=== PATIENT | male | born 1945 | race African-American/Black ===

== ENCOUNTER 2018-03-13 10:13 | Emergency (ER) | payer OTHER ==
--- NOTE | 2018-03-13 11:13 | RAD REPORT ---
EXAM DESCRIPTION: CT - Ct Stroke Brain Wo Cont - 03/13/2018 11:06 am CLINICAL HISTORY: CVA symptomology. Dizziness. COMPARISON: None. TECHNIQUE: All CT scans are performed using dose optimization technique as appropriate and may inclu de automated exposure control or mA/KV adjustment according to patient size. FINDINGS: No intracranial hemorrhage, hydrocephalus or extra-axial fluid collection.Mild brain atrop hy with mild chronic microvascular ischemic changes in the periventricular white matter.No areas of b rain edema or evidence of midline shift. The paranasal sinuses and mastoids are clear. The calvarium is intact. IMPRESSION: No acute intracranial abnormality.
[2018-03-13 11:20] LABS: Bicarbonate 22 mEq/L (21-31); Glucose Level 91 mg/dL (65-120); Potassium 4.4 mEq/L (3.6-5.0); Sodium Level 135 mEq/L (135-145)
[2018-03-13 11:21] LABS: BUN Blood Urea Nitrogen 17 mg/dL (6-20)
[2018-03-13 11:28] LABS: Protime INR 0.98
[2018-03-13 11:30] LABS: Absolute Monocytes 0.4 K/uL (0.1-1.3); Basophils % 0.8 % (0-1.3); Eosinophils % 1.4 % (0-4.4); Hematocrit 38.9 % (39.6-49.0); Lymphocytes % 22.6 % (15.3-44.8); MCH 28.7 pg (27.0-35.0); MCV 89.5 fL (80-100); MPV 7.5 fL (7.6-11.3); Monocytes % 9.7 % (3.3-12.3); RBC Red Blood Cell Count 4.35 M/uL (4.33-5.43)
[2018-03-13] MEDS ORDERED: NA CHLORIDE 0.9% 0 ML ONE (12:34)
--- NOTE | 2018-03-13 12:44 | RAD REPORT ---
EXAM DESCRIPTION: RAD - Chest Single View - 03/13/2018 11:23 am CLINICAL HISTORY: Chest pain. COMPARISON: 03/11/2013 FINDINGS: Portable technique limits examination quality. The lungs are grossly clear. The heart is upper limit of normal in size. No displaced fractures. IMPRESSION: No acute intrathoracic process suspected.
--- NOTE | 2018-03-13 12:47 | EDPHYS ---
Physician Documentation [facility] Name: Ruel Smith Age: 72 yrs Sex: Male : 1945 Arrival Date: 03/13/2018 Time: 10:15 Bed 5 Private MD: Aneesh Phan C ED Physician Jaquan Araya HPI: 03/13 10:51 This 72 yrs old Black Male presents to ER via Ambulatory with complaints of Dizziness. wa 10:51 The patient presents with dizziness, feeling faint, lightheadedness, feeling off wa balance. Onset: The symptoms/episode began/occurred just prior to arrival. Context: occurred [facility], occurred while the patient was standing, just prior to the episode the patient experienced no apparent symptoms, c/o feeling off balance for over 1 month. has not seen a doc for this. states felt maybe related to old age. today while standing at [facility] became lightheaded [facility] states feeling a bit better now but still dizzy. denies FROST, chest pain, SOB, abd pain. took all his meds after breakfast before going to [facility] today. h/o HTN and renal failure. s/p kidney transplant at [facility] 2 yrs ago. Modifying factors: The symptoms are alleviated by nothing, the symptoms are aggravated by standing up, walking. Associated signs and symptoms: Pertinent positives: near-syncope, Pertinent negatives: abdominal pain, agitation, blurred vision, chest pain, confusion, diaphoresis, focal weakness, head injury, headache, nausea, shortness of breath, syncope, tingling. Severity of symptoms: At their worst the symptoms were moderate this morning, in the emergency department the symptoms have improved. Patient's baseline: Neuro: alert and fully oriented, Motor: states has been feeling off-balance for over 1 month. states has to be real careful when walks, Ambulation: walks without assistance. as noted above, on-going x 1-2 months. The patient has not recently seen a physician. Historical: - Allergies: 10:21 Morphine; la1 - Home Meds: 10:45 Prograf 1 mg Oral cap every 12 hours [Active]; Myfortic 180 mg oral TbEC twice a day sv [Active]; prednisone 5 mg Oral tab once daily [Active]; aspirin 81 mg Oral chew 1 tab once daily [Active]; Plavix 75 mg Oral tab 1 tab once daily [Active]; Coreg 25 mg Oral tab 1 tab 2 times per day [Active]; nifedipine 60 mg Oral TbER 1 tab once daily [Active]; hydralazine 100 mg Oral tab 1 tab 2 times per day [Active]; Lipitor 20 mg Oral tab 1 tab once daily [Active]; cholecalciferol (vitamin D3) oral oral [Active]; ergocalciferol (vitamin D2) oral oral [Active]; ferrous sulfate 325 mg (65 mg iron) Oral tab twice a day [Active]; losartan 25 mg oral tab 1 tab once daily [Active]; - PMHx: 10:21 Hypertension; la1 - PSHx: 10:21 renal transplant; Heart stents; total knees; la1 10:45 Knee surgery; Left nephrectomy; sv - Immunization history:: Adult Immunizations up to date. - Social history:: Smoking status: Patient/guardian denies using tobacco. - Family history:: not pertinent. - Hospitalizations: : No recent hospitalization is reported. ROS: 10:59 Constitutional: Negative for fever, chills, and weight loss, Eyes: Negative for injury, wa pain, redness, and discharge, ENT: Negative for injury, pain, and discharge, Neck: Negative for injury, pain, and swelling, Cardiovascular: Negative for chest pain, palpitations, and edema, Respiratory: Negative for shortness of breath, cough, wheezing, and pleuritic chest pain, Abdomen/GI: Negative for abdominal pain, nausea, vomiting, diarrhea, and constipation, Back: Negative for injury and pain, : Negative for injury, bleeding, discharge, and swelling, MS/Extremity: Negative for injury and deformity, Skin: Negative for injury, rash, and discoloration, Psych: Negative for depression, anxiety, suicide ideation, homicidal ideation, and hallucinations. 10:59 Neuro: Positive for dizziness, gait disturbance, Negative for altered mental status, headache, loss of consciousness, numbness, seizure activity, speech changes, tingling, tremor, visual changes, weakness, acute changes. 10:59 All other systems are negative. Exam: 11:00 Constitutional: This is a well developed, well nourished patient who is awake, alert, wa and in no acute distress. Head/Face: Normocephalic, atraumatic. Eyes: Pupils equal round and reactive to light, extra-ocular motions intact. Lids and lashes normal. Conjunctiva and sclera are non-icteric and not injected. Cornea within normal limits. Periorbital areas with no swelling, redness, or edema. ENT: Nares patent. No nasal discharge, no septal abnormalities noted. Tympanic membranes are normal and external auditory canals are clear. Oropharynx with no redness, swelling, or masses, exudates, or evidence of obstruction, uvula midline. Mucous membranes moist. Neck: Trachea midline, no thyromegaly or masses palpated, and no cervical lymphadenopathy. Supple, full range of motion without nuchal rigidity, or vertebral point tenderness. No Meningismus. Chest/axilla: Normal chest wall appearance and motion. Nontender with no deformity. No lesions are appreciated. Cardiovascular: Regular rate and rhythm with a normal S1 and S2. No gallops, murmurs, or rubs. Normal PMI, no JVD. No pulse deficits. Respiratory: Lungs have equal breath sounds bilaterally, clear to auscultation and percussion. No rales, rhonchi or wheezes noted. No increased work of breathing, no retractions or nasal flaring. Abdomen/GI: Soft, non-tender, with normal bowel sounds. No distension or tympany. No guarding or rebound. No evidence of tenderness throughout. Back: No spinal tenderness. No costovertebral tenderness. Full range of motion. Skin: Warm, dry with normal turgor. Normal color with no rashes, no lesions, and no evidence of cellulitis. MS/ Extremity: Pulses equal, no cyanosis. Neurovascular intact. Full, normal range of motion. Psych: Awake, alert, with orientation to person, place and time. Behavior, mood, and affect are within normal limits. 11:00 Eyes: Nystagmus: mild horizontal nystagmus noted with lateral gazing bilaterally. 11:00 Neuro: Orientation: is normal, Mentation: is normal, Memory: is normal, Cranial nerves: grossly normal, Cerebellar function: dysmetria is noted on both sides, mild, heel to bojorquez testing is normal, able to perform alternating rapid hand movements, Motor: is grossly normal based on the patient's age, moves all fours, strength is normal, Gait: not tested. due to concern for fall. Vital Signs: 10:21 BP 125 / 70; Pulse 65; Resp 19; Temp 97.9; Pulse Ox 100% on R/A; Weight 104.33 kg; la1 Height 5 ft. 11 in. (180.34 cm); 11:54 BP 135 / 67; Pulse 57 MON; Resp 20; Pulse Ox 97% on R/A; sv 12:46 BP 132 / 70; Pulse 58; Resp 15; Pulse Ox 99% on R/A; sv 10:21 Body Mass Index 32.08 (104.33 kg, 180.34 cm) la1 11:54 Sinus bradycardia with Occasional PVCs sv NIH Stroke Scale Scores: 10:25 NIHSS Score: 0 sv MDM: 10:[address] 11:03 Differential diagnosis: cardiac arrhythmia, CVA, TIA, vertigo, needs r/o for posterior wa circulation CVA. will work up and consult neurology. 12:32 Data reviewed: vital signs, nurses notes, lab test result(s), EKG, radiologic studies. ct Test interpretation: by ED physician or midlevel provider: EKG: HR 70. occasional PVC's. . 12:35 Test interpretation: by ED physician or midlevel provider: CXR: blunting of L wa costophrenic angle. . 12:36 Test interpretation: by ED physician or midlevel provider: labs noted for nml Cr. nml wa BMP. nml cbc. nml troponin. CT brain. atrophy and microangiopathy. no acute process. Response to treatment: the patient's symptoms have resolved after treatment, symptoms resolved. pt ambulated without help in ER. I do not have neurology contract negotiator. my plan: transfer for neurology assessment and MRI. pt and spouse refused admit and would rather do so as out-pt. risks and benefits explained and accepted. will give out pt neurology referral. pt and spouse understand to return emergently if symptoms reoccur and or if they change their mind and agrees to emergent work up . 03/13 10:40 Order name: Troponin (emerg Dept Use Only); Complete Time: 12:03/13 10:40 Order name: Basic Metabolic Panel; Complete Time: 12:03/13 10:40 Order name: CBC with Diff; Complete Time: 12:03/13 10:40 Order name: Protime (+inr); Complete Time: 12:03/13 10:52 Order name: Glucose, Ancillary Testing; Complete Time: 12:25 EDMS 03/13 10:40 Order name: CT Stroke Brain w/o Contrast; Complete Time: 12:00 ct 03/13 10:40 Order name: Stroke CXR 1 View; Complete Time: 12:49 ct 03/13 10:40 Order name: EKG; Complete Time: 10:41 ct 03/13 10:40 Order name: Accucheck; Complete Time: 10:58 ct 03/13 10:40 Order name: Cardiac monitoring; Complete Time: 10:40 ct 03/13 10:40 Order name: EKG - Nurse/Tech; Complete Time: 10:40 ct 03/13 12:43 Order name: Urine Dipstick--Ancillary (enter results) la 03/13 10:40 Order name: IV Saline Lock; Complete Time: 10:58 ct 03/13 10:40 Order name: Labs collected and sent; Complete Time: 10:58 ct 03/13 10:40 Order name: NPO; Complete Time: 10:41 ct 03/13 10:40 Order name: O2 Sat Monitoring; Complete Time: 10:41 ct 03/13 10:40 Order name: Stroke Swallow Screen; Complete Time: 13:06 ct 03/13 10:40 Order name: Urine Dipstick-Ancillary (obtain specimen); Complete Time: 13:06 ct Administered Medications: 13:06 CANCELLED (PT leaving AMA): NS 0.9% 500 ml IV at bolus once sv Point of Care Testing: Blood Glucose: 10:50 Blood Glucose: 82 mg/dL; sv Ranges: Critical Glucose Levels:Adult <50 mg/dl or >400 mg/dl <40 mg/dl or >180 mg/dl Disposition: 03/13/18 12:46 Patient has left against medical advice. Impression: Acute Dizziness, Dysequilibrium. - Patients states they are going to Home. - Condition is Stable. - Discharge Instructions: Dizziness, [id number]. Follow up: Fazal Rothman MD; When: Tomorrow; Reason: Re-evaluation by your physician. Follow up: Kwame Huitron MD; When: Tomorrow; Reason: Re-evaluation by your physician. - Problem is an ongoing problem. - Symptoms have improved. - Notes: continue your medication as prescribed. please return here immediately of your symptoms reoccur. Otherwise make an appoinment and see one of the neurologist prescribed you within 48 hours. you may need ans MRI to make sure you do not have a stroke NIH Stroke Scale - NIH Stroke Score Date: 03/13/2018 Time: 10:25 Total Score = 0 1a. Level of Consciousness (LOC) - 0(Alert) 1b. Level of Consciousness (LOC) (Year \T\ Age) - 0(Both) 1c. LOC Commands (Open \T\ Closes Eyes/System Software Programmer) - 0(Both) 2. Best Gaze (Lateral Gaze Paresis) - 0(Normal) 3. Visual Field Loss - 0(No visual loss) 4. Facial Palsy - 0(Normal) 5a. Left Arm: Motor (10-second hold) - 0(No drift) 5b. Right Arm: Motor (10-second hold) - 0(No drift) 6a. Left Leg: Motor (5-second hold - always test supine) - 0(No drift) 6b. Right Leg: Motor (5-second hold - always test supine) - 0(No drift) 7. Limb Ataxia (finger/nose \T\ heel/bojorquez - test with eyes open) - 0(Absent) 8. Sensory Loss (pinprick arms/legs/face) - 0(Normal) 9. Best Language: Aphasia (description/naming/reading) - 0(No aphasia) 10. Dysarthria (speech clarity - read or repeat words) - 0(Normal) 11. Extinction and Inattention (visual/tactile/auditory/spatial/personal) - 0(No abnormality) Initials: sv Signatures: Dispatcher [employer] EDRitu Mendosa RN RN Villa Amato RN RN la1 Jaquan Araya MD MD wa Corrections: (The following items were deleted from the chart) 13:06 12:32 NS 0.9% 500 ml IV at bolus once ordered. [facility] 13:08 12:46 03/13/2018 12:46 Patients has left against medical advice. Impression: sv Acute Dizziness; Dysequilibrium. Patient states they are going to Home. Condition is Stable. Follow up: Fazal Rothman; When: Tomorrow; Reason: Re-evaluation by your physician. Follow up: Kwame Huitron; When: Tomorrow; Reason: Re-evaluation by your physician. Problem is an ongoing problem. Symptoms have improved. wa
--- NOTE | 2018-03-13 12:47 | ER ---
Nurse's Notes [facility] Name: Ruel Smith Age: 72 yrs Sex: Male : 1945 Arrival Date: 03/13/2018 Time: 10:15 Bed 5 Private MD: Aneesh Phan C Diagnosis: Acute Dizziness;Dysequilibrium Presentation: 03/13 10:19 Presenting complaint: Patient states: At about 0920 I got a dizzy spell. I feel like my la1 equilibrium is off, dump grader equal and strong, negative for facial droop or arm drift. Transition of care: patient was not received from another setting of care. Onset of symptoms was March 13, 2018. Initial Sepsis Screen: Does the patient meet any 2 criteria? No. Patient's initial sepsis screen is negative. Does the patient have a suspected source of infection? No. Patient's initial sepsis screen is negative. Care prior to arrival: None. 10:19 Method Of Arrival: Ambulatory la1 10:19 Acuity: ALIA 3 la1 Historical: - Allergies: 10:21 Morphine; la1 - Home Meds: 10:45 Prograf 1 mg Oral cap every 12 hours [Active]; Myfortic 180 mg oral TbEC twice a day sv [Active]; prednisone 5 mg Oral tab once daily [Active]; aspirin 81 mg Oral chew 1 tab once daily [Active]; Plavix 75 mg Oral tab 1 tab once daily [Active]; Coreg 25 mg Oral tab 1 tab 2 times per day [Active]; nifedipine 60 mg Oral TbER 1 tab once daily [Active]; hydralazine 100 mg Oral tab 1 tab 2 times per day [Active]; Lipitor 20 mg Oral tab 1 tab once daily [Active]; cholecalciferol (vitamin D3) oral oral [Active]; ergocalciferol (vitamin D2) oral oral [Active]; ferrous sulfate 325 mg (65 mg iron) Oral tab twice a day [Active]; losartan 25 mg oral tab 1 tab once daily [Active]; - PMHx: 10:21 Hypertension; la1 - PSHx: 10:21 renal transplant; Heart stents; total knees; la1 10:45 Knee surgery; Left nephrectomy; sv - Immunization history:: Adult Immunizations up to date. - Social history:: Smoking status: Patient/guardian denies using tobacco. - Family history:: not pertinent. - Hospitalizations: : No recent hospitalization is reported. Screenin:25 Abuse screen: Denies threats or abuse. Denies injuries from another. Nutritional sv screening: No deficits noted. Tuberculosis screening: No symptoms or risk factors identified. Fall Risk No fall in past 12 months (0 pts). No secondary diagnosis (0 pts). No IV (0 pts). Ambulatory Aid- None/Bed Rest/Nurse Assist (0 pts). Gait- Normal/Bed Rest/Wheelchair (0 pts) Mental Status- Oriented to own ability (0 pts). Total Orr Fall Scale indicates No Risk (0-24 pts). 11:30 Patient has been NPO before screening. The patient is alert, able to follow commands. sv The patient does not exhibit slurred or garbled speech The patient is not exhibiting difficulty speaking. The patient does not exhibit difficulty understanding words. The patient is able to swallow own secretions with no drooling or need for suction. Patient tolerated one teaspoon of water. No drooling, immediate coughing, gurgling, or clearing of the throat was noted. The patient tolerated 90mL of water. No drooling, immediate coughing, gurgling, or clearing of the throat was noted. The patient passed the bedside swallow screening. Oral medications may be given as ordered. Contact Physician for further diet orders. Provider notified of bedside swallow screening results: Jaquan Araya MD. Assessment: 10:25 General: Appears in no apparent distress. comfortable, well developed, Behavior is sv calm, cooperative, appropriate for age. Pain: Denies pain. Neuro: Level of Consciousness is awake, alert, obeys commands, Oriented to person, place, time, situation, Grader Green Meat are equal bilaterally Moves all extremities. Full function Gait is unsteady, Speech is normal, Facial symmetry appears normal, Pupils are PERRLA, Reports dizziness, since 0930 today "tightness in my head" (pt pointing to his entire forehead). Denies numbness headache. Cardiovascular: Patient's skin is warm and dry. Rhythm is sinus bradycardia. Respiratory: Respiratory effort is even, unlabored, Respiratory pattern is regular, symmetrical. Derm: Skin is normal. Musculoskeletal: Range of motion: intact in all extremities, Swelling absent. 12:35 Reassessment: Patient appears in no apparent distress at this time. Patient and/or sv family updated on plan of care and expected duration. Pain level reassessed. Patient is alert, oriented x 3, equal unlabored respirations, skin warm/dry/pink. Pt ambulatory to the bathroom with no assistance. Pt denies dizziness. Patient states feeling better. Patient states symptoms have improved. 13:07 Reassessment: Patient appears in no apparent distress at this time. Patient and/or sv family updated on plan of care and expected duration. Pain level reassessed. Patient is alert, oriented x 3, equal unlabored respirations, skin warm/dry/pink. Patient states feeling better. Patient states symptoms have improved. Neuro: Denies dizziness. Vital Signs: 10:21 BP 125 / 70; Pulse 65; Resp 19; Temp 97.9; Pulse Ox 100% on R/A; Weight 104.33 kg; la1 Height 5 ft. 11 in. (180.34 cm); 11:54 BP 135 / 67; Pulse 57 MON; Resp 20; Pulse Ox 97% on R/A; sv 12:46 BP 132 / 70; Pulse 58; Resp 15; Pulse Ox 99% on R/A; sv 10:21 Body Mass Index 32.08 (104.33 kg, 180.34 cm) la1 11:54 Sinus bradycardia with Occasional PVCs sv NIH Stroke Scale Scores: 10:25 NIHSS Score: 0 sv ED Course: 10:15 Patient arrived in ED. mr 10:16 Aneesh Phan MD is Private Physician. mr 10:20 Triage completed. la1 10:21 Arm band placed on left wrist. la1 10:25 Jaquan Araya MD is Attending Physician. wa 10:25 Patient has correct armband on for positive identification. Placed in gown. Bed in low sv position. Call light in reach. Side rails up X 1. Adult w/ patient. playground monitor on. Pulse ox on. NIBP on. Door closed. Warm blanket given. Head of bed elevated. 10:26 ED physician to see patient. sv 10:35 Ritu Moscoso, JAY is Primary Nurse. sv 10:35 Missed attempt(s): 22 gauge in right forearm. done by Thomas bucio. Bleeding sv controlled, band aid applied, catheter tip intact. 10:[address] via stretcher. sv 11:01 CT completed. Patient moved to radiology. cw1 11:06 CT Stroke Brain w/o Contrast In Process Unspecified. EDMS 11:09 Stroke CXR 1 View In Process Unspecified. EDMS 11:22 Initial lab(s) drawn, by me, sent to lab. Inserted saline lock: 22 gauge in right jb1 antecubital area, using aseptic technique. Blood collected. 12:45 Fazal Rothman MD is Referral Physician. wa 12:45 Kwame Huitron MD is Referral Physician. wa 13:07 No provider procedures requiring assistance completed. IV discontinued, intact, sv bleeding controlled, No redness/swelling at site. Pressure dressing applied. Administered Medications: 13:06 CANCELLED (PT leaving AMA): NS 0.9% 500 ml IV at bolus once sv Point of Care Testing: Blood Glucose: 10:50 Blood Glucose: 82 mg/dL; sv Ranges: Outcome: 13:07 AMA AMA form signed sv 13:07 Condition: stable 13:07 Discharge instructions given to patient, family, Pt and spouse instructed to return to the nearest ER if problems reoccur. Pt stated that he would come back if he felt bad again. 13:08 Patient left the ED. sv NIH Stroke Scale - NIH Stroke Score Date: 03/13/2018 Time: 10:25 Total Score = 0 1a. Level of Consciousness (LOC) - 0(Alert) 1b. Level of Consciousness (LOC) (Year \\T\\ Age) - 0(Both) 1c. LOC Commands (Open \\T\\ Closes Eyes/Software Product Manager) - 0(Both) 2. Best Gaze (Lateral Gaze Paresis) - 0(Normal) 3. Visual Field Loss - 0(No visual loss) 4. Facial Palsy - 0(Normal) 5a. Left Arm: Motor (10-second hold) - 0(No drift) 5b. Right Arm: Motor (10-second hold) - 0(No drift) 6a. Left Leg: Motor (5-second hold - always test supine) - 0(No drift) 6b. Right Leg: Motor (5-second hold - always test supine) - 0(No drift) 7. Limb Ataxia (finger/nose \\T\\ heel/bojorquez - test with eyes open) - 0(Absent) 8. Sensory Loss (pinprick arms/legs/face) - 0(Normal) 9. Best Language: Aphasia (description/naming/reading) - 0(No aphasia) 10. Dysarthria (speech clarity - read or repeat words) - 0(Normal) 11. Extinction and Inattention (visual/tactile/auditory/spatial/personal) - 0(No abnormality) Initials: sv Signatures: Dispatcher [employer] Thomas Holbrook jb1 Ritu Moscoso RN RN sv Rivera, Maria mr Hernandez, Nancy cw1 Villa Amato RN RN la1 Jaquan Araya MD MD wa
[2018-03-13 13:02] LABS: Urine Blood NEGATIVE (NEG); Urine Glucose NEGATIVE (NEG); Urine Protein NEGATIVE (NEG); Urine Specific Gravity 1.015 (1.005-1.030)
[2018-03-13 13:14] VITALS: TEMP 97.9
[2018-03-13 13:17] VITALS: BP 132/70; O2SAT 99
--- NOTE | 2018-03-14 14:47 | EKG ---
Test Date: 2018-03-13 Test Time: 10:37:46 Business Risk Consultant: SWG MEASUREMENT RESULTS: Intervals: Rate: 70 MT: 180 QRSD: 90 QT: 420 QTc: 453 [place]: P: 43 MT: 180 QRS: -29 T: -3 INTERPRETIVE STATEMENTS: Sinus rhythm and premature ventricular complexes Abnormal ECG Compared to ECG 12/14/2015 09:59:58 Ventricular premature complex(es) now present Sinus bradycardia no longer present Electronically Signed On 03-14-18 14:46:49 CDT by William Wynn
== END 2018-03-13 13:08 | disposition left against medical advice (07) ==
LOC: ER 10:13
DX: R42 Dizziness and giddiness (principal); I10 Essential (primary) hypertension; Z94.0 Kidney transplant status; Z95.818 Presence of other cardiac implants and grafts; Z79.01 Long term (current) use of anticoagulants; Z79.82 Long term (current) use of aspirin; Z88.5 Allergy status to narcotic agent
CPT/HCPCS: 36415; 70450; 71045; 80048; 81003; 82962; 84484; 85025; 85610; 93005; 99285

== ENCOUNTER 2023-04-18 17:24 | Emergency (ER) | payer OTHER ==
--- OUTSIDE RECORDS SUMMARY | 2023-04-18 17:31 | XMS REPORT | Continuity of Care Document ---
:1945 Author Organization [facility] [place] [facility] t Address [address] [facility] [address] [place] [id number] Care Team Providers Name Role Phone Unknown, Physician Primary Care Physician Unavailable KRYSTAL LEMON Attending Clinician Unavailable ELVIS CASE Attending Clinician Unavailable Krystal Lemon MD Attending Clinician Doctor Unassigned, [place] Attending Clinician Unavailable Michelle Terrell LVN Attending Clinician Unavailable Francine THOMPSON, Zoe Krause Attending Clinician David Summers DO Attending Clinician Cristobal Marsh DO Attending Clinician Travis Taveras MD Attending Clinician TRAVIS TAVERAS Attending Clinician Unavailable Nurse, [facility] Attending Clinician Unavailable Suellen Godoy Attending Clinician SUELLEN ROJAS Attending Clinician Unavailable Adrian Benson MD Attending Clinician Unavailable ELVIS CASE M.D. Attending Clinician Unavailable Only, Adc Test Attending Clinician Unavailable DEXA, SCAN Attending Clinician Unavailable KRYSTAL LEMON Admitting Clinician Unavailable Krystal Lemon MD Admitting Clinician Travis Taveras MD Admitting Clinician TRAVIS TAVERAS Admitting Clinician Unavailable Payers Payer Name Policy Type Policy Number Effective Date Expiration Date S ource MEDICARE PART A [id number] 2008 2022 AND B 00:00:00 00:00:00 MEDICARE PART A [id number] 2008 \\T\\ B 00:00:00 [employer] MEDICARE [id number] 2022 ADVANTAGE PPO 00:00:00 Problems Condition Condition Condition Status Onset Resolution Last Treating Co mments Source Name Details Category Date Date Treatment Clinician Date Fatigue Fatigue Disease Active [facility] 4-23 [facility] 00:00: 00 Pneumonia Pneumonia Disease Active Uni vers due to due to 11-06 ity of COVID-19 COVID-19 00:00: [place] virus virus 00 Medical Branch Acute Acute Disease Active Univers respirator respirator 11-06 it y of y failure y failure 00:[place] due to due to 00 Medical COVID-19 COVID-19 Branch 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 07-24 He alth sm sm 00:00: 00 Vitamin D Vitamin D Disease Active UT deficiency deficiency 07-24 He alth , , 00:00: unspecifie unspecifie 00 d d Urinary Urinary Disease Active UT urgency urgency 1- Health 00:00: 00 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 00:00: 00 Malignant Malignant Disease Active UT neoplasm neoplasm 11-21 Health of left of left 00:00: kidney kidney 00 Lung Lung Disease Active UT nodules nodules 21 Health 00:00: 00 Urinary Urinary Disease Active UT frequency frequency 11-21 Heal th 00:00: 00 Other Other Disease Active UT nonspecifi nonspecifi 121 He alth c abnormal c abnormal 00:00: finding of finding of 00 lung field lung field 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 00:00: irais irais 00 Acquired Acquired Disease Active UT renal cyst renal cyst 7-15 He alth 00:00: 00 Acute Acute Disease Active UT kidney kidney 6 Health failure, failure, 00:00: unspecifie unspecifie 00 d d Elevated Elevated Disease Active UT prostate prostate 04-23 Health specific specific 00:00: antigen antigen 00 (PSA) (PSA) 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-23 He alth status status 00:00: 00 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 04-23 He alth ant ant 00:00: disorder disorder 00 Oliguria Oliguria Disease Active UT and anuria and anuria 04-23 He alth 00:00: 00 Benign Benign Disease Active UT prostatic prostatic 04-23 Heal th hyperplasi hyperplasi 00:00: a a 00 Chronic Chronic Disease Active Univers renal renal 3-10 ity of disease disease 00:00: [place] 00 Medical Branch Acquired Acquired Problem Active UT renal cyst renal cyst Ph ysici ans Acute Acute Problem Active UT cystitis cystitis Physic i without without ans hematuria hematuria Acute Acute Problem Active UT kidney kidney Physici failure, failure, ans unspecifie unspecifie d d Benign Benign Problem Active UT prostatic prostatic Phys ici hyperplasi hyperplasi an s a (BPH) a (BPH) with with urinary urinary urgency urgency Arthritis Arthritis Problem Active UT Physici ans Urinary Urinary Problem Active UT frequency frequency Phys ici ans CAD CAD Problem Active UT (coronary (coronary Phys ici artery artery ans disease) disease) ESRD (end ESRD (end Problem Active UT stage stage Physici renal renal ans disease) disease) Essential Essential Problem Active UT (primary) (primary) Phys ici hypertensi hypertensi an s on on Hyperchole Hyperchole Problem Active U T sterolemia sterolemia Ph ysici ans Hypertensi Hypertensi Problem Active U T ve ve Physici nephroscle nephroscle an s rosis rosis GERD GERD Problem Active UT (gastroeso (gastroeso Ph ysici phageal phageal ans reflux reflux disease) disease) Simple Simple Problem Active UT obesity obesity Physici ans Lupus Lupus Problem Active UT anticoagul anticoagul Ph ysici ant ant ans disorder disorder Malignant Malignant Problem Active UT neoplasm neoplasm Physic i of left of left ans kidney kidney Kidney Kidney Problem Active UT neoplasm neoplasm Physic i ans Oliguria Oliguria Problem Active UT and anuria and anuria Ph ysici ans Kidney Kidney Problem Active UT transplant transplant Ph ysici status status ans Elevated Elevated Problem Active UT prostate prostate Physic i specific specific ans antigen antigen (PSA) (PSA) PHT PHT Problem Active UT (pulmonary (pulmonary Ph ysici hypertensi hypertensi an s on) on) BPH BPH Problem Active UT (benign (benign Physici prostatic prostatic ans hyperplasi hyperplasi a) a) Urinary Urinary Problem Active UT urgency urgency Physici ans Lung Lung Problem Active UT nodules nodules Physici ans 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 Physici erythemato erythemato an s irais irais Allergies, Adverse Reactions, Alerts Allergy Allergy Status Severity Reaction(s) Onset Inactive Treating Comm ents Source Name Type Date Date Clinician Morphine Allergy Active UT to 07-22 Health substanc 00:00: e 00 Morphine Propensi Active Hallucinatio Univers ty to ns 2-15 ity of adverse 00:00: [place] reaction 00 Medical s Branch MORPHINE DRUG Active Hallucinates Un olga INGREDI 2-15 ity of 00:00: [place] 00 Medical Branch morphine Allergy Active UT to drug Physici (finding ans ) Family History Family Member Diagnosis Comments Start Date Stop Date Source Mother Family history of malignant [facility] neoplasm Mother Family history of cataracts [facility] Mother Family history of [facility] hypertension Mother Family history of type 2 [facility] diabetes mellitus Mother Family history of cardiac [facility] disorder Father Family history of cataracts [facility] Father Family history of [facility] cerebrovascular accident (CVA) Father Family history of cardiac [facility] disorder Sister Family history of malignant [facility] neoplasm Brother Family history of ESRD (end [facility] stage renal disease) Social History Social Habit Start Date Stop Date Quantity Comments Source History of Current smoker [facility] tobacco use Exposure to 2022-11-20 2022-11-30 Not sure [facility] SARS-CoV-2 00:00:00 10:31:00 (event) Alcohol intake 2022-04-22 2022-04-22 Ex-drinker [facility] 00:00:00 00:00:00 (finding) [facility] Tobacco use and 2015-12-16 2015-12-16 Never used Universit y of exposure 00:00:00 00:00:00 [facility] Sex Ass[birth year] Universit y of 00:00:00 00:00:00 [facility] Smoking Status Start Date Stop Date Source Ex-smoker 2021-07-22 00:00:00 2021-07-22 00:00:00 [facility] Never smoker [facility] Medications Ordered Filled Start Stop Current Ordering Indication Dosage Frequency Signature Comments Components Source Medication Medication Date Date Medication? Clinician (SIG) Name Name water for 2021- No PRN, Univers irrigation 04-22 Starting ity of irrigation 16:24: 16:44 on Wed [place] solution 00 :52 04/22/22 at Medic al 1124, Branch Until Wed04/22/22 at 1144, Routine, Intra-op simethicone 2021- No PRN, Unive rs (GAS RELIEF 04-22 Starting ity of (SIMETHICON 16:24: 16:44 on Wed [place] as E)) 40 00 :52 04/22/22 at Medical mg/0.6 mL 1124, Branch drops Until Wed04/22/22 at 1144, Routine, Intra-op lactated 2021- No 1000mL at 42 [facility] rs ringers IV 04-22 mL/hr, ity of infusion 15:15: 15:17 1,000 mL, [place] as 1,000 mL 00 :00 IV Medical Infusion, Branch ONCE, 1 dose, On Wed04/22/22 at 1015, Routine, DSU Pre-op lactated 2021- No 1000mL at 42 [facility] rs ringers IV 04-22 mL/hr, ity of infusion 15:15: 15:17 1,000 mL, [place] as 1,000 mL 00 :00 IV Medical Infusion, [place] ONCE, 1 dose, On Wed04/22/22 at 1015, Routine, DSU Pre-op atorvastati Yes 20mg Take 20 mg Univers n (LIPITOR) 04-22 by mouth ity of 20 mg 15:04: at [place] tablet 51 bedtime. Medical Branch clopidogrel Yes 75mg Take 75 mg Univers (PLAVIX) 75 04-22 by mouth ity of mg tablet 15:04: daily. [address] Garlic Yes Take by Univers (ODOR FREE 04-22 mouth. ity of GARLIC) Tab 15:04: [address] Cholecalcif Yes 1{capsu Take 1 U nivers juan, 04-22 le} capsule by ity of Vitamin D3, 15:04: mouth [place] (VITAMIN 51 daily. Medical D3) 2,000 Branch unit capsule prednisoLON 2022-0 Yes 5mg Take 5 mg U nivers E 5 mg 6-22 by mouth ity of tablet 15:04: daily. [place] [address] Medical Branch tacrolimus 0 Yes 4mg Take 4 mg Un olga 1 mg 6-22 by mouth ity of capsule 15:04: every 12 [place] [address] (twelve) Medical hours. Branch mycophenola 0 Yes 360mg Take 360 U nivers te sodium 6-22 mg by ity of 180 mg EC 15:04: mouth [place] tablet 51 every 12 Medical (twelve) Branch hours. 180mg tablet, take 2 tablets Q12, 0800 and 1999 aspirin 81 2021-0 Yes 81mg Take 81 mg U nivers mg EC 6-22 by mouth ity of tablet 15:04: daily. [place] [address] Medical Branch ferrous 2021-0 Yes 325mg Take 325 Unive rs sulfate 325 6-22 mg by ity of mg (65 mg 15:04: mouth 2 [place] iron) 51 (two) Medical tablet times Branch daily. carvediloL 0 Yes 25mg Take 25 mg U nivers 25 mg 6-22 by mouth 2 ity of tablet 15:04: (two) [place] [address] times Medical daily with Branch meals. NIFEdipine 0 Yes 60mg Take 60 mg U nivers ER 60 mg 6-22 by mouth ity of tablet 15:04: daily. [place] [address] Medical Branch hydrALAZINE 0 Yes 100mg Take 100 U nivers 100 mg 6-22 mg by ity of tablet 15:04: mouth 2 [place] [address] (two) Medical times Branch daily. losartan 25 2021-0 Yes 25mg Take 25 mg Univers mg tablet 6-22 by mouth ity of 15:04: daily. [place] [address] Medical Branch vitamin 2021-0 Yes 1000ug Take 1,000 Un olga B-12 6-22 mcg by ity of (VITAMIN 15:04: mouth [place] B-12) 1,000 51 daily. Medica l mcg tablet Branch Acetaminoph 0 Yes 1{capsu Take 1 U nivers en 500 mg 6-22 le} capsule by ity of Cap 15:04: mouth as [place] 51 needed for Medical Pain Branch (scale 1-3). atorvastati 2021-0 Yes 20mg Take 20 mg Univers n (LIPITOR) 6-22 by mouth ity of 20 mg 15:04: at [place] tablet 51 bedtime. Medical Branch clopidogrel Yes 75mg Take 75 mg Univers (PLAVIX) 75 6-22 by mouth ity of mg tablet 15:04: daily. [place] [address] Medical Branch Garlic 0 Yes Take by Univers (ODOR FREE 6-22 mouth. ity of GARLIC) Tab 15:04: [place] [address] Medical Branch Cholecalcif 0 Yes 1{capsu Take 1 U nivers juan, 6-22 le} capsule by ity of Vitamin D3, 15:04: mouth [place] (VITAMIN 51 daily. Medical D3) 2,000 Branch unit capsule prednisoLON 0 Yes 5mg Take 5 mg U nivers E 5 mg 6-22 by mouth ity of tablet 15:04: daily. [place] [address] Medical Branch tacrolimus 0 Yes 4mg Take 4 mg Un olga 1 mg 6-22 by mouth ity of capsule 15:04: every 12 [place] [address] (twelve) Medical hours. Branch mycophenola 0 Yes 360mg Take 360 U nivers te sodium 6-22 mg by ity of 180 mg EC 15:04: mouth [place] [id number] every 12 Medical (twelve) Branch hours. 180mg tablet, take 2 tablets Q12, 0800 and 1999 aspirin 81 2021-0 Yes 81mg Take 81 mg U nivers mg EC 6-22 by mouth ity of tablet 15:04: daily. [place] [address] Medical Branch ferrous 0 Yes 325mg Take 325 Unive rs sulfate 325 6-22 mg by ity of mg (65 mg 15:04: mouth 2 [facility] [place] [facility]) (two) Medical tablet times Branch daily. carvediloL 0 Yes 25mg Take 25 mg U nivers 25 mg 6-22 by mouth 2 ity of tablet 15:04: (two) [place] [address] times [facility] daily with Branch meals. NIFEdipine 0 Yes 60mg Take 60 mg U nivers ER 60 mg 6-22 by mouth ity of tablet 15:04: daily. [place] [address] Medical Branch hydrALAZINE 0 Yes 100mg Take 100 U nivers 100 mg 6-22 mg by ity of tablet 15:04: mouth 2 [place] [address] (two) Medical times Branch daily. losartan 25 2021-0 Yes 25mg Take 25 mg Univers mg tablet 6-22 by mouth ity of 15:04: daily. [place] [address] Medical Branch vitamin 0 Yes 1000ug Take 1,000 Un olga B-12 6-22 mcg by ity of (VITAMIN 15:04: mouth [place] B-12) 1,000 51 daily. Medica l mcg tablet Branch Acetaminoph 0 Yes 1{capsu Take 1 U nivers en 500 mg 6-22 le} capsule by ity of Cap 15:04: mouth as [place] [address] needed for Medical Pain Branch (scale 1-3). atorvastati Yes 20mg Take 20 mg Univers n (LIPITOR) 6-22 by mouth ity of 20 mg 15:04: at [place] tablet 51 bedtime. Medical Branch clopidogrel 0 Yes 75mg Take 75 mg Univers (PLAVIX) 75 6-22 by mouth ity of mg tablet 15:04: daily. [place] [address] Medical Branch Garlic 0 Yes Take by Univers (ODOR FREE 6-22 mouth. ity of GARLIC) Tab 15:04: [place] [address] Medical Branch Cholecalcif 0 Yes 1{capsu Take 1 U nivers juan, 6-22 le} capsule by ity of Vitamin D3, 15:04: mouth [place] (VITAMIN 51 daily. Medical D3) 2,000 Branch unit capsule prednisoLON Yes 5mg Take 5 mg U nivers E 5 mg 6-22 by mouth ity of tablet 15:04: daily. [place] [address] Medical Branch tacrolimus 0 Yes 4mg Take 4 mg Un olga 1 mg 6-22 by mouth ity of capsule 15:04: every 12 [place] [address] (twelve) Medical hours. Branch mycophenola Yes 360mg Take 360 U nivers te sodium 6-22 mg by ity of 180 mg EC 15:04: mouth [place] tablet 51 every 12 Medical (twelve) Branch hours. 180mg tablet, take 2 tablets Q12, 0800 and 2000 aspirin 81 0 Yes 81mg Take 81 mg U nivers mg EC 6-22 by mouth ity of tablet 15:04: daily. [place] [address] Medical Branch ferrous 0 Yes 325mg Take 325 Unive rs sulfate 325 6-22 mg by ity of mg (65 mg 15:04: mouth 2 [place] iron) 51 (two) Medical tablet times Branch daily. carvediloL 2022-0 Yes 25mg Take 25 mg U nivers 25 mg 6-22 by mouth 2 ity of tablet 15:04: (two) [place] [address] times Medical daily with Branch meals. NIFEdipine 2021-0 Yes 60mg Take 60 mg U nivers ER 60 mg 6-22 by mouth ity of tablet 15:04: daily. [place] [address] Medical Branch hydrALAZINE 2021-0 Yes 100mg Take 100 U nivers 100 mg 6-22 mg by ity of tablet 15:04: mouth 2 [place] [address] (two) Medical times Branch daily. losartan 25 2021-0 Yes 25mg Take 25 mg Univers mg tablet 6-22 by mouth ity of 15:04: daily. [place] [address] Medical Branch vitamin 2021-0 Yes 1000ug Take 1,000 Un olga B-12 6-22 mcg by ity of (VITAMIN 15:04: mouth [place] B-12) 1,000 51 daily. Medica l mcg tablet Branch Acetaminoph Yes 1{capsu Take 1 U nivers en 500 mg 6-22 le} capsule by ity of Cap 15:04: mouth as [place] [address] needed for Medical Pain Branch (scale 1-3). mycophenola 2021-0 Yes 360mg Q.5D Take 360 U T te 4-13 mg by Health (Myfortic) 00:00: mouth 2 180 MG EC 00 (two) tablet times a day. mycophenola 2021-0 Yes 360mg Q.5D Take 360 U T te 4-13 mg by Health (Myfortic) 00:00: mouth 2 180 MG EC 00 (two) tablet times a day. mycophenola 2021-0 Yes 360mg Q.5D Take 360 U T te 4-13 mg by Health (Myfortic) 00:00: mouth 2 180 MG EC 00 (two) tablet times a day. mycophenola 2021-0 Yes 360mg Q.5D Take 360 U T te 4-13 mg by Health (Myfortic) 00:00: mouth 2 180 MG EC 00 (two) tablet times a day. mycophenola 2021-0 Yes 360mg Q.5D Take 360 U T te 4-13 mg by Health (Myfortic) 00:00: mouth 2 180 MG EC 00 (two) tablet times a day. tacrolimus 2021-0 Yes TAKE BY UT (Prograf) 1 4-10 MOUTH 4 Healt h MG capsule 00:00: CAPSULES 00 EVERY 12 HOURS tacrolimus 2022-0 Yes TAKE BY UT (Prograf) 1 4-10 MOUTH 4 Healt h MG capsule 00:00: CAPSULES 00 EVERY 12 HOURS tacrolimus 2022-0 Yes TAKE BY UT (Prograf) 1 4-10 MOUTH 4 Healt h MG capsule 00:00: CAPSULES 00 EVERY 12 HOURS tacrolimus 2022-0 Yes TAKE BY UT (Prograf) 1 4-10 MOUTH 4 Healt h MG capsule 00:00: CAPSULES 00 EVERY 12 HOURS tacrolimus 2022-0 Yes TAKE BY UT (Prograf) 1 4-10 MOUTH 4 Healt h MG capsule 00:00: CAPSULES 00 EVERY 12 HOURS atorvastati 2022-0 Yes 20mg Take 20 mg UT n (Lipitor) 3-14 by mouth Heal th 20 MG 00:00: every tablet 00 night. predniSONE 2022-0 Yes 5mg QD Take 5 mg UT (Deltasone) 3-14 by mouth 1 He alth 5 MG tablet 00:00: (one) time 00 each day. atorvastati 2022-0 Yes 20mg Take 20 mg UT n (Lipitor) 3-14 by mouth Heal th 20 MG 00:00: every tablet 00 night. predniSONE 2022-0 Yes 5mg QD Take 5 mg UT (Deltasone) 3-14 by mouth 1 He alth 5 MG tablet 00:00: (one) time 00 each day. atorvastati 2022-0 Yes 20mg Take 20 mg UT n (Lipitor) 3-14 by mouth Heal th 20 MG 00:00: every tablet 00 night. predniSONE 2022-0 Yes 5mg QD Take 5 mg UT (Deltasone) 3-14 by mouth 1 He alth 5 MG tablet 00:00: (one) time 00 each day. atorvastati 2022-0 Yes 20mg Take 20 mg UT n (Lipitor) 3-14 by mouth Heal th 20 MG 00:00: every tablet 00 night. predniSONE 2022-0 Yes 5mg QD Take 5 mg UT (Deltasone) 3-14 by mouth 1 He alth 5 MG tablet 00:00: (one) time 00 each day. atorvastati 2022-0 Yes 20mg Take 20 mg UT n (Lipitor) 3-14 by mouth Heal th 20 MG 00:00: every tablet 00 night. predniSONE 2022-0 Yes 5mg QD Take 5 mg UT (Deltasone) 3-14 by mouth 1 He alth 5 MG tablet 00:00: (one) time 00 each day. losartan 2022-0 Yes 25mg QD Take 25 mg UT (Cozaar) 25 3-12 by mouth 1 He alth MG tablet 00:00: (one) time 00 each day. losartan 2022-0 Yes 25mg QD Take 25 mg UT (Cozaar) 25 3-12 by mouth 1 He alth MG tablet 00:00: (one) time 00 each day. losartan 2022-0 Yes 25mg QD Take 25 mg UT (Cozaar) 25 3-12 by mouth 1 He alth MG tablet 00:00: (one) time 00 each day. losartan 2022-0 Yes 25mg QD Take 25 mg UT (Cozaar) 25 3-12 by mouth 1 He alth MG tablet 00:00: (one) time 00 each day. losartan 2022-0 Yes 25mg QD Take 25 mg UT (Cozaar) 25 3-12 by mouth 1 He alth MG tablet 00:00: (one) time 00 each day. ferrous 2022-0 Yes 1{tbl} Q.5D Take 1 UT sulfate 325 3-06 tablet by Hea lth (65 Fe) MG 00:00: mouth 2 EC tablet 00 (two) times a day. ferrous 2022-0 Yes 1{tbl} Q.5D Take 1 UT sulfate 325 3-06 tablet by Hea lth (65 Fe) MG 00:00: mouth 2 EC tablet 00 (two) times a day. ferrous 2022-0 Yes 1{tbl} Q.5D Take 1 UT sulfate 325 3-06 tablet by Hea lth (65 Fe) MG 00:00: mouth 2 EC tablet 00 (two) times a day. ferrous 2022-0 Yes 1{tbl} Q.5D Take 1 UT sulfate 325 3-06 tablet by Hea lth (65 Fe) MG 00:00: mouth 2 EC tablet 00 (two) times a day. ferrous 2022-0 Yes 1{tbl} Q.5D Take 1 UT sulfate 325 3-06 tablet by Hea lth (65 Fe) MG 00:00: mouth 2 EC tablet 00 (two) times a day. carvedilol 2022-0 Yes UT (Coreg) 25 2-24 Health MG tablet 00:00: 00 carvedilol 2022-0 Yes UT (Coreg) 25 2-24 Health MG tablet 00:00: 00 carvedilol 2022-0 Yes UT (Coreg) 25 2-24 Health MG tablet 00:00: 00 carvedilol 2022-0 Yes UT (Coreg) 25 2-24 Health MG tablet 00:00: 00 carvedilol 2022-0 Yes UT (Coreg) 25 2-24 Health MG tablet 00:00: 00 clopidogrel 2022-0 Yes 75mg QD Take 75 mg UT (Plavix) 75 2-21 by mouth 1 He alth MG tablet 00:00: (one) time 00 each day. clopidogrel 2022-0 Yes 75mg QD Take 75 mg UT (Plavix) 75 2-21 by mouth 1 He alth MG tablet 00:00: (one) time 00 each day. clopidogrel 2022-0 Yes 75mg QD Take 75 mg UT (Plavix) 75 2-21 by mouth 1 He alth MG tablet 00:00: () time 00 each day. clopidogrel 2022-0 Yes 75mg QD Take 75 mg UT (Plavix) 75 2-21 by mouth 1 He alth MG tablet 00:00: (one) time 00 each day. clopidogrel 2022-0 Yes 75mg QD Take 75 mg UT (Plavix) 75 2-21 by mouth 1 He alth MG tablet 00:00: (one) time 00 each day. hydrALAZINE 2022-0 Yes UT (Apresoline 2-10 Health ) 100 MG 00:00: tablet 00 NIFEdipine 2022-0 Yes UT XL 2-10 Health (Procardia 00:00: XL) 60 MG 00 24 hr tablet hydrALAZINE 2022-0 Yes UT (Apresoline 2-10 Health ) 100 MG 00:00: tablet 00 NIFEdipine 2022-0 Yes UT XL 2-10 Health (Procardia 00:00: XL) 60 MG 00 24 hr tablet hydrALAZINE 2022-0 Yes UT (Apresoline 2-10 Health ) 100 MG 00:00: tablet 00 NIFEdipine 2022-0 Yes UT XL 2-10 Health (Procardia 00:00: XL) 60 MG 00 24 hr tablet hydrALAZINE 2022-0 Yes UT (Apresoline 2-10 Health ) 100 MG 00:00: tablet 00 NIFEdipine 2021-0 Yes UT XL 2-10 Health (Procardia 00:00: XL) 60 MG 00 24 hr tablet hydrALAZINE 2021-0 Yes UT (Apresoline 2-10 Health ) 100 MG 00:00: tablet 00 NIFEdipine 2021-0 Yes UT XL 2-10 Health (Procardia 00:00: XL) 60 MG 00 24 hr tablet K Phos 0 Yes 1{tbl} Q.5D Take 1 UT [place]-Sod 2-03 tablet by Health Phos Di & 00:00: mouth 2 [place] 00 (two) (Phospha times a 250 day. Neutral) 155-852-130 MG tablet K Phos 0 Yes 1{tbl} Q.5D Take 1 UT [place]-Sod 2-03 tablet by Health Phos Di & 00:00: mouth 2 [place] 00 (two) (Phospha times a 250 day. Neutral) 155-852-130 MG tablet K Phos 0 Yes 1{tbl} Q.5D Take 1 UT [place]-Sod 2-03 tablet by Health Phos Di & 00:00: mouth 2 [place] 00 (two) (Phospha times a 250 day. Neutral) 155-852-130 MG tablet K Phos 0 Yes 1{tbl} Q.5D Take 1 UT [place]-Sod 2-03 tablet by Health Phos Di & 00:00: mouth 2 [place] 00 (two) (Phospha times a 250 day. Neutral) 155-852-130 MG tablet K Phos 0 Yes 1{tbl} Q.5D Take 1 UT [place]-Sod 2-03 tablet by Health Phos Di & 00:00: mouth 2 [place] 00 (two) (Phospha times a 250 day. Neutral) 155-852-130 MG tablet predniSONE 0 Yes 5mg 5 mg, Univer s (DELTASONE) 1-11 Oral, ity of tablet 5 mg 15:00: [place], [place] First dose Medical (after Branch last modificati on) on Wed11/11/21 at 0900, Until Discontinu ed, Routine atorvastati Yes 20mg Take 20 mg Univers n (LIPITOR) -11 by mouth ity of 20 mg 14:31: at [place] tablet 32 bedtime. Medical Branch clopidogrel Yes 75mg Take 75 mg Univers (PLAVIX) 75 1-11 by mouth ity of mg tablet 14:31: daily. [address] Branch Garlic Yes Take by Univers (ODOR FREE 1-11 mouth. ity of GARLIC) Tab 14:31: [address] Branch Cholecalcif Yes 1{capsu Take 1 U nivers juan, 1-11 le} capsule by ity of Vitamin D3, 14:31: mouth [place] (VITAMIN 32 daily. Medical D3) 2,000 Branch unit capsule prednisoLON Yes 5mg Take 5 mg U nivers E 5 mg 1-11 by mouth ity of tablet 14:31: daily. [address] Branch tacrolimus Yes 4mg Take 4 mg Un olga 1 mg 1-11 by mouth ity of capsule 14:31: every 12 [place] [address] (twelve) Medical hours. Branch mycophenola Yes 360mg Take 360 U nivers te sodium 1-11 mg by ity of 180 mg EC 14:31: mouth [place] tablet 32 every 12 Medical (twelve) Branch hours. 180mg tablet, take 2 tablets Q12, 0800 and 2000 aspirin 81 0 Yes 81mg Take 81 mg U nivers mg EC 1-11 by mouth ity of tablet 14:31: daily. [address] Branch ferrous Yes 325mg Take 325 Unive rs sulfate 325 1-11 mg by ity of mg (65 mg 14:31: mouth 2 [place] iron) (two) Medical tablet times Branch daily. atorvastati Yes 20mg Take 20 mg Univers n (LIPITOR) 1-11 by mouth ity of 20 mg 14:31: at [place] tablet 32 bedtime. Medical Branch clopidogrel Yes 75mg Take 75 mg Univers (PLAVIX) 75 1-11 by mouth ity of mg tablet 14:31: daily. [address] Branch Garlic Yes Take by Univers (ODOR FREE 1-11 mouth. ity of GARLIC) Tab 14:31: [address] Branch Cholecalcif Yes 1{capsu Take 1 U nivers juan, 1-11 le} capsule by ity of Vitamin D3, 14:31: mouth [place] (VITAMIN 32 daily. Medical D3) 2,000 Branch unit capsule prednisoLON Yes 5mg Take 5 mg U nivers E 5 mg 1-11 by mouth ity of tablet 14:31: daily. [place] 32 Medical Branch tacrolimus 0 Yes 4mg Take 4 mg Un olga 1 mg 1-11 by mouth ity of capsule 14:31: every 12 [place] 32 (twelve) Medical hours. Branch mycophenola Yes 360mg Take 360 U nivers te sodium 1-11 mg by ity of 180 mg EC 14:31: mouth [place] tablet 32 every 12 Medical (twelve) Branch hours. 180mg tablet, take 2 tablets Q12, 0800 and 1999 aspirin 81 0 Yes 81mg Take 81 mg U nivers mg EC 1-11 by mouth ity of tablet 14:31: daily. [place] 32 Medical Branch ferrous 0 Yes 325mg Take 325 Unive rs sulfate 325 1-11 mg by ity of mg (65 mg 14:31: mouth 2 [place] iron) 32 (two) Medical tablet times Branch daily. metoprolol 2021- No 100mg Take 100 U nivers succinate 11-1111 mg by ity of XL (TOPROL 10:15: 00:00 mouth [place] XL) 100 mg 19 :00 daily. Medical 24 hr Branch tablet lisinopril 2021- No 40mg Take 40 mg Univers (PRINIVIL,Z 11-11 by mouth ity of ESTRIL) 40 10:15: 00:00 [place]. [place] mg tablet 19 :00 Medical Branch HYDRALAZINE 2021- No 100mg Take 100 Univers HCL 11-11 mg by ity of (HYDRALAZIN 10:15: 00:00 mouth [place] E ORAL) 19 :00 daily. Medical Branch NAPROXEN 2021- No Take by Unive rs SODIUM 11-1111 mouth. ity of (ALEVE 10:15: 00:00 [place] ORAL) 19 :00 Medical Branch carvedilol 2021- No 25mg Take 25 mg Univers 25 mg 11-11 by mouth 2 ity of tablet 10:15: 00:00 (two) [place] 19 :00 times Medical daily with Branch meals. NIFEdipine 2021-0 2021- No 60mg Take 60 mg Univers ER 60 mg SR 11-11 by mouth ity of tablet 10:15: 00:00 daily. [place] 19 :00 [facility] Branch losartan 25 2021-0 2022- No 25mg Take 25 mg Univers mg tablet 11-11 by mouth ity o f 10:15: 00:00 daily. [place] 19 :00 [facility] Branch ascorbic 2-0 Yes 500mg Take 500 UT acid 1-11 mg by Health (Vitamin C) 00:00: mouth. 500 MG 00 tablet zinc 2021-0 Yes 1{capsu Q.5D Take 1 UT sulfate 1-11 le} capsule by Health (Zincate) 00:00: mouth 2 220 (50 Zn) 00 (two) MG capsule times a day. ascorbic 2-0 Yes 500mg Take 500 UT acid 1-11 mg by Health (Vitamin C) 00:00: mouth. 500 MG 00 tablet zinc 2-0 Yes 1{capsu Q.5D Take 1 UT sulfate 1-11 le} capsule by Health (Zincate) 00:00: mouth 2 220 (50 Zn) 00 (two) MG capsule times a day. ascorbic 2-0 Yes 500mg Take 500 UT acid 1-11 mg by Health (Vitamin C) 00:00: mouth. 500 MG 00 tablet zinc 2-0 Yes 1{capsu Q.5D Take 1 UT sulfate 1-11 le} capsule by Health (Zincate) 00:00: mouth 2 220 (50 Zn) 00 (two) MG capsule times a day. ascorbic 2022-0 Yes 500mg Take 500 UT acid 1-11 mg by Health (Vitamin C) 00:00: mouth. 500 MG 00 tablet zinc 2022-0 Yes 1{capsu Q.5D Take 1 UT sulfate 1-11 le} capsule by Health (Zincate) 00:00: mouth 2 220 (50 Zn) 00 (two) MG capsule times a day. ascorbic 2022-0 Yes 500mg Take 500 UT acid 1-11 mg by Health (Vitamin C) 00:00: mouth. 500 MG 00 tablet zinc 2022-0 Yes 1{capsu Q.5D Take 1 UT sulfate 1-11 le} capsule by Health (Zincate) 00:00: mouth 2 220 (50 Zn) 00 (two) MG capsule times a day. ascorbic 2022-0 Yes [id number] 500mg Take 1 U nivers acid, 1-11 tablet by ity of vitamin C, 00:00: mouth 3 [place] 500 mg 00 (three) Medical tablet times Branch daily. zinc 2022-0 Yes [id number] 220mg Take 1 Unive rs sulfate 50 1-11 capsule by ity of mg zinc 00:00: mouth 2 [place] (220 mg) 00 (two) Medical capsule times Branch daily. ascorbic 2022-0 Yes [id number] 500mg Take 1 U nivers acid, 1-11 tablet by ity of vitamin C, 00:00: mouth 3 [place] 500 mg 00 (three) Medical tablet times Branch daily. zinc 2022-0 Yes [id number] 220mg Take 1 Unive rs sulfate 50 1-11 capsule by ity of mg zinc 00:00: mouth 2 [place] (220 mg) 00 (two) Medical capsule times Branch daily. ascorbic 2-0 Yes [id number] 500mg Take 1 U nivers acid, 1-11 tablet by ity of vitamin C, 00:00: mouth 3 [place] 500 mg 00 (three) Medical tablet times Branch daily. zinc 2022-0 Yes [id number] 220mg Take 1 Unive rs sulfate 50 1-11 capsule by ity of mg zinc 00:00: mouth 2 [place] (220 mg) 00 (two) Medical capsule times Branch daily. ascorbic 2022-0 Yes [id number] 500mg Take 1 U nivers acid, 1-11 tablet by ity of vitamin C, 00:00: mouth 3 [place] 500 mg 00 (three) Medical tablet times Branch daily. zinc 2022-0 Yes [id number] 220mg Take 1 Unive rs sulfate 50 1-11 capsule by ity of mg zinc 00:00: mouth 2 [place] (220 mg) 00 (two) Medical capsule times Branch daily. ascorbic 2022-0 Yes [id number] 500mg Take 1 U nivers acid, 1-11 tablet by ity of vitamin C, 00:00: mouth 3 [place] 500 mg 00 (three) Medical tablet times Branch daily. zinc 2022-0 Yes [id number] 220mg Take 1 Unive rs sulfate 50 1-11 capsule by ity of mg zinc 00:00: mouth 2 [place] (220 mg) 00 (two) Medical capsule times Branch daily. hydrALAZINE 0 2021- No [id number] 100mg Take 1 Univers 100 mg 11-11 tablet by ity of tablet 00:00: 05:59 mouth [place] 00 :00 every 8 Medical (eight) Branch hours for 30 days. carvediloL 2021-0 2021- No [id number] 12.5mg Take 1 Univers 12.5 mg 11-11 tablet by ity of tablet 00:00: 05:59 mouth 2 [place] 00 :00 (two) Medical times Branch daily with meals for 30 days. hydrALAZINE 0 2021- No [id number] 100mg Take 1 Univers 100 mg 11-11 tablet by ity of tablet 00:00: 05:59 mouth [place] 00 :00 every 8 Medical (eight) Branch hours for 30 days. carvediloL 2021- No [id number] 12.5mg Take 1 Univers 12.5 mg 11-11 tablet by ity of tablet 00:00: 05:59 mouth 2 [place] 00 :00 (two) Medical times [place] daily with meals for 30 days. hydrALAZINE 0 Yes 100mg 100 mg, Un olga (APRESOLINE 1-10 Oral, Q8H, it y of ) tablet 12:00: First dose [place] as 100 mg 00 (after Medical last Branch modificati on) on Wed11/10/21 at 0600, Until Discontinu ed docusate 0 Yes 100mg 100 mg, Unive rs (COLACE) 1-10 Oral, BID, ity o f capsule 100 02:00: First dose [place] mg 00 on [facility] 11/09/21 at Branch 2000, Until Discontinu ed, Routine polyethylen 0 Yes 17g 17 g, Unive rs e glycol 1-10 Oral, ity of 3350 powder 01:55: [place], [place] 17 g 09 Starting Medical on [facility] 11/09/21 at 1955, Until Discontinu ed, Routine, Constipati on bisacodyL 0 Yes 5mg 5 mg, Univers (DULCOLAX) 1-10 Oral, ity of tablet 5 mg 01:55: [place], [place] 02 Starting Medical on [facility] 11/09/21 at 1955, Until Discontinu ed, Routine, Constipati on magnesium 2021- No 2g 2 g, IV Univ ers sulfate in 11-09 Piggyback, it y of water 2 20:15: 19:56 ONCE, 1 [place] gram/50 mL 00 :00 dose, On Medic al (4 %) [place] 11/09/21 Branch infusion 2 at 1415, g Routine predniSONE 2021- No 10mg 10 mg, Univ ers (DELTASONE) 11-09 Oral, ity of tablet 10 15:00: 22:49 DAILY, [place] mg 00 :40 First dose Medical on [place] Branch 11/09/21 at 0900, Until Discontinu ed, Routine NaCl 0.9% IV Univers (NS) 11-08 Infusion, ity of PEDIATRIC 17:30: 07:59 at 50 [place] IV infusion 00 :20 mL/hr, Medica l CONTINUOUS Branch , Starting on 11/08/21 at 1130, Until 11/10/21 at 0159, Routine foLIC acid Yes 1mg 1 mg, Univer s (FOLATE) 11-07 Oral, ity of tablet 1 mg 15:00: DAILY, [place] 00 First dose Medical on Wed Branch 11/07/21 at 0900, Until Discontinu ed, Routine ergocalcife 0 Yes [id number] 50,000 Un olga rol 11-07 Units, ity of (vitamin 15:00: Oral, [place] d2) 00 QWEEKLY, Medical (CALCIFEROL First dose Br anch ) capsule on Wed 50,000 11/07/21 at Units 0900, Until Discontinu ed, Routine enoxaparin 0 Yes 40mg 40 mg, Unive rs (LOVENOX) 11-07 Subcutaneo ity of injection 15:00: [place], [place]ILY, [place] 40 mg 00 First dose Medical on Wed Branch 11/07/21 at 0900, Until Discontinu ed, Routine clopidogreL 2021-0 Yes 75mg 75 mg, Univ ers (PLAVIX) 11-07 Oral, ity of tablet 75 15:00: DAILY, [place] mg 00 First dose Medical on Wed Branch 11/07/21 at 0900, Until Discontinu ed, Routine aspirin EC Yes 81mg 81 mg, Unive rs tablet 81 11-07 Oral, ity of mg 15:00: DAILY, [place] 00 First dose Medical on Wed11/07/21 at 0900, Until Discontinu ed, Routine carvediloL Yes 12.5mg 12.5 mg, U nivers (COREG) 11-07 Oral, BID ity of tablet 12.5 14:00: MEALS, [place] mg 00 First dose Medical (after Branch last modificati on) on Wed11/07/21 at 0800, Until Discontinu ed, Routine tacrolimus Yes 4mg 4 mg, Univer s (PROGRAF) 11-07 Oral, ity of capsule 4 14:00: Q12H, [place] mg 00 First dose Medical (after Branch last modificati on) on Wed11/07/21 at 0800, Until Discontinu ed, Routine
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 hydrALAZINE 2021- No 100mg 100 mg, U nivers (APRESOLINE 11-07 Oral, BID, i ty of ) tablet 14:00: 10:46 [place] 100 mg 00 :10 (after Medical last Branch modificati on) on Wed11/07/21 at 0800, Until Discontinu ed magnesium 2021- No [id number] 400mg 400 mg, Univers oxide 11-07 Oral, BID, ity of (MAG-OX 14:00: 03:27 4 doses, [place] 400) tablet 00 :00 First dose Me dical 400 mg on Wed11/07/21 at 0800, Last dose on Wed11/08/21 at 2000, Routine dexamethaso 2021- No 5mg 5 mg, Slow Univers ne 11-07 IV Push, ity of (DECADRON 14:00: 20:54 Q12H, [place] PHOSPHATE) 00 :30 First dose Med ical injection 5 (after Branch mg last reorder) on Wed11/07/21 at 0800, Until Discontinu ed, Routine multivitami Yes 1{tbl} 1 tablet, Univers n tablet 1 11-07 Oral, ity of tablet 05:30: DAILY, [place] 00 First dose Medical on [facility] Branch 11/06/21 at 2330, Until Discontinu ed, Routine thiamine 2021-0 Yes 100mg 100 mg, Unive rs (VITAMIN 1-07 Oral, ity of B1) tablet 05:30: DAILY, [place] 100 mg 00 First dose Medical on [facility] 11/06/21 at 2330, Until Discontinu ed, Routine zinc 2021-0 Yes 220mg 220 mg, Univers sulfate 1-07 Oral, BID, ity of (ORAZINC) 05:30: First dose [place] capsule 220 00 on [facility] Medica l mg 11/06/21 at Branch 2330, Until Discontinu ed, Routine ascorbic 2021-0 Yes 500mg 500 mg, Unive rs acid -07 Oral, TID, ity of (vitamin C) 05:30: First dose [place] (VITAMIN C) 00 on [facility] Medica l tablet 500 11/06/21 at Bran ch mg 2330, Until Discontinu ed, Routine atorvastati 2021-0 Yes 20mg 20 mg, Univ ers n (LIPITOR) 1-07 Oral, QHS, it y of tablet 20 03:00: [place] mg 00 on [facility] 11/06/21 at Branch 2100, Until Discontinu ed, Routine ferrous 2021-0 Yes 325mg 325 mg, Univer s sulfate 1-07 Oral, BID, ity of tablet 325 02:00: First dose [place] mg 00 on [facility] 11/06/21 at Branch 2000, Until Discontinu ed, Routine tacrolimus 2021-0 2022- No 3mg 3 mg, Unive rs (PROGRAF) 1 01-07 Oral, ity of capsule 3 02:00: 05:17 Q12H, [place] mg 00 :46 First dose Medical on [facility] 11/06/21 at 2000, Until Discontinu ed, Routine
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 ondansetron 2021-0 Yes 4mg 4 mg, Slow Univers (ZOFRAN 1-07 IV Push, ity of (PF)) 01:25: Q6HPRN, [place] injection 4 43 Starting Medi elicia mg on [facility] 11/06/21 at 1925, Until Discontinu ed, Routine, Nausea and Vomiting (N/V) acetaminoph Yes 650mg 650 mg, Un olga en 11-07 Oral, ity of (TYLENOL) 01:25: Q6HPRN, [place] tablet 650 22 Starting Medic al mg on [place] Branch 11/06/21 at 1925, Until Discontinu ed, Routine, Pain (scale 1-3) dexamethaso 2021- No 10mg 10 mg, IV Univers ne 11-07 Push, ity of (DECADRON 00:30: 23:45 ONCE, 1 [place] PHOSPHATE) 00 :00 dose, On Medic al injection [place] 11/06/21 Bran ch 10 mg at 1830, STAT iopamidol 2021- No [id number] 100mL 100 mL, Univers (ISOVUE 11-06 [id number] Intravenou it y of 370-500 mL) 23:23: 23:24 s, ONCE, 1 [place] injection 00 :00 dose, On Medica l 100 mL [facility] 11/06/21 Branch at 1730, Routine CALCIUM 2021- No 1{tbl} Take 1 Unive rs ACETATE 11-06 tablet by ity of ORAL 19:28: 00:00 mouth [place] 41 :00 daily. Medical Branch aspirin 325 2021- No 325mg Take 325 Univers mg tablet 11-06 mg by ity of 19:28: 00:00 mouth [place] 41 :00 daily. Medical Branch losartan 50 2021- No 50mg Take 50 mg Univers mg tablet 11-06 by mouth ity o f 19:28: 00:00 daily. [place] 41 :00 Medical Branch metoprolol 2019-11 Yes 100mg Take 100 Un olga succinate 0-01 mg by ity of XL (TOPROL 15:57: mouth [place] XL) 100 mg 46 daily. Medical 24 hr Branch tablet lisinopril 2019-11 Yes 40mg Take 40 mg U nivers (PRINIVIL,Z 0-01 by mouth ity of ESTRIL) 40 15:57: daily. [place] mg tablet 46 Medical Branch HYDRALAZINE 2019-11 Yes 100mg Take 100 U nivers HCL 0-01 mg by ity of (HYDRALAZIN 15:57: mouth [place] E ORAL) 46 daily. Medical Branch atorvastati 2019-11 Yes 20mg Take 20 mg Univers n (LIPITOR) 0-01 by mouth ity of 20 mg 15:57: at [place] tablet 46 bedtime. Medical Branch clopidogrel 2019-11 Yes 75mg Take 75 mg Univers (PLAVIX) 75 0-01 by mouth ity of mg tablet 15:57: daily. [place] [address] Medical Branch NAPROXEN 2019-11 Yes Take by Univer s SODIUM 0-01 mouth. ity of (ALEVE 15:57: [place] ORAL) 46 Medical Branch Garlic 2019-11 Yes Take by Univers (ODOR FREE 0-01 mouth. ity of GARLIC) Tab 15:57: [place] [address] Medical Branch CALCIUM 2019-11 Yes 1{tbl} Take 1 Univer s ACETATE 0-01 tablet by ity of ORAL 15:57: mouth [place] 46 daily. Medical Branch aspirin 325 2019-11 Yes 325mg Take 325 U nivers mg tablet 0-01 mg by ity of 15:57: mouth [place] 46 daily. Medical Branch carvedilol 2019-11 Yes 25mg Take 25 mg U nivers 25 mg 0-01 by mouth 2 ity of tablet 15:57: (two) [place] 46 times Medical daily with Branch meals. Cholecalcif 2019-11 Yes 1{capsu Take 1 U nivers juan, 0-01 le} capsule by ity of Vitamin D3, 15:57: mouth [place] (VITAMIN 46 daily. Medical D3) 2,000 Branch unit capsule NIFEdipine 2019-11 Yes 60mg Take 60 mg U nivers ER 60 mg SR 0-01 by mouth ity of tablet 15:57: daily. [place] [address] Medical Branch losartan 50 2019-11 Yes 50mg Take 50 mg Univers mg tablet 0-01 by mouth ity of 15:57: daily. [place] [address] Medical Branch prednisoLON 2019-11 Yes 5mg Take 5 mg U nivers E 5 mg 0-01 by mouth ity of tablet 15:57: daily. [place] [address] Medical Branch tacrolimus 2019-11 Yes 3mg Take 3 mg Un olga 1 mg 0-01 by mouth ity of capsule 15:57: every 12 [place] [address] (twelve) Medical hours. Branch mycophenola 2019-11 Yes 180mg Take 180 U nivers te sodium 0-01 mg by ity of 180 mg EC 15:57: mouth [place] tablet 46 every 12 Medical (twelve) Branch hours. aspirin 81 2019-11 Yes 81mg Take 81 mg U nivers mg EC 0-01 by mouth ity of tablet 15:57: daily. [address] Branch ferrous 2019-11 Yes 325mg Take 325 Unive rs sulfate 325 0-01 mg by ity of mg (65 mg 15:57: mouth 2 [place] iron) 46 (two) Medical tablet times [place] daily. losartan 25 2019-11 Yes 25mg Take 25 mg Univers mg tablet 0-01 by mouth ity of 15:57: daily. [address] Branch NaCl 0.9% 2019-11 Yes 1000mL at 42 Unive rs (NS) IV 0-01 mL/hr, IV ity of infusion 13:30: Infusion, [place] 1,000 mL 00 CONTINUOUS Medic al , Starting Branch [place] 08/01/20 at 0830, Until Discontinu ed, Routine, DSU Pre-op water for 2019-11 Yes PRN, Univers irrigation 0-01 Starting ity o f irrigation 13:04: [place] solution 00 08/01/20 at Medic al 0804, Branch Until Discontinu ed, Routine, Intra-op simethicone 2019-11 Yes PRN, Univer s (GAS RELIEF 0-01 Starting ity of (SIMETHICON 13:04: [place] E)) 40 00 08/01/20 at Medical mg/0.6 mL 0804, Branch drops Until Discontinu ed, Routine, Intra-op atorvastati 2019-11 Yes 20mg Take 20 mg Univers n (LIPITOR) 0-01 by mouth ity of 20 mg 10:57: at [place] tablet 46 bedtime. Medical Branch clopidogrel 2019-11 Yes 75mg Take 75 mg Univers (PLAVIX) 75 0-01 by mouth ity of mg tablet 10:57: daily. [address] Branch NAPROXEN 2019-11 Yes Take by Univer s SODIUM 0-01 mouth. ity of (ALEVE 10:57: [place] ORAL) Medical Branch Garlic 2019-11 Yes Take by Univers (ODOR FREE 0-01 mouth. ity of GARLIC) Tab 10:57: [address] Branch CALCIUM 2019-11 Yes 1{tbl} Take 1 Univer s ACETATE 0-01 tablet by ity of ORAL 10:57: mouth [place] [address] daily. Medical Branch aspirin 325 2019-11 Yes 325mg Take 325 U nivers mg tablet 0-01 mg by ity of 10:57: mouth [place] 46 daily. Medical Branch carvedilol 2019-11 Yes 25mg Take 25 mg U nivers 25 mg 0-01 by mouth 2 ity of tablet 10:57: (two) [place] 46 times Medical daily with Branch meals. Cholecalcif 2019-11 Yes 1{capsu Take 1 U nivers juan, 0-01 le} capsule by ity of Vitamin D3, 10:57: mouth [place] (VITAMIN 46 daily. Medical D3) 2,000 Branch unit capsule NIFEdipine 2019-11 Yes 60mg Take 60 mg U nivers ER 60 mg SR 0-01 by mouth ity of tablet 10:57: daily. [place] [address] Medical Branch losartan 50 2019-11 Yes 50mg Take 50 mg Univers mg tablet 0-01 by mouth ity of 10:57: daily. [address] Branch prednisoLON 2019-11 Yes 5mg Take 5 mg U nivers E 5 mg 0-01 by mouth ity of tablet 10:57: daily. [place] [address] Medical Branch tacrolimus 2019-11 Yes 3mg Take 3 mg Un [place]ga 1 mg 0-01 by mouth ity of capsule 10:57: every 12 [place] [address] (twelve) Medical hours. Branch mycophenola 2019-11 Yes 180mg Take 180 U nivers te sodium 0-01 mg by ity of 180 mg EC 10:57: mouth [place] tablet 46 every 12 Medical (twelve) Branch hours. aspirin 81 2019-11 Yes 81mg Take 81 mg U nivers mg EC 0-01 by mouth ity of tablet 10:57: daily. [address] Branch ferrous 2019-11 Yes 325mg Take 325 Unive rs sulfate 325 0-01 mg by ity of mg (65 mg 10:57: mouth 2 [place] iron) 46 (two) Medical tablet times Branch daily. losartan 25 2019-11 Yes 25mg Take 25 mg Univers mg tablet 0-01 by mouth ity of 10:57: daily. [place] [address] Medical Branch metoprolol 2019-11 Yes 100mg Take 100 Un olga succinate 0-01 mg by ity of XL (TOPROL 10:57: mouth [place] XL) 100 mg 46 daily. Medical 24 hr Branch tablet lisinopril 2019-11 Yes 40mg Take 40 mg U nivers (PRINIVIL,Z 0-01 by mouth ity of ESTRIL) 40 10:57: daily. [place] mg tablet 46 Medical Branch HYDRALAZINE 2019-1 Yes 100mg Take 100 U nivers HCL 0-01 mg by ity of (HYDRALAZIN 10:57: mouth [place] E ORAL) 46 daily. Medical Branch metoprolol 2020-0 Yes 100mg Take 100 Un olga succinate 9-21 mg by ity of XL (TOPROL 15:43: mouth [place] XL) 100 mg 08 daily. Medical 24 hr Branch tablet lisinopril 2019-0 Yes 40mg Take 40 mg U nivers (PRINIVIL,Z 9-21 by mouth ity of ESTRIL) 40 15:43: daily. [place] mg tablet 08 Medical Branch NAPROXEN 2019-0 Yes Take by Univer s SODIUM 9-21 mouth. ity of (ALEVE 15:43: [place] ORAL) 08 Medical Branch Garlic 2019-0 Yes Take by Univers (ODOR FREE 9-21 mouth. ity of GARLIC) Tab 15:43: [place] 08 Medical Branch CALCIUM 2019-0 Yes 1{tbl} Take 1 Univer s ACETATE 9-21 tablet by ity of ORAL 15:43: mouth [place] 08 daily. Medical Branch aspirin 325 2019-0 Yes 325mg Take 325 U nivers mg tablet 9-21 mg by ity of 15:43: mouth [place] 08 daily. Medical Branch losartan 50 2019-0 Yes 50mg Take 50 mg Univers mg tablet 9-21 by mouth ity of 15:43: daily. 08 Medical Branch HYDRALAZINE 0 Yes 100mg Take 100 U nivers HCL 8-29 mg by ity of (HYDRALAZIN 17:26: mouth [place] E ORAL) 59 daily. Medical Branch atorvastati 0 Yes 20mg Take 20 mg Univers n (LIPITOR) 8-29 by mouth ity of 20 mg 17:26: at [place] tablet 59 bedtime. Medical Branch clopidogrel 2017-0 Yes 75mg Take 75 mg Univers (PLAVIX) 75 8-29 by mouth ity of mg tablet 17:26: daily. [place] 59 Medical Branch carvedilol 2017-0 Yes 25mg Take 25 mg U nivers 25 mg 8-29 by mouth 2 ity of tablet 17:26: (two) [place] 59 times Medical daily with Branch meals. Cholecalcif 2017-0 Yes 1{capsu Take 1 U nivers juan, 8-29 le} capsule by ity of Vitamin D3, 17:26: mouth [place] (VITAMIN 59 daily. Medical D3) 2,000 Branch unit capsule NIFEdipine Yes 60mg Take 60 mg U nivers ER 60 mg SR 8-29 by mouth ity of tablet 17:26: daily. [place] [address] Medical Branch prednisoLON Yes 5mg Take 5 mg U nivers E 5 mg 8-29 by mouth ity of tablet 17:26: daily. [place] [address] Medical Branch tacrolimus Yes 3mg Take 3 mg Un olga 1 mg 8-29 by mouth ity of capsule 17:26: every 12 [place] [address] (twelve) Medical hours. Branch mycophenola Yes 180mg Take 180 U nivers te sodium 8-29 mg by ity of 180 mg EC 17:26: mouth [place] tablet 59 every 12 Medical (twelve) Branch hours. aspirin 81 Yes 81mg Take 81 mg U nivers mg EC 8-29 by mouth ity of tablet 17:26: daily. [place] [address] Medical Branch ferrous Yes 325mg Take 325 Unive rs sulfate 325 8-29 mg by ity of mg (65 mg 17:26: mouth 2 [place] iron) 59 (two) Medical tablet times Branch daily. losartan 25 Yes 25mg Take 25 mg Univers mg tablet 8-29 by mouth ity of 17:26: daily. [place] [address] Medical Branch Aspirin Aspirin Yes [facility] TABS TABS Physici ans Lipitor Lipitor Yes [facility] TABS TABS Physici ans Carvedilol Carvedilol Yes [facility] TABS TABS Physici ans Cholecalcif Cholecalcif Yes U T juan 1000 juan 1000 Physi ci UNT/0.03ML UNT/0.03ML ans LIQD LIQD Clopidogrel Clopidogrel Yes U T Bisulfate Bisulfate Physi ci TABS TABS ans Ferrous Ferrous Yes UT Sulfate Sulfate Physici TBEC TBEC ans hydrALAZINE hydrALAZINE Yes U T HCl TABS HCl TABS Physici ans Losartan Losartan Yes UT Potassium Potassium Physi ci TABS TABS ans Myfortic Myfortic Yes UT TBEC TBEC Physici ans NIFEdipine NIFEdipine Yes UT CAPS CAPS Physici ans predniSONE predniSONE Yes [facility] TABS TABS Physici ans Tacrolimus Tacrolimus Yes [facility] CAPS CAPS Physici ans Immunizations Ordered Filled Immunization Date Status Comments Sourc e Immunization Name Name SARS-COV-2 COVID-19 2021-07-03 Completed Unive rsity of MODERNA VACCINE 00:00:00 [facility] [place] [facility] Branch SARS-COV-2 COVID-19 2021-07-03 Completed Unive rsity of MODERNA VACCINE 00:00:00 [facility] [place] [facility] Branch SARS-COV-2 COVID-19 2021-07-03 Completed Unive rsity of MODERNA VACCINE 00:00:00 [facility] [place] [facility] Branch SARS-COV-2 COVID-19 2020-12-06 Completed Unive rsity of MODERNA VACCINE 00:00:00 [facility] [place] [facility] Branch SARS-COV-2 COVID-19 2020-12-06 Completed Unive rsity of MODERNA VACCINE 00:00:00 [facility] [place] [facility] Branch SARS-COV-2 COVID-19 2020-12-06 Completed Unive rsity of MODERNA VACCINE 00:00:00 [facility] [place] [facility] Branch SARS-COV-2 COVID-19 2020-11-06 Completed Unive rsity of MODERNA VACCINE 00:00:00 [facility] [place] [facility] Branch SARS-COV-2 COVID-19 2020-11-06 Completed Unive rsity of MODERNA VACCINE 00:00:00 [facility] [place] [facility] Branch SARS-COV-2 COVID-19 2020-11-06 Completed Unive rsity of MODERNA VACCINE 00:00:00 [facility] Pneumococcal 2020-06-24 Completed University o f Pol[facility], 00:[facility] Branch Influenza High Dose 2020-06-24 Completed Unive rsity of Quad 00:00:00 [facility] Pneumococcal 2020-06-24 Completed University o f Polysaccharide, 00:00:00 [facility] ical PPSV23 (PNEUMOVAX) Branch Influenza High Dose 2020-06-24 Completed Unive rsity of [place] 00:00:00 [facility] Pneumococcal 2020-06-24 Completed University o f Polysaccharide, 00:00:00 [facility] ical PPSV23 (PNEUMOVAX) Branch Influenza High Dose 2020-06-24 Completed Unive rsity of [place] 00:00:00 [facility] Pneumococcal 2020-06-24 Completed University o f Polysaccharide, 00:00[facility] Branch Influenza High Dose 2020-06-24 Completed Unive rsity of [place] 00:00:00 [facility] Branch Pneumococcal 2020-06-24 Completed University o f Polysaccharide, 00:00:00 [facility] ical PPSV23 (PNEUMOVAX) Branch Influenza High Dose 2020-06-24 Completed Unive rsity of [place] 00:00:00 [facility] Vital Signs Vital Name Observation Time Observation Value Comments Source Systolic blood 2022-11-30 130 mm[Hg] [facility] pressure 16:41:00 Diastolic blood 2022-11-30 84 mm[Hg] [facility] pressure 16:41:00 Heart rate 2022-11-30 63 /min [facility] 16:41:00 Body temperature 2022-11-30 36.28 Priyanka [facility] 16:41:00 Body height 2022-11-30 180.3 cm [facility] 16:41:00 Body weight 2022-11-30 102.059 kg [facility] 16:41:00 BMI 2022-11-30 31.38 kg/m2 [facility] 16:41:00 Systolic blood 2022-07-13 114 mm[Hg] [facility] pressure 16:20:00 Diastolic blood 2022-07-13 66 mm[Hg] [facility] pressure 16:20:00 Heart rate 2022-07-13 68 /min [facility] 16:20:00 Body temperature 2022-07-13 36.28 Priyanka [facility] 16:20:00 Body height 2022-07-13 180.3 cm [facility] 16:20:00 Body weight 2022-07-13 99.791 kg [facility] 16:20:00 BMI 2022-07-13 30.68 kg/m2 [facility] 16:20:00 Heart rate 2022-04-22 63 /min [facility] 17:17:00 [facility] Respiratory rate 2022-04-22 20 /min [facility] 17:17:00 [facility] Oxygen saturation 2022-04-22 95 /min [facility] in Arterial blood 17:17:00 [facility] Pulse oximetry Branch Systolic blood 2022-04-22 154 mm[Hg] University of pressure 17:15:00 [facility] Diastolic blood 2022-04-22 62 mm[Hg] University o f pressure 17:15:00 [facility] Body temperature 2022-04-22 36.11 Priyanka [facility] 16:45:00 [facility] Body height 2022-04-21 180.3 cm University of 11:53:00 [facility] [place] Body weight 2022-04-21 98.9 kg University of 11:53:00 [facility] BMI 2022-04-21 30.42 kg/m2 University of 11:53:00 [facility] Heart rate 2022-04-22 63 /min University of 17:17:00 [facility] Respiratory rate 2022-04-22 20 /min University of 17:17:00 [facility] Oxygen saturation 2022-04-22 95 /min [place] of in Arterial blood 17:17:00 [place] [facility] by Pulse oximetry Branch Systolic blood 2022-04-22 154 mm[Hg] University of pressure 17:15:00 [facility] Diastolic blood 2022-04-22 62 mm[Hg] University o f pressure 17:15:00 [facility] Body temperature 2022-04-22 36.11 Priyanka University of 16:45:00 [facility] Body height 2022-04-21 180.3 cm University of 11:53:00 [facility] Body weight 2022-04-21 98.9 kg University of 11:53:00 [facility] BMI 2022-04-21 30.42 kg/m2 University of 11:53:00 [facility] Systolic blood 2022-02-23 116 mm[Hg] [facility] pressure 21:23:00 Diastolic blood 2022-02-23 76 mm[Hg] [facility] pressure 21:23:00 Heart rate 2022-02-23 74 /min [facility] 21:23:00 Body temperature 2022-02-23 36.22 Priyanka [facility] 21:23:00 Systolic blood 2021-11-11 102 mm[Hg] University of pressure 17:00:00 [facility] Diastolic blood 2021-11-11 68 mm[Hg] University o f pressure 17:00:00 [facility] Heart rate 2021-11-11 106 /min University of 17:00:00 [facility] Body temperature 2021-11-11 36.39 Priyanka University of 17:00:00 [facility] Respiratory rate 2021-11-11 16 /min University of 17:00:00 [facility] Oxygen saturation 2021-11-11 91 /min University in Arterial blood 17:00:00 [place] [facility] by Pulse oximetry Branch Body weight 2021-11-11 99.6 kg [place] of 01:30:00 [facility] BMI 2021-11-11 30.62 kg/m2 [place] of 01:30:00 [facility] Body height 2021-11-07 180.3 cm [facility] 00:57:00 [facility] Systolic blood 2021-11-06 105 mm[Hg] University of pressure 21:47:00 [facility] Diastolic blood 2021-11-06 69 mm[Hg] University o f pressure 21:47:00 [facility] Heart rate 2021-11-06 91 /min University of 21:47:00 [facility] Body temperature 2021-11-06 37.67 Priyanka University 21:47:00 [facility] Respiratory rate 2021-11-06 24 /min [facility] 21:47:00 [facility] Body height 2021-11-06 170.2 cm University 21:47:00 [facility] Body weight 2021-11-06 103.874 kg [facility] 21:47:00 [facility] BMI 2021-11-06 35.87 kg/m2 University 21:47:00 [facility] Oxygen saturation 2021-11-06 90 /min [facility] Arterial blood 21:47:00 [facility] by Pulse oximetry [place] Systolic blood 2021-07-24 116 mm[Hg] [facility] pressure 16:03:00 Diastolic blood 2021-07-24 73 mm[Hg] [facility] pressure 16:03:00 Heart rate 2021-07-24 78 /min [facility] 16:03:00 Body temperature 2021-07-24 36.28 Priyanka [facility] 16:03:00 Body height 2021-07-24 180.3 cm [facility] 16:03:00 Body weight 2021-07-24 106.595 kg [facility] 16:03:00 BMI 2021-07-24 32.78 kg/m2 [facility] 16:03:00 Systolic blood 2020-08-01 123 mm[Hg] University of pressure 14:40:00 [facility] Diastolic blood 2020-08-01 69 mm[Hg] University o f pressure 14:40:00 [facility] Heart rate 2020-08-01 67 /min University 14:40:00 [facility] Body temperature 2020-08-01 36.44 Priyanka University of 14:40:00 [facility] Respiratory rate 2020-08-01 21 /min University 14:40:00 [facility] Oxygen saturation 2020-08-01 98 /min [place] of in Arterial blood 14:40:00 [facility] by Pulse oximetry Branch Body height 2020-08-01 180.3 cm University of 12:07:00 [facility] Body weight 2020-08-01 104.3 kg University of 12:07:00 [facility] BMI 2020-08-01 32.08 kg/m2 University of 12:07:00 [facility] Systolic blood 2020-08-01 123 mm[Hg] University of pressure 14:40:00 [facility] Diastolic blood 2020-08-01 69 mm[Hg] University o f pressure 14:40:00 [facility] Heart rate 2020-08-01 67 /min University 14:40:00 [facility] Body temperature 2020-08-01 36.44 Priyanka University 14:40:00 [facility] Respiratory rate 2020-08-01 21 /min University 14:40:00 [facility] Oxygen saturation 2020-08-01 98 /min [facility] in Arterial blood 14:40:00 [facility] by Pulse oximetry Branch Body height 2020-08-01 180.3 cm University of 12:07:00 [facility] Body weight 2020-08-01 104.3 kg University of 12:07:00 [facility] BMI 2020-08-01 32.08 kg/m2 University of 12:07:00 [facility] Systolic blood 2020-11-21 102 mm[Hg] [facility]: [facility] [place] [facility] pressure 10:37:00 Position: Sitting Diastolic blood 2020-11-21 68 mm[Hg] [facility] [place] [facility] pressure 10:37:00 Position: Sitting Body height 2020-11-21 71 [in_us] [facility] 10:37:00 Weight 2020-11-21 240 [lb_av] [facility] 10:37:00 Body mass index 2020-11-21 33.47 kg/m2 [facility] (BMI) [Ratio] 10:37:00 Heart Rate 2020-11-21 76 /min Location: L [facility] 10:37:00 Brachial Artery; Body temperature 2020-11-21 97.2 [degF] Method: [facility] 10:37:00 Temporal Systolic blood 2020-05-16 121 mm[Hg] [facility] [place] [facility] pressure 11:40:00 Position: Sitting Diastolic blood 2020-05-16 76 mm[Hg] [facility] [place] [facility] pressure 11:40:00 Position: Sitting Body height 2020-05-16 71 [in_us] [facility] 11:40:00 Weight 2020-05-16 240 [lb_av] [facility] 11:40:00 Body mass index 2020-05-16 33.47 kg/m2 [facility] (BMI) [Ratio] 11:40:00 Heart Rate 2020-05-16 70 /min Location: L [facility] 11:40:00 Brachial Artery; Body temperature 2020-05-16 97.2 [degF] Method: [facility] 11:40:00 Temporal Procedures Procedure Date / Time Performing Clinician Source Performed URINE CULTURE 2022-11-30 22:36:00 Evie, [facility] BASIC METABOLIC PANEL 2022-11-30 16:38:00 Evie, [facility] HEPATIC FUNCTION PANEL 2022-11-30 16:38:00 Evie, [facility] He alth PSA, TOTAL AND FREE 2022-11-30 16:38:00 Evie, [facility] Healt h TESTOSTERONE, FREE, TOTAL 2022-11-30 16:38:00 Evie, [facility] Health CBC AND DIFFERENTIAL 2022-11-30 16:38:00 Evie, [facility] POCT URINALYSIS W/O SCOPE 2022-11-30 15:53:00 [facility], [facility] URINE CULTURE 2022-07-14 15:42:00 Evie, [facility] Health POCT URINALYSIS W/O SCOPE 2022-07-13 16:30:00 Evie, [facility] Health BASIC METABOLIC PANEL 2022-07-13 16:12:00 Evie, [facility] Hea lth HEPATIC FUNCTION PANEL 2022-07-13 16:12:00 Evie, [facility] He alth PSA, TOTAL AND FREE 2022-07-13 16:12:00 Evie, [facility] Healt h TESTOSTERONE, FREE, TOTAL 2022-07-13 16:12:00 Evie, [facility] Health CBC AND DIFFERENTIAL 2022-07-13 16:12:00 Evie, [facility] hospital Heal th ESTRADIOL 2022-07-13 16:12:00 Evie, [facility] Health PLATELET ESTIMATION 2022-07-13 16:12:00 Evie, Critical access hospital Healt h COLONOSCOPY (ENDO) 2022-04-22 16:14:24 John Phan [facility] COLONOSCOPY (ENDO) 2022-04-22 16:14:24 John Phan [facility] COLONOSCOPY 2022-04-22 16:06:00 Krystal Lemon [facility] DAY SURGERY - ADC 2022-04-22 05:01:00 Doctor Unassigned, [facility] EXTERNAL PROVIDER RECORDS 2022-03-02 05:01:00 Doctor Unassigned, [facility] EXTERNAL PROVIDER RECORDS 2022-03-02 05:01:00 Doctor Unassigned, [facility] POCT URINALYSIS W/O SCOPE 2022-02-23 15:44:00 [facility], [facility] BASIC METABOLIC PANEL 2022-02-23 15:01:00 Evie, [facility] access hospital Hea lth HEPATIC FUNCTION PANEL 2022-02-23 15:01:00 [facility], Critical access hospital He alth PSA, TOTAL AND FREE 2022-02-23 15:01:00 [facility], Critical access hospital Healt h TESTOSTERONE, FREE, TOTAL 2022-02-23 15:01:00 [facility] CBC AND DIFFERENTIAL 2022-02-23 15:01:00 [facility], [facility] VITAMIN D 25 HYDROXY 2022-02-23 15:01:00 [facility], Critical access hospital Heal PLATELET ESTIMATION 2022-02-23 15:01:00 [facility], Critical access hospital Healt h COMP. METABOLIC PANEL 2021-11-09 11:32:00 Travis Taveras [facility] ([id number]) [facility] CBC WITH DIFF 2021-11-09 11:32:00 Gian lida [facility] N-TERMINAL PRO-BNP 2021-11-09 11:32:00 Travis Taveras [facility] PHOSPHORUS 2021-11-08 11:59:00 Burton Pascual [facility] MAGNESIUM 2021-11-08 11:59:00 GianTravis winn [facility] COMP. METABOLIC PANEL 2021-11-08 11:59:00 Travis Taveras [facility] ([id number]) [facility] TACROLIMUS, LEVEL 2021-11-08 11:59:00 Burton Pascual [facility] CBC WITH DIFF 2021-11-08 11:59:00 Travis Taveras [facility] N-TERMINAL PRO-BNP 2021-11-08 11:59:00 Travis Taveras [facility] RESPIRATORY PANEL BY PCR 2021-11-07 11:46:00 Travis Taveras [facility] URINALYSIS 2021-11-07 11:45:00 Travis Taveras [facility] PNEUMOCOCCAL ANTIGEN 2021-11-07 11:45:00 Travis Taveras [facility] URINE CULTURE 2021-11-07 11:45:00 Travis Taveras [facility] UREA NITROGEN, URINE 2021-11-07 11:45:00 Travis Taveras [facility] SODIUM, URINE RANDOM 2021-11-07 11:45:00 Travis Taveras [facility] PROTEIN CREAT RATIO URINE 2021-11-07 11:45:00 [facility] MAGN[facility] 2021-11-07 11:39:00 Travis Taveras [facility] COMP. METABOLIC PANEL 2021-11-07 11:39:00 Travis Taveras [facility] ([id number]) [facility] CBC WITH DIFF 2021-11-07 11:39:00 Wilder Wolfe [facility] PROTHROMBIN TIME / INR 2021-11-07 11:39:00 Travis [facility] D-DIMER 2021-11-07 11:39:00 Travis Taveras [facility] N-TERMINAL PRO-BNP 2021-11-07 11:39:00 Travis Taveras [facility] ACUTE CARE VENOUS BLOOD 2021-11-07 11:33:00 Travis Taveras [facility] GAS [facility] OSMOLALITY, SERUM OR 2021-11-07 05:31:00 Gian lida [facility] PLASMA [facility] VITAMIN B12, LEVEL 2021-11-07 05:31:00 Gian [facility] FOLATE 2021-11-07 05:31:00 Gian [facility] SEDIMENTATION RATE 2021-11-07 05:31:00 Gian [facility] VITAMIN D, 25-OH 2021-11-07 05:31:00 Gian [facility] PROCALCITONIN 2021-11-07 05:31:00 Gian [facility] BLOOD CULTURE SCREEN 2021-11-07 05:28:00 Wilder Wolfe [facility] C-REACTIVE PROTEIN 2021-11-07 05:27:00 Wilder [facility] TACROLIMUS, LEVEL 2021-11-07 05:27:00 Wilder Wolfe [facility] LACTATE DEHYDROGENASE 2021-11-07 05:26:00 [facility] (ID NOW RAPID 2021-11-06 23:36:00 David Summers [facility] TESTING) [facility] CT CHEST PULMONARY 2021-11-06 23:28:35 David Summers [facility] ANGIOGRAM Medical Branch MAGNESIUM 2021-11-06 22:47:00 Wilder Wolfe [facility] FERRITIN SERUM 2021-11-06 22:47:00 Wilder Wolfe [facility] TROPONIN I 2021-11-06 22:47:00 David Summers [facility] COMP. METABOLIC PANEL 2021-11-06 22:47:00 [id number] CBC WITH DIFF 2021-11-06 22:47:00 David Summers [facility] N-TERMINAL PRO-BNP 2021-11-06 22:47:00 David Summers [facility] CONSENT/REFUSAL FOR 2021-11-06 22:15:44 Doctor Unassigned, [facility] DIAGNOSIS AND TREATMENT [place] [facility] URINE CULTURE 2021-07-24 22:19:00 [facility] POCT URINALYSIS W/O SCOPE 2021-07-24 21:58:00 [facility] BASIC METABOLIC PANEL 2021-07-24 14:23:00 [facility], Critical access hospital Hea lth HEPATIC FUNCTION PANEL 2021-07-24 14:23:00 [facility], Critical access hospital He alth PSA, TOTAL AND FREE 2021-07-24 14:23:00 [facility], Critical access hospital Healt h TESTOSTERONE, FREE, TOTAL 2021-07-24 14:23:00 [facility] CBC AND DIFFERENTIAL 2021-07-24 14:23:00 [facility], Critical access hospital Heal VITAMIN D 25 HYDROXY 2021-07-24 14:23:00 [facility] COLONOSCOPY (ENDO) 2020-08-01 13:46:45 John Phan [facility] POTASSIUM SERUM 2020-08-01 13:11:00 Vikram Chao [facility] DSU PRE-OP 2020-07-10 05:01:00 Doctor Unassigned, [facility] [place] [facility] CT Chest/Abdomen/Pelvis wo 2020-05-16 00:00:00 [facility] contrast [id number] History of Arteriovenous [facility] fistula creation procedure History of Cardiac [facility] catheterization with stent placement History of Knee [facility] replacement History of Kidney [facility] transplantation History of Nephrectomy [facility] History of Ureteral stent [facility] placement Encounters Start End Encounter Admission Attending Care Care Encounter Source Date/Time Date/Time Type Type Clinicians Facility Department ID 2023-04-13 Outpatient [facility] [id number] [place] 14:38:34 0613 [facility] 2022-11-30 Outpatient [facility] [id number] [place] 10:30:12 0130 [facility] 2022-11-19 Outpatient [facility] [id number] [place] 10:01:36 0119 [facility] 2022-08-31 Outpatient [facility] [id number] [place] 08:48:14 1031 [facility] 2021-08-29 Outpatient R CHARAFEDDIN LAMB [place] [id number] Univers 20:17:45 KRYSTAL Leyva of [facility] 2021-07-24 Outpatient EVIE, ELVIS [facility] [id number] [place] 09:42:36 Health 2021-03-08 Outpatient EVIE, ELVIS [facility] [id number] [place] 03:37:39 Health 2023-04-26 2023-04-26 Out[facility] [id number] [place] 11:00:00 11:00:00 Health 2022-11-30 2022-11-30 Office EvieElvis esquivel [facility]TP 6400 1.2.840.114 [id number] [place] 11:00:00 11:30:[address] [id number] Health 9.2.7.2.686 [id number] 2 2022-07-13 2022-07-13 Office Elvis Case [facility] 6400 1.2.840.114 [id number] [place] 10:00:00 10:30:[address] [id number] Health 9.2.7.2.686 [id number] 2 2022-04-22 2022-04-22 Outpatient R [facility] [id number] Univers 10:02:00 12:20:00 KRYSTAL Leyva o f [facility] 2022-04-22 2022-04-22 [facility] 1.2.840.114 [id number] Univers 10:02:00 12:20:00 Encounter Krystal leyva [id number] ity of [place] [id number] [facility] 071 Branch 2022-04-22 2022-04-22 Surgery [facility] 1.2.840.114 [id number] Univers 11:41:00 12:19:00 Krystal leyva [id number] [place] [id number] [facility] 020 Branch 2022-04-22 2022-04-22 Orders Doctor KIMBERLY 1.2.840.114 [id number] Univers 00:00:00 00:00:00 Only Unassigned, SAURAV [id number] ity of [place] [facility] 4.2.7.2.686 [place] [id number] [facility] 009 Branch 2022-04-21 2022-04-21 Outpatient R [facility] [id number] [facility] 08:45:00 08:45:00 KRYSTAL Leyva ity o f [facility] 2022-03-10 2022-03-10 Telephone Michelle Terrell [facility]TP 6400 1.2.840. 114 [id number] [place] 00:00:00 00:00:[address] [id number] Health 9.2.7.2.686 [id number] 2 2022-03-04 2022-03-04 Telephone Michelle Terrell [facility] 6400 1.2.840. 114 [id number] [place] 00:00:00 00:00:[address] [id number] Health 9.2.7.2.686 [id number] 2 2022-02-23 2022-02-23 Office Elvis Case [facility] 6400 1.2.840.114 [id number] [place] 10:00:00 10:30:00 Visit CAROLYNE CONTEH 350.1.13.58 Health 9.2.7.2.686 [id number] 2 2021-11-12 2021-11-12 Transition ROBBIE Escamilla 1.2.840.114 [id number] Univers 00:00:00 00:00:00 of Care Zoe Nelida VO 350.1.13.10 i [place] [id number] [facility] 403 Branch 2021-11-06 2021-11-11 Hospital David Summers [facility] 1.2.840.1 [id number] Univers 16:21:00 12:00:00 Encounter Cristobal aMrsh 350.1.13.10 ity of [place] Taveras 4.2.7.2.686 [facility] [id number] Medi elicia 080 Branch 2021-11-06 2021-11-11 Inpatient X GIAN [facility] EDDIE [id number] Univers 16:21:00 12:00:00 ADNAN [facility] 2021-11-06 2021-11-06 Nurse Nurse, [facility] 1.2.840.114 [id number] Univers 16:00:00 16:00:00 Visit Suellen Rojas [facility] 350.1.13.10 georgette shaffer [place] 4.2.7.2.686 [place] YOAN?BLEA [id number] Ri dical [address] MEDICAL OFFICE BUILDING 2021-11-06 2021-11-06 Outpatient R [facility] [id number] Univers 16:00:00 15:58:21 [facility] 2021-11-06 2021-11-06 Outpatient R [facility] [id number] Univers 15:45:00 15:45:00 [facility] 2021-07-24 2021-07-24 Office Elvis Case 6400 1.2.840.114 [id number] [place] 09:09:11 09:39:11 Visit CAROLYNE CONTEH 350.1.13.58 Health 9.2.7.2.686 [id number] 2 2021-07-23 2021-07-23 Telephone No, Pcp UTP 6410 1.2.840.114 [id number] [place] 00:00:00 00:00:00 No, Pcp [facility] 350.1.13.58 Health 9.2.7.2.686 [id number] 1 2020-11-21 2020-11-21 Appointmen ELVIS CASE, JACOB Urology - [id number] [place] 09:30:00 09:30:00 t; [place] CASE i, M.D. [facility] 2020-08-01 2020-08-01 [facility] 1.2.840.114 [id number] 07:53:00 09:55:00 [place]rystal [place] 350.1.13.10 [place] 4.2.7.2.686 Surgical [id number] [place] [address] 2020-08-01 2020-08-01 [facility] 1.2.840.114 [id number] [facility] 07:53:00 09:55:00 Encounter Krytsal leyva [place] 350.1.13.10 ity of [place] 4.2.7.2.686 [facility] [id number] [address] 2020-07-31 2020-07-31 Laboratory Only, Adc Test [facility] 1.2.840. 114 [id number] [facility] 13:22:27 13:37:27 Only IonKrystal [place] 350.1.1 3.10 ity of [place] 4.2.7.2.686 [facility] [place] [id number] [address] 2020-07-31 2020-07-31 Laboratory Only[facility] 1.2.840.114 [id number] 13:22:27 13:37:27 Only Test [place] 350.1.13.10 [place] 4.2.7.2.686 [place] [id number] [facility] 2020-07-31 2020-07-31 [facility] [id number] [facility] 13:30:00 13:30:00 KRYSTAL Leyva o f [facility] 2020-05-16 2020-05-16 Appointmen ELVIS CASE UTP Urology - [id number] [place] 09:15:00 09:15:00 t; [place] CASE [facility] ladi ZEPEDA M.D. [facility] 2019-03-09 2019-03-09 Outpatient [facility] [id number] [facility] 06:48:00 06:48:00 2018-11-24 2018-11-24 Appointmen DEXA, [facility]TP [id number] [place] 11:00:00 11:00:00 t; DEXA, Physi ci SCAN ans Results Test Description Test Time Test Comments Results Result Comments Source Testosterone, free, total 2022-12-03 21:00:00 Test Item Value Reference Range Interpretation Comme nts TESTOSTERONE, [id number] For additiona l information, please refer TOTAL, MS ng/dL [email or web address] [email or web address](This (test code = link is being p rovided for informational/educational 2986-8) purposes only.) (Note) This test was developed and its analytical perf ormancecharacteristics have been determined by m edfusion. It has notbeen cleared or approved by the FDA. This assay has been validatedpursua nt to the CLIA regulations and is used for clinical purpos es. TESTOSTERONE, 60.1 30.0-135. (Note)This doc t was developed and its analytical FREE (test pg/mL 0 performance maxine racteristics have been determined by code = 2991-8) medfusion. It has not been cleared or approved by the FDA. This assay has been validated pursuant to the CLIA regulations and is used for clinical purposes. MDFmed rctaby0019 [place] [address],[address] [place] [address] [phone] Almaraz MD REPORT COMMENT:MULTIPL E TESTING PRIORITIES; ROUTINE TESTING TO FOLLOW. RAC (test code Perfor = RAC) zne aguero Inform ation: ? ?Site ID: [id number] ? ?Name: MEDFUS ION ? ?Addre ss: [address] [place] [address] ? ?Direc tor: MIKE ALMARAZ MD [facility], total and [id number] 21:00:00 Test Item Value Reference Interpretation Comments Range PSA, TOTAL (test 4.5 ng/mL See_Comment H [Automated message] code = 2857-1) The system [facility] generated this result transmitted ref erence range: < OR = 4 .0. The reference range was not used to int erpret this result as normal/abnormal . PSA, FREE (test 1.4 ng/mL code = 84158-6) PSA, % FREE (test 31 See_Comment PSA(ng/mL ) ? ? ?Free code = 18133-7) PSA(%) ? ? Estimated(x) Probability ? of Cancer(as%)0-2. 5 ?(*) ? Approx. 12.6- 4.0(1) ? 0-27(2) ? 24(3)4.1-10(4) ?0-10 ?56 ? 11-15 ? 28 ? 16-20 ? 20 ? 21-25 ? 16 ? >or = 26 ? 8 >10(+) ? N/A ? >50 References:(1)Serjio pemberton al.:Urology 60: 469-474 (2001) ? (2)Rui leyva t al.:J.Urol 168: 922-925 (2001) ?Free PSA(% ) ? Sensitivity(%) ?Specificity(%) ?< or = 2 5 ?85 ?19 ?< or = 30 ?93 ? 9 ? (3)Rui et al.:TODD 277: 3659-1111 (1996 ) ? (4)Rui et al.:TODD 279: 0964-0964 (1997 ) (x)These estima doc vary with age, ethnicity, fami ly ? history and YOSELIN results.(*)The diagnostic usef ulness of % Free PSA h as not been ? establis hed in patients with t otal PSA below 2.6 ng/mL(+)In men with PSA above 10 ng /mL, prostate cancer risk is ? determined by total PSA alone . The Total PSA value from this assay syst em is standardized ag ainst the equimolar P SA standard. The t est result will be approximately 2 0% higher when com pared to the WHO-standardize d Total PSA (Siemens as say). Comparison of s erial PSA results charla uld be interpreted wit h this fact in mind. P SA was performed using the Foster CoulterImmunoas say method. Values obtained from differentassay methods cannot be used interchangeably . PSAlevels, rega rdless of value, shoul d not be interpreteda s absolute eviden ce of the presence or absence ofdisea se. [Automated mess age] The system whic h generated this result transmitted ref erence range: >25 % (c alc). The reference r hilda was not used to interpret this result as normal/abnor mal. RAC (test code = Performing RAC) Organization Information: ? ?Site ID: [id number] ? ?Name: [employer] ? ?Address: [address] [place], [place] [address] [address] ? ?Director: DERECK CARRANZA MD Lab Interpretation Abnormal (test code = 96190-9) [facility] [id number] 21:00:00 Test Item Value Reference Range Interpretation Comments PROTEIN, TOTAL 6.8 g/dL 6.1-8.1 (test code = 2885-2) ALBUMIN (test code 4 g/dL 3.6-5.1 = 1751-7) GLOBULIN (test 2.8 See_Comment [Automated code = 79915-4) message] The system which generated this result transmitted reference range : 1.9 - 3.7 g/dL (calc). The reference range was not used to interpret this result as normal/abnormal . ALBUMIN/GLOBULIN 1.4 See_Comment [Automated RATIO (test code = message] The ) system which generated this result transmitted reference range : 1.0 - 2.5 (calc ). The reference range was not used to interpr et this result as normal/abnormal . BILIRUBIN, TOTAL 0.6 mg/dL 0.2-1.2 (test code = 1974-12) BILIRUBIN, DIRECT 0.2 mg/dL See_Comment [Automate d (test code = message] The 1968-05) system which generated this result transmitted reference range : < OR = 0.2. The reference range was not used to interpret this result as normal/abnormal . BILIRUBIN, 0.4 See_Comment [Automated INDIRECT (test message] The code = 1970-11) system which generated this result transmitted reference range : 0.2 - 1.2 mg/dL (calc). The reference range was not used to interpret this result as normal/abnormal . ALKALINE 86 U/L 35-144 PHOSPHATASE (test code = 6768-6) AST (test code = 19 U/L 10-35 1920-8) ALT (test code = 14 U/L 9-46 1742-6) RAC (test code = Performing RAC) Organization Information: ? ?Site ID: RGA ? ?Name: [facility] ? ?Address: [address] [place] [phone] ? ?Director: DERECK CARRANZA MD [facility] metabolic [id number] 21:00:00 Test Item Value Reference Range Interpretation Comments GLUCOSE (test 84 mg/dL 65-99 ? Fas ting code = 2345-7) reference int erval UREA NITROGEN 17 mg/dL 7-25 (BUN) (test code = 3094-0) CREATININE (test 0.87 mg/dL 0.70-1.28 code = 2160-0) EGFR (test code = 89 See_Comment The eGFR i s based 314032824) on the CKD-EPI 2020 equation. To calculate the n ew eGFR from a previous Creatinine or Cystatin Cresul t, go to https://www.kid lorie .org/profession als /kdoqi/gfr%5Fca lcu lator [Automate d message] The system which generated this result transmit khadar reference range : > OR = 60 mL/min/1.73m2. The reference range was not used to interpret this result as normal/abnormal . BUN/CREATININE NOT APPLICABLE See_Comment [Automated RATIO (test code message] Th e = 3097-3) system which generated this result transmit khadar reference range : 6 - 22 (calc). Th e reference range was not used to interpret this result as normal/abnormal . SODIUM (test code 138 mmol/L 135-146 = 2951-2) POTASSIUM (test 4.3 mmol/L 3.5-5.3 code = 2823-3) CHLORIDE (test 105 mmol/L 98-110 code = 2075-0) CARBON DIOXIDE 25 mmol/L 20-32 (test code = 8-9) CALCIUM (test 9.2 mg/dL 8.6-10.3 code = 58971-2) RAC (test code = Performing RAC) Organization Information: ? ?Site ID: RGA ? ?Name: [facility] ? ?Address: [address] [place] [phone] ? ?Director: DERECK CARRANZA MD [facility] [place] and [id number] 21:00:00 Test Item Value Reference Range Interpretation Comments WHITE BLOOD CELL 5.4 See_Comment [Automated COUNT (test code = message] The 6690-2) system which generated this result transmitted reference range : 3.8 - 10.8 Thousand/uL. Th e reference range was not used to interpret this result as normal/abnormal . RED BLOOD CELL 4.37 See_Comment [Automated COUNT (test code = message] The 789-8) system which generated this result transmitted reference range : 4.20 - 5.80 Million/uL. The reference range was not used to interpret this result as normal/abnormal . HEMOGLOBIN (test 13.9 g/dL 13.2-17.1 code = 718-7) HEMATOCRIT (test 40.6 % 38.5-50.0 code = 4544-3) MCV (test code = 92.9 fL 80.0-100.0 787-2) MCH (test code = 31.8 pg 27.0-33.0 785-6) MCHC (test code = 34.2 g/dL 32.0-36.0 786-4) RDW (test code = 13.7 % 11.0-15.0 788-0) PLATELET COUNT 210 See_Comment [Automated (test code = message] The 777-3) system which generated this result transmitted reference range : 140 - 400 Thousand/uL. Th e reference range was not used to interpret this result as normal/abnormal . MPV (test code = 9.4 fL 7.5-12.5 776-5) ABSOLUTE 3197 See_Comment [Automated NEUTROPHILS (test message] T he code = 751-8) system which generated this result transmitted reference range : 1500 - 7800 cells/uL. The reference range was not used to interpret this result as normal/abnormal . ABSOLUTE 1593 See_Comment [Automated LYMPHOCYTES (test message] T he code = 731-0) system which generated this result transmitted reference range : 850 - 3900 cells/uL. The reference range was not used to interpret this result as normal/abnormal . ABSOLUTE MONOCYTES 556 See_Comment [Automat ed (test code = message] The 742-7) system which generated this result transmitted reference range : 200 - 950 cells/uL. The reference range was not used to interpret this result as normal/abnormal . ABSOLUTE 32 See_Comment [Automated EOSINOPHILS (test message] T he code = 711-2) system which generated this result transmitted reference range : 15 - 500 cells/uL. The reference range was not used to interpret this result as normal/abnormal . ABSOLUTE BASOPHILS 22 See_Comment [Automat ed (test code = message] The 704-7) system which generated this result transmitted reference range : 0 - 200 cells/u L. The reference range was not used to interpr et this result as normal/abnormal . NEUTROPHILS (test 59.2 % code = 770-8) LYMPHOCYTES (test 29.5 % code = 736-9) MONOCYTES (test 10.3 % code = 5905-5) EOSINOPHILS (test 0.6 % code = 713-8) BASOPHILS (test 0.4 % code = 706-2) RAC (test code = Performing RAC) Organization Information: ? ?Site ID: RGA ? ?Name: [facility] ? ?Address: [address] [place] [address] ? ?Director: DERECK CARRANZA MD [facility] [id number] 09:00:00 Test Item Value Reference Range Interpretation Comments CULTURE, URINE, SEE NOTE ?CULTURE, U RINE, ROUTINE (test ROUTINE ? ?Ilan ro code = Number: ? ? [id number]) ?[id number] ?Test Status: ? ? ? Final ?Specimen Source: ? Urine , clean catch ?Specimen Quality: ?Adequate ?Result: ?No Growth REPORT COMMENT:SPLIT 11/30/2022 FROM [id number] RAC (test code = Performing RAC) Organization Information: ? ?Site ID: RGA ? ?Name: [facility] ? ?Address: [address] [place] [address] ? ?Director: DERECK CARRANZA MD [facility] urinalysis w/o [id number] 15:53:00 Test Item Value Reference Range Interpretation Comments Color, UA (test code = Yello w 3769124) Clarity, UA (test code Clear = 2174120) Glucose, UA (test code Negative Negative = 3786607) Bilirubin, UA (test Negative Negative code = 7709746) Ketones, UA (test code Negat fadia = 0287585) Spec Grav, UA (test 1.025 1.000-1.030 code = 1754850) Blood, UA (test code = Negative 1492194) pH, UA (test code = 5.5 5.0-8.5 9266543) Protein, UA (test code Negative Negative, Trace, = 3333182) 200(+2)mg/dL, 15/mg/dL Urobilinogen, UA (test 0.2 See_Comment [Aut omated message] code = 3815458) The system [employer] generated this result transmit khadar reference range : 0.2. The refere nce range was not u sed to interpret th is result as normal/abnormal . Leukocytes, UA (test Negative Negative, Trace code = 7032938) Nitrite, UA (test code Negative Negative, Trace = 5865093) Appearance, Fluid (test Clear code = 9335-1) Lab Interpretation Normal (test code = 23173-8) [facility] HealthTestosterone, free, [id number] 15:00:00 Test Item Value Reference Interpretation Comments Range TESTOSTER 693 ng/dL 250-1100 For additional information, ONE, please refer TOTAL, tohttps://educa tiviviane.questdiagn (test [facility].myContactCard/faq/ XQO485(This code = link is being p rovided for 2986-8) informational/e ducational purposes only.) (Note) This test was develo ped and its analytical performancechar acteristics have been deter mined by [employer]. It h as notbeen cleared or appr maegan by the FDA. This assay has been validatedpursua nt to the CLIA regulations and is used for clinical purpos es. TESTOSTER 46 pg/mL 30.0-135.0 (Note)This test was developed ONE, FREE and its analyti elicia performance (test characteristics have been code = determined by m edfusion. It 2991-8) has not been cl eared or approved by the FDA. This assay has been validated pursuant to the CLIA regulations and is used for clinical purpos es. MDFmed [id number] [address],[address] [phone] 00Lisa Almaraz MD REPO RT COMMENT:MULTIPL E TESTING PRIORITIES; ROU LYN TESTING TO FOLLOW. RAC (test Performing code = Organization RAC) Information: ? ?Site ID: [id number] ? ?Name: [facility] ? ?Address: [address] [place] [address] [address] [place] [address] ? ?Director: LISA ALMARAZ MD [facility] Health[facility]A, total and [id number] 15:00:00 Test Item Value Reference Interpretation Comments Range PSA, TOTAL (test 4.8 ng/mL See_Comment H [Automated message] code = 2857-1) The system [employer] generated this result transmitted ref erence range: < OR = 4 .0. The reference range was not used to int erpret this result as normal/abnormal . PSA, FREE (test 1.2 ng/mL code = 37045-1) PSA, % FREE (test See_Comment L PSA(ng/mL ) ? ? ?Free code = 26242-7) PSA(%) ? ? Estimated(x) Probability ? of Cancer(as%)0-2. 5 ?(*) ? Approx. 12.6- 4.0(1) ? 0-27(2) ? 24(3)4.1-10(4) ?0-10 ?56 ? 11-15 ? 28 ? 16-20 ? 20 ? 21-25 ? 16 ? >or = 26 ? 8 >10(+) ? N/A ? >50 References:(1)Serjio joseph et al.:Urology 60: 469-474 (2002) ? (2)Rui leyva t al.:J.Urol 168: 922-925 (2001) ?Free PSA(% ) ? Sensitivity(%) ?Specificity(%) ?< or = 2 5 ?85 ?19 ?< or = 30 ?93 ? 9 ? (3)Rui et al.:TODD 277: 9621-4226 (1996 ) ? (4)Catalona et al.:TODD 279: 3535-6333 (1997 ) (x)These estima doc vary with age, ethnicity, fami ly ? history and YOSELIN results.(*)The diagnostic usef ulness of % Free PSA h as not been ? establis hed in patients with t otal PSA below 2.6 ng/mL(+)In men with PSA above 10 ng /mL, prostate cancer risk is ? determined by total PSA alone . The Total PSA value from this assay syst em is standardized ag ainst the equimolar P SA standard. The t est result will be approximately 2 0% higher when com pared to the WHO-standardize d Total PSA (Siemens as say). Comparison of s erial PSA results charla uld be interpreted wit h this fact in mind. P SA was performed using the Foster CoulterImmunoas say method. Values obtained from differentassay methods cannot be used interchangeably . PSAlevels, rega rdless of value, shoul d not be interpreteda s absolute eviden ce of the presence or absence ofdisea se. [Automated mess age] The system Neolane generated this result transmitted ref erence range: >25 % (c alc). The reference r hilda was not used to interpret this result as normal/abnor mal. RAC (test code = Performing RAC) Organization Information: ? ?Site ID: IG ? ?Name: [facility] ? ?Address: [address] [place] [address] [place] [address] ? ?Director: DERECK CARRANZA MD Lab Interpretation Abnormal (test code = 07424-3) [facility] [id number] 15:00:00 Test Item Value Reference Range Interpretation Comments PROTEIN, TOTAL 6.5 g/dL 6.1-8.1 (test code = 2885-2) ALBUMIN (test code 3.8 g/dL 3.6-5.1 = 1751-7) GLOBULIN (test See_Comment [Automated code = 06855-2) message] The system which generated this result transmitted reference range : 1.9 - 3.7 g/dL (calc). The reference range was not used to interpret this result as normal/abnormal . ALBUMIN/GLOBULIN See_Comment [Automated RATIO (test code = message] The ) system which generated this result transmitted reference range : 1.0 - 2.5 (calc ). The reference range was not used to interpr et this result as normal/abnormal . BILIRUBIN, TOTAL 0.6 mg/dL 0.2-1.2 (test code = 1974-) BILIRUBIN, DIRECT 0.2 mg/dL See_Comment [Automate d (test code = message] The 1968-05) system which generated this result transmitted reference range : < OR = 0.2. The reference range was not used to interpret this result as normal/abnormal . BILIRUBIN, See_Comment [Automated INDIRECT (test message] The code = 1970-11) system which generated this result transmitted reference range : 0.2 - 1.2 mg/dL (calc). The reference range was not used to interpret this result as normal/abnormal . ALKALINE 100 U/L 35-144 PHOSPHATASE (test code = 6768-6) AST (test code = 14 U/L 10-35 1920-8) ALT (test code = 13 U/L 9-46 1742-6) RAC (test code = Performing RAC) Organization Information: ? ?Site ID: RGA ? ?Name: [facility] [place] ? ?Address: [address] [place] [phone] ? ?Director: DERECK CARRANZA MD [facility] [id number] 15:00:00 Test Item Value Reference Interpretation Comments Range GLUCOSE (test code 108 mg/dL 65-99 H ? Fasting = 2345-7) reference inter kenia For someone wit hout known diabetes, a glucose valuebe tween 100 and 125 mg/ dL is consistent withprediabetes and should be confi rmed with afollow-up test. UREA NITROGEN (BUN) 18 mg/dL 7-25 (test code = 3094-0) CREATININE (test 0.9 mg/dL 0.70-1.28 code = 2160-0) EGFR (test code = See_Comment The eGFR i s based on 288202230) the CKD-EPI 202 1 equation. To calculate the n ew eGFR from a pre vious Creatinine or Cystatin Cresul t, go to https://www.kid lorie.o rg/professional s/kdo qi/gfr%5Fcalcul ator [Automated mess age] The system whic h generated this result transmit khadar reference range : > OR = 60 mL/min/1.73m2. The reference range was not used to interpret this result as normal/abnormal . BUN/CREATININE NOT APPLICABLE See_Comment [Automated message] RATIO (test code = The syste m which 3097-3) generated this result transmit khadar reference range : 6 - 22 (calc). The reference range was not used to interpret this result as normal/abnormal . SODIUM (test code = 136 mmol/L 024-433 9883-2) POTASSIUM (test 4.2 mmol/L 3.5-5.3 code = 2823-3) CHLORIDE (test code 104 mmol/L 98-110 = 2075-0) CARBON DIOXIDE 25 mmol/L 20-32 (test code = 8-9) CALCIUM (test code 8.9 mg/dL 8.6-10.3 = 89036-7) RAC (test code = Performing RAC) Organization Information: ? ?Site ID: RGA ? ?Name: [facility] ? ?Address: [address] [place] [phone] ? ?Director: DERECK CARRANZA MD Lab Interpretation Abnormal (test code = 69688-9) [facility] and [id number] 15:00:00 Test Item Value Reference Range Interpretation Comments WHITE BLOOD CELL See_Comment [Automated COUNT (test code = message] The system 9890-2) which generated this result transmitted reference range : 3.8 - 10.8 Thousand/uL. Th e reference range was not used to interpret this result as normal/abnormal . RED BLOOD CELL See_Comment [Automated COUNT (test code = message] The system 789-8) which generated this result transmitted reference range : 4.20 - 5.80 Million/uL. The reference range was not used to interpret this result as normal/abnormal . HEMOGLOBIN (test 13.7 g/dL 13.2-17.1 code = 718-7) HEMATOCRIT (test 42.3 % 38.5-50.0 code = 4544-3) MCV (test code = 92.2 fL 80.0-100.0 787-2) MCH (test code = 29.8 pg 27.0-33.0 785-6) MCHC (test code = 32.4 g/dL 32.0-36.0 786-4) RDW (test code = 14 % 11.0-15.0 788-0) ABSOLUTE See_Comment [Automated NEUTROPHILS (test message] [employer] system code = 751-8) which generate d this result transmitted reference range : 1500 - 7800 cells/uL. The reference range was not used to interpret this result as normal/abnormal . ABSOLUTE See_Comment [Automated LYMPHOCYTES (test message] Session[employer] system code = 731-0) which generate d this result transmitted reference range : 850 - 3900 cells/uL. The reference range was not used to interpret this result as normal/abnormal . ABSOLUTE MONOCYTES See_Comment [Automat ed (test code = message] The [employer] stem 742-7) which generated this result transmitted reference range : 200 - 950 cells /uL. The reference r hilda was not used to interpret this result as normal/abnormal . ABSOLUTE See_Comment [Automated EOSINOPHILS (test message] SessionM system code = 711-2) which generate d this result transmitted reference range : 15 - 500 cells/uL. The reference range was not used to interpret this result as normal/abnormal . ABSOLUTE BASOPHILS See_Comment [Automat ed (test code = message] The [employer] stem 704-7) which generated this result transmitted reference range : 0 - 200 cells/uL. The reference range was not used to interpret this result as normal/abnormal . NEUTROPHILS (test 61.5 % code = 770-8) LYMPHOCYTES (test 26.9 % code = 736-9) MONOCYTES (test 10.8 % code = 5905-5) EOSINOPHILS (test 0.6 % code = 713-8) BASOPHILS (test 0.2 % code = 706-2) PLATELET COUNT NOT DONE Thousand/uL TEST(S) NOT (test code = PERFORMED: ? 777-3) ?PLATELET COUNT Unable to repor t due tosignifica nt platelet clumpi ng. RAC (test code = Performing RAC) Organization Information: ? ?Site ID: RGA ? ?Name: [facility] ? ?Address: [address] [place] [phone] ? ?Director: DERECK CARRANZA MD [facility] JjimryDkayqyoxg5028-03-75 15:00:00 Test Item Value Reference Range Interpretation Comments ESTRADIOL (test 37 pg/mL See_Comment Reference ra nge code = 2243-4) established o n post-pubertal patientpopulati on. No pre-pubertal re ference rangeestablishe d using this assay. For any patients forwho m low Estradiol level s are anticipated (e. g. males,pre-puber fili children and hypogonadal/pos t-menop ausal females), the [facility] HospitalEstrad iol, Ultrasensitive, LCMSMS assay is recommended(ord er code 99635). ?Please note: patients being treated with the drug fulvestrant (Faslodex(R)) h ave demonstrated significant interference in immunoassay met hods for estradiol measurement. Th e cross reactivity coul d lead to falsely elev ated estradiol test results leading to an inappropriate c linical assessment of e strogen status.Sightlogix ord er code 30379-Wpevjlojx , Ultrasensitive LC/MS/MS demons trates negligible cros s reactivity with fulvestrant. [Automated mess age] The system Neolane generated this result transmitted ref erence range: < OR = 3 9. The reference range was not used to int erpret this result as normal/abnormal . RAC (test code Performing = RAC) Organization Information: ? ?Site ID: RGA ? ?Name: [facility] ? ?Address: [address] [place] [phone] ? ?Director: DERECK CARRANZA MD [facility] HealthPLATELET [id number] 15:00:00 Test Item Value Reference Range Interpretation Comments PLATELET ESTIMATION ADEQUATE ADEQUATE (test code = 9317-9) RAC (test code = RAC) Performing Organization Information: ? ?Site ID: RGA ? ?Name: [facility] ? ?Address: [address] [place] [phone] ? ?Director: DERECK CARRANZA MD [facility] [id number] 04:00:00 Test Item Value Reference Range Interpretation Comments CULTURE, URINE, SEE NOTE ?CULTURE, U RINE, ROUTINE (test ROUTINE ? ?Ilan ro code = Number: ? ? [id number]) ?[id number] ?Test Status: ? ? ? Final ?Specimen Source: ? Urine , clean catch ?Specimen Quality: ?Adequate ?Result: ?No Growth REPORT COMMENT:SPLIT 07/13/2022 FROM [id number] RAC (test code = Performing RAC) Organization Information: ? ?Site ID: RGA ? ?Name: [facility] ? ?Address: [address] [place] [phone] ? ?Director: DERECK CARRANZA MD [facility]/o [id number] 16:30:00 Test Item Value Reference Range Interpretation Comments Color, UA (test code = Yello w 4012745) Clarity, UA (test code Clear = 8209492) Glucose, UA (test code Negative Negative = 3897554) Bilirubin, UA (test Negative Negative code = 5550969) Ketones, UA (test code Negat fadia = 4946394) Spec Grav, UA (test 1.000-1.030 code = 4921075) Blood, UA (test code = Negative 5307339) pH, UA (test code = 5.0-8.5 8093952) Protein, UA (test code Negative Negative, Trace, = 4332967) 200(+2)mg/dL, 15/mg/dL Urobilinogen, UA (test See_Comment A [Aut omated message] code = 3795905) The system w [facility] generated this result transmit khadar reference range : 0.2. The refere nce range was not u sed to interpret th is result as normal/abnormal . Leukocytes, UA (test Negative Negative, Trace code = 4503531) Nitrite, UA (test code Negative Negative, Trace = 2386319) Appearance, Fluid (test Clear code = 9335-1) Lab Interpretation Abnormal (test code = 22940-0) [facility]Testosterone, free, [id number] 20:00:00 Test Item Value Reference Interpretation Comments Range TESTOSTER 602 ng/dL 250-1100 For additional information, ONE, please refer ZIYAD, tohttps://williams kil[place]ore.Kyruusdiagn (test [employer]/faq/ WZY970(This code = link is being p rovided for 2986-8) informational/e ducational purposes only.) (Note) This test was develo ped and its analytical performancechar acteristics have been deter mined by [employer]. It h as notbeen cleared or appr maegan by the FDA. This assay has been validatedpursua nt to the CLIA regulations and is used for clinical purpos es. TESTOSTER 35 pg/mL 30.0-135.0 (Note)This test was developed ONE, FREE and its analyti elicia performance (test characteristics have been code = determined by [employer]. It 2991-8) has not been cl eared or approved by the FDA. This assay has been validated pursuant to the CLIA regulations and is used for clinical purpos es. MDed [id number] [place] [address],[address] [place] [address] [phone] 00Lisa Almaraz MD REPO RT COMMENT:MULTIPL E TESTING PRIORITIES; ROU LYN TESTING TO FOLLOW. RAC (test Performing code = Organization RAC) Information: ? ?Site ID: [id number] ? ?Name: [facility] ? ?Address: [address] [place] [address] [place] [phone] ? ?Director: LISA ALMARAZ MD [facility], total and [id number] 20:00:00 Test Item Value Reference Interpretation Comments Range PSA, TOTAL (test 6.6 ng/mL See_Comment H [Automated message] code = 2857-1) The system [employer] generated this result transmitted ref erence range: < OR = 4 .0. The reference range was not used to int erpret this result as normal/abnormal . PSA, FREE (test 1.7 ng/mL code = 18279-5) PSA, % FREE (test See_Comment PSA(ng/mL ) ? ? ?Free code = 87326-7) PSA(%) ? ? Estimated(x) Probability ? of Cancer(as%)0-2. 5 ?(*) ? Approx. 12.6- 4.0(1) ? 0-27(2) ? 24(3)4.1-10(4) ?0-10 ?56 ? 11-15 ? 28 ? 16-20 ? 20 ? 21-25 ? 16 ? >or = 26 ? 8 >10(+) ? N/A ? >50 References:(1)Serjio pemberton al.:Urology 60: 469-474 (2002) ? (2)Rui leyva t al.:J.Urol 168: 922-925 (2002) ?Free PSA(% ) ? Sensitivity(%) ?Specificity(%) ?< or = 2 5 ?85 ?19 ?< or = 30 ?93 ? 9 ? (3)Rui et al.:TODD 277: 2650-1777 (1996 ) ? (4)Rui et al.:TODD 279: 5435-2289 (1997 ) (x)These estima doc vary with age, ethnicity, fami ly ? history and YOSELIN results.(*)The diagnostic usef ulness of % Free PSA h as not been ? establis hed in patients with t otal PSA below 2.6 ng/mL(+)In men with PSA above 10 ng /mL, prostate cancer risk is ? determined by total PSA alone . The Total PSA value from this assay syst em is standardized ag ainst the equimolar P SA standard. The t est result will be approximately 2 0% higher when com pared to the WHO-standardize d Total PSA (Siemens as say). Comparison of s erial PSA results charla uld be interpreted wit h this fact in mind. P SA was performed using the Foster CoulterImmunoas say method. Values obtained from differentassay methods cannot be used interchangeably . PSAlevels, rega rdless of value, shoul d not be interpreteda s absolute eviden ce of the presence or absence ofdisea se. [Automated mess age] The system ic h generated this result transmitted ref erence range: >25 % (c alc). The reference r hilda was not used to interpret this result as normal/abnor mal. RAC (test code = Performing RAC) Organization Information: ? ?Site ID: IG ? ?Name: [facility] ? ?Address: [address] [place] [phone] ? ?Director: DERECK CARRANZA MD Lab Interpretation Abnormal (test code = 02052-7) [facility] [id number] 20:00:00 Test Item Value Reference Range Interpretation Comments PROTEIN, TOTAL 6.7 g/dL 6.1-8.1 (test code = 2885-2) ALBUMIN (test code 3.9 g/dL 3.6-5.1 = 175-7) GLOBULIN (test See_Comment [Automated code = 49929-6) message] The system which generated this result transmitted reference range : 1.9 - 3.7 g/dL (calc). The reference range was not used to interpret this result as normal/abnormal . ALBUMIN/GLOBULIN See_Comment [Automated RATIO (test code = message] The 175) system which generated this result transmitted reference range : 1.0 - 2.5 (calc ). The reference range was not used to interpr et this result as normal/abnormal . BILIRUBIN, TOTAL 0.5 mg/dL 0.2-1.2 (test code = 1974-12) BILIRUBIN, DIRECT 0.1 mg/dL See_Comment [Automate d (test code = message] The 1968-05) system which generated this result transmitted reference range : < OR = 0.2. The reference range was not used to interpret this result as normal/abnormal . BILIRUBIN, See_Comment [Automated INDIRECT (test message] The code = 1971-1) system which generated this result transmitted reference range : 0.2 - 1.2 mg/dL (calc). The reference range was not used to interpret this result as normal/abnormal . ALKALINE 101 U/L 35-144 PHOSPHATASE (test code = 6768-6) AST (test code = 15 U/L 10-35 1920-8) ALT (test code = 11 U/L 9-46 1742-6) RAC (test code = Performing RAC) Organization Information: ? ?Site ID: RGA ? ?Name: [facility] ? ?Address: [address] [place] [phone] ? ?Director: DERECK CARRANZA MD [facility] metabolic [id number] 20:00:00 Test Item Value Reference Range Interpretation Comments GLUCOSE (test 99 mg/dL 65-99 ? Fas ting code = 2345-7) reference int erval UREA NITROGEN 15 mg/dL 7-25 (BUN) (test code = 3094-0) CREATININE (test 0.84 mg/dL 0.70-1.18 For patient s >49 code = 2160-0) years of age, the reference limit for Creatinine is approximately 1 3% higher for peopleidentifie d as -Nuria n. eGFR NON- See_Comment [Automated message] SOMALI (test The system ich code = 99378-5) generated th is result transmitted ref erence range: > OR = 6 0 mL/min/1.73m2. The reference range was not used to int erpret this result as normal/abnormal . eGFR See_Comment [Automated mes taylor] SOMALI (test The system ich code = 37233-7) generated th is result transmitted ref erence range: > OR = 6 0 mL/min/1.73m2. The reference range was not used to int erpret this result as normal/abnormal . BUN/CREATININE NOT APPLICABLE See_Comment [Automated message] RATIO (test code The system which = 3097-3) generated this result transmitted ref erence range: 6 - 22 ( calc). The reference r hilda was not used to interpret this result as normal/abnor mal. SODIUM (test 139 mmol/L 135-146 code = 2951-2) POTASSIUM (test 4.5 mmol/L 3.5-5.3 code = 2823-3) CHLORIDE (test 106 mmol/L 98-110 code = 2075-0) CARBON DIOXIDE 26 mmol/L 20-32 (test code = 8-9) CALCIUM (test 9.3 mg/dL 8.6-10.3 code = 46416-3) RAC (test code = Performing RAC) Organization Information: ? ?Site ID: RGA ? ?Name: [facility] ? ?Address: [address] [place] [phone] ? ?Director: DERECK CARRANZA MD [facility] [place] and [id number] 20:00:00 Test Item Value Reference Range Interpretation Comments WHITE BLOOD CELL See_Comment [Automated COUNT (test code = message] The 5890-2) system which generated this result transmitted reference range : 3.8 - 10.8 Thousand/uL. Th e reference range was not used to interpret this result as normal/abnormal . RED BLOOD CELL See_Comment [Automated COUNT (test code = message] The 439-8) system which generated this result transmitted reference range : 4.20 - 5.80 Million/uL. The reference range was not used to interpret this result as normal/abnormal . HEMOGLOBIN (test 13.6 g/dL 13.2-17.1 code = 718-7) HEMATOCRIT (test 42.2 % 38.5-50.0 code = 4544-3) MCV (test code = 93.4 fL 80.0-100.0 787-2) MCH (test code = 30.1 pg 27.0-33.0 785-6) MCHC (test code = 32.2 g/dL 32.0-36.0 786-4) RDW (test code = 13.7 % 11.0-15.0 788-0) PLATELET COUNT See_Comment [Automated (test code = message] The 107-3) system which generated this result transmitted reference range : 140 - 400 Thousand/uL. Th e reference range was not used to interpret this result as normal/abnormal . MPV (test code = 10 fL 7.5-12.5 776-5) ABSOLUTE See_Comment [Automated NEUTROPHILS (test message] T he code = 751-8) system which generated this result transmitted reference range : 1500 - 7800 cells/uL. The reference range was not used to interpret this result as normal/abnormal . ABSOLUTE See_Comment [Automated LYMPHOCYTES (test message] T he code = 731-0) system which generated this result transmitted reference range : 850 - 3900 cells/uL. The reference range was not used to interpret this result as normal/abnormal . ABSOLUTE MONOCYTES See_Comment [Automat ed (test code = message] The 742-7) system which generated this result transmitted reference range : 200 - 950 cells/uL. The reference range was not used to interpret this result as normal/abnormal . ABSOLUTE See_Comment [Automated EOSINOPHILS (test message] T he code = 711-2) system which generated this result transmitted reference range : 15 - 500 cells/uL. The reference range was not used to interpret this result as normal/abnormal . ABSOLUTE BASOPHILS See_Comment [Automat ed (test code = message] The 704-7) system which generated this result transmitted reference range : 0 - 200 cells/u L. The reference range was not used to interpr et this result as normal/abnormal . NEUTROPHILS (test 68.2 % code = 770-8) LYMPHOCYTES (test 22 % code = 736-9) MONOCYTES (test 7.6 % code = 5905-5) EOSINOPHILS (test 1.7 % code = 713-8) BASOPHILS (test 0.5 % code = 706-2) RAC (test code = Performing RAC) Organization Information: ? ?Site ID: RGA ? ?Name: [facility] ? ?Address: [address] [place] [phone] ? ?Director: DERECK CARRANZA MD [facility] 25 [id number] 20:00:00 Test Item Value Reference Range Interpretation Comments VITAMIN 49 ng/mL 30-100 Vitamin D Statu s ? D,25-OH,TOTAL,I ? ? ? 25-OH Vitamin A (test code = D: Deficiency : ? ? 1988-12) ? <20 ng/mLInsufficie ncy: ? 20 - 29 ng/mLOptimal: ? > or = 30 ng/mL For 25-OH Vitamin D testi ng on patients on D2-supplementat ion and patients fo r whom quantitati on of D2 and D3 fractions is required, the QuestAssureD(TM )25- OH VIT D, (D2,D 3), LC/MS/MS is recommended: or renetta code 13061 (patients >2yrs).See Note 1 Note 1 For additional information, pl ease refer to [email or web address] (Thi s link is being provided for informational/e duca tional purposes only.) RAC (test code Performing = RAC) Organization Information: ? ?Site ID: A ? ?Name: [facility] ? ?Address: [address] [place] [address] ? ?Director: DERECK CARRANZA MD [facility] [id number] 20:00:00 Test Item Value Reference Range Interpretation Comments PLATELET ESTIMATION ADEQUATE ADEQUATE (test code = 9317-9) RAC (test code = RAC) Performing Organization Information: ? ?Site ID: RGA ? ?Name: [facility] ? ?Address: [address] [place] [address] ? ?Director: DERECK CARRANZA MD [facility] urinalysis w/o [id number] 15:44:00 Test Item Value Reference Range Interpretation Comments Color, UA (test code = Yello w 8518685) Clarity, UA (test code Clear = 4379475) Glucose, UA (test code Negative Negative = 0043017) Bilirubin, UA (test Negative Negative code = 9306758) Ketones, UA (test code Negat fadia = 6264157) Spec Grav, UA (test 1.000-1.030 code = 4666443) Blood, UA (test code = Negative 9217745) pH, UA (test code = 5.0-8.5 9231621) Protein, UA (test code Negative Negative, Trace, = 2721012) 200(+2)mg/dL, 15/mg/dL Urobilinogen, UA (test See_Comment [Aut omated message] code = 1825682) The system w [facility] generated this result transmit khadar reference range : 0.2. The refere nce range was not u sed to interpret th is result as normal/abnormal . Leukocytes, UA (test Negative Negative, Trace code = 5117173) Nitrite, UA (test code Negative Negative, Trace = 7354741) Appearance, Fluid (test Clear code = 9335-1) Lab Interpretation Normal (test code = 90724-7) [facility] [id number] 12:35:43 Test Item Value Reference Range Interpretation Comments NT-proBNP (test code 206 pg/mL See_Comment [Autom ated = 9190269153) message] The system which generated this result transmitted reference range : <=450. The reference range was not used to interpret this result as normal/abnormal . ROBBIE (test code = ROBBIE) Biotin has been reported to cause a negative bias, interpret results relative to patient's use of biotin. Lab Interpretation Normal (test code = 58570-2) [facility]. METABOLIC PANEL ([id number])2021-11-09 12:28:05 Test Item Value Reference Range Interpretation Comments NA (test code = 131 mmol/L 135-145 L 7017013913) K (test code = 4.1 mmol/L 3.5-5.0 0125754923) CL (test code = 102 mmol/L 98-108 3935527784) CO2 TOTAL (test code = 24 mmol/L 23-31 0834348770) AGAP (test code = 2-16 2530560481) BUN (test code = 25 mg/dL 7-23 H 9141748709) GLUCOSE (test code = 124 mg/dL 70-110 H 9094774134) CREATININE (test code = 0.78 mg/dL 0.60-1.25 0095417199) TOTAL BILI (test code = 0.4 mg/dL 0.1-1.9 8063945393) CALCIUM (test code = 8.5 mg/dL 8.6-10.6 L 9238637889) T PROTEIN (test code = 6.1 g/dL 6.3-8.2 L 4711413947) ALBUMIN (test code = 3.0 g/dL 3.5-5.0 L 7604966456) ALK PHOS (test code = 64 U/L 34-122 0272259583) ALTv (test code = 17 U/L 5-50 1742-6) AST(SGOT) (test code = 32 U/L 13-40 4000610279) eGFR (test code = mL/min/1.73m2 2310919813) ROBBIE (test code = ROBBIE) Association of Glomerular Filtration Rate (GFR) and Staging of Kidney Disease* + --+ --+ ------+| GFR (mL/min/1.73 m2) ?| With Kidney Damage ?| ?Without Kidney Damage+ --------+ --------+ +| ?>90 ?| ?Stage one ?| ? Normal ?+ ---+ ---+ -------+| ?60-89 ?| ?Stage two ?| ? Decreased GFR ? + --+ --+ ------+| ?30-59 ?| ?Stage three ?| ? Stage three ? + --+ --+ ------+| ?15-29 ?| ?Stage four ? | ? Stage four ?+ ---+ ---+ -------+| ?<15 (or dialysis) ? ?| ?Stage five ? | ? Stage five ?+ ---+ ---+ -------+ *Each stage assumes the associated GFR level has been in effect for at least three months. ?Stages 1 to 5, with or without kidney disease, indicate chronic kidney disease. Notes: Determination of stages one and two (with eGFR >59mL/min/1.73 m2) requires estimation of kidney damage for at least three months as defined by structural or functional abnormalities of the kidney, manifested by either:Pathological abnormalities or Markers of kidney damage (including abnormalities in the composition of the blood or urine or abnormalities in imaging tests). Lab Interpretation Abnormal (test code = 60889-3) [facility] WITH [id number] 12:05:43 Test Item Value Reference Range Interpretation Comments WBC (test code = See_Comment [Automated 4690-2) message] The sy stem which generated this result transmitted reference range : 4.20 - 10.70 10*3/?L. The reference range was not used to interpret this result as normal/abnormal . RBC (test code = See_Comment L [Automated 549-8) message] The sy stem which generated this result transmitted reference range : 4.26 - 5.52 10*6/?L. The reference range was not used to interpret this result as normal/abnormal . HGB (test code = 12.4 g/dL 12.2-16.4 718-7) HCT (test code = 37.9 % 38.4-49.3 L 4544-3) MCV (test code = 90.0 fL 81.7-95.6 787-2) MCH (test code = 29.5 pg 26.1-32.7 785-6) MCHC (test code = 32.7 g/dL 31.2-35.0 786-4) RDW-SD (test code = 49.3 fL 38.5-51.6 60141-5) RDW-CV (test code = 14.9 % 12.1-15.4 788-0) PLT (test code = See_Comment [Automated 777-3) message] The sy stem which generated this result transmitted reference range : 150 - 328 10*3/ ?L. The reference r hilda was not used to interpret this result as normal/abnormal . MPV (test code = 8.6 fL 9.8-13.0 L 31881-7) NRBC/100 WBC (test See_Comment [Automat ed code = 9040159387) message] The system which generated this result transmitted reference range : 0.0 - 10.0 /100 WBCs. The refer ence range was not u sed to interpret th is result as normal/abnormal . NRBC x10^3 (test code <0.01 See_Comment [Auto mated = 7456920940) message] The s ystem which generated this result transmitted reference range : 10*3/?L. The reference range was not used to interpret this result as normal/abnormal . GRAN MAT (NEUT) % 82.2 % (test code = 770-8) IMM GRAN % (test code 1.00 % = 2424930149) LYMPH % (test code = 8.7 % 736-9) MONO % (test code = 8.0 % 5905-5) EOS % (test code = 0.0 % 713-8) BASO % (test code = 0.1 % 706-2) GRAN MAT x10^3(ANC) 5.79 10*3/uL 1.99-6.95 (test code = 6127990130) IMM GRAN x10^3 (test 0.07 10*3/uL 0.00-0.06 H code = 4444624795) LYMPH x10^3 (test code 0.61 10*3/uL 1.09-3.23 L = 731-0) MONO x10^3 (test code 0.56 10*3/uL 0.36-1.02 = 742-7) EOS x10^3 (test code = <0.03 0.06-0.53 L 711-2) BASO x10^3 (test code <0.03 0.01-0.09 = 704-7) Lab Interpretation Abnormal (test code = 98124-3) [facility] [id number] 20:10:55 Test Item Value Reference Range Interpretation Comments FK 506 (test code = 14 ng/mL 3804940410) ROBBIE (test code = Target/Therapeutic Range ROBBIE) KIDNEY ? Early (<3 mo) ? ? 8-12 ? Late ?(>3 mo) ? ? 5-10 ?SPK / LORRAINE ? Early (<3 mo) ? ? 10-15 ? Mid ? (3-6 mo) ? ?8-10 ? Late ?(>6 mo) ? ? 5-8 ?LIVER ? Early (<3 mo) ?HCV: ? 5-7 ?Tumor: ? ? ? 5-7 ?Autoimmune: ?8-10 ? Late (>3 mo) ? ? ?~5 ?HEART ? Early (<6 mo) ? ? 12-15 ? Late ?(>6 mo) ? ? 8-12 ?LUNG ? Early (<6 mo) ? ? 12-15 ? Mid ? (7-12 mo) ? 10-15 ? Late ?(>12 mo) ? ?8-10 Method by: ?[employer], Sql Database Developer i1000 [facility] METABOLIC PANEL ([id number])2021-11-08 14:26:12 Test Item Value Reference Range Interpretation Comments NA (test code = 130 mmol/L 135-145 L 3477189821) K (test code = 4.4 mmol/L 3.5-5.0 9278255328) CL (test code = 103 mmol/L 98-108 1285181118) CO2 TOTAL (test code = 22 mmol/L 23-31 L 2846700337) AGAP (test code = 2-16 9155267060) BUN (test code = 20 mg/dL 7-23 0693961426) GLUCOSE (test code = 136 mg/dL 70-110 H 4689719002) CREATININE (test code = 0.59 mg/dL 0.60-1.25 L 1254363811) TOTAL BILI (test code = 0.7 mg/dL 0.1-1.0 5031711555) CALCIUM (test code = 8.4 mg/dL 8.6-10.6 L 2479885733) T PROTEIN (test code = 6.8 g/dL 6.3-8.2 5342978877) ALBUMIN (test code = 3.3 g/dL 3.5-5.0 L 4343864777) ALK PHOS (test code = 53 U/L 34-122 7432535360) ALTv (test code = 17 U/L 5-50 1742-6) AST(SGOT) (test code = 43 U/L 13-40 H 0418748581) eGFR (test code = mL/min/1.73m2 7947311801) ROBBIE (test code = ROBBIE) Association of Glomerular Filtration Rate (GFR) and Staging of Kidney Disease* + --+ --+ ------+| GFR (mL/min/1.73 m2) ?| With Kidney Damage ?| ?Without Kidney Damage+ --------+ --------+ +| ?>90 ?| ?Stage one ?| ? Normal ?+ ---+ ---+ -------+| ?60-89 ?| ?Stage two ?| ? Decreased GFR ? + --+ --+ ------+| ?30-59 ?| ?Stage three ?| ? Stage three ? + --+ --+ ------+| ?15-29 ?| ?Stage four ? | ? Stage four ?+ ---+ ---+ -------+| ?<15 (or dialysis) ? ?| ?Stage five ? | ? Stage five ?+ ---+ ---+ -------+ *Each stage assumes the associated GFR level has been in effect for at least three months. ?Stages 1 to 5, with or without kidney disease, indicate chronic kidney disease. Notes: Determination of stages one and two (with eGFR >59mL/min/1.73 m2) requires estimation of kidney damage for at least three months as defined by structural or functional abnormalities of the kidney, manifested by either:Pathological abnormalities or Markers of kidney damage (including abnormalities in the composition of the blood or urine or abnormalities in imaging tests). Lab Interpretation Abnormal (test code = 47457-0) [facility] 14:26:12 Test Item Value Reference Range Interpretation Comments MAGNESIUM (test code = 5474708207) 1.6 mg/dL 1.7-2.4 L Lab Interpretation (test code = Abnormal 77825-4) [facility] 14:25:52 Test Item Value Reference Range Interpretation Comments PHOSPHORUS (test code = 3659623794) 3.3 mg/dL 2.5-5.0 Lab Interpretation (test code = Normal 35011-5) [facility] [id number] 13:26:11 Test Item Value Reference Range Interpretation Comments NT-proBNP (test code 148 pg/mL See_Comment [Autom ated = 6439696784) message] The system which generated this result transmitted reference range : <=450. The reference range was not used to interpret this result as normal/abnormal . ROBBIE (test code = ROBBIE) Biotin has been reported to cause a negative bias, interpret results relative to patient's use of biotin. Lab Interpretation Normal (test code = 84412-9) [facility] WITH [id number] 12:30:27 Test Item Value Reference Range Interpretation Comments WBC (test code = See_Comment [Automated 6690-2) message] The sy stem which generated this result transmitted reference range : 4.20 - 10.70 10*3/?L. The reference range was not used to interpret this result as normal/abnormal . RBC (test code = See_Comment [Automated 789-8) message] The sy stem which generated this result transmitted reference range : 4.26 - 5.52 10*6/?L. The reference range was not used to interpret this result as normal/abnormal . HGB (test code = 13.0 g/dL 12.2-16.4 718-7) HCT (test code = 38.4 % 38.4-49.3 4544-3) MCV (test code = 87.7 fL 81.7-95.6 787-2) MCH (test code = 29.7 pg 26.1-32.7 785-6) MCHC (test code = 33.9 g/dL 31.2-35.0 786-4) RDW-SD (test code = 47.8 fL 38.5-51.6 06545-9) RDW-CV (test code = 14.7 % 12.1-15.4 788-0) PLT (test code = See_Comment [Automated 777-3) message] The sy stem which generated this result transmitted reference range : 150 - 328 10*3/ ?L. The reference r hilda was not used to interpret this result as normal/abnormal . MPV (test code = 9.2 fL 9.8-13.0 L 90120-0) NRBC/100 WBC (test See_Comment [Automat ed code = 2210437658) message] The system which generated this result transmitted reference range : 0.0 - 10.0 /100 WBCs. The refer ence range was not u sed to interpret th is result as normal/abnormal . NRBC x10^3 (test code <0.01 See_Comment [Auto mated = 7570319479) message] The s [employer] which generated this result transmitted reference range : 10*3/?L. The reference range was not used to interpret this result as normal/abnormal . GRAN MAT (NEUT) % 84.3 % (test code = 770-8) IMM GRAN % (test code 0.90 % = 5038850422) LYMPH % (test code = 7.8 % 736-9) MONO % (test code = 6.8 % 5905-5) EOS % (test code = 0.0 % 713-8) BASO % (test code = 0.2 % 706-2) GRAN MAT x10^3(ANC) 4.62 10*3/uL 1.99-6.95 (test code = 8858217954) IMM GRAN x10^3 (test 0.05 10*3/uL 0.00-0.06 code = 5983393018) LYMPH x10^3 (test code 0.43 10*3/uL 1.09-3.23 L = 731-0) MONO x10^3 (test code 0.37 10*3/uL 0.36-1.02 = 742-7) EOS x10^3 (test code = <0.03 0.06-0.53 L 711-2) BASO x10^3 (test code <0.03 0.01-0.09 = 704-7) Lab Interpretation Abnormal (test code = 44787-1) [facility]-REACTIVE [id number] 18:22:49 Test Item Value Reference Range Interpretation Comments CRP (test code = 1164612366) 12.7 mg/dL <0.8 H Lab Interpretation (test code = Abnormal 84910-7) [facility]TA[facility], [id number] 15:52:52 Test Item Value Reference Range Interpretation Comments FK 506 (test code = 23 ng/mL 0636354934) ROBBIE (test code = Target/Therapeutic Range ROBBIE) KIDNEY ? Early (<3 mo) ? ? 8-12 ? Late ?(>3 mo) ? ? 5-10 ?SPK / LORRAINE ? Early (<3 mo) ? ? 10-15 ? Mid ? (3-6 mo) ? ?8-10 ? Late ?(>6 mo) ? ? 5-8 ?LIVER ? Early (<3 mo) ?HCV: ? 5-7 ?Tumor: ? ? ? 5-7 ?Autoimmune: ?8-10 ? Late (>3 mo) ? ? ?~5 ?HEART ? Early (<6 mo) ? ? 12-15 ? Late ?(>6 mo) ? ? 8-12 ?LUNG ? Early (<6 mo) ? ? 12-15 ? Mid ? (7-12 mo) ? 10-15 ? Late ?(>12 mo) ? ?8-10 Method by: ?[employer], Sql Database Developer i1000 [facility] with [id number] 14:54:10 Test Item Value Reference Range Interpretation Comments WBC (test code = See_Comment L [Automated 4290-2) message] The sy stem which generated this result transmitted reference range : 4.20 - 10.70 10*3/?L. The reference range was not used to interpret this result as normal/abnormal . RBC (test code = See_Comment [Automated 789-8) message] The sy stem which generated this result transmitted reference range : 4.26 - 5.52 10*6/?L. The reference range was not used to interpret this result as normal/abnormal . HGB (test code = 12.8 g/dL 12.2-16.4 718-7) HCT (test code = 37.9 % 38.4-49.3 L 4544-3) MCV (test code = 88.6 fL 81.7-95.6 787-2) MCH (test code = 29.9 pg 26.1-32.7 785-6) MCHC (test code = 33.8 g/dL 31.2-35.0 786-4) RDW-SD (test code = 50.1 fL 38.5-51.6 14018-8) RDW-CV (test code = 15.5 % 12.1-15.4 H 788-0) PLT (test code = See_Comment [Automated 777-3) message] The sy stem which generated this result transmitted reference range : 150 - 328 10*3/ ?L. The reference r hilda was not used to interpret this result as normal/abnormal . MPV (test code = 9.2 fL 9.8-13.0 L 09493-3) NRBC/100 WBC (test See_Comment [Automat ed code = 7584083989) message] The system which generated this result transmitted reference range : 0.0 - 10.0 /100 WBCs. The refer ence range was not u sed to interpret th is result as normal/abnormal . NRBC x10^3 (test code <0.01 See_Comment [Auto mated = 1941416963) message] The s ystem which generated this result transmitted reference range : 10*3/?L. The reference range was not used to interpret this result as normal/abnormal . GRAN MAT (NEUT) % 79.0 % (test code = 770-8) IMM GRAN % (test code 1.00 % = 6303933425) LYMPH % (test code = 13.5 % 736-9) MONO % (test code = 6.2 % 5905-5) EOS % (test code = 0.0 % 713-8) BASO % (test code = 0.3 % 706-2) GRAN MAT x10^3(ANC) 2.28 10*3/uL 1.99-6.95 (test code = 0889192584) IMM GRAN x10^3 (test 0.03 10*3/uL 0.00-0.06 code = 2498432041) LYMPH x10^3 (test code 0.39 10*3/uL 1.09-3.23 L = 731-0) MONO x10^3 (test code 0.18 10*3/uL 0.36-1.02 L = 742-7) EOS x10^3 (test code = <0.03 0.06-0.53 L 711-2) BASO x10^3 (test code <0.03 0.01-0.09 = 704-7) YUE CELLS (test code 3+ See_Comment A [Auto mated = 7790-9) message] The sy stem which generated this result transmitted reference range : (none). The reference range was not used to interpret this result as normal/abnormal . PLT ESTIMATE (test Normal Normal code = 9317-9) Lab Interpretation Abnormal (test code = 45594-6) [facility] 13:57:45 Test Item Value Reference Range Interpretation Comments FOLATE SER (test code = 13.8 ng/mL 3.0-20.0 2768600610) Lab Interpretation (test code = Normal 61794-1) [facility]D-[id number] 13:50:42 Test Item Value Reference Interpretation Comments Range D-DIMER (test code = See_Comment H [Autom ated 7673308422) message] The system which generated this result transmitted reference range : <0.41 ?g/mL (FEU). The reference range was not used to interpret this result as normal/abnormal . ROBBIE (test code = This test may be ROBBIE) used in conjunction with a clinical pretest probability (PTP) assessment model to exclude venous thromboembolism (VTE) in patients suspected of deep venous thrombosis (DVT) and pulmonary embolism (PE) A D-Dimer value less than 0.50 ?g/ml (FEU) has a negative predicative value of 96 to 100% (95% CI)and 97 to 100% (95% CI) as an aid in the diagnosis of deep vein thrombosis (DVT) and pulmonary embolism when there is low or moderate pretest probability of PE or DVT. D-Dimer values are expressed in initial fibrinogen equivalent units (FEU)" The assay results should be used with other information, including the clinical context, in forming a diagnosis. Lab Interpretation Abnormal (test code = 75122-6) [facility] HospitalPROTHROMBIN [facility] / [id number] 13:45:43 Test Item Value Reference Range Interpretation Comments PROTIME PATIENT (test See_Comment [Auto mated message] code = 5964-2) The system [employer] generated this result transmitted ref erence range: 12.0 - 1 4.7 Seconds. The re ference range was not u sed to interpret this result as normal/abnor mal. INR (test code = 6301-6) Nor mal INR <1.1; Warfarin Therap eutic range 2.0 to 3. 0 or 2.5 to 3.5, dep ending upon the indica tions. Lab Interpretation (test Normal code = 68980-8) [facility]. METABOLIC PANEL ([id number])2021-11-07 13:22:21 Test Item Value Reference Range Interpretation Comments NA (test code = 132 mmol/L 135-145 L 4033316252) K (test code = 3.9 mmol/L 3.5-5.0 0236857461) CL (test code = 103 mmol/L 98-108 0382527056) CO2 TOTAL (test code = 20 mmol/L 23-31 L 7915452440) AGAP (test code = 2-16 5038853213) BUN (test code = 21 mg/dL 7-23 8630728282) GLUCOSE (test code = 151 mg/dL 70-110 H 8428294842) CREATININE (test code = 0.79 mg/dL 0.60-1.25 9776926046) TOTAL BILI (test code = 0.6 mg/dL 0.1-1.4 3551167748) CALCIUM (test code = 8.6 mg/dL 8.6-10.6 3880310911) T PROTEIN (test code = 6.9 g/dL 6.3-8.2 2501110969) ALBUMIN (test code = 3.5 g/dL 3.5-5.0 2642138117) ALK PHOS (test code = 78 U/L 34-122 1503140283) ALTv (test code = 16 U/L 5-50 1742-6) AST(SGOT) (test code = 38 U/L 13-40 5409716277) eGFR (test code = mL/min/1.73m2 6436687204) ROBBIE (test code = ROBBIE) Association of Glomerular Filtration Rate (GFR) and Staging of Kidney Disease* + --+ --+ ------+| GFR (mL/min/1.73 m2) ?| With Kidney Damage ?| ?Without Kidney Damage+ --------+ --------+ +| ?>90 ?| ?Stage one ?| ? Normal ?+ ---+ ---+ -------+| ?60-89 ?| ?Stage two ?| ? Decreased GFR ? + --+ --+ ------+| ?30-59 ?| ?Stage three ?| ? Stage three ? + --+ --+ ------+| ?15-29 ?| ?Stage four ? | ? Stage four ?+ ---+ ---+ -------+| ?<15 (or dialysis) ? ?| ?Stage five ? | ? Stage five ?+ ---+ ---+ -------+ *Each stage assumes the associated GFR level has been in effect for at least three months. ?Stages 1 to 5, with or without kidney disease, indicate chronic kidney disease. Notes: Determination of stages one and two (with eGFR >59mL/min/1.73 m2) requires estimation of kidney damage for at least three months as defined by structural or functional abnormalities of the kidney, manifested by either:Pathological abnormalities or Markers of kidney damage (including abnormalities in the composition of the blood or urine or abnormalities in imaging tests). Lab Interpretation Abnormal (test code = 19305-0) [facility] [id number] 12:42:23 Test Item Value Reference Range Interpretation Comments NT-proBNP (test code 143 pg/mL See_Comment [Autom ated = 0641724377) message] The system which generated this result transmitted reference range : <=450. The reference range was not used to interpret this result as normal/abnormal . ROBBIE (test code = ROBBIE) Biotin has been reported to cause a negative bias, interpret results relative to patient's use of biotin. Lab Interpretation Normal (test code = 43067-1) [facility] 12:34:58 Test Item Value Reference Range Interpretation Comments MAGNESIUM (test code = 2712324962) 1.6 mg/dL 1.7-2.4 L Lab Interpretation (test code = Abnormal 63085-9) [facility], [id number] 11:31:12 Test Item Value Reference Range Interpretation Comments VIT D 25OH (test code = 56 ng/mL 25-80 32562-3) ROBBIE (test code = ROBBIE) Deficiency: <20 ng/mLInsufficiency : 20-24 ng/mLOptimal: 25-80 ng/mL Lab Interpretation (test Normal code = 67601-4) [facility]AL[facility]IN2022-[facility]-07 11:25:39 Test Item Value Reference Range Interpretation Comments Procalcitonin (test 0.07 ng/mL <0.07 H code = 8848215384) ROBBIE (test code = ROBBIE) INTERPRETATION OF PROCALCITONIN RESULTS IN ADULTS >= 18 YEARS OF AGE Initiation and discontinuation of antibiotics on patients with suspected or confirmed Lower Respiratory Tract Infection in Adults >= 18 years of age. + +-------- --------+ + -----+|Procalcitonin |Interpretation ?|Antibiotic ? ? |Considerations ? |ng/mL ? | ?|recommendation | ? + +-------- --------+ + -----+| <0.1 ? | Bacterial ? ? ?| Strongly ? ? ?| ? | ?| infection very | discouraged ? | Overruling: ? | ?| unlikely ? ? ? | ? | ? Clinically unstable ? ? ? + +-------- --------+ + ? High risk for adverse ? ? | <0.25 ?| Bacterial ? ? ?| Discouraged ? | ? outcome ? | ?| infection ? ? ?| ? | ? SEE IMPORTANT NOTE ?| ?| unlikely ? ? ? | ? | ? + +-------- --------+ + -----+| >=0.25 ? ? ? | Bacterial ? ? ?| Encouraged ? ?| ? | ?| infection ? ? ?| ? | ? | ?| likely ? | ? | Consider treatment failure ?+ +------- ---------+ -+ if levels does not decrease | >0.5 ? | Bacterial ? ? ?| Strongly ? ? ?| appropriately ? | ?| infection very | encouraged ? ?| ? | ?| likely ? | ? | ? + +-------- --------+ + -----+ Discontinuation of antibiotics in high-acuity patients with suspected or confirmed sepsis in Adults >= 18 years of age. + +-------- --------+ + -----+|Procalcitonin |Interpretation ?|Antibiotic ? ? |Considerations ? |ng/mL ? | ?|recommendation | ? + +-------- --------+ + -----+| <0.25 ?| Bacterial ? ? ?| Strongly ? ? ?| ? | ?| infection very | discouraged ? | Overruling: ? | ?| unlikely ? ? ? | ? | ? Clinically unstable ? ? ? + +-------- --------+ + ? High risk for adverse ? ? | <0.5 or drop | Bacterial ? ? ?| Discouraged ? | ? outcome ? | >80% from ? ?| infection ? ? ?| ? | ? SEE IMPORTANT NOTE ?| highest PCT ?| unlikely ? ? ? | ? | ? | level ?| ?| ? | ? + +-------- --------+ + -----+| >=0.5 ?| Bacterial ? ? ?| Encouraged ? ?| ? | ?| infection ? ? ?| ? | ? | ?| likely ? | ? | Consider treatment failure ?+ +------- ---------+ -+ if levels does not decrease | >1.0 ? | Bacterial ? ? ?| Strongly ? ? ?| appropriately ? | ?| infection very | encouraged ? ?| ? | ?| likely ? | ? | ? + +-------- --------+ + -----+ Percentage of drop of Procalcitonin calculation for Discontinuation of antibiotics in high-acuity patients with suspected or confirmed sepsis in Adults >= 18 years of age. ? Procalcitonin highest{}-Procalcitonin current{}Delta Procalcitonin = x100% ? Procalcitonin current {} IMPORTANT NOTE: Procalcitonin may be elevated without bacterial infection by physiologic stress related to trauma, michael, chronic dialysis, metastatic cancer, surgery in the past seven days, malaria, some fungal infections, and some forms of vasculitis. The interpretation algorithm may not apply to patients with immunosuppression (equivalent of >10 mg of prednisone daily), HIV with CD4 cell count < 350 cells/mm3, active malignancy on systemic chemotherapy, solid organ transplant or hematopoietic stem cell transplantation, or hospital acquired pneumonia. Additionally, some clinical trials of procalcitonin have excluded patients with shock requiring vasopressor use, acute respiratory failure requiring mechanical ventilation, or those with known lung abscess/empyema. For further information please refer to:[email or web address] Lab Interpretation Abnormal (test code = 77331-3) [facility] HospitalOSMOLALITY, SERUM OR [id number] 11:25:29 Test Item Value Reference Range Interpretation Comments OSMOLALITY (test code = See_Comment [Au tomated message] 8612653996) The system [employer] generated this result transmitted ref erence range: 278 - 30 5 mOsm/kg. The re ference range was not u sed to interpret this result as normal/abnor mal. Lab Interpretation (test Normal code = 63861-5) [facility]VIT[facility]IN B12, [id number] 11:08:35 Test Item Value Reference Range Interpretation Comments VIT B12 (test code = >1000 240-930 H 4744756146) ROBBIE (test code = ROBBIE) Biotin has been reported to cause a positive bias, interpret results relative to patient's use of biotin. Lab Interpretation (test Abnormal code = 42131-6) [facility] HospitalSEDIMENTATION [id number] 06:25:47 Test Item Value Reference Range Interpretation Comments ESR (test code = See_Comment H [Automated message] 6753550649) The system [employer] generated this result transmitted ref erence range: 0 - 10 m m/HR. The reference r hilda was not used to interpret this result as normal/abnor mal. Lab Interpretation (test Abnormal code = 73256-8) [facility] HospitalLACTATE [id number] 05:58:04 Test Item Value Reference Range Interpretation Comments LDH (test code = 7372634235) 497 U/L 300-600 Lab Interpretation (test code = Normal 65374-1) [facility] HospitalFERRITIN [id number] 03:39:08 Test Item Value Reference Range Interpretation Comments FERRITIN (test code = 2880.0 ng/mL 18.0-464.0 H 6306561227) ROBBIE (test code = ROBBIE) Biotin has been reported to cause a negative bias, interpret results relative to patient's use of biotin. Lab Interpretation (test Abnormal code = 24461-4) [facility] HospitalMagnesium [id number] 02:04:13 Test Item Value Reference Range Interpretation Comments MAGNESIUM (test code = 1.4 mg/dL 1.7-2.4 L Sligh t hemolysis 6749661863) Lab Interpretation (test Abnormal code = 66481-7) [facility] HospitalTROPONIN [id number] 23:21:52 Test Item Value Reference Interpretation Comments Range TROPONIN I (test 0.034 ng/mL See_Comment [Automated code = 4095198800) message] The system which generated this result transmitted reference range : <=0.034. The reference range was not used to interpret this result as normal/abnormal . ROBBIE (test code = Reference (Normal) ROBBIE) Range (defined by the 99th percentile reference limit): <= 0.034 ng/mL Note: Cardiac troponin begins to rise 3-4 hours after the onset of ischemia. Repeat in 4-6 hours if the sample was drawn within 3-4 hours of the onset of the symptom and found normal. Diagnosis of myocardial injury is made with acute changes in cTn concentrations with at least one serial sample above the 99th percentile upper reference limit (URL), taken together with the patient's clinical presentation. Biotin has been reported to cause a negative bias, interpret results relative to patient's use of biotin. Lab Interpretation Normal (test code = 14143-5) [facility]MINAL [id number] 23:18:50 Test Item Value Reference Range Interpretation Comments NT-proBNP (test code 178 pg/mL See_Comment [Autom ated = 3818966363) message] The system which generated this result transmitted reference range : <=450. The reference range was not used to interpret this result as normal/abnormal . ROBBIE (test code = ROBBIE) Biotin has been reported to cause a negative bias, interpret results relative to patient's use of biotin. Lab Interpretation Normal (test code = 70150-9) [facility]. METABOLIC PANEL ([id number])2021-11-06 23:10:31 Test Item Value Reference Range Interpretation Comments NA (test code = 130 mmol/L 135-145 L 5485527868) K (test code = 4.8 mmol/L 3.5-5.0 9368641666) CL (test code = 100 mmol/L 98-108 2357097987) CO2 TOTAL (test code = 24 mmol/L 23-31 7639888909) AGAP (test code = 2-16 3485626376) BUN (test code = 22 mg/dL 7-23 5309881431) GLUCOSE (test code = 118 mg/dL 70-110 H 9009977627) CREATININE (test code = 0.90 mg/dL 0.60-1.25 9087127207) TOTAL BILI (test code = 0.9 mg/dL 0.1-1.1 5390589057) CALCIUM (test code = 8.7 mg/dL 8.6-10.6 9747045696) T PROTEIN (test code = 7.1 g/dL 6.3-8.2 1857140984) ALBUMIN (test code = 3.6 g/dL 3.5-5.0 4337760538) ALK PHOS (test code = 65 U/L 34-122 7330851004) ALTv (test code = 17 U/L 5-50 1742-6) AST(SGOT) (test code = 48 U/L 13-40 H 8220814156) eGFR (test code = mL/min/1.73m2 2129479947) ROBBIE (test code = ROBBIE) Association of Glomerular Filtration Rate (GFR) and Staging of Kidney Disease* + --+ --+ ------+| GFR (mL/min/1.73 m2) ?| With Kidney Damage ?| ?Without Kidney Damage+ --------+ --------+ +| ?>90 ?| ?Stage one ?| ? Normal ?+ ---+ ---+ -------+| ?60-89 ?| ?Stage two ?| ? Decreased GFR ? + --+ --+ ------+| ?30-59 ?| ?Stage three ?| ? Stage three ? + --+ --+ ------+| ?15-29 ?| ?Stage four ? | ? Stage four ?+ ---+ ---+ -------+| ?<15 (or dialysis) ? ?| ?Stage five ? | ? Stage five ?+ ---+ ---+ -------+ *Each stage assumes the associated GFR level has been in effect for at least three months. ?Stages 1 to 5, with or without kidney disease, indicate chronic kidney disease. Notes: Determination of stages one and two (with eGFR >59mL/min/1.73 m2) requires estimation of kidney damage for at least three months as defined by structural or functional abnormalities of the kidney, manifested by either:Pathological abnormalities or Markers of kidney damage (including abnormalities in the composition of the blood or urine or abnormalities in imaging tests). Lab Interpretation Abnormal (test code = 31754-9) [facility] WITH [id number] 22:58:28 Test Item Value Reference Range Interpretation Comments WBC (test code = See_Comment [Automated 4333-2) message] The sy stem which generated this result transmitted reference range : 4.20 - 10.70 10*3/?L. The reference range was not used to interpret this result as normal/abnormal . RBC (test code = See_Comment [Automated 419-7) message] The sy stem which generated this result transmitted reference range : 4.26 - 5.52 10*6/?L. The reference range was not used to interpret this result as normal/abnormal . HGB (test code = 13.6 g/dL 12.2-16.4 718-7) HCT (test code = 41.2 % 38.4-49.3 4544-3) MCV (test code = 89.4 fL 81.7-95.6 787-2) MCH (test code = 29.5 pg 26.1-32.7 785-6) MCHC (test code = 33.0 g/dL 31.2-35.0 786-4) RDW-SD (test code = 49.8 fL 38.5-51.6 71655-7) RDW-CV (test code = 15.1 % 12.1-15.4 788-0) PLT (test code = See_Comment [Automated 777-3) message] The sy stem which generated this result transmitted reference range : 150 - 328 10*3/ ?L. The reference r hilda was not used to interpret this result as normal/abnormal . MPV (test code = 9.0 fL 9.8-13.0 L 20535-7) NRBC/100 WBC (test See_Comment [Automat ed code = 6594529755) message] The system which generated this result transmitted reference range : 0.0 - 10.0 /100 WBCs. The refer ence range was not u sed to interpret th is result as normal/abnormal . NRBC x10^3 (test code <0.01 See_Comment [Auto mated = 3472179902) message] The s ystem which generated this result transmitted reference range : 10*3/?L. The reference range was not used to interpret this result as normal/abnormal . GRAN MAT (NEUT) % 72.4 % (test code = 770-8) IMM GRAN % (test code 0.60 % = 3920778204) LYMPH % (test code = 17.8 % 736-9) MONO % (test code = 9.2 % 5905-5) EOS % (test code = 0.0 % 713-8) BASO % (test code = 0.0 % 706-2) GRAN MAT x10^3(ANC) 3.38 10*3/uL 1.99-6.95 (test code = 1058451940) IMM GRAN x10^3 (test 0.03 10*3/uL 0.00-0.06 code = 1733248485) LYMPH x10^3 (test code 0.83 10*3/uL 1.09-3.23 L = 731-0) MONO x10^3 (test code 0.43 10*3/uL 0.36-1.02 = 742-7) EOS x10^3 (test code = <0.03 0.06-0.53 L 711-2) BASO x10^3 (test code <0.03 0.01-0.09 = 704-7) Lab Interpretation Abnormal (test code = 35520-8) [facility] HospitalTestosterone, free, [id number] 19:00:00 Test Item Value Reference Interpretation Comments Range TESTOSTER 800 ng/dL 250-1100 For additional information, ONE, please refer TOTAL, tohttps://educa tion.[employer] (test [employer]/faq/ LDJ319(This code = link is being p rovided for 2986-06) informational/e ducational purposes only.) (Note) This test was develo ped and its analytical performancechar acteristics have been deter mined by [employer]. It h as notbeen cleared or appr maegan by the FDA. This assay has been validatedpursua nt to the CLIA regulations and is used for clinical purpos es. TESTOSTER 62 pg/mL 30.0-135.0 (Note)This test was developed ONE, FREE and its analyti elicia performance (test characteristics have been code = determined by [employer]. It 2991-8) has not been cl eared or approved by the FDA. This assay has been validated pursuant to the CLIA regulations and is used for clinical purpos es. ed [id number] [address],[address] [place] [address] [id number] 00Lisa Almaraz MD REPO RT COMMENT:LTC ONLY: NURSE COL LECTED - NO SPECIMEN PROVID ED. RAC (test Performing code = Organization RAC) Information: ? ?Site ID: [id number] ? ?Name: [employer] ? ?Address: [address] [place] [address] [place] [phone] ? ?Director: LISA ALMARAZ MD [facility] [id number] 08:00:00 Test Item Value Reference Range Interpretation Comments CULTURE, URINE, SEE NOTE ?CULTURE, U RINE, ROUTINE (test ROUTINE ? ?Ilan ro code = Number: ? ? [id number]) ?[id number] ?Test Status: ? ? ? Final ?Specimen Source: ? Urine , clean catch ?Specimen Quality: ?Adequate ?Result: ?No Growth REPORT COMMENT:SPLIT 07/24/2021 FROM [id number] RAC (test code = Performing RAC) Organization Information: ? ?Site ID: RGA ? ?Name: [facility] ? ?Address: [address] [place] [phone] ? ?Director: DERECK CARRANZA MD [facility] HealthPSA, total and [id number] 20:00:00 Test Item Value Reference Interpretation Comments Range PSA, TOTAL (test 6.1 ng/mL See_Comment H [Automated message] code = 2857-1) The system [employer] generated this result transmitted ref erence range: < OR = 4 .0. The reference range was not used to int erpret this result as normal/abnormal . PSA, FREE (test 1.4 ng/mL code = 02797-7) PSA, % FREE (test See_Comment L PSA(ng/mL ) ? ? ?Free code = 96447-7) PSA(%) ? ? Estimated(x) Probability ? of Cancer(as%)0-2. 5 ?(*) ? Approx. 12.6- 4.0(1) ? 0-27(2) ? 24(3)4.1-10(4) ?0-10 ?56 ? 11-15 ? 28 ? 16-20 ? 20 ? 21-25 ? 16 ? >or = 26 ? 8 >10(+) ? N/A ? >50 References:(1)C atalona et al.:Urology 60: 469-474 (2002) ? (2)Rui leyva t al.:J.Urol 168: 922-925 (2001) ?Free PSA(% ) ? Sensitivity(%) ?Specificity(%) ?< or = 2 5 ?85 ?19 ?< or = 30 ?93 ? 9 ? (3)Rui et al.:TODD 277: 6802-4266 (1996 ) ? (4)Catalona et al.:TODD 279: 0886-6027 (1997 ) (x)These estima doc vary with age, ethnicity, fami ly ? history and YOSELIN results.(*)The diagnostic usef ulness of % Free PSA h as not been ? establis hed in patients with t otal PSA below 2.6 ng/mL(+)In men with PSA above 10 ng /mL, prostate cancer risk is ? determined by total PSA alone . The Total PSA value from this assay syst em is standardized ag ainst the equimolar P SA standard. The t est result will be approximately 2 0% higher when com pared to the WHO-standardize d Total PSA (Siemens as say). Comparison of s erial PSA results charla uld be interpreted wit h this fact in mind. P SA was performed using the Foster CoulterImmunoas say method. Values obtained from differentassay methods cannot be used interchangeably . PSAlevels, rega rdless of value, shoul d not be interpreteda s absolute eviden ce of the presence or absence ofdisea se. [Automated mess age] The system [employer] generated this result transmitted ref erence range: >25 % (c alc). The reference r hilda was not used to interpret this result as normal/abnor mal. RAC (test code = Performing RAC) Organization Information: ? ?Site ID: IG ? ?Name: [facility] ? ?Address: [address] [place] [phone] ? ?Director: DERECK CARRANZA MD Lab Interpretation Abnormal (test code = 06322-7) [facility] function [id number] 11:00:00 Test Item Value Reference Range Interpretation Comments PROTEIN, TOTAL 7 g/dL 6.1-8.1 (test code = 2885-2) ALBUMIN (test code 4.3 g/dL 3.6-5.1 = 175-7) GLOBULIN (test See_Comment [Automated code = 79431-2) message] The system which generated this result transmitted reference range : 1.9 - 3.7 g/dL (calc). The reference range was not used to interpret this result as normal/abnormal . ALBUMIN/GLOBULIN See_Comment [Automated RATIO (test code = message] The ) system which generated this result transmitted reference range : 1.0 - 2.5 (calc ). The reference range was not used to interpr et this result as normal/abnormal . BILIRUBIN, TOTAL 0.7 mg/dL 0.2-1.2 (test code = 1974-) BILIRUBIN, DIRECT 0.2 mg/dL See_Comment [Automate d (test code = message] The 1968-05) system which generated this result transmitted reference range : < OR = 0.2. The reference range was not used to interpret this result as normal/abnormal . BILIRUBIN, See_Comment [Automated INDIRECT (test message] The code = 1970-11) system which generated this result transmitted reference range : 0.2 - 1.2 mg/dL (calc). The reference range was not used to interpret this result as normal/abnormal . ALKALINE 86 U/L 35-144 PHOSPHATASE (test code = 6768-6) AST (test code = 14 U/L 10-35 1920-8) ALT (test code = 9 U/L 9-46 1742-6) RAC (test code = Performing RAC) Organization Information: ? ?Site ID: RGA ? ?Name: [facility] ? ?Address: [address] [place] [phone] ? ?Director: DERECK CARRANZA MD [facility] metabolic [id number] 11:00:00 Test Item Value Reference Interpretation Comments Range GLUCOSE (test code 103 mg/dL 65-99 H For someo ne without = 3135-7) known diabetes, a glucose valuebe tween 100 and 125 mg/ dL is consistent withprediabetes and should be confi rmed with afollow-up test. ? Fasting referen ce interval UREA NITROGEN (BUN) 12 mg/dL 7-25 (test code = 3094-0) CREATININE (test 0.89 mg/dL 0.70-1.18 For patient s >49 code = 2160-0) years of age, the reference limit for Creatinine is approximately 1 3% higher for peopleidentifie d as -Nuria n. eGFR NON- See_Comment [Automated message] SOMALI (test code The syst em which = 68179-7) generated this result transmit khadar reference range : > OR = 60 mL/min/1.73m2. The reference range was not used to interpret this result as normal/abnormal . eGFR See_Comment [Automated mes taylor] SOMALI (test code The syst em which = 76334-2) generated this result transmit khadar reference range : > OR = 60 mL/min/1.73m2. The reference range was not used to interpret this result as normal/abnormal . BUN/CREATININE NOT APPLICABLE See_Comment [Automated message] RATIO (test code = The syste m which 3097-3) generated this result transmit khadar reference range : 6 - 22 (calc). The reference range was not used to interpret this result as normal/abnormal . SODIUM (test code = 134 mmol/L 135-146 L 2951-2) POTASSIUM (test 4.7 mmol/L 3.5-5.3 code = 2823-3) CHLORIDE (test code 100 mmol/L 98-110 = 2075-0) CARBON DIOXIDE 28 mmol/L 20-32 (test code = 8-9) CALCIUM (test code 9.8 mg/dL 8.6-10.3 = 51697-3) RAC (test code = Performing RAC) Organization Information: ? ?Site ID: RGA ? ?Name: [facility] ? ?Address: [address] [place] [phone] ? ?Director: DERECK CARRANZA MD Lab Interpretation Abnormal (test code = 93424-2) [facility]itamin D 25 [id number] 05:00:00 Test Item Value Reference Range Interpretation Comments VITAMIN 41 ng/mL 30-100 Vitamin D Statu s ? D,25-OH,TOTAL,I ? ? ? 25-OH Vitamin A (test code = D: Deficiency : ? ? 1988-) ? <20 ng/mLInsufficie ncy: ? 20 - 29 ng/mLOptimal: ? > or = 30 ng/mL For 25-OH Vitamin D testi ng on patients on D2-supplementat ion and patients fo r whom quantitati on of D2 and D3 fractions is required, the QuestAssureD(TM )25- [place] VIT D, (D2,D 3), LC/MS/MS is recommended: or renetta code 09595 (patients >2yrs).See Note 1 Note 1 For additional information, pl ease refer to [email or web address] [email or web address]/ faq/[email or web address] (Thi s link is being provided for informational/e duca tional purposes only.) RAC (test code Performing = RAC) Organization Information: ? ?Site ID: RGA ? ?Name: [facility] ? ?Address: [address] [place] [phone] ? ?Director: DERECK CARRANZA MD [facility] and lcmvjonggrpi6234-42-36 04:00:00 Test Item Value Reference Range Interpretation Comments WHITE BLOOD CELL See_Comment [Automated COUNT (test code = message] The 9790-2) system which generated this result transmitted reference range : 3.8 - 10.8 Thousand/uL. Th e reference range was not used to interpret this result as normal/abnormal . RED BLOOD CELL See_Comment [Automated COUNT (test code = message] The 789-8) system which generated this result transmitted reference range : 4.20 - 5.80 Million/uL. The reference range was not used to interpret this result as normal/abnormal . HEMOGLOBIN (test 13.9 g/dL 13.2-17.1 code = 718-7) HEMATOCRIT (test 42 % 38.5-50.0 code = 4544-3) MCV (test code = 90.9 fL 80.0-100.0 787-2) MCH (test code = 30.1 pg 27.0-33.0 785-6) MCHC (test code = 33.1 g/dL 32.0-36.0 786-4) RDW (test code = 14.2 % 11.0-15.0 788-0) PLATELET COUNT See_Comment [Automated (test code = message] The 777-3) system which generated this result transmitted reference range : 140 - 400 Thousand/uL. Th e reference range was not used to interpret this result as normal/abnormal . MPV (test code = 9 fL 7.5-12.5 776-5) ABSOLUTE See_Comment [Automated NEUTROPHILS (test message] T he code = 751-8) system which generated this result transmitted reference range : 1500 - 7800 cells/uL. The reference range was not used to interpret this result as normal/abnormal . ABSOLUTE See_Comment [Automated LYMPHOCYTES (test message] T he code = 731-0) system which generated this result transmitted reference range : 850 - 3900 cells/uL. The reference range was not used to interpret this result as normal/abnormal . ABSOLUTE MONOCYTES See_Comment [Automat ed (test code = message] The 742-7) system which generated this result transmitted reference range : 200 - 950 cells/uL. The reference range was not used to interpret this result as normal/abnormal . ABSOLUTE See_Comment [Automated EOSINOPHILS (test message] T he code = 711-2) system which generated this result transmitted reference range : 15 - 500 cells/uL. The reference range was not used to interpret this result as normal/abnormal . ABSOLUTE BASOPHILS See_Comment [Automat ed (test code = message] The 704-7) system which generated this result transmitted reference range : 0 - 200 cells/u L. The reference range was not used to interpr et this result as normal/abnormal . NEUTROPHILS (test 67.4 % code = 770-8) LYMPHOCYTES (test 22.7 % code = 736-9) MONOCYTES (test 9.2 % code = 5905-5) EOSINOPHILS (test 0.5 % code = 713-8) BASOPHILS (test 0.2 % code = 706-2) RAC (test code = Performing RAC) Organization Information: ? ?Site ID: [id number] ? ?Name: [facility] ? ?Address: [address] [place] [id number] ? ?Director: DERECK CARRANZA MD [facility] urinalysis w/o [id number] 21:58:00 Test Item Value Reference Range Interpretation Comments Color, UA (test code = YELLO W 8489861) Clarity, UA (test code Clear = 6513766) Glucose, UA (test code Negative Negative = 3940517) Bilirubin, UA (test Negative Negative code = 3823297) Ketones, UA (test code NEGAT FADIA = 4635257) Spec Grav, UA (test 1.000-1.030 code = 3096294) Blood, UA (test code = NEGATIVE 4179790) pH, UA (test code = 5.0-8.5 4822031) Protein, UA (test code Negative Negative, Trace, = 2711822) 200(+2)mg/dL, 15/mg/dL Urobilinogen, UA (test See_Comment [Aut omated message] code = 7509129) The system [employer] generated this result transmit khadar reference range : 0.2. The refere nce range was not u sed to interpret th is result as normal/abnormal . Leukocytes, UA (test Negative Negative, Trace code = 3531443) Nitrite, UA (test code Negative Negative, Trace = 8348251) Appearance, Fluid (test Clear code = 9335-1) Lab Interpretation Normal (test code = 64478-1) [facility] [id number] 13:44:00 Test Item Value Reference Range Interpretation Comments K (test code = 9117658361) 3.5 mmol/L 3.5-5 Lab Interpretation (test code = Normal 42933-6) [facility][O] Urine Dipstick (In Office)2020-05-16 13:46:00 Test Item Value Reference Range Interpretation Comments Glucose (test code = Glucose) Negative N LEUKOCYTES (test code = LEUKOCYTES) Negative N NITRITE; Normal (test code = Negative N 73317-8) UROBILINOGEN; Normal (test code = 0.2 N 12274-6) PROTEIN; Normal (test code = Negative N 28624-1) pH (test code = pH) 5.5 N URINE BLOOD; Normal (test code = Negative N 15344-6) SPECIFIC GRAVITY; Normal (test code 1.025 N = 2965-2) KETONES; Normal (test code = Negative N 72721-0) BILIRUBIN; Normal (test code = Negative N 95624-5) [facility]
--- NOTE | 2023-04-18 18:18 | RAD REPORT ---
EXAM DESCRIPTION: Anantt Single View04/18/2023 6:03 pm CLINICAL HISTORY: CHEST PAIN COMPARISON: Chest Pa And Lat (2 Views) dated 09/10/2020; Chest Single View dated 03/13/2018; CHEST SI NGLE VIEW dated 03/11/2013; CHEST PA AND LAT 2 VIEW dated 03/08/2012 TECHNIQUE: Portable AP view of the chest. FINDINGS: Stable retrocardiac opacification, favored to represent atelectasis. The lungs are otherwi se clear. No pneumothorax or effusion. The cardiomediastinal contours are unremarkable. IMPRESSION: Stable retrocardiac opacification, favored to represent atelectasis.
--- NOTE | 2023-04-18 18:21 | RAD REPORT ---
EXAM DESCRIPTION: RAD - Shoulder Left 2 View - 04/18/2023 6:03 pm CLINICAL HISTORY: PAIN COMPARISON: No comparisons TECHNIQUE: Internal and external rotation views of the left shoulder were obtained. FINDINGS: There is no fracture or dislocation. AC joint shows moderate degenerative changes. Advance d glenohumeral joint degenerative changes with osseous remodeling, [id number] appearance, and subch ondral cystic changes and sclerosis. Extensive periarticular soft tissue mineralization, could relate to synovial osteochondrosis or sequelae of calcific synovitis/ tendonitis, or both. IMPRESSION: No acute osseus abnormality. Other findings as above.
[2023-04-18] MEDS ORDERED: HYDROMORPHONE HCL 0.5 MG/0.5 ML INJ ONE (18:30)
[2023-04-18] MEDS ORDERED: ONDANSETRON 4 MG/2 ML VIAL ONE (18:30)
[2023-04-18 18:55] LABS: Absolute Lymphocytes (CBC) 1.2 K/uL (0.7-4.9); Hematocrit 39.9 % (39.6-49.0); Lymphocytes % 17.9 % (15.3-44.8); MCV 94.7 fL (80-100); MPV 7.7 fL (7.6-11.3); RBC Red Blood Cell Count 4.21 M/uL (4.33-5.43)
[2023-04-18 19:03] LABS: Protime INR 0.84
[2023-04-18 19:15] LABS: Potassium 3.7 mEq/L (3.5-5.1); Troponin High Sensitivity 20.3 pg/mL (<58.9)
[2023-04-18] MEDS ORDERED: CYCLOBENZAPRINE 10 MG TAB ONE (20:07)
[2023-04-18] MEDS ORDERED: HYDROCODONE/APAP 5/325 MG TAB ONE (20:08)
--- NOTE | 2023-04-18 21:58 | EDPHYS ---
Physician Documentation [facility] Name: Ruel Smith Age: 77 yrs Sex: Male : 1945 Arrival Date: 04/18/2023 Time: 17:24 Bed 5 Private MD: ED Physician Rex Barbour HPI: 04/18 17:51 This 77 yrs old Black Male presents to ER via Ambulatory with complaints of Neck and sp3 Shoulder pain. 17:51 77-year-old male with history of hypertension and prior end-stage renal disease now sp3 status post kidney transplant in 2016 presents to the ED with left-sided shoulder and neck pain extending anteriorly into the upper chest and down the left arm. Patient denies any injury or repetitive movements. No prior history of the same. There is no sensory deficits reported by the patient. He also endorses mild shortness of breath only when the sharp pain occurs. Patient does not have any substernal or dull chest pain. He does have several stents placed and those were found on routine cardiology evaluation and patient has not had an acute STEMI like presentation as per history from him and his . Review of systems otherwise negative for headache, right-sided neck pain, syncope, near syncope, focal neurological deficit, right-sided chest pain, abdominal pain, back pain, nausea, vomiting, diarrhea, rash, fever, known sick contacts, travel history, prolonged immobilization, or any other signs or symptoms at this time.. Historical: - Allergies: 17:36 Morphine; vg1 - Home Meds: 17:36 aspirin 81 mg Oral chew 1 tab once daily [Active]; Plavix 75 mg Oral tab 1 tab once vg1 daily [Active]; Coreg 25 mg Oral tab 1 tab 2 times per day [Active]; prednisone 5 mg Oral tab once daily [Active]; Myfortic 180 mg Oral TbEC twice a day [Active]; Prograf 1 mg Oral cap every 12 hours [Active]; nifedipine 60 mg Oral TbER 1 tab once daily [Active]; hydralazine 100 mg Oral tab 1 tab 2 times per day [Active]; Lipitor 20 mg Oral tab 1 tab once daily [Active]; cholecalciferol (vitamin D3) 10 mcg/mL (400 unit/mL) oral Syringe [Active]; ferrous sulfate 325 mg (65 mg iron) Oral tab twice a day [Active]; losartan 25 mg Oral tab 1 tab once daily [Active]; - PMHx: 17:36 Hypertension; vg1 - PSHx: 17:36 Kidney Transplant; BRANDYN Knee; Stented artery; vg1 - Immunization history:: Client reports receiving the 2nd dose of the Covid vaccine. - Social history:: Smoking status: Patient/guardian denies using tobacco, but has a distant history of tobacco abuse. ROS: 17:53 Constitutional: Negative for fever, chills, and weight loss, Eyes: Negative for injury, sp3 pain, redness, and discharge, ENT: Negative for injury, pain, and discharge, Respiratory: Negative for shortness of breath, cough, wheezing, and pleuritic chest pain, Abdomen/GI: Negative for abdominal pain, nausea, vomiting, diarrhea, and constipation, Back: Negative for injury and pain, Skin: Negative for injury, rash, and discoloration, Neuro: Negative for headache, weakness, numbness, tingling, and seizure, Psych: Negative for depression, anxiety, suicide ideation, homicidal ideation, and hallucinations, Allergy/Immunology: Negative for hives, rash, and allergies, Endocrine: Negative for neck swelling, polydipsia, polyuria, polyphagia, and marked weight changes, Hematologic/Lymphatic: Negative for swollen nodes, abnormal bleeding, and unusual bruising. 17:53 All other systems are negative. Exam: 17:54 Constitutional: This is a well developed, well nourished patient who is awake, alert, sp3 and in no acute distress. Head/Face: Normocephalic, atraumatic. Eyes: Pupils equal round and reactive to light, extra-ocular motions intact. Lids and lashes normal. Conjunctiva and sclera are non-icteric and not injected. Cornea within normal limits. Periorbital areas with no swelling, redness, or edema. Cardiovascular: Regular rate and rhythm with a normal S1 and S2. No gallops, murmurs, or rubs. Normal PMI, no JVD. No pulse deficits. Respiratory: Lungs have equal breath sounds bilaterally, clear to auscultation and percussion. No rales, rhonchi or wheezes noted. No increased work of breathing, no retractions or nasal flaring. Abdomen/GI: Soft, non-tender, with normal bowel sounds. No distension or tympany. No guarding or rebound. No evidence of tenderness throughout. Back: No spinal tenderness. No costovertebral tenderness. Full range of motion. Skin: Warm, dry with normal turgor. Normal color with no rashes, no lesions, and no evidence of cellulitis. 17:54 Neck: Patient has pain to palpation on the trapezius muscle and also on the anterior superior portion of his clavicle extending laterally. Pain is also elucidated on abduction of the left shoulder at 180 degrees. There are no distal motor or sensory deficits or abnormalities on the left upper extremity. Cardiac exam and pulmonary exam are normal.. 17:55 ECG was reviewed by the Attending Physician. EKG demonstrates normal sinus rhythm at 70 sp3 bpm with normal intervals, normal QRS, leftward axis, nonspecific diffuse ST/T changes without evidence of acute ischemia. Vital Signs: 17:35 BP 149 / 86; Pulse 76; Resp 16; Temp 98.1(TE); Pulse Ox 96% on R/A; Weight 104.33 kg; vg1 Height 5 ft. 11 in. ; Pain 9/10; 18:33 BP 144 / 76; Pulse 73; Resp 18; Pulse Ox 97% on R/A; ko1 18:50 BP 134 / 71; Pulse 69; Resp 18; Pulse Ox 98% ; ko1 19:26 BP 131 / 68; Pulse 72; Resp 18 S; Pulse Ox 96% on R/A; ha1 20:30 BP 161 / 82; Pulse 69; Resp 18; Pulse Ox 100% on R/A; ll3 21:42 BP 175 / 92; Pulse 72; Resp 16; Pulse Ox 96% on R/A; ll3 17:35 Body Mass Index 32.08 (104.33 kg, 180.34 cm) vg1 17:35 Pain Scale: Adult vg1 MDM: 17:50 Patient medically screened. sp3 17:55 Data reviewed: vital signs, nurses notes, lab test result(s), EKG, radiologic studies. sp3 ED course: 77-year-old male with history of hypertension now status post kidney transplant presents to the ED with left musculoskeletal pain in the trapezius and clavicular region. Differential diagnosis includes muscle strain, costochondritis, acute coronary syndrome pleurisy, among others. I am not highly suspicious for pulmonary embolism, thoracic aortic dissection, pneumonia, pneumothorax, or any other critical findings. Pain is most likely musculoskeletal based on physical exam. EKG shows no concerning findings. We will also obtain chest x-ray and left shoulder x-ray coupled with laboratory values and repeat troponin at 3 hours from the first. Patient cannot take NSAIDs and is allergic to morphine. Will administer 0.5 mg of Dilaudid IV in conjunction with Zofran 4 mg IV for symptomatic pain control. If second set of troponin is negative and work-up is negative for any other pathology, there is a good chance patient will be safely discharged home. Patient will be signed out to night physician for ultimate reevaluation and disposition.. 19:58 ED course: Patient presents with acute onset of pain on the left side of the neck sp4 starting this morning associated with radiation into the left shoulder. Patient denied any chest pain, patient has a history of nephrectomy and prior renal transplant at [facility]. Patient is on antirejection drugs. On examination pain is worse with palpation to the left side of her neck with radiation down into the left trapezius. Pain does not seem to be related to the heart. ACS work-up is unremarkable thus far. Patient will get repeat troponin and additional medicines for pain and muscle soreness. 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 AC joint reveals moderate degenerative changes. Advanced glenohumeral joint degenerative changes. There is osseous remodeling [id number] appearance and subchondral cystic changes and sclerosis. But there is no acute osseous abnormality. Patient will be advised to see machine maintenance supervisor for in office evaluation in 2 weeks if the pain does not subside we will recommend MRI of the C-spine without IV contrast . 04/18 17:50 Order name: Basic Metabolic Panel; Complete Time: 19:45 sp3 04/18 17:50 Order name: CBC with Diff; Complete Time: 19:13 sp3 04/18 17:50 Order name: NT PRO-BNP; Complete Time: 19:45 sp3 04/18 17:50 Order name: PT-INR; Complete Time: 19:13 sp3 04/18 17:50 Order name: Troponin HS; Complete Time: 19:45 sp3 04/18 17:50 Order name: Troponin High Sensitivity: Three hours after first draw sp3 04/18 20:14 Order name: Troponin High Sensitivity; Complete Time: 22:00 ha1 04/18 17:50 Order name: XRAY Chest (1 view); Complete Time: 18:36 sp3 04/18 17:50 Order name: Shoulder Left (2 View) XRAY; Complete Time: 18:36 3 04/18 17:50 Order name: EKG; Complete Time: 17:50 3 04/18 17:50 Order name: Cardiac monitoring; Complete Time: 17:55 sp3 04/18 17:50 Order name: EKG - Nurse/Tech; Complete Time: 17:55 3 04/18 17:50 Order name: IV Saline Lock; Complete Time: 18:19 sp3 04/18 17:50 Order name: Labs collected and sent; Complete Time: 18:19 sp3 04/18 17:50 Order name: O2 Per Protocol; Complete Time: 17:58 sp3 04/18 17:50 Order name: O2 Sat Monitoring; Complete Time: 17:58 3 04/18 18:33 Order name: Misc. Order: Recollect on all blood work; Complete Time: 18:43 vg1 Administered Medications: 18:23 Drug: Ondansetron IVP 4 mg Route: IVP; Site: right forearm; ko1 18:29 Drug: HYDROmorphone IVP 0.5 mg Route: IVP; Site: right forearm; ko1 20:03 Drug: HYDROcodone-acetaminophen PO 5 mg-325 mg 1 tabs Route: PO; ll3 21:00 Follow up: Response: No adverse reaction; Pain is decreased; RASS: Alert and Calm (0) ha1 20:03 Drug: Cyclobenzaprine PO 10 mg Route: PO; ll3 21:00 Follow up: Response: No adverse reaction ha1 Disposition Summary: 04/18/23 21:57 Discharge Ordered Location: Home sp4 Problem: new sp4 Symptoms: have improved sp4 Condition: Stable sp4 Diagnosis - Acute cervical pain, left shoulder pain, musculoskeletal pain sp4 - Degenerative shoulder arthritis sp4 Followup: sp4 - With: Private Physician - When: 7 - 10 days - Reason: Recheck today's complaints Discharge Instructions: - Discharge Summary Sheet sp4 - Arthritis, [id number] sp4 Prescriptions: - Cyclobenzaprine 10 mg Oral Tablet - take 1 tablet by ORAL route every 8 hours As needed; 30 tablet; Refills: 0, sp4 Product Selection Permitted - Tramadol 50 mg Oral Tablet - take 1 tablet by ORAL route every 8 hours as needed; 12 tablet; Refills: 0, sp4 Product Selection Permitted Signatures: Dispatcher [employer] Argenis Adams RN RN vg1 Zay Covarrubias MD MD sp3 Natalie Meyers RN RN ll3 Nae Sequeira RN RN ko1 Rex Barbour MD MD sp4 Ruby Grant RN ha1
--- NOTE | 2023-04-18 21:58 | ER ---
Nurse's Notes [facility] Name: Ruel Smith Age: 77 yrs Sex: Male : 1945 Arrival Date: 04/18/2023 Time: 17:24 Bed 5 Private MD: Diagnosis: Acute cervical pain, left shoulder pain, musculoskeletal pain;Degenerative shoulder arthritis Presentation: 04/18 17:35 Chief complaint: Patient states: was woken up this morning at 0130 with neck pain that vg1 radiated to Left shoulder; denies CP or SOB. Coronavirus screen: Vaccine status: Patient reports receiving the 2nd dose of the covid vaccine. Ebola Screen: Patient negative for fever greater than or equal to 101.5 degrees Fahrenheit, and additional compatible Ebola Virus Disease symptoms Patient denies exposure to infectious person. Patient denies travel to an Ebola-affected area in the 21 days before illness onset. Initial Sepsis Screen: Does the patient meet any 2 criteria? No. Patient's initial sepsis screen is negative. Does the patient have a suspected source of infection? No. Patient's initial sepsis screen is negative. Risk Assessment: Do you want to hurt yourself or someone else? Patient reports no desire to harm self or others. Onset of symptoms was April 18, 2023. 17:35 Method Of Arrival: Ambulatory vg1 17:35 Acuity: ALIA 3 vg1 Triage Assessment: 17:36 General: Appears uncomfortable, Behavior is calm, cooperative. Pain: Complains of pain vg1 in neck and left shoulder Pain currently is 9 out of 10 on a pain scale. Neuro: Level of Consciousness is awake, alert, obeys commands, Oriented to person, place, time, situation. Respiratory: Airway is patent Respiratory effort is even, unlabored. Musculoskeletal: Circulation, motion, and sensation intact. Range of motion: intact in all extremities. Historical: - Allergies: 17:36 Morphine; vg1 - Home Meds: 17:36 aspirin 81 mg Oral chew 1 tab once daily [Active]; Plavix 75 mg Oral tab 1 tab once vg1 daily [Active]; Coreg 25 mg Oral tab 1 tab 2 times per day [Active]; prednisone 5 mg Oral tab once daily [Active]; Myfortic 180 mg Oral TbEC twice a day [Active]; Prograf 1 mg Oral cap every 12 hours [Active]; nifedipine 60 mg Oral TbER 1 tab once daily [Active]; hydralazine 100 mg Oral tab 1 tab 2 times per day [Active]; Lipitor 20 mg Oral tab 1 tab once daily [Active]; cholecalciferol (vitamin D3) 10 mcg/mL (400 unit/mL) oral Syringe [Active]; ferrous sulfate 325 mg (65 mg iron) Oral tab twice a day [Active]; losartan 25 mg Oral tab 1 tab once daily [Active]; - PMHx: 17:36 Hypertension; vg1 - PSHx: 17:36 Kidney Transplant; BRANDYN Knee; Stented artery; vg1 - Immunization history:: Client reports receiving the 2nd dose of the Covid vaccine. - Social history:: Smoking status: Patient/guardian denies using tobacco, but has a distant history of tobacco abuse. Screenin:45 [facility] ED Fall Risk Assessment (Adult) History of falling in the last 3 months, ko1 including since admission No falls in past 3 months (0 pts) Confusion or Disorientation No (0 pts) Intoxicated or Sedated No (0 pts) Impaired Gait No (0 pts) Mobility Assist Device Used No (0 pt) Altered Elimination No (0 pt) Score/Fall Risk Level 0 - 2 = Low Risk Oriented to surroundings, Maintained a safe environment, Educated pt \T\ family on fall prevention, incl call for assistance when getting out of bed, Assessed \T\ reinforced patient's understanding of fall precautions, Provided non-skid footwear, Hourly rounding (assess needs \T\ fall precautionary measures) done, Used ambulatory aids as needed (educated on \T\ assisted with), Used gait belt as appropriate. Abuse screen: Denies threats or abuse. Denies injuries from another. Nutritional screening: No deficits noted. Tuberculosis screening: No symptoms or risk factors identified. Assessment: 17:45 General: Appears in no apparent distress. uncomfortable, Behavior is calm, cooperative, ko1 appropriate for age. Pain: Complains of pain in anterior aspect of left shoulder and posterior aspect of left shoulder Pain radiates to left trapezius. Neuro: No deficits noted. Cardiovascular: No deficits noted. Respiratory: No deficits noted. GI: No deficits noted. : No deficits noted. EENT: No deficits noted. Derm: No deficits noted. Musculoskeletal: No deficits noted. 18:57 : Reports he is a kidney transplant patient, he has a fistula on the left arm from ko1 previous dialysis (prior to transplant). 19:24 General: Appears comfortable, Behavior is calm, cooperative. Pain: Complains of pain in ha1 posterior aspect of left shoulder Pain does not radiate. Pain currently is 4 out of 10 on a pain scale. Quality of pain is described as throbbing. Neuro: Level of Consciousness is awake, alert, obeys commands, Oriented to person, place, time, situation. Cardiovascular: Heart tones S1 S2 present Patient's skin is warm and dry. Respiratory: Airway is patent Respiratory effort is even, unlabored, Respiratory pattern is regular, symmetrical. GI: No signs and/or symptoms were reported involving the gastrointestinal system. Abdomen is round non-distended. Musculoskeletal: Circulation, motion, and sensation intact. Range of motion: intact in all extremities, Reports pain in neck. 20:20 Reassessment: Patient and/or family updated on plan of care and expected duration. Pain ha1 level reassessed. Patient is alert, oriented x 3, equal unlabored respirations, skin warm/dry/pink. 21:20 Reassessment: Patient and/or family updated on plan of care and expected duration. Pain ha1 level reassessed. Patient is alert, oriented x 3, equal unlabored respirations, skin warm/dry/pink. awaiting on repeat troponin results. Vital Signs: 17:35 BP 149 / 86; Pulse 76; Resp 16; Temp 98.1(TE); Pulse Ox 96% on R/A; Weight 104.33 kg; vg1 Height 5 ft. 11 in. ; Pain 9/10; 18:33 BP 144 / 76; Pulse 73; Resp 18; Pulse Ox 97% on R/A; ko1 18:50 BP 134 / 71; Pulse 69; Resp 18; Pulse Ox 98% ; ko1 19:26 BP 131 / 68; Pulse 72; Resp 18 S; Pulse Ox 96% on R/A; ha1 20:30 BP 161 / 82; Pulse 69; Resp 18; Pulse Ox 100% on R/A; ll3 21:42 BP 175 / 92; Pulse 72; Resp 16; Pulse Ox 96% on R/A; ll3 17:35 Body Mass Index 32.08 (104.33 kg, 180.34 cm) [facility] 17:35 Pain Scale: Adult vg1 ED Course: 17:25 Patient arrived in ED. ts1 17:28 Zay Covarrubais MD is Attending Physician. sp3 17:36 Triage completed. vg1 17:36 Arm band placed on. vg1 17:42 Nae Sequeira, RN is Primary Nurse. ko1 17:45 Patient has correct armband on for positive identification. Placed in gown. Bed in low ko1 position. Call light in reach. Side rails up X 1. Client placed on continuous cardiac and pulse oximetry monitoring. NIBP monitoring applied. cardiac monitor technician on. Door closed. Noise minimized. Warm blanket given. 18:05 XRAY Chest (1 view) In Process Unspecified. EDMS 18:05 Shoulder Left (2 View) XRAY In Process Unspecified. EDMS 18:15 Inserted saline lock: 22 gauge in right forearm, using aseptic technique. Blood ko1 collected. 18:19 Basic Metabolic Panel Sent. ko1 18:19 CBC with Diff Sent. ko1 18:19 NT PRO-BNP Sent. ko1 18:19 PT-INR Sent. ko1 18:19 Troponin HS Sent. ko1 18:43 Basic Metabolic Panel Sent. ko1 18:43 CBC with Diff Sent. ko1 18:43 NT PRO-BNP Sent. ko1 18:43 PT-INR Sent. ko1 18:43 Troponin HS Sent. ko1 19:13 Attending Physician role handed off by Zay Covarrubias MD sp4 19:13 Rex Barbour MD is Attending Physician. sp4 22:09 No provider procedures requiring assistance completed. ha1 22:09 IV discontinued, intact, bleeding controlled, No redness/swelling at site. Pressure ha1 dressing applied. Administered Medications: 18:23 Drug: Ondansetron IVP 4 mg Route: IVP; Site: right forearm; ko1 18:29 Drug: HYDROmorphone IVP 0.5 mg Route: IVP; Site: right forearm; ko1 20:03 Drug: HYDROcodone-acetaminophen PO 5 mg-325 mg 1 tabs Route: PO; ll3 21:00 Follow up: Response: No adverse reaction; Pain is decreased; RASS: Alert and Calm (0) ha1 20:03 Drug: Cyclobenzaprine PO 10 mg Route: PO; ll3 21:00 Follow up: Response: No adverse reaction ha1 Medication: 17:45 VIS not applicable for this client. ko1 Outcome: 21:57 Discharge ordered by . spFrank 22:09 Discharged to home ambulatory, with family. ha1 22:09 Condition: stable 22:09 Discharge instructions given to patient, family, Instructed on discharge instructions, follow up and referral plans. medication usage, Demonstrated understanding of instructions, follow-up care, medications, Prescriptions given X 2. 22:10 Patient left the ED. as7 Signatures: Dispatcher [employer] EDMS Argenis Kraft RN RN vg1 Zay Covarrubias MD MD sp3 Natalie Meyers RN RN ll3 Ruby Grant RN RN ha1 Nae Sequeira RN RN ko1 Amy Hackett as7 Rex Barbour MD MD sp4 Tila Dalton [facility] ts1
[2023-04-18 22:18] VITALS: TEMP 98.1
[2023-04-18 22:24] VITALS: BP 175/92; O2SAT 96
--- NOTE | 2023-04-19 17:50 | EKG ---
Test Date: 2023-04-18 Test Time: 17:51:31 Nib Finisher: ISAAC MEASUREMENT RESULTS: Intervals: Rate: 69 [place]: 180 QRSD: 98 QT: 386 QTc: 413 [place]: P: 48 NV: 180 QRS: -40 T: 28 INTERPRETIVE STATEMENTS: Normal sinus rhythm Left axis deviation Abnormal ECG Compared to ECG 03/13/2018 10:37:46 Left-axis deviation now present Ventricular premature complex(es) no longer present Electronically Signed On 04-19-23 17:49:08 CDT by Angel Vila
== END 2023-04-18 22:10 | disposition home or self-care (01) ==
LOC: ER 17:24
DX: M19.012 Primary osteoarthritis, left shoulder (principal); M54.2 Cervicalgia; M79.18 Myalgia, other site; Z94.0 Kidney transplant status; I10 Essential (primary) hypertension; Z95.818 Presence of other cardiac implants and grafts; Z88.5 Allergy status to narcotic agent; Z79.01 Long term (current) use of anticoagulants; Z79.82 Long term (current) use of aspirin
CPT/HCPCS: 93005; 85025; 80048; 36415; 85610; 84484 ×2; 83880; 71045; 73030; 96375; 96374; 99285; J1170; J2405

== ENCOUNTER 2023-05-26 08:30 | Day surgery (SDC) | payer OTHER ==
[2023-05-21 14:47] LABS: Absolute Lymphocytes (CBC) 1.5 K/uL (0.7-4.9); Hematocrit 41.1 % (39.6-49.0); Lymphocytes % 20.9 % (15.3-44.8); MCV 93.6 fL (80-100); MPV 6.7 fL (7.6-11.3)
[2023-05-21 14:51] LABS: Protime INR 1.01
--- NOTE | 2023-05-25 15:06 | EKG ---
Test Date: 2023-05-21 Test Time: 14:17:03 Spreader Operator: SHEILA MEASUREMENT RESULTS: Intervals: Rate: 75 [place]: 168 QRSD: 98 QT: 400 QTc: 446 [place]: P: 51 [place]: 168 QRS: -50 T: 57 INTERPRETIVE STATEMENTS: Normal sinus rhythm Left anterior fascicular block Abnormal ECG Compared to ECG 04/18/2023 17:51:31 Left anterior fascicular block now present Left-axis deviation no longer present Electronically Signed On 05-25-23 14:58:58 CDT by Angel Vila
[2023-05-26] MEDS ORDERED: NA CHLORIDE 0.9% 500 ML ONE (08:53)
[2023-05-26 08:59] VITALS: TEMP 97.6
[2023-05-26] MEDS ORDERED: HEPA 1000U/500MLS 2,000 UNIT/1,000 ML BAG IV ONE (09:14)
[2023-05-26] MEDS ORDERED: MIDAZOLAM HCL 2 MG/2 ML INJ ONE (09:14)
[2023-05-26] MEDS ORDERED: LIDOCAINE 1% 20 ML MDV ONE (09:14)
[2023-05-26] MEDS ORDERED: FENTANYL CITR 100 MCG/2 ML ONE (09:14)
[2023-05-26] MEDS ORDERED: HEPARIN 5000 UNIT/ML 1 ML VIAL ONE (09:14)
[2023-05-26] MEDS ORDERED: VERAPAMIL HCL 10 MG/4 ML VIAL IV ONE (09:14)
[2023-05-26] MEDS ORDERED: CLOPIDOGREL 75 MG TABLET ONE (09:15)
[2023-05-26] MEDS ORDERED: HEPARIN 10,000 UNIT/10 ML VIAL IV ONE (09:15)
[2023-05-26] MEDS ORDERED: ATROPINE SULF 1 MG/10 ML SYR IV ONE (09:15)
[2023-05-26] MEDS ORDERED: ASPIRIN 325 MG TAB ONE (09:15)
[2023-05-26 11:52] VITALS: BP 144/68; O2SAT 100
--- NOTE | 2023-05-26 13:45 | OP ---
Date of Procedure: 05/26/2023 Surgeon: ROBERTA FARIA Procedure Performed: Selective coronary angiogram. Indication: Abnormal stress test with chest pain. Access: Right radial artery 6-Nigerian closed with TR band. Complications: None. Bleeding: Less than 20 mL. Description Of Procedure: After risks, benefits, and alternatives were explained, the patient agreed to proceed and signed informed consent. The patient was brought into the cardiac catheterization la boratory, prepped and draped in the usual sterile fashion. Then, I accessed right radial artery usin g pediatric micropuncture kit, placed a 6-Nigerian Slender sheath and took 5-Nigerian [place] 4.0 catheter into the aortic root over a J-wire, engaged left main and right coronary artery and exchanged for 6-F rench JL3.5 catheter to engage the left main. Standard views were obtained and then catheter was rem maegan, sheath was removed, placed TR band with good hemostasis. Findings: 1.Left main; very large and normal. 2.LAD; proximal 30% stenosis, long lesion and then patent stent with about 30% iSR and then luminal irregularities. Diagonal branches are without significant disease. 3.Ramus intermedius; it is normal. 4.Left circumflex; small, nondominant and with luminal irregularities. 5.RCA; large dominant with mid 50% stenosis. Conclusion: Moderate nonobstructive coronary artery disease. Recommendation: Medical management. /NAKUL Voice ID: [id number] Report ID: [id number]
== END 2023-05-26 12:05 | disposition home or self-care (01) ==
LOC: CCL 08:30
PROVIDERS: ATTEND Internal Medicine
DX: I25.10 Atherosclerotic heart disease of native coronary artery without angina pectoris (principal); T82.855A Stenosis of coronary artery stent, initial encounter; I44.4 Left anterior fascicular block; I12.0 Hypertensive chronic kidney disease with stage 5 chronic kidney disease or end stage renal disease; N18.6 End stage renal disease; E78.5 Hyperlipidemia, unspecified; Z87.891 Personal history of nicotine dependence; Z79.899 Other long term (current) drug therapy; Z88.5 Allergy status to narcotic agent; Z82.49 Family history of ischemic heart disease and other diseases of the circulatory system
CPT/HCPCS: 93005; 85025; 80048; 36415; 85610; 85730; 93454; 76937; C1893; Q9966; J1644; J2001; J2250; J3010; J7040; J0461

== ENCOUNTER 2024-05-05 18:05 | Emergency (ER) | payer OTHER ==
--- OUTSIDE RECORDS SUMMARY | 2024-05-05 18:15 | XMS REPORT | Continuity of Care Document ---
Author Name Unknown Address [address] [place] [address] [facility] Address [address] [place] [address] Care Team Providers Care Career Counselor Name Role Phone Elvis Case MD Primary Care Physician [phone] KRYSTAL LEMON Attending Clinician ELVIS Abdi Attending Clinician Unavailable GRANT ALAMO Attending Clinician Unavail able Selbst DPMGrant Attending Clinician + [phone] Krystal Lemon MD Attending Clinician + [phone] Doctor Unassigned, [place] Attending Clinician U Michelle Maharaj LVN Attending Clinician Unavailab Zoe Robertson RN Attending Clinician [phone] David Summers DO Attending Clinician [phone] Cristobal Marsh DO Attending Clinician [phone] Travis Taveras MD Attending Clinician [phone] TRAVIS TAVERAS Attending Clinician Unavailable Nurse, [facility] Attending Clinician Un available Suellen Godoy Attending Clinician [phone] SUELLEN ROJAS Attending Clinician Unavailable Kelley LOYD, Pcp Attending Clinician Unavailable ELVIS CASE M.D. Attending Clinician Unavailable Only, Adc Test Attending Clinician Unavailable DEXA, SCAN Attending Clinician Unavailable KRYSTAL LEMON Admitting Clinician Krystal Velazquez MD Admitting Clinician [phone] Nitin LOYD, Travis Admitting Clinician [phone] TRAVIS TAVERAS Admitting Clinician Unavailable Payers Payer Name Policy Type Policy Number Effective Date Expirati on Date Source MEDICARE PART A AND B [id number] 2008 00:00:00 2022 00:00:00 MEDICARE PART A \\T\\ B [id number] 2008 00:00:00 [employer] PPO [id number] 2022 00:00:00 [employer] MEDICARE Medicare [id number] 2022 00:00:00 Problems Condition Name Condition Details Condition Category Status Onset Date Resolution Date Last Treatment Date Treating Clinician Comments Source Fatigue Fatigue Disease Active 02-21 00:00: 00 [facility] Pneumonia due to COVID-19 virus Pneumonia due to COVID-19 virus Disease Active 11-06 00:00: 00 [facility] Acute respirator y failure due to COVID-19 Acute respirator y failure due to COVID-19 Disease Active 11-06 00:00: 00 [facility] Acute respirator y failure due to COVID-19 Acute respirator y failure due to COVID-19 Disease Active 11-06 00:00: 00 [facility] 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 Disease Active 07-24 00:00: 00 [facility] Vitamin D deficiency , unspecifie d Vitamin D deficiency , unspecifie d Disease Active 07-24 00:00: 00 [facility] Urinary urgency Urinary urgency Disease Active 11-21 00:00: 00 [facility] End stage renal disease End stage renal disease Disease Active 11-21 00:00: 00 [facility] Malignant neoplasm of left kidney Malignant neoplasm of left kidney Disease Active 11-21 00:00: 00 [facility] Lung nodules Lung nodules Disease Active 11-21 00:00: 00 [facility] Urinary frequency Urinary frequency Disease Active 11-21 00:00: 00 [facility] Other nonspecifi c abnormal finding of lung field Other nonspecifi c abnormal finding of lung field Disease Active 1-21 00:00: 00 [facility] Systemic lupus erythemato irais Systemic lupus erythemato irais Disease Active 05-15 00:00: 00 [facility] Acquired renal cyst Acquired renal cyst Disease Active 05-15 00:00: 00 [facility] Acute kidney failure, unspecifie d Acute kidney failure, unspecifie d Disease Active 04-23 00:00: 00 [facility] Elevated prostate specific antigen (PSA) Elevated prostate specific antigen (PSA) Disease Active 04-23 00:00: 00 [facility] Kidney transplant status Kidney transplant status Disease Active 04-23 00:00: 00 [facility] 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 Disease Active 04-23 00:00: 00 [facility] Oliguria and anuria Oliguria and anuria Disease Active 04-23 00:00: 00 [facility] Benign prostatic hyperplasi a Benign prostatic hyperplasi a Disease Active 04-23 00:00: 00 [facility] Chronic renal disease Chronic renal disease Disease Active 3-10 00:00: 00 [facility] Kidney neoplasm Kidney neoplasm [facility] Oliguria and anuria Oliguria and anuria Problem [facility] Kid[facility] transplant status Kidney transplant status Problem Active [facility] Elevated prostate specific antigen (PSA) Elevated prostate specific antigen (PSA) Problem Active [facility] PHT (pulmonary hypertensi on) PHT (pulmonary hypertensi on) Problem Active [facility] BPH (benign prostatic hyperplasi a) BPH (benign prostatic hyperplasi a) Problem Active [facility] Urinary urgency Urinary urgency Problem Active [facility] Lung nodules Lung nodules Problem Active [facility] Systemic lupus erythemato irais Systemic lupus erythemato irais Problem Active [facility] Acquired renal cyst Acquired renal cyst Problem Active [facility] Acute cystitis without hematuria Acute cystitis without hematuria Problem Active [facility] Acute kidney failure, unspecifie d Acute kidney failure, unspecifie d Problem Active [facility] Benign prostatic hyperplasi a (BPH) with urinary urgency Benign prostatic hyperplasi a (BPH) with urinary urgency Problem Active [facility] Arthritis Arthritis Problem Active [facility] Urinary frequency Urinary frequency Problem Active [facility] CAD (coronary artery disease) CAD (coronary artery disease) Problem Active [facility] ESRD (end stage renal disease) ESRD (end stage renal disease) Problem Active [facility] Essential (primary) hypertensi on Essential (primary) hypertensi on Problem Active [facility] Hyperchole sterolemia Hyperchole sterolemia Problem Active [facility] Hypertensi ve nephroscle rosis Hypertensi ve nephroscle rosis Problem Active [facility] GERD (gastroeso phageal reflux disease) GERD (gastroeso phageal reflux disease) Problem Active [facility] Simple obesity Simple obesity Problem Active [facility] 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 Problem Active [facility] Malignant neoplasm of left kidney Malignant neoplasm of left kidney Problem Active [facility] Allergies, Adverse Reactions, Alerts Allergy Name Allergy Type Status Severity Reaction(s) Onset Date Inactive Date Treating Clinician Comments Source Morphine Allergy to substanc e Active 07-22 00:00: 00 [facility] Morphine Propensi ty to adverse reaction s Active Hallucinatio ns 12-16 00:00: 00 [facility] MORPHINE DRUG INGREDI Active Hallucinates 12-16 00:00: 00 [facility] morphine Allergy to drug (finding ) [facility] ALLERGIE S NOT ON FILE SYSTEMIC Active [facility] ALLERGIE S NOT ON FILE SYSTEMIC Active [facility] ALLERGIE S NOT ON FILE SYSTEMIC Active [facility]OUT ALLERGIE S NOT ON FILE SYSTEMIC Active [facility] Family History Family Member Diagnosis Comments Start Date Stop Date Sourc e Mother Family history of malignant neoplasm [facility] Mother Family history of cataracts [facility] Mother Family history of hypertension [facility] Mother Family history of ty pe 2 diabetes mellitus [facility] Mother Family history of cardiac disorder [facility] Natural mother Cancer [facility] Father Family history of cataracts [facility] Father Family history of cerebrovascular accident (CVA) [facility] Father Family history of cardiac disorder [facility] Sister Family history of malignant neoplasm [facility] Brother Family history of ES RD (end stage renal disease) [facility] Social History Social Habit Start Date Stop Date Quantity Comments Source Gender identity 2024-01-22 13:14:18 Identifies as male gender (finding) [facility] History of tobacco use Current smoker [facility] Sexual orientation M emoribrody [facility] Exposure to SARS-CoV-2 (event) 2022-11-20 00:00:00 2022-11-30 10:31:00 Not sure [facility] Alcoholic beverage intake 2022-04-23 00:00:00 2022-04-23 00:00:00 Ex-drinker (finding) [facility] History of Social function 2022-04-22 00:00:00 2022-04-22 00:00:00 [facility] Alcohol intake 2022-04-22 00:00:00 2022-04-22 00:00:00 Ex-drinker (finding) [facility] Tobacco use and exposure 2018-06-27 00:00:00 2018-06-27 00:00:00 Smokeless tobacco non-user [facility] Sex assigned at 1945 00:00:00 1945 00:00:00 [facility] Smoking Status Start Date Stop Date Source Ex-smoker Luis Antonio Ramey ana paula Del Rosario Never smoked tobacco [facility] Medications Ordered Medication Name Filled Medication Name Start Date Stop Date Current Medication? Ordering Clinician Indication Dosage Frequency Signature (SIG) Comments Components Source water for irrigation irrigation solution 04-22 16:24: 00 04-22 16:44 :52 No PRN, Starting on Wed04/22/22 at 1124, Until Wed04/22/22 at 1144, Routine, Intra-op [facility] simethicone (GAS RELIEF (SIMETHICON E)) 40 mg/0.6 mL drops 04-22 16:24: 00 04-22 16:44 :52 No PRN, Starting on Wed04/22/22 at 1124, Until Wed04/22/22 at 1144, Routine, Intra-op [facility] lactated ringers IV infusion 1,000 mL 04-22 15:15: 00 04-22 15:17 :00 No 1000mL at 42 mL/hr, 1,000 mL, IV Infusion, ONCE, 1 dose, On Wed04/22/22 at 1015, Routine, DSU Pre-op [facility] atorvastati n (LIPITOR) 20 mg tablet 04-22 15:04: 51 Yes 20mg Take 20 mg by mouth at bedtime. [facility] clopidogrel (PLAVIX) 75 mg tablet 04-22 15:04: 51 Yes 75mg Take 75 mg by mouth daily. [facility] Garlic (ODOR FREE GARLIC) Tab 04-22 15:04: 51 Yes Take by mouth. [facility] Cholecalcif juan, Vitamin D3, (VITAMIN D3) 2,000 unit capsule 04-22 15:04: 51 Yes 1{capsu le} Take 1 capsule by mouth daily. [facility] prednisoLON E 5 mg tablet 04-22 15:04: 51 Yes 5mg Take 5 mg by mouth daily. [facility] tacrolimus 1 mg capsule 04-22 15:04: 51 Yes 4mg Take 4 mg by mouth every 12 (twelve) hours. [facility] mycophenola te sodium 180 mg EC tablet 04-22 15:04: 51 Yes 360mg Take 360 mg by mouth every 12 (twelve) hours. 180mg tablet, take 2 tablets Q12, 0800 and 1999 [facility] aspirin 81 mg EC tablet 04-22 15:04: 51 Yes 81mg Take 81 mg by mouth daily. [facility] ferrous sulfate 325 mg (65 mg iron) tablet 04-22 15:04: 51 Yes 325mg Take 325 mg by mouth 2 (two) times daily. [facility] carvediloL 25 mg tablet 04-22 15:04: 51 Yes 25mg Take 25 mg by mouth 2 (two) times daily with meals. [facility] NIFEdipine ER 60 mg tablet 04-22 15:04: 51 Yes 60mg Take 60 mg by mouth daily. [facility] hydrALAZINE 100 mg tablet 04-22 15:04: 51 Yes 100mg Take 100 mg by mouth 2 (two) times daily. [facility] losartan 25 mg tablet 04-22 15:04: 51 Yes 25mg Take 25 mg by mouth daily. [facility] vitamin B-12 (VITAMIN B-12) 1,000 mcg tablet 04-22 15:04: 51 Yes 1000ug Take 1,000 mcg by mouth daily. [facility] Acetaminoph en 500 mg Cap 04-22 15:04: 51 Yes 1{capsu le} Take 1 capsule by mouth as needed for Pain (scale 1-3). [facility] Garlic (ODOR FREE GARLIC) Tab 04-22 15:04: 51 Yes Take by mouth. [facility] tacrolimus 1 mg capsule 04-22 15:04: 51 Yes 4mg Take 4 mg by mouth every 12 (twelve) hours. [facility] mycophenola te (Myfortic) 180 MG EC tablet 13 00:00: 00 Yes 360mg Q.5D Take 360 mg by mouth 2 (two) times a day. [facility] tacrolimus (Prograf) 1 MG capsule 02-08 00:00: 00 Yes TAKE BY MOUTH 4 CAPSULES EVERY 12 HOURS [facility] tacrolimus (Prograf) 1 MG capsule 10 00:00: 00 Yes TAKE BY MOUTH 4 CAPSULES EVERY 12 HOURS [facility] atorvastati n (Lipitor) 20 MG tablet - 00:00: 00 Yes 20mg Take 20 mg by mouth every night. [facility] predniSONE (Deltasone) 5 MG tablet 01-12 00:00: 00 Yes 5mg QD Take 5 mg by mouth 1 (one) time each day. [facility] losartan (Cozaar) 25 MG tablet 12 00:00: 00 Yes 25mg QD Take 25 mg by mouth 1 (one) time each day. [facility] ferrous sulfate 325 (65 Fe) MG EC tablet -06 00:00: 00 Yes 1{tbl} Q.5D Take 1 tablet by mouth 2 (two) times a day. [facility] carvedilol (Coreg) 25 MG tablet -24 00:00: 00 Yes [facility] clopidogrel (Plavix) 75 MG tablet - 00:00: 00 Yes 75mg QD Take 75 mg by mouth 1 (one) time each day. [facility] hydrALAZINE (Apresoline ) 100 MG tablet 12-11 00:00: 00 Yes [facility] NIFEdipine XL (Procardia XL) 60 MG 24 hr tablet 12-11 00:00: 00 Yes [facility] K Phos [place]-Sod Phos Di & [place] (Phospha 250 Neutral) [id number] MG tablet - 00:00: 00 Yes 1{tbl} Q.5D Take 1 tablet by mouth 2 (two) times a day. [facility] predniSONE (DELTASONE) tablet 5 mg 11-11 15:00: 00 Yes 5mg 5 mg, Oral, DAILY, First dose (after last modificati on) on Wed11/11/21 at 0900, Until Discontinu ed, Routine [facility] atorvastati n (LIPITOR) 20 mg tablet 11-11 14:31: 32 Yes 20mg Take 20 mg by mouth at bedtime. [facility] clopidogrel (PLAVIX) 75 mg tablet 11-11 14:31: 32 Yes 75mg Take 75 mg by mouth daily. [facility] Garlic (ODOR FREE GARLIC) Tab 11-11 14:31: 32 Yes Take by mouth. [facility] Cholecalcif juan, Vitamin D3, (VITAMIN D3) 2,000 unit capsule 11-11 14:31: 32 Yes 1{capsu le} Take 1 capsule by mouth daily. [facility] prednisoLON E 5 mg tablet 11-11 14:31: 32 Yes 5mg Take 5 mg by mouth daily. [facility] tacrolimus 1 mg capsule 11-11 14:31: 32 Yes 4mg Take 4 mg by mouth every 12 (twelve) hours. [facility] mycophenola te sodium 180 mg EC tablet 11-11 14:31: 32 Yes 360mg Take 360 mg by mouth every 12 (twelve) hours. 180mg tablet, take 2 tablets Q12, 0800 and 2000 [facility] aspirin 81 mg EC tablet 11-11 14:31: 32 Yes 81mg Take 81 mg by mouth daily. [facility] ferrous sulfate 325 mg (65 mg iron) tablet 11-11 14:31: 32 Yes 325mg Take 325 mg by mouth 2 (two) times daily. [facility] metoprolol succinate XL (TOPROL XL) 100 mg 24 hr tablet 11-11 10:15: 11-11 00:00 :00 No 100mg Take 100 mg by mouth daily. [facility] lisinopril (PRINIVIL,Z ESTRIL) 40 mg tablet 11-11 10:15: 11-11 00:00 :00 No 40mg Take 40 mg by mouth daily. [facility] HYDRALAZINE HCL (HYDRALAZIN E ORAL) 11-11 10:15: 11-11 00:00 :00 No 100mg Take 100 mg by mouth daily. [facility] carvedilol 25 mg tablet 11-11 10:: 11-11 00:00 :00 No 25mg Take 25 mg by mouth 2 (two) times daily with meals. [facility] NIFEdipine ER 60 mg SR tablet 11-11 10:: 11-11 00:00 :00 No 60mg Take 60 mg by mouth daily. [facility] losartan 25 mg tablet 11-11 10:: 11-11 00:00 :00 No 25mg Take 25 mg by mouth daily. [facility] ascorbic acid (Vitamin C) 500 MG tablet 11-11 00:00: 00 Yes 500mg Take 500 mg by mouth. [facility] zinc sulfate (Zincate) 220 (50 Zn) MG capsule 11-11 00:00: 00 Yes 1{capsu le} Q.5D Take 1 capsule by mouth 2 (two) times a day. [facility] ascorbic acid (Vitamin C) 500 MG tablet 11-11 00:00: 00 Yes 500mg Take 500 mg by mouth. [facility] zinc sulfate 50 mg zinc (220 mg) capsule 11-11 00:00: 00 Yes [id number] 220mg Take 1 capsule by mouth 2 (two) times daily. [facility] hydrALAZINE 100 mg tablet 11-11 00:00: 00 12-12 05:59 :00 No [id number] 100mg Take 1 tablet by mouth every 8 (eight) hours for 30 days. [facility] carvediloL 12.5 mg tablet 11-11 00:00: 00 12-12 05:59 :00 No [id number] 12.5mg Take 1 tablet by mouth 2 (two) times daily with meals for 30 days. [facility] hydrALAZINE (APRESOLINE ) tablet 100 mg 11-10 12:00: 00 Yes 100mg 100 mg, Oral, Q8H, First dose (after last modificati on) on Wed11/10/21 at 0600, Until Discontinu ed [facility] docusate (COLACE) capsule 100 mg 11-10 02:00: 00 Yes 100mg 100 mg, Oral, BID, First dose on Wed11/09/21 at 2000, Until Discontinu ed, Routine [facility] polyethylen e glycol 3350 powder 17 g 11-10 01:55: 09 Yes 17g 17 g, Oral, QDAILYPRN, Starting on Wed11/09/21 at 1955, Until Discontinu ed, Routine, Constipati on [facility] bisacodyL (DULCOLAX) tablet 5 mg 11-10 01:55: 02 Yes 5mg 5 mg, Oral, QDAILYPRN, Starting on Wed11/09/21 at 1955, Until Discontinu ed, Routine, Constipati on [facility] magnesium sulfate in water 2 gram/50 mL (4 %) infusion 2 g 11-09 20:15: 00 11-09 19:56 :00 No 2g 2 g, IV Piggyback, ONCE, 1 dose, On 11/09/21 at 1415, Routine [facility] predniSONE (DELTASONE) tablet 10 mg 11-09 15:00: 00 11-10 22:49 :40 No 10mg 10 mg, Oral, DAILY, First dose on Wed11/09/21 at 0900, Until Discontinu ed, Routine [facility] NaCl 0.9% (NS) PEDIATRIC IV infusion 11-08 17:30: 00 11-10 07:59 :20 No IV Infusion, at 50 mL/hr, CONTINUOUS , Starting on 11/08/21 at 1130, Until 11/10/21 at 0159, Routine [facility] foLIC acid (FOLATE) tablet 1 mg 11-07 15:00: 00 Yes 1mg 1 mg, Oral, DAILY, First dose on Wed11/07/21 at 0900, Until Discontinu ed, Routine [facility] ergocalcife rol (vitamin d2) (CALCIFEROL ) capsule 50,000 Units 11-07 15:00: 00 Yes [id number] 50,000 Units, Oral, QWEEKLY, First dose on Wed11/07/21 at 0900, Until Discontinu ed, [facility] en[facility]OV[facility]OX[facility] 40 mg 11-07 15:00: 00 Yes 40mg 40 mg, Subcutaneo us, DAILY, First dose on Wed11/07/21 at 0900, Until Discontinu ed, Routine [facility] clopidogreL (PLAVIX) tablet 75 mg 11-07 15:00: 00 Yes 75mg 75 mg, Oral, DAILY, First dose on Wed11/07/21 at 0900, Until Discontinu ed, Routine [facility] aspirin EC tablet 81 mg 11-07 15:00: 00 Yes 81mg 81 mg, Oral, DAILY, First dose on Wed11/07/21 at 0900, Until Discontinu ed, [facility] carvediloL (COREG) tablet 12.5 mg 11-07 14:00: 00 Yes 12.5mg 12.5 mg, Oral, BID MEALS, First dose (after last modificati on) on Wed11/07/21 at 0800, Until Discontinu ed, Routine [facility] tacrolimus (PROGRAF) capsule 4 mg 11-07 14:00: 00 Yes 4mg 4 mg, Oral, Q12H, First dose (after last modificati on) on Wed11/07/21 at 0800, Until Discontinu ed, Routine
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 [facility] hydrALAZINE (APRESOLINE ) tablet 100 mg 11-07 14:00: 00 11-10 10:46 :10 No 100mg 100 mg, Oral, BID, First dose (after last modificati on) on Wed11/07/21 at 0800, Until Discontinu ed [facility] magnesium oxide (MAG-OX 400) tablet 400 mg 11-07 14:00: 00 11-09 03:27 :00 No [id number] 400mg 400 mg, Oral, BID, 4 doses, First dose on Wed11/07/21 at 0800, Last dose on Wed11/08/21 at 2000, Routine [facility] dexamethaso ne (DECADRON PHOSPHATE) injection 5 mg 11-07 14:00: 00 11-08 20:54 :30 No 5mg 5 mg, Slow IV Push, Q12H, First dose (after last reorder) on Wed11/07/21 at 0800, Until Discontinu ed, Routine [facility] multivitami n tablet 1 tablet 11-07 05:30: 00 Yes 1{tbl} 1 tablet, Oral, DAILY, First dose on Wed11/06/21 at 2330, Until Discontinu ed, Routine [facility] thiamine (VITAMIN B1) tablet 100 mg 11-07 05:30: 00 Yes 100mg 100 mg, Oral, DAILY, First dose on Wed11/06/21 at 2330, Until Discontinu ed, Routine [facility] zinc sulfate (ORAZINC) capsule 220 mg 11-07 05:30: 00 Yes 220mg 220 mg, Oral, BID, First dose on Wed11/06/21 at 2330, Until Discontinu ed, Routine [facility] ascorbic acid (vitamin C) (VITAMIN C) tablet 500 mg 11-07 05:30: 00 Yes 500mg 500 mg, Oral, TID, First dose on Wed11/06/21 at 2330, Until Discontinu ed, Routine [facility] atorvastati n (LIPITOR) tablet 20 mg 11-07 03:00: 00 Yes 20mg 20 mg, Oral, QHS, First dose on Wed11/06/21 at 2100, Until Discontinu ed, Routine [facility] ferrous sulfate tablet 325 mg 11-07 02:00: 00 Yes 325mg 325 mg, Oral, BID, First dose on Wed11/06/21 at 2000, Until Discontinu ed, Routine [facility] tacrolimus (PROGRAF) capsule 3 mg 11-07 02:00: 00 11-07 05:17 :46 No 3mg 3 mg, Oral, Q12H, First dose on Vonda 11/06/21 at 2000, Until Discontinu ed, Routine
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 [facility] ondansetron (ZOFRAN (PF)) injection 4 mg 11-07 01:25: 43 Yes 4mg 4 mg, Slow IV Push, Q6HPRN, Starting on Wed11/06/21 at 1925, Until Discontinu ed, Routine, Nausea and Vomiting (N/V) [facility] acetaminoph en (TYLENOL) tablet 650 mg 11-07 01:25: 22 Yes 650mg 650 mg, Oral, Q6HPRN, Starting on Wed11/06/21 at 1925, Until Discontinu ed, Routine, Pain (scale 1-3) [facility] dexamethaso ne (DECADRON PHOSPHATE) injection 10 mg 11-07 00:30: 00 11-06 23:45 :00 No 10mg 10 mg, IV Push, ONCE, 1 dose, On Vonda 11/06/21 at 1830, STAT [facility] iopamidol (ISOVUE 370-500 mL) injection 100 mL 11-06 23:23: 00 11-06 23:24 :00 No [id number] 100mL 100 mL, Intravenou s, ONCE, 1 dose, On Vonda 11/06/21 at 1730, Routine [facility] CALCIUM ACETATE ORAL 11-06 19:28: 41 11-06 00:00 :00 No 1{tbl} Take 1 tablet by mouth daily. [facility] aspirin 325 mg tablet 11-06 19:28: 41 11-06 00:00 :00 No 325mg Take 325 mg by mouth daily. [facility] losartan 50 mg tablet 11-06 19:28: 11-06 00:00 :00 No 50mg Take 50 mg by mouth daily. [facility] metoprolol succinate XL (TOPROL XL) 100 mg 24 hr tablet 2019-11 15:57: 46 Yes 100mg Take 100 mg by mouth daily. [facility] lisinopril (PRINIVIL,Z ESTRIL) 40 mg tablet 2019-11 15:57: 46 Yes 40mg Take 40 mg by mouth daily. [facility] HYDRALAZINE HCL (HYDRALAZIN E ORAL) 2019-11 15:57: 46 Yes 100mg Take 100 mg by mouth daily. [facility] atorvastati n (LIPITOR) 20 mg tablet 2019-11 15:57: 46 Yes 20mg Take 20 mg by mouth at bedtime. [facility] clopidogrel (PLAVIX) 75 mg tablet 2019-11 15:57: 46 Yes 75mg Take 75 mg by mouth daily. [facility] NAPROXEN SODIUM (ALEVE ORAL) 2019-11 15:57: 46 Yes Take by mouth. [facility] Garlic (ODOR FREE GARLIC) Tab 2019-11 15:57: 46 Yes Take by mouth. [facility] CALCIUM ACETATE ORAL 2019-11 15:57: 46 Yes 1{tbl} Take 1 tablet by mouth daily. [facility] aspirin 325 mg tablet 2019-11 15:57: 46 Yes 325mg Take 325 mg by mouth daily. [facility] carvedilol 25 mg tablet 2019-11 15:57: 46 Yes 25mg Take 25 mg by mouth 2 (two) times daily with meals. [facility] Cholecalcif juan, Vitamin D3, (VITAMIN D3) 2,000 unit capsule 2019-11 15:57: 46 Yes 1{capsu le} Take 1 capsule by mouth daily. [facility] NIFEdipine ER 60 mg SR tablet 2019-11 15:57: 46 Yes 60mg Take 60 mg by mouth daily. [facility] losartan 50 mg tablet 2019-11 15:57: 46 Yes 50mg Take 50 mg by mouth daily. [facility] prednisoLON E 5 mg tablet 2019-11 15:57: 46 Yes 5mg Take 5 mg by mouth daily. [facility] tacrolimus 1 mg capsule 2019-11 15:57: 46 Yes 3mg Take 3 mg by mouth every 12 (twelve) hours. [facility] mycophenola te sodium 180 mg EC tablet 2019-11 15:57: 46 Yes 180mg Take 180 mg by mouth every 12 (twelve) hours. [facility] aspirin 81 mg EC tablet 2019-11 15:57: 46 Yes 81mg Take 81 mg by mouth daily. [facility] ferrous sulfate 325 mg (65 mg iron) tablet 2019-11 15:57: 46 Yes 325mg Take 325 mg by mouth 2 (two) times daily. [facility] losartan 25 mg tablet 2019-11 15:57: 46 Yes 25mg Take 25 mg by mouth daily. [facility] NaCl 0.9% (NS) IV infusion 1,000 mL 2019-11 13:30: 00 Yes 1000mL at 42 mL/hr, IV Infusion, CONTINUOUS , Starting Vonda 08/01/20 at 0830, Until Discontinu ed, Routine, DSU Pre-op [facility] water for irrigation irrigation solution 2019-11 13:04: 00 Yes PRN, Starting Vonda 10/1/20 at 0804, Until Discontinu ed, Routine, Intra-op [facility] simethicone (GAS RELIEF (SIMETHICON E)) 40 mg/0.6 mL drops 2019-11 13:04: 00 Yes PRN, Starting Vonda 08/01/20 at 0804, Until Discontinu ed, Routine, Intra-op [facility] atorvastati n (LIPITOR) 20 mg tablet 2019-11 10:57: 46 Yes 20mg Take 20 mg by mouth at bedtime. [facility] clopidogrel (PLAVIX) 75 mg tablet 2019-11 10:57: 46 Yes 75mg Take 75 mg by mouth daily. [facility] NAPROXEN SODIUM (ALEVE ORAL) 2019-11 10:57: 46 Yes Take by mouth. [facility] Garlic (ODOR FREE GARLIC) Tab 2019-11 10:57: 46 Yes Take by mouth. [facility] aspirin 325 mg tablet 2019-11 10:57: 46 Yes 325mg Take 325 mg by mouth daily. [facility] carvedilol 25 mg tablet 2019-11 10:57: 46 Yes 25mg Take 25 mg by mouth 2 (two) times daily with meals. [facility] Cholecalcif juan, Vitamin D3, (VITAMIN D3) 2,000 unit capsule 2019-11 10:57: 46 Yes 1{capsu le} Take 1 capsule by mouth daily. [facility] NIFEdipine ER 60 mg SR tablet 2019-11 10:57: 46 Yes 60mg Take 60 mg by mouth daily. [facility] losartan 50 mg tablet 2019-11 10:57: 46 Yes 50mg Take 50 mg by mouth daily. [facility] prednisoLON E 5 mg tablet 2019-11 10:57: 46 Yes 5mg Take 5 mg by mouth daily. [facility] tacrolimus 1 mg capsule 2019-11 10:57: 46 Yes 3mg Take 3 mg by mouth every 12 (twelve) hours. [facility] mycophenola te sodium 180 mg EC tablet 2019-11 10:57: 46 Yes 180mg Take 180 mg by mouth every 12 (twelve) hours. [facility] aspirin 81 mg EC tablet 2019-11 10:57: 46 Yes 81mg Take 81 mg by mouth daily. [facility] ferrous sulfate 325 mg (65 mg iron) tablet 2019-11 10:57: 46 Yes 325mg Take 325 mg by mouth 2 (two) times daily. [facility] losartan 25 mg tablet 2019-11 10:57: 46 Yes 25mg Take 25 mg by mouth daily. [facility] metoprolol succinate XL (TOPROL XL) 100 mg 24 hr tablet 2019-11 10:57: 46 Yes 100mg Take 100 mg by mouth daily. [facility] lisinopril (PRINIVIL,Z ESTRIL) 40 mg tablet 2019-11 10:57: 46 Yes 40mg Take 40 mg by mouth daily. [facility] metoprolol succinate XL (TOPROL XL) 100 mg 24 hr tablet 07-22 15:43: 08 Yes 100mg Take 100 mg by mouth daily. [facility] lisinopril (PRINIVIL,Z ESTRIL) 40 mg tablet 07-22 15:43: 08 Yes 40mg Take 40 mg by mouth daily. [facility] NAPROXEN SODIUM (ALEVE ORAL) 07-22 15:43: 08 Yes Take by mouth. [facility] Garlic (ODOR FREE GARLIC) Tab 07-22 15:43: 08 Yes Take by mouth. [facility] CALCIUM ACETATE ORAL 07-22 15:43: 08 Yes 1{tbl} Take 1 tablet by mouth daily. [facility] aspirin 325 mg tablet 07-22 15:43: 08 Yes 325mg Take 325 mg by mouth daily. [facility] losartan 50 mg tablet 07-22 15:43: 08 Yes 50mg Take 50 mg by mouth daily. [facility] HYDRALAZINE HCL (HYDRALAZIN E ORAL) 06-29 17:26: 59 Yes 100mg Take 100 mg by mouth daily. [facility] atorvastati n (LIPITOR) 20 mg tablet 06-29 17:26: 59 Yes 20mg Take 20 mg by mouth at bedtime. [facility] clopidogrel (PLAVIX) 75 mg tablet 06-29 17:26: 59 Yes 75mg Take 75 mg by mouth daily. [facility] carvedilol 25 mg tablet 06-29 17:26: 59 Yes 25mg Take 25 mg by mouth 2 (two) times daily with meals. [facility] Cholecalcif juan, Vitamin D3, (VITAMIN D3) 2,000 unit capsule 06-29 17:26: 59 Yes 1{capsu le} Take 1 capsule by mouth daily. [facility] NIFEdipine ER 60 mg SR tablet 06-29 17:26: 59 Yes 60mg Take 60 mg by mouth daily. [facility] prednisoLON E 5 mg tablet 06-29 17:26: 59 Yes 5mg Take 5 mg by mouth daily. [facility] tacrolimus 1 mg capsule 06-29 17:26: 59 Yes 3mg Take 3 mg by mouth every 12 (twelve) hours. [facility] mycophenola te sodium 180 mg EC tablet 06-29 17:26: 59 Yes 180mg Take 180 mg by mouth every 12 (twelve) hours. [facility] aspirin 81 mg EC tablet 06-29 17:26: 59 Yes 81mg Take 81 mg by mouth daily. [facility] ferrous sulfate 325 mg (65 mg iron) tablet 06-29 17:26: 59 Yes 325mg Take 325 mg by mouth 2 (two) times daily. [facility] losartan 25 mg tablet 06-29 17:26: 59 Yes 25mg Take 25 mg by mouth daily. [facility] Aspirin TABS Aspirin TABS [facility] Lipitor TAB[facility] Lipitor TABS Yes [facility] Carvedilol TABS Carvedilol TABS Yes [facility] Cholecalcif juan 1000 UNT/0.03ML LIQD Cholecalcif juan 1000 UNT/0.03ML LIQD Yes [facility] Clopidogrel Bisulfate TABS Clopidogrel Bisulfate TABS Yes [facility] Ferrous Sulfate TBEC Ferrous Sulfate TBEC Yes [facility] hydrALAZINE HCl TABS hydrALAZINE HCl TABS Yes [facility] Losartan Potassium TABS Losartan Potassium TABS Yes [facility] Myfortic TBEC Myfortic TBEC Yes [facility] NIFEdipine CAPS NIFEdipine CAPS Yes [facility] predniSONE TABS predniSONE TABS Yes [facility] Tacrolimus CAPS Tacrolimus CAPS Yes [facility] Immunizations Ordered Immunization Name Filled Immunization Name Date Status Comments Source SARS-COV-2 COVID-19 MODERNA VACCINE 2021-07-03 00:00:00 Completed [facility] SARS-COV-2 COVID-19 MODERNA VACCINE 2021-07-03 00:00:00 Completed [facility] SARS-COV-2 COVID-19 MODERNA VACCINE 2021-07-03 00:00:00 Completed [facility] SARS-COV-2 COVID-19 MODERNA VACCINE 2020-12-06 00:00:00 Completed [facility] SARS-COV-2 COVID-19 MODERNA VACCINE 2020-12-06 00:00:00 Completed [facility] SARS-COV-2 COVID-19 MODERNA VACCINE 2020-12-06 00:00:00 Completed [facility] SARS-COV-2 COVID-19 MODERNA VACCINE 2020-11-06 00:00:00 Completed [facility] SARS-COV-2 COVID-19 MODERNA VACCINE 2020-11-06 00:00:00 Completed [facility] SARS-COV-2 COVID-19 MODERNA VACCINE 2020-11-06 00:00:00 Completed [facility] Pneumococcal Polysaccharide, PPSV23 (PNEUMOVAX) 2020-06-24 00:00:00 Completed [facility] Influenza High Dose Quad 2020-06-24 00:00:00 Completed [facility] Pneumococcal Polysaccharide, PPSV23 (PNEUMOVAX) 2020-06-24 00:00:00 Completed [facility] Influenza High Dose Quad 2020-06-24 00:00:00 Completed [facility] Pneumococcal Polysaccharide, PPSV23 (PNEUMOVAX) 2020-06-24 00:00:00 Completed [facility] Influenza High Dose Quad 2020-06-24 00:00:00 Completed [facility] Pneumococcal Polysaccharide, PPSV23 (PNEUMOVAX) 2020-06-24 00:00:00 Completed [facility] Influenza High Dose Quad 2020-06-24 00:00:00 Completed [facility] Pneumococcal Polysaccharide, PPSV23 (PNEUMOVAX) 2020-06-24 00:00:00 Completed [facility] Influenza High Dose Quad 2020-06-24 00:00:00 Completed [facility] Pneumococcal Polysaccharide, PPSV23 (PNEUMOVAX) Unknown Completed [facility] Influenza High Dose Quad Unknown Completed [facility] SARS-COV-2 COVID-19 MODERNA 12+ YRS VACCINE Unknown Completed [facility] SARS-COV-2 COVID-19 MODERNA 12+ YRS VACCINE Unknown Completed [facility] SARS-COV-2 COVID-19 MODERNA 12+ YRS VACCINE Unknown Completed [facility] Vital Signs Vital Name Observation Time Observation Value Comments S ource Systolic blood pressure 2023-12-30 22:27:00 124 mm[Hg] [facility] Diastolic blood pressure 2023-12-30 22:27:00 76 mm[Hg] [facility] Heart rate 2023-12-30 22:27:00 65 /min [facility] Body temperature 2023-12-30 22:27:00 36.67 Priyanka [facility] Body height 2023-12-30 22:27:00 180.3 cm [facility] Body weight 2023-12-30 22:27:00 104.327 kg [facility] BMI 2023-12-30 22:27:00 32.08 kg/m2 [facility] Systolic blood pressure 2023-08-30 22:15:00 110 mm[Hg] [facility] Diastolic blood pressure 2023-08-30 22:15:00 68 mm[Hg] [facility] Heart rate 2023-08-30 22:15:00 77 /min [facility] Body temperature 2023-08-30 22:15:00 36.67 Priyanka [facility] Body height 2023-08-30 22:15:00 180.3 cm [facility] Body weight 2023-08-30 22:15:00 103.42 kg [facility] BMI 2023-08-30 22:15:00 31.80 kg/m2 [facility] Systolic blood pressure 2022-11-30 16:41:00 130 mm[Hg] [facility] Diastolic blood pressure 2022-11-30 16:41:00 84 mm[Hg] [facility] Heart rate 2022-11-30 16:41:00 63 /min [facility] Body temperature 2022-11-30 16:41:00 36.28 Priyanka [facility] Body height 2022-11-30 16:41:00 180.3 cm [facility] Body weight 2022-11-30 16:41:00 102.059 kg [facility] BMI 2022-11-30 16:41:00 31.38 kg/m2 [facility] Systolic blood pressure 2022-07-13 16:20:00 114 mm[Hg] [facility] Diastolic blood pressure 2022-07-13 16:20:00 66 mm[Hg] [facility] Heart rate 2022-07-13 16:20:00 68 /min [facility] Body temperature 2022-07-13 16:20:00 36.28 Priyanka [facility] Body height 2022-07-13 16:20:00 180.3 cm [facility] Body weight 2022-07-13 16:20:00 99.791 kg [facility] BMI 2022-07-13 16:20:00 30.68 kg/m2 [facility] Heart rate 2022-04-22 17:17:00 63 /min [facility] Respiratory rate 2022-04-22 17:17:00 20 /min [facility] Oxygen saturation in Arterial blood by Pulse oximetry 2022-04-22 17:17:00 95 /min [facility] Systolic blood pressure 2022-04-22 17:15:00 154 mm[Hg] [facility] Diastolic blood pressure 2022-04-22 17:15:00 62 mm[Hg] [facility] Body temperature 2022-04-22 16:45:00 36.11 Priyanka [facility] Body height 2022-04-21 11:53:00 180.3 cm [facility] Body weight 2022-04-21 11:53:00 98.9 kg [facility] BMI 2022-04-21 11:53:00 30.42 kg/m2 [facility] Heart rate 2022-04-22 17:17:00 63 /min [facility] Respiratory rate 2022-04-22 17:17:00 20 /min [facility] Oxygen saturation in Arterial blood by Pulse oximetry 2022-04-22 17:17:00 95 /min [facility] Systolic blood pressure 2022-04-22 17:15:00 154 mm[Hg] [facility] Diastolic blood pressure 2022-04-22 17:15:00 62 mm[Hg] [facility] Body temperature 2022-04-22 16:45:00 36.11 Priyanka [facility] Body height 2022-04-21 11:53:00 180.3 cm [facility] Body weight 2022-04-21 11:53:00 98.9 kg [facility] BMI 2022-04-21 11:53:00 30.42 kg/m2 [facility] Systolic blood pressure 2022-02-23 21:23:00 116 mm[Hg] [facility] Diastolic blood pressure 2022-02-23 21:23:00 76 mm[Hg] [facility] Heart rate 2022-02-23 21:23:00 74 /min [facility] Body temperature 2022-02-23 21:23:00 36.22 Priyanka [facility] Systolic blood pressure 2021-11-11 17:00:00 102 mm[Hg] [facility] Diastolic blood pressure 2021-11-11 17:00:00 68 mm[Hg] [facility] Heart rate 2021-11-11 17:00:00 106 /min [facility] Body temperature 2021-11-11 17:00:00 36.39 Priyanka [facility] Respiratory rate 2021-11-11 17:00:00 16 /min [facility] Oxygen saturation in Arterial blood by Pulse oximetry 2021-11-11 17:00:00 91 /min [facility] Body weight 2021-11-11 01:30:00 99.6 kg [facility] BMI 2021-11-11 01:30:00 30.62 kg/m2 [facility] Body height 2021-11-07 00:57:00 180.3 cm [facility] Systolic blood pressure 2021-11-06 21:47:00 105 mm[Hg] [facility] Diastolic blood pressure 2021-11-06 21:47:00 69 mm[Hg] [facility] Heart rate 2021-11-06 21:47:00 91 /min [facility] Body temperature 2021-11-06 21:47:00 37.67 Priyanka [facility] Respiratory rate 2021-11-06 21:47:00 24 /min [facility] Body height 2021-11-06 21:47:00 170.2 cm [facility] Body weight 2021-11-06 21:47:00 103.874 kg [facility] BMI 2021-11-06 21:47:00 35.87 kg/m2 [facility] Oxygen saturation in Arterial blood by Pulse oximetry 2021-11-06 21:47:00 90 /min [facility] Systolic blood pressure 2021-07-24 16:03:00 116 mm[Hg] [facility] Diastolic blood pressure 2021-07-24 16:03:00 73 mm[Hg] [facility] Heart rate 2021-07-24 16:03:00 78 /min [facility] Body temperature 2021-07-24 16:03:00 36.28 Priyanka [facility] Body height 2021-07-24 16:03:00 180.3 cm [facility] Body weight 2021-07-24 16:03:00 106.595 kg [facility] BMI 2021-07-24 16:03:00 32.78 kg/m2 [facility] Systolic blood pressure 2020-08-01 14:40:00 123 mm[Hg] [facility] Diastolic blood pressure 2020-08-01 14:40:00 69 mm[Hg] [facility] Heart rate 2020-08-01 14:40:00 67 /min [facility] Body temperature 2020-08-01 14:40:00 36.44 Priyanka [facility] Respiratory rate 2020-08-01 14:40:00 21 /min [facility] Oxygen saturation in Arterial blood by Pulse oximetry 2020-08-01 14:40:00 98 /min [facility] Body height 2020-08-01 12:07:00 180.3 cm [facility] Body weight 2020-08-01 12:07:00 104.3 kg [facility] BMI 2020-08-01 12:07:00 32.08 kg/m2 [facility] Systolic blood pressure 2020-08-01 14:40:00 123 mm[Hg] [facility] Diastolic blood pressure 2020-08-01 14:40:00 69 mm[Hg] [facility] Heart rate 2020-08-01 14:40:00 67 /min [facility] Body temperature 2020-08-01 14:40:00 36.44 Priyanka [facility] Respiratory rate 2020-08-01 14:40:00 21 /min [facility] Oxygen saturation in Arterial blood by Pulse oximetry 2020-08-01 14:40:00 98 /min [facility] Body height 2020-08-01 12:07:00 180.3 cm [facility] Body weight 2020-08-01 12:07:00 104.3 kg [facility] BMI 2020-08-01 12:07:00 32.08 kg/m2 [facility] Heart rate 2022-04-22 17:17:00 63 /min [facility] Respiratory rate 2022-04-22 17:17:00 20 /min [facility] Oxygen saturation in Arterial blood by Pulse oximetry 2022-04-22 17:17:00 95 /min [facility] Systolic blood pressure 2022-04-22 17:15:00 154 mm[Hg] [facility] Diastolic blood pressure 2022-04-22 17:15:00 62 mm[Hg] [facility] Body temperature 2022-04-22 16:45:00 36.11 Priyanka [facility] Body height 2022-04-21 11:53:00 180.3 cm [facility] Body weight 2022-04-21 11:53:00 98.9 kg [facility] BMI 2022-04-21 11:53:00 30.42 kg/m2 [facility] Systolic blood pressure 2020-11-21 10:37:00 102 mm[Hg] Location: LUE; Position: Sitting [facility] Diastolic blood pressure 2020-11-21 10:37:00 68 mm[Hg] Location: LUE; Position: Sitting [facility] Body height 2020-11-21 10:37:00 71 [in_us] [facility] Weight 2020-11-21 10:37:00 240 [lb_av] [facility] Body mass index (BMI) [Ratio] 2020-11-21 10:37:00 33.47 kg/m2 [facility] Heart Rate 2020-11-21 10:37:00 76 /min Location: L Brachial Artery; [facility] Body temperature 2020-11-21 10:37:00 97.2 [degF] Method: Temporal [facility] Systolic blood pressure 2020-05-16 11:40:00 121 mm[Hg] Location: LUE; Position: Sitting [facility] Diastolic blood pressure 2020-05-16 11:40:00 76 mm[Hg] Location: LUE; Position: Sitting [facility] Body height 2020-05-16 11:40:00 71 [in_us] [facility] Weight 2020-05-16 11:40:00 240 [lb_av] [facility] Body mass index (BMI) [Ratio] 2020-05-16 11:40:00 33.47 kg/m2 [facility] Heart Rate 2020-05-16 11:40:00 70 /min Location: L Brachial Artery; [facility] Body temperature 2020-05-16 11:40:00 97.2 [degF] Method: Temporal [facility] Procedures Procedure Date / Time Performed Performing Clinician Source POCT URINALYSIS W/O SCOPE 2023-12-30 17:46:00 Evie, [facility] COMPREHENSIVE METABOLIC PANEL 2023-12-30 16:10:00 [facility] PSA, TOTAL AND FREE 2023-12-30 16:10:00 [facility] TESTOSTERONE, FREE, TOTAL 2023-12-30 16:10:00 [facility], [facility] URINE CULTURE 2023-12-30 16:10:00 [facility] CBC AND DIFFERENTIAL 2023-12-30 16:10:00 [facility] POCT URINALYSIS W/O SCOPE 2023-08-30 14:14:03 Evie, [facility] URINE CULTURE 2022-11-30 22:36:00 [facility] BASIC METABOLIC PANEL 2022-11-30 16:38:00 [facility], [facility] HEPATIC FUNCTION PANEL 2022-11-30 16:38:00 Evie, [facility] PSA, TOTAL AND FREE 2022-11-30 16:38:00 Evie, [facility] TESTOSTERONE, FREE, TOTAL 2022-11-30 16:38:00 EvieEulalio esquivel [facility] CBC AND DIFFERENTIAL 2022-11-30 16:38:00 Evie, [facility] POCT URINALYSIS W/O SCOPE 2022-11-30 15:53:00 Evie [facility] URINE CULTURE 2022-07-14 15:42:00 Evie, [facility] th POCT URINALYSIS W/O SCOPE 2022-07-13 16:30:00 EvieEulalio [facility] BASIC METABOLIC PANEL 2022-07-13 16:12:00 Evie, [facility] HEPATIC FUNCTION PANEL 2022-07-13 16:12:00 Evie, [facility] PSA, TOTAL AND FREE 2022-07-13 16:12:00 Evie, [facility] TESTOSTERONE, FREE, TOTAL 2022-07-13 16:12:00 EvieEulalio [facility] CBC AND DIFFERENTIAL 2022-07-13 16:12:00 Evie, [facility] ESTRADIOL 2022-07-13 16:12:00 Evie, [facility] PLATELET ESTIMATION 2022-07-13 16:12:00 Evie [facility] COLONOSCOPY (ENDO) 2022-04-22 16:14:24 John Phan [facility] COLONOSCOPY (ENDO) 2022-04-22 16:14:24 John Phan [facility] COLONOSCOPY (ENDO) 2022-04-22 16:14:24 John Phan [facility] COLONOSCOPY 2022-04-22 16:06:00 Krystal Lemon [facility] DAY SURGERY - ADC 2022-04-22 05:01:00 Doctor Vani ssigned, [place] [facility] EXTERNAL PROVIDER RECORDS 2022-03-02 05:01:00 Do ctor Unassigned, [place] [facility] EXTERNAL PROVIDER RECORDS 2022-03-02 05:01:00 Do ctor Unassigned, [place] [facility] POCT URINALYSIS W/O SCOPE 2022-02-23 15:44:00 Eulalio Case [facility] BASIC METABOLIC PANEL 2022-02-23 15:01:00 [facility], [facility] HEPATIC FUNCTION PANEL 2022-02-23 15:01:00 [facility], [facility] PSA, TOTAL AND FREE 2022-02-23 15:01:00 [facility], [facility] TESTOSTERONE, FREE, TOTAL 2022-02-23 15:01:00 EvieEulalio esquivel [facility] CBC AND DIFFERENTIAL 2022-02-23 15:01:00 [facility], [facility] VITAMIN D 25 HYDROXY 2022-02-23 15:01:00 [facility], [facility] PLATELET ESTIMATION 2022-02-23 15:01:00 [facility], [facility] COMP. METABOLIC PANEL ([id number]) 2021-11-09 11:32:00 Travis Taveras [facility] CBC WITH DIFF 2021-11-09 11:32:00 [facility] N-TERMINAL PRO-BNP 2021-11-09 11:32:00 Travis Taveras [facility] PHOSPHORUS 2021-11-08 11:59:00 Burton Pascual [facility] MAGNESIUM 2021-11-08 11:59:[facility] METABOLIC PANEL ([id number]) 2021-11-08 11:59:00 Travis Taveras [facility] TACROLIMUS, LEVEL 2021-11-08 11:59:00 Burton Pascual [facility] CBC WITH DIFF 2021-11-08 11:59:00 Travis Taveras [facility] N-TERMINAL PRO-BNP 2021-11-08 11:59:00 Travis Taveras [facility] RESPIRATORY PANEL BY PCR 2021-11-07 11:46:00 Travis Taveras [facility] URINALYSIS 2021-11-07 11:45[facility] 2021-11-07 11:45:00 Sam Taveras [facility] URINE CULTURE 2021-11-07 11:45:00 Travis Taveras [facility] UREA NITROGEN, URINE RANDOM 2021-11-07 11:45:00 Travis Taveras [facility] SODIUM, URINE RANDOM 2021-11-07 11:45:00 Sam Taveras [facility] PROTEIN CREAT RATIO URINE RANDOM 2021-11-07 11:45:00 Travis Taveras [facility] MAGNESIUM 2021-11-07 11:39:00 [facility] COMP. METABOLIC PANEL ([id number]) 2021-11-07 11:39:00 Travis Taveras [facility] CBC WITH DIFF 2021-11-07 11:39:00 Wilder Wolfe [facility] PROTHROMBIN TIME / INR 2021-11-07 11:39:00 Abhay Taveras [facility] D-DIMER 2021-11-07 11:39:00 [facility]MINAL PRO-BNP 2021-11-07 11:39:00 Travis Taveras [facility] ACUTE CARE VENOUS BLOOD GAS 2021-11-07 11:33:00 Travis Taveras [facility] OSMOLALITY, SERUM OR PLASMA 2021-11-07 05:31:00 Nitin lida [facility] VITAMIN B12, LEVEL 2021-11-07 05:31:00 Travis Taveras [facility] FOLATE 2021-11-07 05:31:00 [facility] SED[facility]ENT[facility] RATE 2021-11-07 05:31:00 Travis Taveras [facility] VITAMIN D, 25-OH 2021-11-07 05:31:00 [facility] 2021-11-07 05:31:00 Travis Taveras [facility] BLOOD CULTURE SCREEN 2021-11-07 05:28:00 Wilder Wolfe [facility] C-REACTIVE PROTEIN 2021-11-07 05:27:00 Wilder Wolfe [facility] TACROLIMUS, LEVEL 2021-11-07 05:27:00 Wilder Wolfe [facility] LACTATE DEHYDROGENASE 2021-11-07 05:26:00 Carol Wolfe [facility] COVID-19 (ID NOW RAPID TESTING) 2021-11-06 23:36:00 Singer [facility] CT CHEST PULMONARY ANGIOGRAM 2021-11-06 23:28:35 Singer [facility] MAGNESIUM 2021-11-06 22:47:00 [facility] FERRIT[facility] SERUM 2021-11-06 22:47:00 Wilder Wolfe [facility] TROPONIN I 2021-11-06 22:47:00 Singer [facility] COMP. METABOLIC PANEL ([id number]) 2021-11-06 22:47:00 Singer [facility] CBC WITH DIFF 2021-11-06 22:47:00 Singer [facility] N-TERMINAL PRO-BNP 2021-11-06 22:47:00 [place] [facility] CONSENT/REFUSAL FOR DIAGNOSIS AND TREATMENT 2021-11-06 22:15:44 Doctor Unassigned, [place] [facility] URINE CULTURE 2021-07-24 22:19:00 [facility] POCT URINALYSIS W/O SCOPE 2021-07-24 21:58:00 Evie, [facility] BASIC METABOLIC PANEL 2021-07-24 14:23:00 [facility] HEPATIC FUNCTION PANEL 2021-07-24 14:23:00 [facility] PSA, TOTAL AND FREE 2021-07-24 14:23:00 [facility] TESTOSTERONE, FREE, TOTAL 2021-07-24 14:23:00 Evie, [facility] CBC AND DIFFERENTIAL 2021-07-24 14:23:00 [facility] VITAMIN D 25 HYDROXY 2021-07-24 14:23:00 [facility] COLONOSCOPY (ENDO) 2020-08-01 13:46:45 John Phan [facility] POTASSIUM SERUM 2020-08-01 13:11:00 Vikram Chao [facility] DSU PRE-OP 2020-07-10 05:01:00 Doctor Unass igned, [place] [facility] CT Chest/Abdomen/Pelvis wo contrast [id number] 2020-05-16 00:00:00 [facility] History of Arteriovenous fistula creation procedure [facility] History of Cardiac catheterization with stent placement [facility] History of Knee replacement [facility] History of [facility] transplantation [facility]ph[facility] Ureteral stent placement [facility] Encounters Start Date/Time End Date/Time Encounter Type Admission Type Attending Clinicians Care Facility Care Department Encounter ID Source 2023-04-13 14:38:34 [place] [id number] [facility] 2022-11-30 10:30:12 Outpatient [place] [id number] [facility] 2022-11-19 10:01:36 Outpatient [place] [id number] [facility] 2022-08-31 08:48:14 Outpatient [place] [id number] [facility] 2021-08-29 20:17:45 Outpatient R KRYSTAL MAXWELL [facility] [id number] [facility] 2021-07-24 09:42:36 Outpatient ELVIS CASE [facility] [id number] [facility] 2021-03-08 03:37:39 Outpatient EVIEELVIS Esquivel [facility] [id number] [facility] 2024-05-08 10:15:00 2024-05-08 10:15:00 Outpatient ELVIS CASE [facility] [id number] [facility] 2024-04-26 08:50:16 2024-04-26 09:31:44 Outpatient Elective GRANT ALAMO EOUT EOUT [id number] [facility] 2024-04-12 09:00:00 2024-04-12 09:33:56 Office Visit Grant [facility] 1.2.840.114 350.1.13.70 8.2.7.2.686 [id number] Vitor Samson [facility] 2024-04-12 08:48:27 2024-04-12 09:33:56 [facility] [facility] [id number] 2023-12-30 10:15:00 2023-12-30 10:45:00 Office Visit Elvis Case [address] 1.2.840.114 350.1.13.58 9.2.7.2.686 [id number] [facility] 2023-08-30 11:00:00 2023-08-30 11:30:00 Office Visit Elvis Case [address] 1.2.840.114 350.1.13.58 9.2.7.2.686 [id number] [facility] 2023-04-26 11:00:00 2023-04-26 11:00:00 Outpatient ELVIS CASE [facility] [id number] [facility] 2022-11-30 11:00:00 2022-11-30 11:30:00 Office Visit Elvis Case [address] 1.2.840.114 350.1.13.58 9.2.7.2.686 [id number] [facility] 2022-07-13 10:00:00 2022-07-13 10:30:00 Office Visit Elvis Case [address] 1.2.840.114 350.1.13.58 9.2.7.2.686 [id number] [facility] 2022-04-22 10:02:00 2022-04-22 12:20:00 Outpatient R KRYSTAL MAXWELL [facility] [id number] [facility] 2022-04-22 10:02:00 2022-04-22 12:20:00 Hospital Encounter Krystal Maxwell [facility] 1.2.840.114 350.1.13.10 4.2.7.2.686 [id number] [facility] 2022-04-22 11:41:00 2022-04-22 12:19:00 Surgery Krystal Maxwell [facility] 1.2.840.114 350.1.13.10 4.2.7.2.686 [id number] [facility] 2022-04-22 00:00:00 2022-04-22 00:00:00 Orders Only Doctor Unassigned, [place] [facility] 1.2.840.114 350.1.13.10 4.2.7.2.686 [id number] [facility] 2022-04-21 08:45:00 2022-04-21 08:45:00 Outpatient R KRYSTAL MAXWELL [facility] [id number] [facility] 2022-03-10 00:00:00 2022-03-10 00:00:00 Telephone Michelle Terrell Carrie [facility] [address] 1.2.840.114 350.1.13.58 9.2.7.2.686 [id number] [facility] 2022-03-04 00:00:00 2022-03-04 00:00:00 Telephone Michelle Terrell Carrie [facility] [address] 1.2.840.114 350.1.13.58 9.2.7.2.686 [id number] [facility] 2022-02-23 10:00:00 2022-02-23 10:30:00 Office Visit Elvis Case [facility] [address] 1.2.840.114 350.1.13.58 9.2.7.2.686 [id number] [facility] 2021-11-12 00:00:00 2021-11-12 00:00:00 Transition of Care Zoe Escamilla 1.2.840.114 350.1.13.10 4.2.7.2.686 [id number] [facility] 2021-11-06 16:21:00 2021-11-11 12:00:00 Hospital Encounter David Summers, Travis Eugene [facility] 1.84.114 350.1.13.10 4.2.7.2.686 [id number] [facility] 2021-11-06 16:21:00 2021-11-11 12:00:00 Inpatient X TRAVIS TAVERAS [facility] [id number] [facility] 2021-11-06 16:00:00 2021-11-06 16:00:00 Nurse Visit Nurse, [facility] 1.84.114 350.1.13.10 4.2.7.2.686 [id number] [facility] 2021-11-06 16:00:00 2021-11-06 15:58:21 Outpatient R ADONAY [facility] [id number] [facility] 2021-11-06 15:45:00 2021-11-06 15:45:00 Outpatient R ADONAY [facility] [id number] [facility] 2021-07-24 09:09:11 2021-07-24 09:39:11 Office Visit Elvis Case [facility] [address] 1.84.114 350.1.13.58 9.2.7.2.686 [id number] [facility] 2021-07-23 00:00:00 2021-07-23 00:00:00 Telephone No, Pcp No, Pcp [facility] [address] 1.84.114 350.1.13.58 9.2.7.2.686 [id number] [facility] 2020-11-21 09:30:00 2020-11-21 09:30:00 Appointnessa t; ELVIS CASE M.D. SHU, TUNG, M.D. [facility] [id number] [place] [facility] 2020-08-01 07:53:00 2020-08-01 09:55:00 Hospital Encounter Krystal Maxwell [facility] 1.2.840.114 350.1.13.10 4.2.7.2.686 [id number] 2020-08-01 07:53:00 2020-08-01 09:55:00 Hospital Encounter Krystal Maxwell [facility] 1.2.840.114 350.1.13.10 4.2.7.2.686 [id number] [facility] 2020-07-31 13:22:27 2020-07-31 13:37:27 Laboratory Only Only, Adc Test [facility] 1.2.840.114 350.1.13.10 4.2.7.2.686 [id number] 2020-07-31 13:22:27 2020-07-31 13:37:27 Laboratory Only Only, Adc Test Krystal Maxwell [facility] 1.2.840.114 350.1.13.10 4.2.7.2.686 [id number] [facility] 2020-07-31 13:30:00 2020-07-31 13:30:00 Outpatient R KRYSTAL MAXWELL [facility] [id number] [facility] 2020-05-16 09:15:00 2020-05-16 09:15:00 Appointmen t; ELVIS CASE M.D. SHU, TUNG, M.D. [facility] [id number] [place] [facility] 2019-03-09 06:48:00 2019-03-09 06:48:00 Outpatient [facility] [id number] [facility] 2018-11-24 11:00:00 2018-11-24 11:00:00 Appointmen t; DEXA, SCAN DEXA, SCAN [facility] [id number] [place] [facility] Results Test Description Test Time Test Comments Results Result Co mments Source [facility] [id number] 06:53:00* Test Item Value Reference Range Interpretation Comme nts CULTURE, URINE, ROUTINE (test code = 189037215) SEE NOTE ?CULTURE, URINE, ROUTINE ? ?Micro Number: ? ? ?[id number] ?Test Status: ? ? ? Final ?Specimen Source: ? Urine ?Specimen Quality: ?Adequate ?Result: ?No Growth RAC (test code = RAC) Performing Organization Information: ? ?Site ID: RGA ? ?Name: [employer] [facility] ? ?Address: [address] [place] [address] ? ?Director: GLADYS PEREZ MD,PHD. [place] Health[facility], total and [id number] 21:42:00* Test Item Value Reference Range Interpretation Comments PSA, TOTAL (test code = 2857-1) 4.9 ng/mL See_Comment H [Automated messa ge] The system which generated this result transmitted reference range: < OR = 4.0. The reference range was not used to interpret this result as normal/abnormal. PSA, FREE (test code = 69353-9) 1.2 ng/mL PSA, % FREE (test code = 68978-9) 24 See_Comment L PSA(ng/mL) ? ? ? Free PSA(%) ? ? Estimated(x) Probability ? of Cancer(as%)0-2.5 ?(*) ? Approx. 12.6-4.0(1) ? 0-27(2) ? 24(3)4.1-10(4) ?0-10 ?56 ? 11-15 ? 28 ? 16-20 ? 20 ? 21-25 ? 16 ? >or =26 ? 8>10(+) ? N/A ?>50 References:(1)Rui et al.:Urology 60: 469-474 (2002) ? (2)Rui et al.:J.Urol 168: 922-925 (2001) ?Free PSA(%) ? Sensitivity(%) ?Specificity(%) ?< or = 25 ?85 ?19 ?< or = 30 ?93 ? 9 ? (3)Rui et al.:TODD 277: 9074-7016 (1996) ? (4)Rui et al.:TODD 279: 5222-7336 (1997) (x)These estimates vary with age, ethnicity, family ? history and YOSELIN results.(*)The diagnostic usefulness of % Free PSA has not been ? established in patients with total PSA below 2.6 ng/mL(+)In men with PSA above 10 ng/mL, prostate cancer risk is ? determined by total PSA alone. The Total PSA value from this assay system is standardized against the equimolar PSA standard. The test result will be approximately 20% higher when compared to the WHO-standardized Total PSA (Siemens assay). Comparison of serial PSA results should be interpreted with this fact in mind. PSA was performed using the Foster CoulterImmunoassay method. Values obtained from differentassay methods cannot be used interchangeably. PSAlevels, regardless of value, should not be interpretedas absolute evidence of the presence or absence ofdisease. [Automated message] The system which generated this result transmitted reference range: >25 % (calc). The reference range was not used to interpret this result as normal/abnormal. MARY (test code = RAC) Performing Organization Information: ? ?Site ID: [id number] ? ?Name: [employer] ? ?Address: [address] [place] [address]. [place] [address] ? ?Director: DERECK CARRANZA MD Lab Interpretation (test code = 36981-4) Abnormal [place] [facility] [id number] 06:13:00* Test Item Value Reference Range Interpretation Comme nts GLUCOSE (test code = 2345-7) 90 mg/dL 65-99 ? Fastin g reference interval UREA NITROGEN (BUN) (test code = 3094-0) 18 mg/dL 7-25 CREATININE (test code = 2160-0) 0.76 mg/dL 0.70-1.28 EGFR (test code = 434584412) 92 See_Comment [Automated message] The system which generated this result transmitted reference range: > OR = 60 mL/min/1.73m2. The reference range was not used to interpret this result as normal/abnormal. BUN/CREATININE RATIO (test code = 3097-3) SEE NOTE: 04-22 ? Not Reported: BUN and Creatinine are within ? reference range. ? ? SODIUM (test code = 2951-2) 137 mmol/L 135-146 POTASSIUM (test code = 2823-3) 4.8 mmol/L 3.5-5.3 CHLORIDE (test code = 2074-0) 101 mmol/L 98-110 CARBON DIOXIDE (test code = 2027-9) 28 mmol/L 20-32 CALCIUM (test code = 67577-3) 9.1 mg/dL 8.6-10.3 PROTEIN, TOTAL (test code = 2885-2) 6.7 g/dL 6.1-8.1 ALBUMIN (test code = 1751-7) 3.9 g/dL 3.6-5.1 GLOBULIN (test code = 64324-7) 2.8 1.9-3.7 ALBUMIN/GLOBULIN RATIO (test code = 1759-0) 1.4 1.0-2.5 BILIRUBIN, TOTAL (test code = 1975-2) 0.6 mg/dL 0.2-1.2 ALKALINE PHOSPHATASE (test code = 6768-6) 110 U/L 35-144 AST (test code = 1920-8) 15 U/L 10-35 ALT (test code = 1742-6) 14 U/L 9-46 RAC (test code = RAC) Performing Organization Information: ? ?Site ID: RGA ? ?Name: [employer] [facility] ? ?Address: [address] [place] [address] ? ?Director: GLADYS PEREZ MD,PHD. [place] [facility] and [id number] 05:02:00* Test Item Value Reference Range Interpretation Comme nts WHITE BLOOD CELL COUNT (test code = 6690-2) 5.5 3.8-10.8 RED BLOOD CELL COUNT (test code = 789-8) 4.64 4.20-5.80 HEMOGLOBIN (test code = 718-7) 13.4 g/dL 13.2-17.1 HEMATOCRIT (test code = 4544-3) 43.4 % 38.5-50.0 MCV (test code = 787-2) 93.5 fL 80.0-100.0 MCH (test code = 785-6) 28.9 pg 27.0-33.0 MCHC (test code = 786-4) 30.9 g/dL 32.0-36.0 L RDW (test code = 788-0) 14.8 % 11.0-15.0 PLATELET COUNT (test code = 777-3) 282 140-400 MPV (test code = 776-5) 9.3 fL 7.5-12.5 ABSOLUTE NEUTROPHILS (test code = 751-8) 3691 3804-9142 ABSOLUTE LYMPHOCYTES (test code = 731-0) 6731 136-8693 ABSOLUTE MONOCYTES (test code = 742-7) 589 200-950 ABSOLUTE EOSINOPHILS (test code = 711-2) 83 15-500 ABSOLUTE BASOPHILS (test code = 704-7) 22 0-200 NEUTROPHILS (test code = 770-8) 67.1 % LYMPHOCYTES (test code = 736-9) 20.3 % MONOCYTES (test code = 5905-5) 10.7 % EOSINOPHILS (test code = 713-8) 1.5 % BASOPHILS (test code = 706-2) 0.4 % RAC (test code = RAC) Performing Organization Information: ? ?Site ID: RGA ? ?Name: [employer] [facility] ? ?Address: [address] [place] [phone] ? ?Director: GLADYS PEREZ MD,PHD. Lab Interpretation (test code = 23236-0) Abnormal [facility] w/o [id number] 17:46:51* Test Item Value Reference Range Interpretation Comme nts Color, UA (test code = 3940258) Yellow Clarity, UA (test code = 7154719) Clear Glucose, UA (test code = 8761914) Negative Negative Bilirubin, UA (test code = 4713926) Negative Negative Ketones, UA (test code = 6793321) Negative Spec Grav, UA (test code = 4657094) 1.015 1.000-1.030 Blood, UA (test code = 7353521) Negative pH, UA (test code = 2455298) 6.5 5.0-8.5 Protein, UA (test code = 3497402) Negative Negative, Trace, 200(+2)mg/dL, 15/mg/dL Urobilinogen, UA (test code = 5462730) 1.0 See_Comment A [Automated Mind-NRG] The system which generated this result transmitted reference range: 0.2. The reference range was not used to interpret this result as normal/abnormal. Leukocytes, UA (test code = 5621820) Negative Negative, Trace Nitrite, UA (test code = 9567156) Negative Negative, Trace Appearance, Fluid (test code = 9335-1) Clear Lab Interpretation (test code = 15717-6) Abnormal [facility] urinalysis w/o [id number] 14:14:03* Test Item Value Reference Range Interpretation Comme nts Color, UA (test code = 0296362) Yellow Clarity, UA (test code = 6303497) Clear Glucose, UA (test code = 6290123) Negative Negative Bilirubin, UA (test code = 3129303) Negative Negative Ketones, UA (test code = 1233999) Negative Spec Grav, UA (test code = 3079393) 1.025 1.000-1.030 Blood, UA (test code = 6022959) Negative pH, UA (test code = 1201372) 6.0 5.0-8.5 Protein, UA (test code = 8755238) Trace Negative, Trace, 200(+2)mg/dL, 15/mg/dL Urobilinogen, UA (test code = 3966803) 0.2 See_Comment [Cozy] The system which generated this result transmitted reference range: 0.2. The reference range was not used to interpret this result as normal/abnormal. Leukocytes, UA (test code = 8127637) Negative Negative, Trace Nitrite, UA (test code = 5202725) Negative Negative, Trace Appearance, Fluid (test code = 9335-1) Clear Lab Interpretation (test code = 19001-0) Normal [place] HealthTestosterone, free, [id number] 21:00:00* Test Item Value Reference Range Interpretation Comments TESTOSTER ONE, TOTAL, MS (test code = 2986-8) 803 ng/dL 250-1100 For additional i nformation, please refer tohttps://education.Apprema/faq/GAC236(This link is being provided for informational/educational purposes only.)(Note) This test was developed and its analytical performancecharacteristics have been determined by [employer]. It has notbeen cleared or approved by the FDA. This assay has been validatedpursuant to the CLIA regulations and is used for clinical purposes. TESTOSTER ONE, FREE (test code = 2991-8) 60.1 pg/mL 30.0-135.0 (Note)This test was developed and its analytical performance characteristics have been determined by [employer]. It has not been cleared or approved by the FDA. This assay has been validated pursuant to the CLIA regulations and is used for clinical purposes. MDFmed [id number] [place] [address],[address] [id number] Chaump, MD REPORT COMMENT:MULTIPLE TESTING PRIORITIES; ROUTINE TESTING TO FOLLOW. RAC (test code = RAC) Performing Organization Information: ? ?Site ID: [id number] ? ?Name: [employer] ? ?Address: [address] [place] [phone] ? ?Director: LISA ALMARAZ MD [place] HealthPSA, total and [id number] 21:00:00* Test Item Value Reference Range Interpretation Comments PSA, TOTAL (test code = 2857-1) 4.5 ng/mL See_Comment H [Automated messa ge] The system which generated this result transmitted reference range: < OR = 4.0. The reference range was not used to interpret this result as normal/abnormal. PSA, FREE (test code = 96207-9) 1.4 ng/mL PSA, % FREE (test code = 16013-0) 31 See_Comment PSA(ng/mL) ? ? ? Free PSA(%) ? ? Estimated(x) Probability ? of Cancer(as%)0-2.5 ?(*) ? Approx. 12.6-4.0(1) ? 0-27(2) ? 24(3)4.1-10(4) ?0-10 ?56 ? 11-15 ? 28 ? 16-20 ? 20 ? 21-25 ? 16 ? >or =26 ? 8>10(+) ? N/A ?>50 References:(1)Rui et al.:Urology 60: 469-474 (2002) ? (2)Rui et al.:J.Urol 168: 922-925 (2001) ?Free PSA(%) ? Sensitivity(%) ?Specificity(%) ?< or = 25 ?85 ?19 ?< or = 30 ?93 ? 9 ? (3)Rui et al.:TODD 277: 1249-5980 (1996) ? (4)Rui et al.:TODD 279: 9308-7264 (1997) (x)These estimates vary with age, ethnicity, family ? history and YOSELIN results.(*)The diagnostic usefulness of % Free PSA has not been ? established in patients with total PSA below 2.6 ng/mL(+)In men with PSA above 10 ng/mL, prostate cancer risk is ? determined by total PSA alone. The Total PSA value from this assay system is standardized against the equimolar PSA standard. The test result will be approximately 20% higher when compared to the WHO-standardized Total PSA (Siemens assay). Comparison of serial PSA results should be interpreted with this fact in mind. PSA was performed using the Foster CoulterImmunoassay method. Values obtained from differentassay methods cannot be used interchangeably. PSAlevels, regardless of value, should not be interpretedas absolute evidence of the presence or absence ofdisease. [Automated message] The system which generated this result transmitted reference range: >25 % (calc). The reference range was not used to interpret this result as normal/abnormal. RAC (test code = RAC) Performing Organization Information: ? ?Site ID: IG ? ?Name: [facility] ? ?Address: [address] [place] [address]. [place] [address] ? ?Director: DERECK CARRANZA MD Lab Interpretation (test code = 51974-3) Abnormal [facility] [id number] 21:00:00* Test Item Value Reference Range Interpretation Comme nts PROTEIN, TOTAL (test code = 2885-2) 6.8 g/dL 6.1-8.1 ALBUMIN (test code = 1751-7) 4 g/dL 3.6-5.1 GLOBULIN (test code = 62875-5) 2.8 See_Comment [Automated message] The system which generated this result transmitted reference range: 1.9 - 3.7 g/dL (calc). The reference range was not used to interpret this result as normal/abnormal. ALBUMIN/GLOBULIN RATIO (test code = 1759-0) 1.4 See_Comment [Automated message] The system which generated this result transmitted reference range: 1.0 - 2.5 (calc). The reference range was not used to interpret this result as normal/abnormal. BILIRUBIN, TOTAL (test code = 1974-) 0.6 mg/dL 0.2-1.2 BILIRUBIN, DIRECT (test code = 1967-) 0.2 mg/dL See_Comment [Automated message] The system which generated this result transmitted reference range: < OR = 0.2. The reference range was not used to interpret this result as normal/abnormal. BILIRUBIN, INDIRECT (test code = 1970-) 0.4 See_Comment [Automated message] The system which generated this result transmitted reference range: 0.2 - 1.2 mg/dL (calc). The reference range was not used to interpret this result as normal/abnormal. ALKALINE PHOSPHATASE (test code = 6768-6) 86 U/L 35-144 AST (test code = 1920-8) 19 U/L 10-35 ALT (test code = 1742-6) 14 U/L 9-46 RAC (test code = RAC) Performing Organization Information: ? ?Site ID: RGA ? ?Name: [employer] [facility] ? ?Address: [address] [place] [phone] ? ?Director: DERECK CARRANZA MD [facility] metabolic [id number] 21:00:00* Test Item Value Reference Range Interpretation Comme nts GLUCOSE (test code = 2345-7) 84 mg/dL 65-99 ? Fastin g reference interval UREA NITROGEN (BUN) (test code = 3094-0) 17 mg/dL 7-25 CREATININE (test code = 2160-0) 0.87 mg/dL 0.70-1.28 EGFR (test code = 215156046) 89 See_Comment The eGFR is base d on the CKD-EPI 2020 equation. To calculate the new eGFR from a previous Creatinine or Cystatin Cresult, go to https://www.kidney .org/professionals /kdoqi/gfr%5Fcalcu lator [Automated message] The system which generated this result transmitted reference range: > OR = 60 mL/min/1.73m2. The reference range was not used to interpret this result as normal/abnormal. BUN/CREATININE RATIO (test code = 3097-3) NOT APPLICABLE See_Comment [Automated message] The system which generated this result transmitted reference range: 6 - 22 (calc). The reference range was not used to interpret this result as normal/abnormal. SODIUM (test code = 2951-2) 138 mmol/L 135-146 POTASSIUM (test code = 2823-3) 4.3 mmol/L 3.5-5.3 CHLORIDE (test code = 2075-0) 105 mmol/L 98-110 CARBON DIOXIDE (test code = 2027-9) 25 mmol/L 20-32 CALCIUM (test code = 71764-8) 9.2 mg/dL 8.6-10.3 RAC (test code = RAC) Performing Organization Information: ? ?Site ID: RGA ? ?Name: [employer] [facility] ? ?Address: [address] [place] [phone] ? ?Director: DERECK CARRANZA MD [facility] and januxjzbtopj6785-11-04 21:00:00* Test Item Value Reference Range Interpretation Comme nts WHITE BLOOD CELL COUNT (test code = 6690-2) 5.4 See_Comment [Automated message] The system which generated this result transmitted reference range: 3.8 - 10.8 Thousand/uL. The reference range was not used to interpret this result as normal/abnormal. RED BLOOD CELL COUNT (test code = 789-8) 4.37 See_Comment [Automated message] The system which generated this result transmitted reference range: 4.20 - 5.80 Million/uL. The reference range was not used to interpret this result as normal/abnormal. HEMOGLOBIN (test code = 718-7) 13.9 g/dL 13.2-17.1 HEMATOCRIT (test code = 4544-3) 40.6 % 38.5-50.0 MCV (test code = 787-2) 92.9 fL 80.0-100.0 MCH (test code = 785-6) 31.8 pg 27.0-33.0 MCHC (test code = 786-4) 34.2 g/dL 32.0-36.0 RDW (test code = 788-0) 13.7 % 11.0-15.0 PLATELET COUNT (test code = 777-3) 210 See_Comment [Automated message] The system which generated this result transmitted reference range: 140 - 400 Thousand/uL. The reference range was not used to interpret this result as normal/abnormal. MPV (test code = 776-5) 9.4 fL 7.5-12.5 ABSOLUTE NEUTROPHILS (test code = 751-8) 3197 See_Comment [Automated message] The system which generated this result transmitted reference range: 1500 - 7800 cells/uL. The reference range was not used to interpret this result as normal/abnormal. ABSOLUTE LYMPHOCYTES (test code = 731-0) 1593 See_Comment [Automated message] The system which generated this result transmitted reference range: 850 - 3900 cells/uL. The reference range was not used to interpret this result as normal/abnormal. ABSOLUTE MONOCYTES (test code = 742-7) 556 See_Comment [Automated message] The system which generated this result transmitted reference range: 200 - 950 cells/uL. The reference range was not used to interpret this result as normal/abnormal. ABSOLUTE EOSINOPHILS (test code = 711-2) 32 See_Comment [Automated message] The system which generated this result transmitted reference range: 15 - 500 cells/uL. The reference range was not used to interpret this result as normal/abnormal. ABSOLUTE BASOPHILS (test code = 704-7) 22 See_Comment [Automated message] The system which generated this result transmitted reference range: 0 - 200 cells/uL. The reference range was not used to interpret this result as normal/abnormal. NEUTROPHILS (test code = 770-8) 59.2 % LYMPHOCYTES (test code = 736-9) 29.5 % MONOCYTES (test code = 5905-5) 10.3 % EOSINOPHILS (test code = 713-8) 0.6 % BASOPHILS (test code = 706-2) 0.4 % RAC (test code = RAC) Performing Organization Information: ? ?Site ID: RGA ? ?Name: [employer] ? ?Address: [address] [place] [address] ? ?Director: DERECK CARRANZA MD [facility] orpqexf6340-46-43 09:00:00* Test Item Value Reference Range Interpretation Comme nts CULTURE, URINE, ROUTINE (test code = 192628050) SEE NOTE ?CULTURE, URINE, ROUTINE ? ?Micro Number: ? ? ?[id number] ?Test Status: ? ? ? Final ?Specimen Source: ? Urine, clean catch ?Specimen Quality: ?Adequate ?Result: ?No Growth REPORT COMMENT:SPLIT 11/30/2022 FROM [id number] RAC (test code = RAC) Performing Organization Information: ? ?Site ID: RGA ? ?Name: [employer] [facility] ? ?Address: [address] [place] [address] ? ?Director: DERECK CARRANZA MD [facility] urinalysis w/o [id number] 15:53:00* Test Item Value Reference Range Interpretation Comme nts Color, UA (test code = 6125532) Yellow Clarity, UA (test code = 4161379) Clear Glucose, UA (test code = 5431707) Negative Negative Bilirubin, UA (test code = 5560765) Negative Negative Ketones, UA (test code = 6106773) Negative Spec Grav, UA (test code = 1350717) 1.025 1.000-1.030 Blood, UA (test code = 3004564) Negative pH, UA (test code = 0404223) 5.5 5.0-8.5 Protein, UA (test code = 2510035) Negative Negative, Trace, 200(+2)mg/dL, 15/mg/dL Urobilinogen, UA (test code = 8541767) 0.2 See_Comment [Automated [employer]] The system which generated this result transmitted reference range: 0.2. The reference range was not used to interpret this result as normal/abnormal. Leukocytes, UA (test code = 7036851) Negative Negative, Trace Nitrite, UA (test code = 2707989) Negative Negative, Trace Appearance, Fluid (test code = 9335-1) Clear Lab Interpretation (test code = 18936-6) Normal [facility], free, akbtj4597-02-01 15:00:00* Test Item Value Reference Range Interpretation Comments TESTOSTER ONE, TOTAL, MS (test code = 2986-8) 693 ng/dL 250-1100 For additional i nformation, please refer tohttps://education.Apprema/faq/RPD385(This link is being provided for informational/educational purposes only.)(Note) This test was developed and its analytical performancecharacteristics have been determined by [employer]. It has notbeen cleared or approved by the FDA. This assay has been validatedpursuant to the CLIA regulations and is used for clinical purposes. TESTOSTER ONE, FREE (test code = 2991-8) 46 pg/mL 30.0-135.0 (Note)This test was developed and its analytical performance characteristics have been determined by [employer]. It has not been cleared or approved by the FDA. This assay has been validated pursuant to the CLIA regulations and is used for clinical purposes. [facility] [id number] [address],[address] [place], [place] [phone] Chaump, MD REPORT COMMENT:MULTIPLE TESTING PRIORITIES; ROUTINE TESTING TO FOLLOW. RAC (test code = RAC) Performing Organization Information: ? ?Site ID: [id number] ? ?Name: [employer] ? ?Address: [address] [place] [address] [place] [phone] ? ?Director: LISA ALMARAZ MD [place] HealthPSA, total and heuk5604-11-82 15:00:00* Test Item Value Reference Range Interpretation Comments PSA, TOTAL (test code = 2857-1) 4.8 ng/mL See_Comment H [Automated messa ge] The system which generated this result transmitted reference range: < OR = 4.0. The reference range was not used to interpret this result as normal/abnormal. PSA, FREE (test code = 50502-4) 1.2 ng/mL PSA, % FREE (test code = 87546-6) See_Comment L PSA(ng/mL) ? ? ? Free PSA(%) ? ? Estimated(x) Probability ? of Cancer(as%)0-2.5 ?(*) ? Approx. 12.6-4.0(1) ? 0-27(2) ? 24(3)4.1-10(4) ?0-10 ?56 ? 11-15 ? 28 ? 16-20 ? 20 ? 21-25 ? 16 ? >or =26 ? 8>10(+) ? N/A ?>50 References:(1)Rui et al.:Urology 60: 469-474 (2002) ? (2)Rui et al.:J.Urol 168: 922-925 (2002) ?Free PSA(%) ? Sensitivity(%) ?Specificity(%) ?< or = 25 ?85 ?19 ?< or = 30 ?93 ? 9 ? (3)Rui et al.:TODD 277: 4574-7837 (1996) ? (4)Catalona et al.:TODD 279: 9437-2913 (1997) (x)These estimates vary with age, ethnicity, family ? history and YOSELIN results.(*)The diagnostic usefulness of % Free PSA has not been ? established in patients with total PSA below 2.6 ng/mL(+)In men with PSA above 10 ng/mL, prostate cancer risk is ? determined by total PSA alone. The Total PSA value from this assay system is standardized against the equimolar PSA standard. The test result will be approximately 20% higher when compared to the WHO-standardized Total PSA (Siemens assay). Comparison of serial PSA results should be interpreted with this fact in mind. PSA was performed using the Foster CoulterImmunoassay method. Values obtained from differentassay methods cannot be used interchangeably. PSAlevels, regardless of value, should not be interpretedas absolute evidence of the presence or absence ofdisease. [Automated message] The system which generated this result transmitted reference range: >25 % (calc). The reference range was not used to interpret this result as normal/abnormal. RAC (test code = RAC) Performing Organization Information: ? ?Site ID: IG ? ?Name: [facility] ? ?Address: [address] [facility] [place] [address] ? ?Director: DERECK CARRANZA MD Lab Interpretation (test code = 14165-4) Abnormal [facility] [id number] 15:00:00* Test Item Value Reference Range Interpretation Comme nts PROTEIN, TOTAL (test code = 2885-2) 6.5 g/dL 6.1-8.1 ALBUMIN (test code = 1751-7) 3.8 g/dL 3.6-5.1 GLOBULIN (test code = 57620-6) See_Comment [Automated message] The system which generated this result transmitted reference range: 1.9 - 3.7 g/dL (calc). The reference range was not used to interpret this result as normal/abnormal. ALBUMIN/GLOBULIN RATIO (test code = 1759-0) See_Comment [Automated message] The system which generated this result transmitted reference range: 1.0 - 2.5 (calc). The reference range was not used to interpret this result as normal/abnormal. BILIRUBIN, TOTAL (test code = 1974-) 0.6 mg/dL 0.2-1.2 BILIRUBIN, DIRECT (test code = 1967-) 0.2 mg/dL See_Comment [Automated message] The system which generated this result transmitted reference range: < OR = 0.2. The reference range was not used to interpret this result as normal/abnormal. BILIRUBIN, INDIRECT (test code = 1970-) See_Comment [Automated message] The system which generated this result transmitted reference range: 0.2 - 1.2 mg/dL (calc). The reference range was not used to interpret this result as normal/abnormal. ALKALINE PHOSPHATASE (test code = 6768-6) 100 U/L 35-144 AST (test code = 1920-8) 14 U/L 10-35 ALT (test code = 1742-6) 13 U/L 9-46 RAC (test code = RAC) Performing Organization Information: ? ?Site ID: RGA ? ?Name: [employer] [facility] ? ?Address: [address] [place], [place] [phone] ? ?Director: DERECK CARRANZA MD [facility] metabolic [id number] 15:00:00* Test Item Value Reference Range Interpretation Comments GLUCOSE (test code = 2345-7) 108 mg/dL 65-99 H ? Fastin g reference interval For someone without known diabetes, a glucose valuebetween 100 and 125 mg/dL is consistent withprediabetes and should be confirmed with afollow-up test. UREA NITROGEN (BUN) (test code = 3094-0) 18 mg/dL 7-25 CREATININE (test code = 2160-0) 0.9 mg/dL 0.70-1.28 EGFR (test code = 788120767) See_Comment The eGFR is base d on the CKD-EPI 2020 equation. To calculate the new eGFR from a previous Creatinine or Cystatin Cresult, go to [email or web address].o rg/professionals/kdo qi/gfr%5Fcalculator [Automated message] The system which generated this result transmitted reference range: > OR = 60 mL/min/1.73m2. The reference range was not used to interpret this result as normal/abnormal. BUN/CREATININE RATIO (test code = 3097-3) NOT APPLICABLE See_Comment [Automated [employer]] The system which generated this result transmitted reference range: 6 - 22 (calc). The reference range was not used to interpret this result as normal/abnormal. SODIUM (test code = 2951-2) 136 mmol/L 135-146 POTASSIUM (test code = 2823-3) 4.2 mmol/L 3.5-5.3 CHLORIDE (test code = 2075-0) 104 mmol/L 98-110 CARBON DIOXIDE (test code = 2027-9) 25 mmol/L 20-32 CALCIUM (test code = 86141-0) 8.9 mg/dL 8.6-10.3 RAC (test code = RAC) Performing Organization Information: ? ?Site ID: RGA ? ?Name: [employer] [facility] ? ?Address: [address] [place] [address] ? ?Director: DERECK CARRANZA MD Lab Interpretation (test code = 80622-4) Abnormal [facility] and irgrbsqjstvg2542-28-90 15:00:00* Test Item Value Reference Range Interpretation Comme nts WHITE BLOOD CELL COUNT (test code = 6690-2) See_Comment [Automated [employer]] The system which generated this result transmitted reference range: 3.8 - 10.8 Thousand/uL. The reference range was not used to interpret this result as normal/abnormal. RED BLOOD CELL COUNT (test code = 789-8) See_Comment [Automated [employer]] The system which generated this result transmitted reference range: 4.20 - 5.80 Million/uL. The reference range was not used to interpret this result as normal/abnormal. HEMOGLOBIN (test code = 718-7) 13.7 g/dL 13.2-17.1 HEMATOCRIT (test code = 4544-3) 42.3 % 38.5-50.0 MCV (test code = 787-2) 92.2 fL 80.0-100.0 MCH (test code = 785-6) 29.8 pg 27.0-33.0 MCHC (test code = 786-4) 32.4 g/dL 32.0-36.0 RDW (test code = 788-0) 14 % 11.0-15.0 ABSOLUTE NEUTROPHILS (test code = 751-8) See_Comment [Automated messa ge] The system which generated this result transmitted reference range: 1500 - 7800 cells/uL. The reference range was not used to interpret this result as normal/abnormal. ABSOLUTE LYMPHOCYTES (test code = 731-0) See_Comment [Automated messa ge] The system which generated this result transmitted reference range: 850 - 3900 cells/uL. The reference range was not used to interpret this result as normal/abnormal. ABSOLUTE MONOCYTES (test code = 742-7) See_Comment [Automated messa ge] The system which generated this result transmitted reference range: 200 - 950 cells/uL. The reference range was not used to interpret this result as normal/abnormal. ABSOLUTE EOSINOPHILS (test code = 711-2) See_Comment [Automated messa ge] The system which generated this result transmitted reference range: 15 - 500 cells/uL. The reference range was not used to interpret this result as normal/abnormal. ABSOLUTE BASOPHILS (test code = 704-7) See_Comment [Automated messa ge] The system which generated this result transmitted reference range: 0 - 200 cells/uL. The reference range was not used to interpret this result as normal/abnormal. NEUTROPHILS (test code = 770-8) 61.5 % LYMPHOCYTES (test code = 736-9) 26.9 % MONOCYTES (test code = 5905-5) 10.8 % EOSINOPHILS (test code = 713-8) 0.6 % BASOPHILS (test code = 706-2) 0.2 % PLATELET COUNT (test code = 777-3) NOT DONE Thousand/uL TEST(S) NOT PERFORMED: ? ?PLATELET COUNT Unable to report due tosignificant platelet clumping. RAC (test code = RAC) Performing Organization Information: ? ?Site ID: RGA ? ?Name: [employer] [facility] ? ?Address: [address] [place] [phone] ? ?Director: DERECK CARRANZA MD [place] MxyhlgBdifweyks9034-68-90 15:00:00* Test Item Value Reference Range Interpretation Comme nts ESTRADIOL (test code = 2243-4) 37 pg/mL See_Comment Reference range established on post-pubertal patientpopulation. No pre-pubertal reference rangeestablished using this assay. For any patients forwhom low Estradiol levels are anticipated (e.g. males,pre-pubertal children and hypogonadal/post-menop ausal females), the [employer] [facility] HospitalEstradiol, Ultrasensitive, LCMSMS assay is recommended(order code 70827). ?Please note: patients being treated with the drug fulvestrant (Faslodex(R)) have demonstrated significant interference in immunoassay methods for estradiol measurement. The cross reactivity could lead to falsely elevated estradiol test results leading to an inappropriate clinical assessment of estrogen status.[employer] order code 83712-Ffqgujhuj, Ultrasensitive LC/MS/MS demonstrates negligible cross reactivity with fulvestrant. [Automated message] The system which generated this result transmitted reference range: < OR = 39. The reference range was not used to interpret this result as normal/abnormal. RAC (test code = RAC) Performing Organization Information: ? ?Site ID: RGA ? ?Name: [employer] [facility] ? ?Address: [address] [place] [address] ? ?Director: DERECK CARRANZA MD [place] HealthPLATELET [id number] 15:00:00* Test Item Value Reference Range Interpretation Comme nts PLATELET ESTIMATION (test code = 9317-9) ADEQUATE ADEQUATE RAC (test code = RAC) Performing Organiz ation Information: ? ?Site ID: RGA ? ?Name: [employer] [facility] ? ?Address: [address] [place] [address] ? ?Director: DERECK CARRANZA MD [place] HealthUrine lvwospu1709-32-29 04:00:00* Test Item Value Reference Range Interpretation Comme nts CULTURE, URINE, ROUTINE (test code = 932691579) SEE NOTE ?CULTURE, URINE, ROUTINE ? ?Micro Number: ? ? ?[id number] ?Test Status: ? ? ? Final ?Specimen Source: ? Urine, clean catch ?Specimen Quality: ?Adequate ?Result: ?No Growth REPORT COMMENT:SPLIT 07/13/2022 FROM [id number] RAC (test code = RAC) Performing Organization Information: ? ?Site ID: RGA ? ?Name: [employer] [facility] ? ?Address: [address] [place] [phone] ? ?Director: DERECK CARRANZA MD [facility] w/o noroz2718-41-40 16:30:00* Test Item Value Reference Range Interpretation Comme nts Color, UA (test code = 2850252) Yellow Clarity, UA (test code = 2404552) Clear Glucose, UA (test code = 2669926) Negative Negative Bilirubin, UA (test code = 1126236) Negative Negative Ketones, UA (test code = 2870195) Negative Spec Grav, UA (test code = 5530118) 1.000-1.030 Blood, UA (test code = 2531139) Negative pH, UA (test code = 1149316) 5.0-8.5 Protein, UA (test code = 0887219) Negative Negative, Trace, 200(+2)mg/dL, 15/mg/dL Urobilinogen, UA (test code = 9038330) See_Comment A [Automated messa ge] The system which generated this result transmitted reference range: 0.2. The reference range was not used to interpret this result as normal/abnormal. Leukocytes, UA (test code = 9967334) Negative Negative, Trace Nitrite, UA (test code = 9236773) Negative Negative, Trace Appearance, Fluid (test code = 9335-1) Clear Lab Interpretation (test code = 98036-5) Abnormal [facility] HealthTestosterone, free, [id number] 20:00:00* Test Item Value Reference Range Interpretation Comments TESTOSTER ONE, TOTAL, MS (test code = 2986-8) 602 ng/dL 250-1100 For additional i nformation, please refer tohttps://education.Apprema/faq/DGL073(This link is being provided for informational/educational purposes only.)(Note) This test was developed and its analytical performancecharacteristics have been determined by [employer]. It has notbeen cleared or approved by the FDA. This assay has been validatedpursuant to the CLIA regulations and is used for clinical purposes. TESTOSTER ONE, FREE (test code = 2991-8) 35 pg/mL 30.0-135.0 (Note)This test was developed and its analytical performance characteristics have been determined by [employer]. It has not been cleared or approved by the FDA. This assay has been validated pursuant to the CLIA regulations and is used for clinical purposes. [facility] [id number] [address],[address] [place] [address] [phone] Chaump, MD REPORT COMMENT:MULTIPLE TESTING PRIORITIES; ROUTINE TESTING TO FOLLOW. RAC (test code = RAC) Performing Organization Information: ? ?Site ID: [id number] ? ?Name: [employer] ? ?Address: [address] [place] [address] [place] [phone] ? ?Director: LISA ALMARAZ MD [place] HealthPS[facility], total and [id number] 20:00:00* Test Item Value Reference Range Interpretation Comments PSA, TOTAL (test code = 2857-1) 6.6 ng/mL See_Comment H [Automated messa ge] The system which generated this result transmitted reference range: < OR = 4.0. The reference range was not used to interpret this result as normal/abnormal. PSA, FREE (test code = 63935-4) 1.7 ng/mL PSA, % FREE (test code = 57406-9) See_Comment PSA(ng/mL) ? ? ? Free PSA(%) ? ? Estimated(x) Probability ? of Cancer(as%)0-2.5 ?(*) ? Approx. 12.6-4.0(1) ? 0-27(2) ? 24(3)4.1-10(4) ?0-10 ?56 ? 11-15 ? 28 ? 16-20 ? 20 ? 21-25 ? 16 ? >or =26 ? 8>10(+) ? N/A ?>50 References:(1)Rui et al.:Urology 60: 469-474 (2002) ? (2)Rui et al.:J.Urol 168: 922-925 (2001) ?Free PSA(%) ? Sensitivity(%) ?Specificity(%) ?< or = 25 ?85 ?19 ?< or = 30 ?93 ? 9 ? (3)Rui et al.:TODD 277: 1012-1555 (1996) ? (4)Catalona et al.:TODD 279: 1634-3013 (1997) (x)These estimates vary with age, ethnicity, family ? history and YOSELIN results.(*)The diagnostic usefulness of % Free PSA has not been ? established in patients with total PSA below 2.6 ng/mL(+)In men with PSA above 10 ng/mL, prostate cancer risk is ? determined by total PSA alone. The Total PSA value from this assay system is standardized against the equimolar PSA standard. The test result will be approximately 20% higher when compared to the WHO-standardized Total PSA (Siemens assay). Comparison of serial PSA results should be interpreted with this fact in mind. PSA was performed using the Foster CoulterImmunoassay method. Values obtained from differentassay methods cannot be used interchangeably. PSAlevels, regardless of value, should not be interpretedas absolute evidence of the presence or absence ofdisease. [Automated message] The system which generated this result transmitted reference range: >25 % (calc). The reference range was not used to interpret this result as normal/abnormal. MARY (test code = RAC) Performing Organization Information: ? ?Site ID: IG ? ?Name: [facility] ? ?Address: [address] [place] [address] ? ?Director: DERECK CARRANZA MD Lab Interpretation (test code = 45888-9) Abnormal [facility] [id number] 20:00:00* Test Item Value Reference Range Interpretation Comme nts PROTEIN, TOTAL (test code = 2885-2) 6.7 g/dL 6.1-8.1 ALBUMIN (test code = 1751-7) 3.9 g/dL 3.6-5.1 GLOBULIN (test code = 87119-8) See_Comment [Automated message] The system which generated this result transmitted reference range: 1.9 - 3.7 g/dL (calc). The reference range was not used to interpret this result as normal/abnormal. ALBUMIN/GLOBULIN RATIO (test code = 1759-0) See_Comment [Automated message] The system which generated this result transmitted reference range: 1.0 - 2.5 (calc). The reference range was not used to interpret this result as normal/abnormal. BILIRUBIN, TOTAL (test code = 1974-) 0.5 mg/dL 0.2-1.2 BILIRUBIN, DIRECT (test code = 1967-) 0.1 mg/dL See_Comment [Automated message] The system which generated this result transmitted reference range: < OR = 0.2. The reference range was not used to interpret this result as normal/abnormal. BILIRUBIN, INDIRECT (test code = 1970-) See_Comment [Automated message] The system which generated this result transmitted reference range: 0.2 - 1.2 mg/dL (calc). The reference range was not used to interpret this result as normal/abnormal. ALKALINE PHOSPHATASE (test code = 6768-6) 101 U/L 35-144 AST (test code = 1920-8) 15 U/L 10-35 ALT (test code = 1742-6) 11 U/L 9-46 RAC (test code = RAC) Performing Organization Information: ? ?Site ID: RGA ? ?Name: [employer] [facility] ? ?Address: [address] [place] [phone] ? ?Director: DERECK CARRANZA MD [facility] [id number] 20:00:00* Test Item Value Reference Range Interpretation Comme nts GLUCOSE (test code = 2345-7) 99 mg/dL 65-99 ? Fastin g reference interval UREA NITROGEN (BUN) (test code = 3094-0) 15 mg/dL 7-25 CREATININE (test code = 2160-0) 0.84 mg/dL 0.70-1.18 For patients >49 years of age, the reference limitfor Creatinine is approximately 13% higher for peopleidentified as -[place]. eGFR NON- (test code = 91013-7) See_Comment [[employer]ated [employer]] The system which generated this result transmitted reference range: > OR = 60 mL/min/1.73m2. The reference range was not used to interpret this result as normal/abnormal. eGFR (test code = 11111-5) See_Comment [[employer]ated [employer]] The system which generated this result transmitted reference range: > OR = 60 mL/min/1.73m2. The reference range was not used to interpret this result as normal/abnormal. BUN/CREATININE RATIO (test code = 3097-3) NOT APPLICABLE See_Comment [Automated [employer]] The system which generated this result transmitted reference range: 6 - 22 (calc). The reference range was not used to interpret this result as normal/abnormal. SODIUM (test code = 2951-2) 139 mmol/L 135-146 POTASSIUM (test code = 2823-3) 4.5 mmol/L 3.5-5.3 CHLORIDE (test code = 2075-0) 106 mmol/L 98-110 CARBON DIOXIDE (test code = 2028-9) 26 mmol/L 20-32 CALCIUM (test code = 29201-6) 9.3 mg/dL 8.6-10.3 RAC (test code = RAC) Performing Organization Information: ? ?Site ID: RGA ? ?Name: [employer] [facility] ? ?Address: [address] [place] [phone] ? ?Director: DERECK CARRANZA MD [facility] and syctjauuovoy8153-45-09 20:00:00* Test Item Value Reference Range Interpretation Comme nts WHITE BLOOD CELL COUNT (test code = 6690-2) See_Comment [Automated message] The system which generated this result transmitted reference range: 3.8 - 10.8 Thousand/uL. The reference range was not used to interpret this result as normal/abnormal. RED BLOOD CELL COUNT (test code = 789-8) See_Comment [Automated message] The system which generated this result transmitted reference range: 4.20 - 5.80 Million/uL. The reference range was not used to interpret this result as normal/abnormal. HEMOGLOBIN (test code = 718-7) 13.6 g/dL 13.2-17.1 HEMATOCRIT (test code = 4544-3) 42.2 % 38.5-50.0 MCV (test code = 787-2) 93.4 fL 80.0-100.0 MCH (test code = 785-6) 30.1 pg 27.0-33.0 MCHC (test code = 786-4) 32.2 g/dL 32.0-36.0 RDW (test code = 788-0) 13.7 % 11.0-15.0 PLATELET COUNT (test code = 777-3) See_Comment [Automated message] The system which generated this result transmitted reference range: 140 - 400 Thousand/uL. The reference range was not used to interpret this result as normal/abnormal. MPV (test code = 776-5) 10 fL 7.5-12.5 ABSOLUTE NEUTROPHILS (test code = 751-8) See_Comment [Automated message] The system which generated this result transmitted reference range: 1500 - 7800 cells/uL. The reference range was not used to interpret this result as normal/abnormal. ABSOLUTE LYMPHOCYTES (test code = 731-0) See_Comment [Automated message] The system which generated this result transmitted reference range: 850 - 3900 cells/uL. The reference range was not used to interpret this result as normal/abnormal. ABSOLUTE MONOCYTES (test code = 742-7) See_Comment [Automated message] The system which generated this result transmitted reference range: 200 - 950 cells/uL. The reference range was not used to interpret this result as normal/abnormal. ABSOLUTE EOSINOPHILS (test code = 711-2) See_Comment [Automated message] The system which generated this result transmitted reference range: 15 - 500 cells/uL. The reference range was not used to interpret this result as normal/abnormal. ABSOLUTE BASOPHILS (test code = 704-7) See_Comment [Automated message] The system which generated this result transmitted reference range: 0 - 200 cells/uL. The reference range was not used to interpret this result as normal/abnormal. NEUTROPHILS (test code = 770-8) 68.2 % LYMPHOCYTES (test code = 736-9) 22 % MONOCYTES (test code = 5905-5) 7.6 % EOSINOPHILS (test code = 713-8) 1.7 % BASOPHILS (test code = 706-2) 0.5 % RAC (test code = RAC) Performing Organization Information: ? ?Site ID: RGA ? ?Name: [employer] ? ?Address: [address] [place] [phone] ? ?Director: DERECK CARRANZA MD [place] Health[facility]it[facility] D 25 [id number] 20:00:00* Test Item Value Reference Range Interpretation Comme nts VITAMIN D,25-OH,TOTAL,I A (test code = 1988-12) 49 ng/mL 30-100 Vitamin D Status ? 25-OH Vitamin D: Deficiency: ?<20 ng/mLInsufficiency: ? 20 - 29 ng/mLOptimal: ? > or = 30 ng/mL For 25-OH Vitamin D testing on patients on D2-supplementation and patients for whom quantitation of D2 and D3 fractions is required, the QuestAssureD(TM)25- OH VIT D, (D2,D3), LC/MS/MS is recommended: order code 68569 (patients >2yrs).See Note 1 Note 1 For additional information, please refer to [email or web address] (This link is being provided for informational/educa tional purposes only.) RAC (test code = RAC) Performing Organization Information: ? ?Site ID: RGA ? ?Name: [employer] ? ?Address: [address] [place] [phone] ? ?Director: DERECK CARRANZA MD [place] HealthPLATELET [id number] 20:00:00* Test Item Value Reference Range Interpretation Comme nts PLATELET ESTIMATION (test code = 9317-9) ADEQUATE ADEQUATE RAC (test code = RAC) Performing Organiz ation Information: ? ?Site ID: RGA ? ?Name: [employer] ? ?Address: [address] [place] [phone] ? ?Director: DERECK [facility] [id number] 15:44:00* Test Item Value Reference Range Interpretation Comme nts Color, UA (test code = 7458257) Yellow Clarity, UA (test code = 1530043) Clear Glucose, UA (test code = 9062621) Negative Negative Bilirubin, UA (test code = 0513971) Negative Negative Ketones, UA (test code = 9598346) Negative Spec Grav, UA (test code = 1665637) 1.000-1.030 Blood, UA (test code = 3814902) Negative pH, UA (test code = 4650651) 5.0-8.5 Protein, UA (test code = 9653082) Negative Negative, Trace, 200(+2)mg/dL, 15/mg/dL Urobilinogen, UA (test code = 7044657) See_Comment [Automated [employer] ge] The system which generated this result transmitted reference range: 0.2. The reference range was not used to interpret this result as normal/abnormal. Leukocytes, UA (test code = 2370476) Negative Negative, Trace Nitrite, UA (test code = 9990567) Negative Negative, Trace Appearance, Fluid (test code = 9335-1) Clear Lab Interpretation (test code = 38713-6) [facility] [id number] 12:35:43* Test Item Value Reference Range Interpretation Comme nts NT-proBNP (test code = 7497533832) 206 pg/mL See_Comment [Automated message] The system which generated this result transmitted reference range: <=450. The reference range was not used to interpret this result as normal/abnormal. ROBBIE (test code = ROBBIE) Biotin has been reported to cause a negative bias, interpret results relative to patient's use of biotin. Lab Interpretation (test code = 07314-4) [facility] (26974)2021-11-09 12:28:05* Test Item Value Reference Range Interpretation Comme nts NA (test code = 8175792446) 131 mmol/L 135-145 L K (test code = 9423747467) 4.1 mmol/L 3.5-5.0 CL (test code = 8825645231) 102 mmol/L 98-108 CO2 TOTAL (test code = 6689091176) 24 mmol/L 23-31 AGAP (test code = 5217797203) 2-16 BUN (test code = 3209359660) 25 mg/dL 7-23 H GLUCOSE (test code = 2807695975) 124 mg/dL 70-110 H CREATININE (test code = 4717541379) 0.78 mg/dL 0.60-1.25 TOTAL BILI (test code = 0231284567) 0.4 mg/dL 0.1-1.1 CALCIUM (test code = 9397064678) 8.5 mg/dL 8.6-10.6 L T PROTEIN (test code = 2586411203) 6.1 g/dL 6.3-8.2 L ALBUMIN (test code = 4022277014) 3.0 g/dL 3.5-5.0 L ALK PHOS (test code = 7243381977) 64 U/L 34-122 ALTv (test code = 1742-6) 17 U/L 5-50 AST(SGOT) (test code = 4547987566) 32 U/L 13-40 eGFR (test code = 3318161231) mL/min/1.73m2 ROBBIE (test code = ROBBIE) Association of [...] or abnormalities in imaging tests). Lab Interpretation (test code = 98454-6) Abnormal [facility] WITH [id number] 12:05:43* Test Item Value Reference Range Interpretation Comme nts WBC (test code = 6690-2) See_Comment [Automated [employer] ge] The system which generated this result transmitted reference range: 4.20 - 10.70 10*3/?L. The reference range was not used to interpret this result as normal/abnormal. RBC (test code = 789-8) See_Comment L [Automated [employer] ge] The system which generated this result transmitted reference range: 4.26 - 5.52 10*6/?L. The reference range was not used to interpret this result as normal/abnormal. HGB (test code = 718-7) 12.4 g/dL 12.2-16.4 HCT (test code = 4544-3) 37.9 % 38.4-49.3 L MCV (test code = 787-2) 90.0 fL 81.7-95.6 MCH (test code = 785-6) 29.5 pg 26.1-32.7 MCHC (test code = 786-4) 32.7 g/dL 31.2-35.0 RDW-SD (test code = 03207-4) 49.3 fL 38.5-51.6 RDW-CV (test code = 788-0) 14.9 % 12.1-15.4 PLT (test code = 777-3) See_Comment [Automated [employer] ge] The system which generated this result transmitted reference range: 150 - 328 10*3/?L. The reference range was not used to interpret this result as normal/abnormal. MPV (test code = 13068-9) 8.6 fL 9.8-13.0 L NRBC/100 WBC (test code = 9562752041) See_Comment [Automated [employer] ssage] The system which generated this result transmitted reference range: 0.0 - 10.0 /100 WBCs. The reference range was not used to interpret this result as normal/abnormal. NRBC x10^3 (test code = 0433203199) <0.01 See_Comment [Automated messa ge] The system which generated this result transmitted reference range: 10*3/?L. The reference range was not used to interpret this result as normal/abnormal. GRAN MAT (NEUT) % (test code = 770-8) 82.2 % IMM GRAN % (test code = 1371667735) 1.00 % LYMPH % (test code = 736-9) 8.7 % MONO % (test code = 5905-5) 8.0 % EOS % (test code = 713-8) 0.0 % BASO % (test code = 706-2) 0.1 % GRAN MAT x10^3(ANC) (test code = 7812759933) 5.79 10*3/uL 1.99-6.95 IMM GRAN x10^3 (test code = 8666519599) 0.07 10*3/uL 0.00-0.06 H LYMPH x10^3 (test code = 731-0) 0.61 10*3/uL 1.09-3.23 L MONO x10^3 (test code = 742-7) 0.56 10*3/uL 0.36-1.02 EOS x10^3 (test code = 711-2) <0.03 0.06-0.53 L BASO x10^3 (test code = 704-7) <0.03 0.01-0.09 Lab Interpretation (test code = 70317-4) [facility], [id number] 20:10:55* Test Item Value Reference Range Interpretation Comme nts FK 506 (test code = 8100670514) 14 ng/mL ROBBIE (test code = ROBBIE) Target/Therapeutic Range KIDNEY ? Early (<3 mo) ? ? [...] ?(>12 mo) ? ?8-10 Method by: ?Chemiflex, External Grinder Tool i1000 [facility]inte[facility]. METABOLIC PANEL (81229)2021-11-08 14:26:12* Test Item Value Reference Range Interpretation Comme nts NA (test code = 8741525750) 130 mmol/L 135-145 L K (test code = 1590927929) 4.4 mmol/L 3.5-5.0 CL (test code = 0642084692) 103 mmol/L 98-108 CO2 TOTAL (test code = 2360217407) 22 mmol/L 23-31 L AGAP (test code = 1103410046) 2-16 BUN (test code = 8751838330) 20 mg/dL 7-23 GLUCOSE (test code = 1156685137) 136 mg/dL 70-110 H CREATININE (test code = 3369422457) 0.59 mg/dL 0.60-1.25 L TOTAL BILI (test code = 8331557377) 0.7 mg/dL 0.1-1.1 CALCIUM (test code = 7646024973) 8.4 mg/dL 8.6-10.6 L T PROTEIN (test code = 2979975004) 6.8 g/dL 6.3-8.2 ALBUMIN (test code = 1361980551) 3.3 g/dL 3.5-5.0 L ALK PHOS (test code = 7613178085) 53 U/L 34-122 ALTv (test code = 1742-6) 17 U/L 5-50 AST(SGOT) (test code = 0651353314) 43 U/L 13-40 H eGFR (test code = 0520462045) mL/min/1.73m2 ROBBIE (test code = ROBBIE) Association of [...] or abnormalities in imaging tests). Lab Interpretation (test code = 11065-3) [facility]2022-01-08 14:26:12* Test Item Value Reference Range Interpretation Comme nts MAGNESIUM (test code = 8075552549) 1.6 mg/dL 1.7-2.4 L Lab Interpretation (test cod e = 21646-4) Abnormal [facility]intePHOSPHORUS2022-01-08 14:25:52* Test Item Value Reference Range Interpretation Comme nts PHOSPHORUS (test code = 5383887225) 3.3 mg/dL 2.5-5.0 Lab Interpretation (test cod e = 01012-8) Normal [facility]inte[facility] [id number] 13:26:11* Test Item Value Reference Range Interpretation Comme nts NT-proBNP (test code = 6215442215) 148 pg/mL See_Comment [Automated message] The system which generated this result transmitted reference range: <=450. The reference range was not used to interpret this result as normal/abnormal. ROBBIE (test code = ROBBIE) Biotin has been reported to cause a negative bias, interpret results relative to patient's use of biotin. Lab Interpretation (test code = 01482-2) Normal [facility]inteCB WITH [id number] 12:30:27* Test Item Value Reference Range Interpretation Comme nts WBC (test code = 6690-2) See_Comment [Automated [employer] ge] The system which generated this result transmitted reference range: 4.20 - 10.70 10*3/?L. The reference range was not used to interpret this result as normal/abnormal. RBC (test code = 789-8) See_Comment [Automated [employer] ge] The system which generated this result transmitted reference range: 4.26 - 5.52 10*6/?L. The reference range was not used to interpret this result as normal/abnormal. HGB (test code = 718-7) 13.0 g/dL 12.2-16.4 HCT (test code = 4544-3) 38.4 % 38.4-49.3 MCV (test code = 787-2) 87.7 fL 81.7-95.6 MCH (test code = 785-6) 29.7 pg 26.1-32.7 MCHC (test code = 786-4) 33.9 g/dL 31.2-35.0 RDW-SD (test code = 73145-0) 47.8 fL 38.5-51.6 RDW-CV (test code = 788-0) 14.7 % 12.1-15.4 PLT (test code = 777-3) See_Comment [Automated messa ge] The system which generated this result transmitted reference range: 150 - 328 10*3/?L. The reference range was not used to interpret this result as normal/abnormal. MPV (test code = 95785-3) 9.2 fL 9.8-13.0 L NRBC/100 WBC (test code = 9956518438) See_Comment [Automated [employer] ssage] The system which generated this result transmitted reference range: 0.0 - 10.0 /100 WBCs. The reference range was not used to interpret this result as normal/abnormal. NRBC x10^3 (test code = 8843828306) <0.01 See_Comment [Automated messa ge] The system which generated this result transmitted reference range: 10*3/?L. The reference range was not used to interpret this result as normal/abnormal. GRAN MAT (NEUT) % (test code = 770-8) 84.3 % IMM GRAN % (test code = 0810127587) 0.90 % LYMPH % (test code = 736-9) 7.8 % MONO % (test code = 5905-5) 6.8 % EOS % (test code = 713-8) 0.0 % BASO % (test code = 706-2) 0.2 % GRAN MAT x10^3(ANC) (test code = 2356268865) 4.62 10*3/uL 1.99-6.95 IMM GRAN x10^3 (test code = 8984014205) 0.05 10*3/uL 0.00-0.06 LYMPH x10^3 (test code = 731-0) 0.43 10*3/uL 1.09-3.23 L MONO x10^3 (test code = 742-7) 0.37 10*3/uL 0.36-1.02 EOS x10^3 (test code = 711-2) <0.03 0.06-0.53 L BASO x10^3 (test code = 704-7) <0.03 0.01-0.09 Lab Interpretation (test code = 72561-9) Abnormal [facility]inteC-REACTIVE [id number] 18:22:49* Test Item Value Reference Range Interpretation Comme nts CRP (test code = 1873954433) 12.7 mg/dL <0.8 H Lab Interpretation (test cod e = 35916-1) Abnormal [facility]inteTACROLIMUS, [id number] 15:52:52* Test Item Value Reference Range Interpretation Comme nts FK 506 (test code = 4181693850) 23 ng/mL ROBBIE (test code = ROBBIE) Target/Therapeutic Range KIDNEY ? Early (<3 mo) ? ? [...] ?(>12 mo) ? ?8-10 Method by: ?Chemiflex, External Grinder Tool i1000 [facility] with Zcjhocrspjnp1814-88-54 14:54:10* Test Item Value Reference Range Interpretation Comme nts WBC (test code = 6690-2) See_Comment L [Automated messa ge] The system which generated this result transmitted reference range: 4.20 - 10.70 10*3/?L. The reference range was not used to interpret this result as normal/abnormal. RBC (test code = 789-8) See_Comment [Automated messa ge] The system which generated this result transmitted reference range: 4.26 - 5.52 10*6/?L. The reference range was not used to interpret this result as normal/abnormal. HGB (test code = 718-7) 12.8 g/dL 12.2-16.4 HCT (test code = 4544-3) 37.9 % 38.4-49.3 L MCV (test code = 787-2) 88.6 fL 81.7-95.6 MCH (test code = 785-6) 29.9 pg 26.1-32.7 MCHC (test code = 786-4) 33.8 g/dL 31.2-35.0 RDW-SD (test code = 90047-8) 50.1 fL 38.5-51.6 RDW-CV (test code = 788-0) 15.5 % 12.1-15.4 H PLT (test code = 777-3) See_Comment [Automated messa ge] The system which generated this result transmitted reference range: 150 - 328 10*3/?L. The reference range was not used to interpret this result as normal/abnormal. MPV (test code = 44750-6) 9.2 fL 9.8-13.0 L NRBC/100 WBC (test code = 1004505288) See_Comment [Automated me ssage] The system which generated this result transmitted reference range: 0.0 - 10.0 /100 WBCs. The reference range was not used to interpret this result as normal/abnormal. NRBC x10^3 (test code = 6572125726) <0.01 See_Comment [Automated messa ge] The system which generated this result transmitted reference range: 10*3/?L. The reference range was not used to interpret this result as normal/abnormal. GRAN MAT (NEUT) % (test code = 770-8) 79.0 % IMM GRAN % (test code = 5083677533) 1.00 % LYMPH % (test code = 736-9) 13.5 % MONO % (test code = 5905-5) 6.2 % EOS % (test code = 713-8) 0.0 % BASO % (test code = 706-2) 0.3 % GRAN MAT x10^3(ANC) (test code = 5106176309) 2.28 10*3/uL 1.99-6.95 IMM GRAN x10^3 (test code = 9871929584) 0.03 10*3/uL 0.00-0.06 LYMPH x10^3 (test code = 731-0) 0.39 10*3/uL 1.09-3.23 L MONO x10^3 (test code = 742-7) 0.18 10*3/uL 0.36-1.02 L EOS x10^3 (test code = 711-2) <0.03 0.06-0.53 L BASO x10^3 (test code = 704-7) <0.03 0.01-0.09 YUE CELLS (test code = 7790-9) 3+ See_Comment A [Automated messa ge] The system which generated this result transmitted reference range: (none). The reference range was not used to interpret this result as normal/abnormal. PLT ESTIMATE (test code = 9317-9) Normal Normal Lab Interpretation (test code = 91215-3) [facility]inteFOLATE2022-01-07 13:57:45* Test Item Value Reference Range Interpretation Comme nts FOLATE SER (test code = 5262025241) 13.8 ng/mL 3.0-20.0 Lab Interpretation (test cod e = 39932-1) Normal [facility]inteD-UOEDS4523-76-95 13:50:42* Test Item Value Reference Range Interpretation Comments D-DIMER (test code = 5352538368) See_Comment H [Automated message] The system which generated this result transmitted reference range: <0.41 ?g/mL (FEU). The reference range was not used to interpret this result as normal/abnormal. ROBBIE (test code = ROBBIE) This test may be used in conjunction with a clinical pretest [...] context, in forming a diagnosis. Lab Interpretation (test code = 26363-6) Abnormal [facility] PointePROTHROMBIN TIME / [id number] 13:45:43* Test Item Value Reference Range Interpretation Comme nts PROTIME PATIENT (test code = 5964-2) See_Comment [Automated messa ge] The system which generated this result transmitted reference range: 12.0 - 14.7 Seconds. The reference range was not used to interpret this result as normal/abnormal. INR (test code = 6301-6) Normal INR <1.1; Warfarin Therapeutic range 2.0 to 3.0 or 2.5 to 3.5, depending upon the indications. Lab Interpretation (test code = 36571-1) Normal [facility]inteCOMP. METABOLIC PANEL (02578)2021-11-07 13:22:21* Test Item Value Reference Range Interpretation Comme nts NA (test code = 7338460317) 132 mmol/L 135-145 L K (test code = 9715347449) 3.9 mmol/L 3.5-5.0 CL (test code = 6573381455) 103 mmol/L 98-108 CO2 TOTAL (test code = 7976423808) 20 mmol/L 23-31 L AGAP (test code = 4574937195) 2-16 BUN (test code = 7773761875) 21 mg/dL 7-23 GLUCOSE (test code = 3224217513) 151 mg/dL 70-110 H CREATININE (test code = 9841339898) 0.79 mg/dL 0.60-1.25 TOTAL BILI (test code = 3649419391) 0.6 mg/dL 0.1-1.1 CALCIUM (test code = 0313699276) 8.6 mg/dL 8.6-10.6 T PROTEIN (test code = 1463754274) 6.9 g/dL 6.3-8.2 ALBUMIN (test code = 5791860183) 3.5 g/dL 3.5-5.0 ALK PHOS (test code = 3167854119) 78 U/L 34-122 ALTv (test code = 1742-6) 16 U/L 5-50 AST(SGOT) (test code = 3461411568) 38 U/L 13-40 eGFR (test code = 5539094861) mL/min/1.73m2 ROBBIE (test code = ROBBIE) Association of [...] or abnormalities in imaging tests). Lab Interpretation (test code = 15169-4) [facility]inteN-TERMINAL [id number] 12:42:23* Test Item Value Reference Range Interpretation Comme nts NT-proBNP (test code = 0414496977) 143 pg/mL See_Comment [Automated message] The system which generated this result transmitted reference range: <=450. The reference range was not used to interpret this result as normal/abnormal. ROBBIE (test code = ROBBIE) Biotin has been reported to cause a negative bias, interpret results relative to patient's use of biotin. Lab Interpretation (test code = 22843-9) Normal [facility]inteMAGNESIUM2022-01-07 12:34:58* Test Item Value Reference Range Interpretation Comme nts MAGNESIUM (test code = 5755809749) 1.6 mg/dL 1.7-2.4 L Lab Interpretation (test cod e = 09544-8) Abnormal [facility] PointeVITAMIN D, [id number] 11:31:12* Test Item Value Reference Range Interpretation Comme nts VIT D 25OH (test code = 92936-7) 56 ng/mL 25-80 ROBBIE (test code = ROBBIE) Deficiency: <20 ng/mLInsufficiency : 20-24 ng/mLOptimal: 25-80 ng/mL Lab Interpretation (test code = 29681-5) Normal [facility] PointePROCALCITONIN2022-01-07 11:25:39* Test Item Value Reference Range Interpretation Comme nts Procalcitonin (test code = 1508698921) 0.07 ng/mL <0.07 H ROBBIE (test code = ROBBIE) INTERPRETATION OF [...] lung abscess/empyema. For further information please refer to:[email or web address] Lab Interpretation (test code = 91630-6) Abnormal [facility] PointeOSMOLALITY, SERUM OR [id number] 11:25:29 * Test Item Value Reference Range Interpretation Comme nts OSMOLALITY (test code = 4433413640) See_Comment [Automated [employer]] The system which generated this result transmitted reference range: 278 - 305 mOsm/kg. The reference range was not used to interpret this result as normal/abnormal. Lab Interpretation (test code = 72223-5) Normal [facility] PointeVITAMIN B12, [id number] 11:08:35* Test Item Value Reference Range Interpretation Comme nts VIT B12 (test code = 7502118731) >1000 240-930 H ROBBIE (test code = ORBBIE) Biotin has been reported to cause a positive bias, interpret results relative to patient's use of biotin. Lab Interpretation (test code = 07379-9) Abnormal [facility] PointeSEDIMENTATION [id number] 06:25:47* Test Item Value Reference Range Interpretation Comme nts ESR (test code = 4315907490) See_Comment H [Automated [employer]] The system which generated this result transmitted reference range: 0 - 10 mm/HR. The reference range was not used to interpret this result as normal/abnormal. Lab Interpretation (test code = 72904-8) Abnormal [facility] PointeLACTATE [id number] 05:58:04* Test Item Value Reference Range Interpretation Comme nts LDH (test code = 5610752775) 497 U/L 300-600 Lab Interpretation (test cod e = 34799-3) Normal [facility] PointeFERRITIN [id number] 03:39:08* Test Item Value Reference Range Interpretation Comme nts FERRITIN (test code = 9508609878) 2880.0 ng/mL 18.0-464.0 H ROBBIE (test code = ROBBIE) Biotin has been reported to cause a negative bias, interpret results relative to patient's use of biotin. Lab Interpretation (test code = 51180-6) Abnormal [facility] PointeMagnesium [id number] 02:04:13* Test Item Value Reference Range Interpretation Comme nts MAGNESIUM (test code = 1802726508) 1.4 mg/dL 1.7-2.4 L Slight hemolysis Lab Interpretation (test code = 98979-7) Abnormal [facility] PointeTROPONIN [id number] 23:21:52* Test Item Value Reference Range Interpretation Comments TROPONIN I (test code = 6392740606) 0.034 ng/mL See_Comment [Automated message] The system which generated this result transmitted reference range: <=0.034. The reference range was not used to interpret this result as normal/abnormal. ROBBIE (test code = ROBBIE) Reference (Normal) Range (defined by the 99th percentile reference [...] patient's use of biotin. Lab Interpretation (test code = 89707-4) Normal [facility]inteN-TERMINAL [id number] 23:18:50* Test Item Value Reference Range Interpretation Comme nts NT-proBNP (test code = 7732238597) 178 pg/mL See_Comment [Automated message] The system which generated this result transmitted reference range: <=450. The reference range was not used to interpret this result as normal/abnormal. ROBBIE (test code = ROBBIE) Biotin has been reported to cause a negative bias, interpret results relative to patient's use of biotin. Lab Interpretation (test code = 59614-0) Normal [facility]inteCOMP. METABOLIC PANEL (94083)2021-11-06 23:10:31* Test Item Value Reference Range Interpretation Comme nts NA (test code = 7585128710) 130 mmol/L 135-145 L K (test code = 0803547593) 4.8 mmol/L 3.5-5.0 CL (test code = 4957783082) 100 mmol/L 98-108 CO2 TOTAL (test code = 8466785500) 24 mmol/L 23-31 AGAP (test code = 3301005040) 2-16 BUN (test code = 3427122795) 22 mg/dL 7-23 GLUCOSE (test code = 2250334468) 118 mg/dL 70-110 H CREATININE (test code = 7429144150) 0.90 mg/dL 0.60-1.25 TOTAL BILI (test code = 6577074914) 0.9 mg/dL 0.1-1.1 CALCIUM (test code = 5347321684) 8.7 mg/dL 8.6-10.6 T PROTEIN (test code = 6554912109) 7.1 g/dL 6.3-8.2 ALBUMIN (test code = 1731005521) 3.6 g/dL 3.5-5.0 ALK PHOS (test code = 9163314766) 65 U/L 34-122 ALTv (test code = 1742-6) 17 U/L 5-50 AST(SGOT) (test code = 7956768574) 48 U/L 13-40 H eGFR (test code = 1260983944) mL/min/1.73m2 ROBBIE (test code = ROBBIE) Association of [...] or abnormalities in imaging tests). Lab Interpretation (test code = 88794-2) Abnormal [facility] WITH TNUV4625-66-19 22:58:28* Test Item Value Reference Range Interpretation Comme nts WBC (test code = 6690-2) See_Comment [Automated [employer] ge] The system which generated this result transmitted reference range: 4.20 - 10.70 10*3/?L. The reference range was not used to interpret this result as normal/abnormal. RBC (test code = 789-8) See_Comment [Automated [employer] ge] The system which generated this result transmitted reference range: 4.26 - 5.52 10*6/?L. The reference range was not used to interpret this result as normal/abnormal. HGB (test code = 718-7) 13.6 g/dL 12.2-16.4 HCT (test code = 4544-3) 41.2 % 38.4-49.3 MCV (test code = 787-2) 89.4 fL 81.7-95.6 MCH (test code = 785-6) 29.5 pg 26.1-32.7 MCHC (test code = 786-4) 33.0 g/dL 31.2-35.0 RDW-SD (test code = 84918-9) 49.8 fL 38.5-51.6 RDW-CV (test code = 788-0) 15.1 % 12.1-15.4 PLT (test code = 777-3) See_Comment [Automated [employer] ge] The system which generated this result transmitted reference range: 150 - 328 10*3/?L. The reference range was not used to interpret this result as normal/abnormal. MPV (test code = 46440-6) 9.0 fL 9.8-13.0 L NRBC/100 WBC (test code = 1121576555) See_Comment [Automated [employer] ssage] The system which generated this result transmitted reference range: 0.0 - 10.0 /100 WBCs. The reference range was not used to interpret this result as normal/abnormal. NRBC x10^3 (test code = 8112715629) <0.01 See_Comment [Automated messa ge] The system which generated this result transmitted reference range: 10*3/?L. The reference range was not used to interpret this result as normal/abnormal. GRAN MAT (NEUT) % (test code = 770-8) 72.4 % IMM GRAN % (test code = 6070734011) 0.60 % LYMPH % (test code = 736-9) 17.8 % MONO % (test code = 5905-5) 9.2 % EOS % (test code = 713-8) 0.0 % BASO % (test code = 706-2) 0.0 % GRAN MAT x10^3(ANC) (test code = 3666967944) 3.38 10*3/uL 1.99-6.95 IMM GRAN x10^3 (test code = 3902478478) 0.03 10*3/uL 0.00-0.06 LYMPH x10^3 (test code = 731-0) 0.83 10*3/uL 1.09-3.23 L MONO x10^3 (test code = 742-7) 0.43 10*3/uL 0.36-1.02 EOS x10^3 (test code = 711-2) <0.03 0.06-0.53 L BASO x10^3 (test code = 704-7) <0.03 0.01-0.09 Lab Interpretation (test code = 49671-8) [facility], mjnlf3786-23-28 19:00:00* Test Item Value Reference Range Interpretation Comments TESTOSTER ONE, TOTAL, MS (test code = 2986-8) 800 ng/dL 250-1100 For additional i nformation, please refer tohttps://education.PeopLease.DeliRadio/faq/HAQ877(This link is being provided for informational/educational purposes only.)(Note) This test was developed and its analytical performancecharacteristics have been determined by [employer]. It has notbeen cleared or approved by the FDA. This assay has been validatedpursuant to the CLIA regulations and is used for clinical purposes. TESTOSTER ONE, FREE (test code = 2991-8) 62 pg/mL 30.0-135.0 (Note)This test was developed and its analytical performance characteristics have been determined by [employer]. It has not been cleared or approved by the FDA. This assay has been validated pursuant to the CLIA regulations and is used for clinical purposes. MDFmed [id number] [place] [address],[address] [place] [address] [phone] Chaump, MD REPORT COMMENT:LTC ONLY: NURSE COLLECTED - NO SPECIMEN PROVIDED. RAC (test code = RAC) Performing Organization Information: ? ?Site ID: [id number] ? ?Name: [employer] ? ?Address: [address] [place] [address] [place] [phone] ? ?Director: LISA ALMARAZ MD [place] HealthUrine jiqvufi6917-20-52 08:00:00* Test Item Value Reference Range Interpretation Comme nts CULTURE, URINE, ROUTINE (test code = 239098673) SEE NOTE ?CULTURE, URINE, ROUTINE ? ?Micro Number: ? ? ?[id number] ?Test Status: ? ? ? Final ?Specimen Source: ? Urine, clean catch ?Specimen Quality: ?Adequate ?Result: ?No Growth REPORT COMMENT:SPLIT 07/24/2021 FROM [id number] RAC (test code = RAC) Performing Organization Information: ? ?Site ID: RGA ? ?Name: [facility] ? ?Address: [address] [place] [phone] ? ?Director: DERECK CARRANZA MD [place] HealthPSA, total and blpa8372-03-67 20:00:00* Test Item Value Reference Range Interpretation Comments PSA, TOTAL (test code = 2857-1) 6.1 ng/mL See_Comment H [Automated [employer] ge] The system which generated this result transmitted reference range: < OR = 4.0. The reference range was not used to interpret this result as normal/abnormal. PSA, FREE (test code = 01609-9) 1.4 ng/mL PSA, % FREE (test code = 05262-5) See_Comment L PSA(ng/mL) ? ? ? Free PSA(%) ? ? Estimated(x) Probability ? of Cancer(as%)0-2.5 ?(*) ? Approx. 12.6-4.0(1) ? 0-27(2) ? 24(3)4.1-10(4) ?0-10 ?56 ? 11-15 ? 28 ? 16-20 ? 20 ? 21-25 ? 16 ? >or =26 ? 8>10(+) ? N/A ?>50 References:(1)Rui et al.:Urology 60: 469-474 (2001) ? (2)Rui et al.:J.Urol 168: 922-925 (2001) ?Free PSA(%) ? Sensitivity(%) ?Specificity(%) ?< or = 25 ?85 ?19 ?< or = 30 ?93 ? 9 ? (3)Rui et al.:TODD 277: 8026-2342 (1996) ? (4)Rui et al.:TODD 279: 6647-0390 (1997) (x)These estimates vary with age, ethnicity, family ? history and YOSELIN results.(*)The diagnostic usefulness of % Free PSA has not been ? established in patients with total PSA below 2.6 ng/mL(+)In men with PSA above 10 ng/mL, prostate cancer risk is ? determined by total PSA alone. The Total PSA value from this assay system is standardized against the equimolar PSA standard. The test result will be approximately 20% higher when compared to the WHO-standardized Total PSA (Siemens assay). Comparison of serial PSA results should be interpreted with this fact in mind. PSA was performed using the GenePeeksImmunoassay method. Values obtained from differentassay methods cannot be used interchangeably. PSAlevels, regardless of value, should not be interpretedas absolute evidence of the presence or absence ofdisease. [Automated message] The system which generated this result transmitted reference range: >25 % (calc). The reference range was not used to interpret this result as normal/abnormal. RAC (test code = RAC) Performing Organization Information: ? ?Site ID: IG ? ?Name: [facility] ? ?Address: [address] [place] [address]. [place] [address] ? ?Director: DERECK CARRANZA MD Lab Interpretation (test code = 91902-6) [facility]normal [facility] oikvs5116-21-92 11:00:00* Test Item Value Reference Range Interpretation Comme nts PROTEIN, TOTAL (test code = 2885-2) 7 g/dL 6.1-8.1 ALBUMIN (test code = 1751-7) 4.3 g/dL 3.6-5.1 GLOBULIN (test code = 04011-6) See_Comment [Automated message] The system which generated this result transmitted reference range: 1.9 - 3.7 g/dL (calc). The reference range was not used to interpret this result as normal/abnormal. ALBUMIN/GLOBULIN RATIO (test code = 1759-0) See_Comment [Automated message] The system which generated this result transmitted reference range: 1.0 - 2.5 (calc). The reference range was not used to interpret this result as normal/abnormal. BILIRUBIN, TOTAL (test code = 1974-) 0.7 mg/dL 0.2-1.2 BILIRUBIN, DIRECT (test code = 1967-) 0.2 mg/dL See_Comment [Automated message] The system which generated this result transmitted reference range: < OR = 0.2. The reference range was not used to interpret this result as normal/abnormal. BILIRUBIN, INDIRECT (test code = 1970-) See_Comment [Automated message] The system which generated this result transmitted reference range: 0.2 - 1.2 mg/dL (calc). The reference range was not used to interpret this result as normal/abnormal. ALKALINE PHOSPHATASE (test code = 6768-6) 86 U/L 35-144 AST (test code = 1920-8) 14 U/L 10-35 ALT (test code = 1742-6) 9 U/L 9-46 RAC (test code = RAC) Performing Organization Information: ? ?Site ID: RGA ? ?Name: [facility] ? ?Address: [address] [place] [phone] ? ?Director: DERECK CARRANZA MD [facility] metabolic fofwd7948-10-56 11:00:00* Test Item Value Reference Range Interpretation Comments GLUCOSE (test code = 2345-7) 103 mg/dL 65-99 H For someone with out known diabetes, a glucose valuebetween 100 and 125 mg/dL is consistent withprediabetes and should be confirmed with afollow-up test. ? Fasting reference interval UREA NITROGEN (BUN) (test code = 3094-0) 12 mg/dL 7-25 CREATININE (test code = 2160-0) 0.89 mg/dL 0.70-1.18 For patients >49 years of age, the reference limitfor Creatinine is approximately 13% higher for peopleidentified as -[place]. eGFR NON- (test code = 46378-4) See_Comment [Automated Mind[employer]NRG] The system which generated this result transmitted reference range: > OR = 60 mL/min/1.73m2. The reference range was not used to interpret this result as normal/abnormal. eGFR (test code = 80150-1) See_Comment [Cozy] The system which generated this result transmitted reference range: > OR = 60 mL/min/1.73m2. The reference range was not used to interpret this result as normal/abnormal. BUN/CREATININE RATIO (test code = 3097-3) NOT APPLICABLE See_Comment [Automated Mind-NRG] The system which generated this result transmitted reference range: 6 - 22 (calc). The reference range was not used to interpret this result as normal/abnormal. SODIUM (test code = 2951-2) 134 mmol/L 135-146 L POTASSIUM (test code = 2823-3) 4.7 mmol/L 3.5-5.3 CHLORIDE (test code = 2075-0) 100 mmol/L 98-110 CARBON DIOXIDE (test code = 2027-9) 28 mmol/L 20-32 CALCIUM (test code = 55752-2) 9.8 mg/dL 8.6-10.3 RAC (test code = RAC) Performing Organization Information: ? ?Site ID: RGA ? ?Name: [facility] ? ?Address: [address] [place] [phone] ? ?Director: DERECK CARRANZA MD Lab Interpretation (test code = 55624-6) Abnormal [facility] HospitalVit[facility] D 25 sehoypv2276-30-31 05:00:00* Test Item Value Reference Range Interpretation Comme [facility] VITAMIN D,25-OH,TOTAL,I A (test code = 1989-) 41 ng/mL 30-100 Vitamin D Status ? 25-OH Vitamin D: Deficiency: ?<20 ng/mLInsufficiency: ? 20 - 29 ng/mLOptimal: ? > or = 30 ng/mL For 25-OH Vitamin D testing on patients on D2-supplementation and patients for whom quantitation of D2 and D3 fractions is required, the QuestAssureD(TM)25- OH VIT D, (D2,D3), LC/MS/MS is recommended: order code 45372 (patients >2yrs).See Note 1 Note 1 For additional information, please refer to http://education.Gamook/ faq/WTN890 (This link is being provided for informational/educa tional purposes only.) RAC (test code = RAC) Performing Organization Information: ? ?Site ID: RGA ? ?Name: [facility] ? ?Address: [address] [place] [phone] ? ?Director: DERECK CARRANZA MD [place] HealthCBC and rmfcciyzexuo4623-57-20 04:00:00* Test Item Value Reference Range Interpretation Comme [facility] WHITE BLOOD CELL COUNT (test code = 6690-2) See_Comment [Automated message] The system which generated this result transmitted reference range: 3.8 - 10.8 Thousand/uL. The reference range was not used to interpret this result as normal/abnormal. RED BLOOD CELL COUNT (test code = 789-8) See_Comment [Automated message] The system which generated this result transmitted reference range: 4.20 - 5.80 Million/uL. The reference range was not used to interpret this result as normal/abnormal. HEMOGLOBIN (test code = 718-7) 13.9 g/dL 13.2-17.1 HEMATOCRIT (test code = 4544-3) 42 % 38.5-50.0 MCV (test code = 787-2) 90.9 fL 80.0-100.0 MCH (test code = 785-6) 30.1 pg 27.0-33.0 MCHC (test code = 786-4) 33.1 g/dL 32.0-36.0 RDW (test code = 788-0) 14.2 % 11.0-15.0 PLATELET COUNT (test code = 777-3) See_Comment [Automated message] The system which generated this result transmitted reference range: 140 - 400 Thousand/uL. The reference range was not used to interpret this result as normal/abnormal. MPV (test code = 776-5) 9 fL 7.5-12.5 ABSOLUTE NEUTROPHILS (test code = 751-8) See_Comment [Automated message] The system which generated this result transmitted reference range: 1500 - 7800 cells/uL. The reference range was not used to interpret this result as normal/abnormal. ABSOLUTE LYMPHOCYTES (test code = 731-0) See_Comment [Automated message] The system which generated this result transmitted reference range: 850 - 3900 cells/uL. The reference range was not used to interpret this result as normal/abnormal. ABSOLUTE MONOCYTES (test code = 742-7) See_Comment [Automated message] The system which generated this result transmitted reference range: 200 - 950 cells/uL. The reference range was not used to interpret this result as normal/abnormal. ABSOLUTE EOSINOPHILS (test code = 711-2) See_Comment [Automated message] The system which generated this result transmitted reference range: 15 - 500 cells/uL. The reference range was not used to interpret this result as normal/abnormal. ABSOLUTE BASOPHILS (test code = 704-7) See_Comment [Automated message] The system which generated this result transmitted reference range: 0 - 200 cells/uL. The reference range was not used to interpret this result as normal/abnormal. NEUTROPHILS (test code = 770-8) 67.4 % LYMPHOCYTES (test code = 736-9) 22.7 % MONOCYTES (test code = 5905-5) 9.2 % EOSINOPHILS (test code = 713-8) 0.5 % BASOPHILS (test code = 706-2) 0.2 % RAC (test code = RAC) Performing Organization Information: ? ?Site ID: RGA ? ?Name: [facility] ? ?Address: [address] [place] [phone] ? ?Director: DERECK CARRANZA MD [facility] urinalysis w/o spijm9542-35-00 21:58:00* Test Item Value Reference Range Interpretation Comme nts Color, UA (test code = 6411526) YELLOW Clarity, UA (test code = 1826467) Clear Glucose, UA (test code = 4792927) Negative Negative Bilirubin, UA (test code = 8091592) Negative Negative Ketones, UA (test code = 5630107) NEGATIVE Spec Grav, UA (test code = 0219118) 1.000-1.030 Blood, UA (test code = 5357639) NEGATIVE pH, UA (test code = 7390534) 5.0-8.5 Protein, UA (test code = 9894390) Negative Negative, Trace, 200(+2)mg/dL, 15/mg/dL Urobilinogen, UA (test code = 3014740) See_Comment [Automated [employer] ge] The system which generated this result transmitted reference range: 0.2. The reference range was not used to interpret this result as normal/abnormal. Leukocytes, UA (test code = 9296603) Negative Negative, Trace Nitrite, UA (test code = 5345348) Negative Negative, Trace Appearance, Fluid (test code = 9335-1) Clear Lab Interpretation (test code = 98189-4) [facility] Dvffd1059-19-09 13:44:00* Test Item Value Reference Range Interpretation Comme nts K (test code = 1867063246) 3.5 mmol/L 3.5-5 Lab Interpretation (test cod e = 56238-1) Normal [facility][O] Urine Dipstick (In Office)2020-05-16 13:46:00* Test Item Value Reference Range Interpretation Comme nts Glucose (test code = Glucose) Negative N LEUKOCYTES (test code = LEUKOCYTES) Negative N NITRITE; Normal (test code = 27027-5) Negative N UROBILINOGEN; Normal (test c ode = 66923-6) 0.2 N PROTEIN; Normal (test code = 75583-5) Negative N pH (test code = pH) 5.5 N URINE BLOOD; Normal (test co de = 44658-7) Negative N SPECIFIC GRAVITY; Normal (te st code = 2965-2) 1.025 N KETONES; Normal (test code = 79706-9) Negative N BILIRUBIN; Normal (test code = 01859-5) Negative N [facility] Date/Time Note Provider Source 2024-05-02 11:02:29 [id number]+a uER+VXJp8vWk2mkAbui BC7PgDQ1geEByAA5boEnWqOK+DiaUFiylMNX074 02-05-02T11:02:29+ +| Diagnosis |+ +| Abnormal foot finding - Primary |+ +518 48-0AssessmentsLNVisit ShrslsmvjPLF22576286-33YE-EO4G-QMA7-X0P W728INH1OTMCgxnlyxbm for patient cfpkNusybxiDqyomyyxuVVRXg67 Section NarrativeNARRATIVEFormatted C-CDA narrative textMHIEEPICMemori[address] VdPmpzthyNsbgiucCAOK2442298861SEYZWPXNR DARGONG7719-02-74Z66:02:29 [facility] 2024-05-02 11:02:29 [id number]/NFvyCk +Ic7lEVVr/KFB6Op+Yc LBmYBlTBRTvfTP5BKy87lrHCy3DVIUehJnZE228 02-05-02T11:02:29+ ---+ + +------- -----+ +| Career Counselor | Relationship | Specialty | Start Date | End Date |+ + ====+ + +========= =+| Elvis Case MD | PCP - General | | 12/30/23 | || | | | | || | | | | || | | | | || [address] [facility] [address] | | | | || | | | | || [place] [address] | | | | || | | | | || | | | | || | | | | || | | | | |+ + ----+ + +--------- -+28246-1Nqozatr Care team informationLNCare [id number] 2.2.500AVAvailable for patient wfrjBejzsilEzorducouXBHZu51 Section NarrativeNARRATIVEFormatted C-CDA narrative textMHIEEPICMemo[address] [id number] FXNJFIP2569-32-70L85:02:29 [facility] 2024-05-02 11:02:29 [id number] moHsFGDWWFeXyIbjWol AZSC0YEZUBqcOHK+/DIKZgp6pe2OJLH0XB0V522 02-05-02T11:02:29 * Grant Alamo, GURINDER - 04/12/2024 9:00 AM CDT CHIEF COMPLAINT ULCER, LEFT HALLUX ULCER, RIGHT LATERAL 5TH METATARSAL HEAD - resolved 01/12/2024 ANKLE FRACTURE, RIGHT BIMALLEOLAR - resolved __- Patient states stable wound with offloading and local care 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 to activities of daily living wearing regular shoe gear Patient denies pain, infection, injury, other wounds in the bilateral lower extremity __- Patient states he has noticed a wound from increased activity, starting approximately September 15, 2023 Patient denies pain, infection, injury, other wounds in the bilateral lower extremity __- Patient returns for evaluation of right ankle fracture Patient states symptoms have much improved and is hoping to be able to start physical therapy Patient denies pain, infection, injury, wounds throughout the right lower extremity Patient states pain currently rated 0/10, right ankle __- Patient states he tripped while at the religion, June 24, 2023 Patient immediately had pain, swelling, and unable to bear weight. Patient seen at urgent care, provided posterior splint, advised to follow-up with specialist, June 24, 2023. PHYSICAL EXAM OF THE LOWER EXTREMITY Vascular (-) edema, BILATERAL lower extremity, (-) ecchymosis (-) erythema Dorsal pedis pulse, bilateral - 2/4; Posterior tibial pulse, bilateral- 2/4 Capillary Refill time: within normal limits (-) varicosities, (+) pedal hair growth. Neurological (+) sensation with 5.07 Dupont Radha monofilament examination to the most distal lower extremity (-) tinel's sign (-) clonus present. Dermatological (+) Full-thickness ulceration, left distal hallux tuft, measures 0.2 x 0.2 x 0.5 cm (-) open wounds after debridement, RIGHT lateral 5th metatarsal head (-) ischemic tissue (-) probing to bone (-) signs of soft tissue infection, (-) tenting of the skin (-) abscess (-) other primary or secondary lesions (+) normal temperature when compared to contralateral limb (+) normal color, tugor, and elasticity. Musculoskeletal (-) pain on palpation, right 5th metatarsal head ulcer (-) pain on palpation, RIGHT medial, anterior, lateral ankle (-) pain to the syndesmosis with dorsiflexion and external rotation of the foot (-) pain on palpation to posterior ankle (-) proximal fibular pain (-) pain on palpation to the 5th metatarsal base (-) pain on palpation to the anterior calcaneal tuberosity 5/5 muscle strength to extrinsic pedal muscle groups, as expected (-) evidence of compartment syndrome, (-) evidence of deep vein thrombosis X-rays right ankle 06/28/2023: (+) oblique nondisplaced medial malleolus fracture (+) Nondisplaced Dunne A lateral malleolus fracture X-rays right ankle 07/27/2023: (+) callus formation at aligned oblique nondisplaced medial malleolus fracture (+) callus formation at well aligned nondisplaced Dunne A lateral malleolus fracture (+) extensive vascular calcifications X-rays right ankle 08/23/2023: (+) continued improving callus formation at aligned oblique nondisplaced medial malleolus and lateral malleolus fractures (+) improving fracture gap (+) extensive vascular calcifications (+) disuse osteopenia (-) syndesmosis diastasis X-rays right foot/ankle 09/27/2023: (+) medial and lateral malleolus fracture with mild interval healing (+) fracture gap less than 1 cm (-) osteomyelitis (-) gas (-) foreign body --- CT right ankle 06/28/2023: (+) oblique nondisplaced medial malleolus fracture (+) Nondisplaced Dunne A lateral malleolus fracture __- Arterial studies bilateral lower extremity 06/28/2023: (+) Mild infra-popliteal peripheral vascular disease. Assessment Ulcer, left hallux --- ulcer, right lateral 5th metatarsal head Ankle fracture. 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, therefore continue conservative treatments - antibiotics - not indicated, completed 12/01/2023 and 09/22/2023 DOXY for prophylaxis - Wound - DEBRIDED partial-thickness through fascia since medically necessary to remove nonviable tissue with scalpel to better assess the wound, remove tissue at risk for infection, help promote healing - wound care - no longer indicated since wound is fully resolved - Cast - not indicated, previously completed 07/28/2023 (4 of 4) with unna boot casting for edema control and stabilization - Pain - continue previously prescribed 07/14 TRAMADOL as needed for breakthrough pain - X-rays - reviewed - CT - reviewed - vascular - completed in shoe for right lower extremity, discussed 04/[address] 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 Patient Instructions: Discussion: A detailed discussion was provided to the patient with specific reference to etiology, pathology, alternate treatment options, and prognosis. All risks and complications (including side effects) with each treatment/medication alternative were outlined in detail including but not limited to: Pain, swelling, numbness, loss of function, loss of limb, bleeding, hematoma, scarring, failure to relieve condition, surgery, additional/revisional surgery, reflex sympathetic dystrophy, complex regional pain syndrome, reoccurrence of deformity, joint stiffness, flail toe, bone and/or soft tissue infection, blood clots, pulmonary embolism, possible , delayed or non-healing. X-rays, graphs and drawings were all used to assist with patient comprehension when appropriate. All patients questions were answered and stated they fully understood. No guarantee as to results or outcome of treatment was made. I have discussed with the patient or legally responsible person prior to obtaining consent: the risks, potential benefits and drawbacks, significant alternatives, potential for problems related to recuperation, likelihood of success, and possible results of non-treatment, and the patient or the legally responsible person has agreed to proceed. 16477-2Sjyjyaf of Present IllnessLNProgress [id number] SPL9LGOWmmhdgefy for patient thgmBxaescqPvgcetpjlMBETx42 Section NarrativeNARRATIVEFormatted C-CDA narrative textMHIEEPICMemorial Rzynrrm452 [facility] Hosp[id number] XQNOXAC4804-48-49Y76:02:29 [facility] 2024-05-02 11:02:29 [id number] Gd51fa8SHAGniRXaSgA mx1R8bnyyjFvbruFCA+kzNnpdKFTjUtJiQZC015 02-05-02T11:02:29Upcoming Encounters+ +--- + +------- + -+| Date | Type | Department | Care Team (Latest Contact Info) | Description |+ + ==+ + + +| 05/10/2024 9:30 AM CDT | Office Visit | [facility] [place] | Jasmeet, Grant Smith DPM | || | | | | || | | [address] [facility] | [address] [facility] [address] | || | | | | || | | [place] [address] | [place] [address] | || | | | | || | | [phone] | | || | | | | || | | | | |+ + --+ + + ++------ +------- -----+ +-------- +| Health Maintenance | Due Date | Last Done | Comments |+ + + + +| Diabetes: Hemoglobin A1C | 1945 | | |+ + + + +| Lipid Panel | 1945 | | |+ + + + +| Medicare Annual Wellness (AWV) | 1945 | | |+ + + + +| Diabetes: Foot Exam | 1955 | | |+ + + + +| Diabetes: Retinopathy Screening | 1955 | | |+ + + + +| DTaP/Tdap/Td Vaccines (1 - Tdap) | 1964 | | |+ + + + +| Zoster Vaccines (1 of 2) | 1964 | | |+ + + + +| Respiratory Syncytial Virus (RSV) or >=60 (1 - 1-dose 60+ series) | 2005 | | |+ + + + +| Diabetes: Urine Protein Screening | 10/16/2023 | 10/16/2022, 07/29/2022, 04/29/2022, Additional history exists | |+ + + + +| Influenza Vaccine (#1) | 07/02/2024 | 06/24/2020, 10/04/2017, 08/03/2016 | |+ + + + +| Pneumococcal Vaccine: 65+ Years | Completed | 03/05/2022, 06/24/2020, 11/09/2016 | |+ + + + +| HIB Vaccines | Aged Out | | No longer eligible based on patient's age to complete this topic |+ + + + +| HPV Vaccines | Aged Out | | No longer eligible based on patient's age to complete this topic |+ + + + +| Hepatitis A Vaccines | Aged Out | | No longer eligible based on patient's age to complete this topic |+ + + + +| Hepatitis B Vaccines | Aged Out | | No longer eligible based on patient's age to complete this topic |+ + + + +| IPV Vaccines | Aged Out | | No longer eligible based on patient's age to complete this topic |+ + + + +| Meningococcal Vaccine | Aged Out | | No longer eligible based on patient's age to complete this topic |+ + + + +| Rotavirus Vaccines | Aged Out | | No longer eligible based on patient's age to complete this topic |+ + + + +07451-2Htzc of TreatmentLNPlan of [id number]. 20.22.2.10AVAvailable for patient bcgnRbzqmaxNlxbsheygFVNGn34 Section NarrativeNARRATIVEFormatted C-CDA narrative textMHIEEPICMemorial [address] [id number] NGJDAEJ9302-40-67Y28:02:29 [facility] 2024-05-02 11:02:29 [id number]+a uER+QWCi4uMb7yvStof QU6CkDU0xbGWrRG9ebOvNwCU+BsoTFkjhQVN817 02-05-02T11:02:29+ +| Diagnosis |+ +| Abnormal foot finding - Primary |+ +518 48-0AssessmentsLNVisit [id number]-KZG5-CJW5-P6O C137MXD7ODQHieflpfsy for patient bfuoAiquwsfTzunjddluOUVRk31 Section NarrativeNARRATIVEFormatted C-CDA narrative textMHIEEPICMemorial Eqfeceb559 [facility] [id number] AVBDXZP1352-42-19H06:02:29 [facility] 2024-05-02 11:02:29 [id number]/NFvyCk +Mc6oKARu/KFB6Op+Yc VVbURlZAPUcpOC5IKm81ivAMx3QOAAztYiOJ450 02-05-02T11:02:29+ ---+ + +------- -----+ +| Career Counselor | Relationship | Specialty | Start Date | End Date |+ + ====+ + +========= =+| Elvis Case MD | PCP - General | | 12/30/23 | || | | | | || | | | | || | | | | || [address] | | | | || | | | | || [place] [address] | | | | || | | | | || | | | | || | | | | || | | | | |+ + ----+ + +--------- -+[id number] Care team informationLNCare [id number] 2.2.500AVAvailable for patient ucrtPabypkfWgftpuwneGYZWu04 Section NarrativeNARRATIVEFormatted C-CDA narrative textMHIEEPICMemorial [address] [place] [address] [id number] HBWVIXV8473-76-66K04:02:29 [facility] 2024-05-02 11:02:29 [id number] moHsFGDWWFeXyIbjWol CMIK2QZSHWnwWSE+/GCVZkp0eg8BFMX7EI3M834 02-05-02T11:02:29 * Grant Alamo, [facility] - 04/12/2024 9:00 AM CDT CHIEF COMPLAINT ULCER, LEFT HALLUX ULCER, RIGHT LATERAL 5TH METATARSAL HEAD - resolved 01/12/2024 ANKLE FRACTURE, RIGHT BIMALLEOLAR - resolved __- Patient states stable wound with offloading and local care 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 to activities of daily living wearing regular shoe gear Patient denies pain, infection, injury, other wounds in the bilateral lower extremity __- Patient states he has noticed a wound from increased activity, starting approximately September 15, 2023 Patient denies pain, infection, injury, other wounds in the bilateral lower extremity __- Patient returns for evaluation of right ankle fracture Patient states symptoms have much improved and is hoping to be able to start physical therapy Patient denies pain, infection, injury, wounds throughout the right lower extremity Patient states pain currently rated 0/10, right ankle __- Patient states he tripped while at the religion, June 24, 2023 Patient immediately had pain, swelling, and unable to bear weight. Patient seen at urgent care, provided posterior splint, advised to follow-up with specialist, June 24, 2023. PHYSICAL EXAM OF THE LOWER EXTREMITY Vascular (-) edema, BILATERAL lower extremity, (-) ecchymosis (-) erythema Dorsal pedis pulse, bilateral - 2/4; Posterior tibial pulse, bilateral- 2/4 Capillary Refill time: within normal limits (-) varicosities, (+) pedal hair growth. Neurological (+) sensation with 5.07 Dupont Radha monofilament examination to the most distal lower extremity (-) tinel's sign (-) clonus present. Dermatological (+) Full-thickness ulceration, left distal hallux tuft, measures 0.2 x 0.2 x 0.5 cm (-) open wounds after debridement, RIGHT lateral 5th metatarsal head (-) ischemic tissue (-) probing to bone (-) signs of soft tissue infection, (-) tenting of the skin (-) abscess (-) other primary or secondary lesions (+) normal temperature when compared to contralateral limb (+) normal color, tugor, and elasticity. Musculoskeletal (-) pain on palpation, right 5th metatarsal head ulcer (-) pain on palpation, RIGHT medial, anterior, lateral ankle (-) pain to the syndesmosis with dorsiflexion and external rotation of the foot (-) pain on palpation to posterior ankle (-) proximal fibular pain (-) pain on palpation to the 5th metatarsal base (-) pain on palpation to the anterior calcaneal tuberosity 5/5 muscle strength to extrinsic pedal muscle groups, as expected (-) evidence of compartment syndrome, (-) evidence of deep vein thrombosis X-rays right ankle 06/28/2023: (+) oblique nondisplaced medial malleolus fracture (+) Nondisplaced Dunne A lateral malleolus fracture X-rays right ankle 07/27/2023: (+) callus formation at aligned oblique nondisplaced medial malleolus fracture (+) callus formation at well aligned nondisplaced Dunne A lateral malleolus fracture (+) extensive vascular calcifications X-rays right ankle 08/23/2023: (+) continued improving callus formation at aligned oblique nondisplaced medial malleolus and lateral malleolus fractures (+) improving fracture gap (+) extensive vascular calcifications (+) disuse osteopenia (-) syndesmosis diastasis X-rays right foot/ankle 09/27/2023: (+) medial and lateral malleolus fracture with mild interval healing (+) fracture gap less than 1 cm (-) osteomyelitis (-) gas (-) foreign body --- CT right ankle 06/28/2023: (+) oblique nondisplaced medial malleolus fracture (+) Nondisplaced Dunne A lateral malleolus fracture __- Arterial studies bilateral lower extremity 06/28/2023: (+) Mild infra-popliteal peripheral vascular disease. Assessment Ulcer, left hallux --- ulcer, right lateral 5th metatarsal head Ankle fracture. 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, therefore continue conservative treatments - antibiotics - not indicated, completed 12/01/2023 and 09/22/2023 SILVERIO for prophylaxis - Wound - DEBRIDED partial-thickness through fascia since medically necessary to remove nonviable tissue with scalpel to better assess the wound, remove tissue at risk for infection, help promote healing - wound care - no longer indicated since wound is fully resolved - Cast - not indicated, previously completed 07/28/2023 (4 of 4) with unna boot casting for edema control and stabilization - Pain - continue previously prescribed 07/14 TRAMADOL as needed for breakthrough pain - X-rays - reviewed - CT - reviewed - vascular - completed in shoe for right lower extremity, discussed 04/[address] 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 Patient Instructions: Discussion: A detailed discussion was provided to the patient with specific reference to etiology, pathology, alternate treatment options, and prognosis. All risks and complications (including side effects) with each treatment/medication alternative were outlined in detail including but not limited to: Pain, swelling, numbness, loss of function, loss of limb, bleeding, hematoma, scarring, failure to relieve condition, surgery, additional/revisional surgery, reflex sympathetic dystrophy, complex regional pain syndrome, reoccurrence of deformity, joint stiffness, flail toe, bone and/or soft tissue infection, blood clots, pulmonary embolism, possible , delayed or non-healing. X-rays, graphs and drawings were all used to assist with patient comprehension when appropriate. All patients questions were answered and stated they fully understood. No guarantee as to results or outcome of treatment was made. I have discussed with the patient or legally responsible person prior to obtaining consent: the risks, potential benefits and drawbacks, significant alternatives, potential for problems related to recuperation, likelihood of success, and possible results of non-treatment, and the patient or the legally responsible person has agreed to proceed. 55198-4Mrmwdnc of Present IllnessLNProgress [id number] OXB3YUHPvgwgcjsj for patient whtpWgoffhcYoyapsxhoKUOKw60 Section NarrativeNARRATIVEFormatted C-CDA narrative textMHIEEPICMemorial [address] St[id number] JLNWNXM9922-71-57A04:02:29 [facility] 2024-05-02 11:02:29 [id number] Ys24iy3LKXRsbGFtChB fq0J4zjoybKkjrlCLU+zmKutxMHHgAsMiGYF087 02-05-02T11:02:29Upcoming Encounters+ +--- + +------- + -+| Date | Type | Department | Care Team (Latest Contact Info) | Description |+ + ==+ + + +| 05/10/2024 9:30 AM CDT | Office Visit | [facility] [place] | Grant Alamo DPM | || | | | | || | | [address] [place] [address] | [address] [place] [address] | || | | | | || | | [place] [address] | [place] [address] | || | | | | || | | [phone] | | || | | | | || | | | | |+ + --+ + + ++------ +------- -----+ +-------- +| Health Maintenance | Due Date | Last Done | Comments |+ + + + +| Diabetes: Hemoglobin A1C | 1945 | | |+ + + + +| Lipid Panel | 1945 | | |+ + + + +| Medicare Annual Wellness (AWV) | 1945 | | |+ + + + +| Diabetes: Foot Exam | 1955 | | |+ + + + +| Diabetes: Retinopathy Screening | 1955 | | |+ + + + +| DTaP/Tdap/Td Vaccines (1 - Tdap) | 1964 | | |+ + + + +| Zoster Vaccines (1 of 2) | 1964 | | |+ + + + +| Respiratory Syncytial Virus (RSV) or >=60 (1 - 1-dose 60+ series) | 2005 | | |+ + + + +| Diabetes: Urine Protein Screening | 10/16/2023 | 10/16/2022, 07/29/2022, 04/29/2022, Additional history exists | |+ + + + +| Influenza Vaccine (#1) | 07/02/2024 | 06/24/2020, 10/04/2017, 08/03/2016 | |+ + + + +| Pneumococcal Vaccine: 65+ Years | Completed | 03/05/2022, 06/24/2020, 11/09/2016 | |+ + + + +| HIB Vaccines | Aged Out | | No longer eligible based on patient's age to complete this topic |+ + + + +| HPV Vaccines | Aged Out | | No longer eligible based on patient's age to complete this topic |+ + + + +| Hepatitis A Vaccines | Aged Out | | No longer eligible based on patient's age to complete this topic |+ + + + +| Hepatitis B Vaccines | Aged Out | | No longer eligible based on patient's age to complete this topic |+ + + + +| IPV Vaccines | Aged Out | | No longer eligible based on patient's age to complete this topic |+ + + + +| Meningococcal Vaccine | Aged Out | | No longer eligible based on patient's age to complete this topic |+ + + + +| Rotavirus Vaccines | Aged Out | | No longer eligible based on patient's age to complete this topic |+ + + + +09946-1Sgjv of TreatmentLNPlan of [id number] .[id number]. 20.22.2.10AVAvailable for patient jjgzBqrnnsvWzdbaumjuVXCAk90 Section NarrativeNARRATIVEFormatted C-CDA narrative textMHIEEPICMemorial Oxrepzu[address] Carlos [id number] KODOJQM7898-21-64V99:02:29 [place]
--- NOTE | 2024-05-05 19:51 | RAD REPORT ---
EXAM DESCRIPTION: RAD - Foot Left 3 View - 05/05/2024 7:43 pm CLINICAL HISTORY: Left Foot pain FINDINGS: No fracture or dislocation is seen. Soft tissue ulceration medial aspect first distal phalanx. No bony destructive lesions seen. Osteoporosis. Vascular calcifications. Large calcaneal spur
[2024-05-05 21:02] LABS: Absolute Basophils 0.1 K/uL (0-0.5); Absolute Eosinophils 0.1 K/uL (0-0.5); Absolute Lymphocytes (CBC) 1.5 K/uL (0.7-4.9); Absolute Monocytes 0.8 K/uL (0.1-1.3); Absolute Neutrophil 5.2 K/uL (1.8-8.0); Basophils % 0.9 % (0-1.3); Hematocrit 38.1 % (39.6-49.0); Hemoglobin 12.5 g/dL (13.6-17.9); Lymphocytes % 19.7 % (15.3-44.8); MCH 30.6 pg (27.0-35.0); MCHC 32.9 g/dL (32.0-36.0); MPV 6.4 fL (7.6-11.3); Monocytes % 10.1 % (3.3-12.3); Neutrophils % 68.3 % (41.7-73.7); Platelets 371 thou/uL (152-406); Red Cell Distribution Width 15.5 % (12.1-15.2)
[2024-05-05 21:11] LABS: PT Prothrombin Time 13.5 SECONDS (9.4-12.5); Protime INR 1.23
[2024-05-05 21:19] LABS: Albumin 3.4 g/dL (3.4-5.0); Albumin/Globulin Ratio 0.9 (1.1-1.8); Anion Gap 7.6 mEq/L (5.0-15.0); Bilirubin Total 0.4 mg/dL (0.2-1.0); C-Reactive Protein 15.6 mg/L (<3.00); Potassium 3.6 mEq/L (3.5-5.1); Protein, Total 7.4 g/dL (6.4-8.2)
[2024-05-05] MEDS ORDERED: FENTANYL CITR 100 MCG/2 ML ONE (21:44)
[2024-05-05 21:49] LABS: Platelet Estimate ADEQ; Platelets, Giant FEW OBSERVED; White Blood Cell Scan OK (OK)
[2024-05-05 21:50] LABS: Blood Morphology Comment NOT SEEN (NOT SEEN)
[2024-05-05] MEDS ORDERED: Levofloxacin 750mg IV 750 MG/150 ML BAG IV ONE (22:36)
--- NOTE | 2024-05-05 23:10 | EDPHYS ---
Physician Documentation [facility] Name: Ruel Smith Age: 78 yrs Sex: Male : 1945 Arrival Date: 05/05/2024 Time: 18:05 Bed DX4 Private MD: ED Physician Bogdan Ochoa HPI: 05/05 19:20 This 78 yrs old Black Male presents to ER via Ambulatory with complaints of Wound Check cp - on feet. 19:20 The patient presents with pain, that is chronic. The complaints affect the left foot, cp left great toe. Context: chronic wound to left great toe times 10 months. Has upcoming vascular appointment next month and wound being managed by surgeon. currently taking prescribed Doxycycline. reports increased pain over past several days. denies fever. Historical: - Allergies: 18:12 Morphine; ll1 - PMHx: 18:12 Hypertension; ll1 - PSHx: 18:12 BRANDYN knee; kidney transplant; Stented artery; ll1 - Immunization history:: Adult Immunizations. - Infectious Disease History:: Denies. - Social history:: Smoking status: Patient denies any tobacco usage or history of. ROS: 19:25 Constitutional: Negative for body aches, chills, fever, poor PO intake, cp 19:25 Cardiovascular: Negative for chest pain, 19:25 Respiratory: Negative for cough, shortness of breath, wheezing, 19:25 Abdomen/GI: Negative for nausea, vomiting, and diarrhea, 19:25 MS/extremity: Positive for pain, of the left foot, 19:25 Neuro: Negative for altered mental status, headache, weakness, 19:25 All other systems are negative, Exam: 19:30 Constitutional: The patient appears in no acute distress, alert, awake, non-toxic, well cp developed, well nourished, uncomfortable, 19:30 Head/Face: Normocephalic, atraumatic. cp 19:30 Eyes: Periorbital structures: appear normal, Conjunctiva: normal, no exudate, no injection, Sclera: no appreciated abnormality, Lids and lashes: appear normal, bilaterally, 19:30 ENT: External ear(s): are unremarkable, Nose: is normal, Mouth: Lips: moist, Oral mucosa: moist, Posterior pharynx: Airway: no evidence of obstruction, patent, 19:30 Chest/axilla: Inspection: normal, 19:30 Cardiovascular: Rate: normal, Rhythm: regular, Edema: is not appreciated, 19:30 Respiratory: the patient does not display signs of respiratory distress, Respirations: normal, no use of accessory muscles, no retractions, labored breathing, is not present, Breath sounds: are clear throughout, no decreased breath sounds, no stridor, no wheezing, 19:30 Abdomen/GI: Exam negative for discomfort, distension, guarding, Inspection: abdomen appears normal, 19:30 Musculoskeletal/extremity: Extremities: noted in the left foot: open wound noted medial plantar side of left great toe with mild drainage, mild swelling and erythema of toe extending proximally, tenderness to palpation, Perfusion: the extremity is noted to have sluggish capillary refill, 19:30 Neuro: Orientation: to person, place \T\ time. Mentation: is normal, 21:20 ECG was reviewed by the Attending Physician. Vital Signs: 18:43 BP 165 / 77; Pulse 85; Resp 17; Temp 97.6; Pulse Ox 99% ; Weight 104.33 kg; Height 5 ll1 ft. 11 in. ; Pain 9/10; 21:20 BP 176 / 80; Pulse 67; Resp 16; Temp 98.2; Pulse Ox 98% ; Weight 104.3 kg; Height 5 ft. ty 11 in. ; Pain 9/10; 23:45 BP 171 / 87; Pulse 95; Resp 16; Pulse Ox 98% on R/A; jb4 21:20 Body Mass Index 32.07 (104.30 kg, 180.34 cm) ty 18:43 Pain Scale: Adult ll1 21:20 Pain Scale: Adult ty MDM: 18:32 Patient medically screened. 20:00 Differential diagnosis: fracture, gout, cellulitis, abscess, osteomyelitis, sepsis. 23:08 Data reviewed: vital signs, nurses notes, lab test result(s), EKG, radiologic studies, plain films. 23:08 I considered the following discharge prescriptions or medication management in the emergency department Medications were administered in the Emergency Department. See MAR. Care significantly affected by the following chronic conditions: Hypertension. Counseling: I had a detailed discussion with the patient and/or guardian regarding the historical points, exam findings, and any diagnostic results supporting the discharge/admit diagnosis, lab results, radiology results, the need for outpatient follow up, a general surgeon, vascular, to return to the emergency department if symptoms worsen or persist or if there are any questions or concerns that arise at home. Response to treatment: the patient's symptoms have markedly improved after treatment, and as a result, I will discharge patient. 05/05 19:17 Order name: Blood Culture Adult (2) cp 05/05 19:17 Order name: CBC with Diff; Complete Time: 21:51 cp 05/05 21:52 Interpretation: Normal except: RBC 4.10; HGB 12.5; HCT 38.1; RDW 15.5; MPV 6.4. cp 05/05 19:17 Order name: CMP; Complete Time: 21:51 cp 05/05 21:52 Interpretation: Normal except: GFR 89; ALK 127; GLOB 4.0; A/G 0.9. cp 05/05 19:17 Order name: Lactate w/ 2H reflex if indic.; Complete Time: 21:51 cp 05/05 21:52 Interpretation: Reviewed. 05/05 19:17 Order name: Protime (+inr); Complete Time: 21:51 cp 05/05 19:17 Order name: Ptt, Activated; Complete Time: 21:51 cp 05/05 19:17 Order name: CRP; Complete Time: 21:51 cp 05/05 19:18 Order name: Wound Culture 05/05 21:12 Order name: Glucose, Ancillary Testing; Complete Time: 21:51 EDMS 05/05 21:21 Order name: CBC Smear Scan; Complete Time: 21:51 EDMS 05/05 19:17 Order name: XRAY Foot LEFT 3 View; Complete Time: 21:51 cp 05/05 21:52 Interpretation: Reviewed report. cp 05/05 19:17 Order name: EKG; Complete Time: 19:18 cp 05/05 19:17 Order name: Accucheck; Complete Time: 21:20 cp 05/05 19:17 Order name: Cardiac monitoring; Complete Time: 21:20 cp 05/05 19:17 Order name: EKG - Nurse/Tech; Complete Time: 21:20 cp 05/05 19:17 Order name: IV Saline Lock - Large Bore; Complete Time: 20:55 cp 05/05 19:17 Order name: Labs collected and sent; Complete Time: 20:55 cp 05/05 19:17 Order name: O2 Per Protocol; Complete Time: 21:20 cp 05/05 19:17 Order name: O2 Sat Monitoring; Complete Time: 21:20 cp 05/05 19:17 Order name: Vital Signs; Complete Time: 21:20 cp EC:20 Rate is 64 beats/min. Rhythm is regular. OR interval is normal. QRS interval is normal. cp QT interval is normal. T waves are Inverted in lead aVR. Interpreted by me. Reviewed by me. Administered Medications: 22:00 Drug: fentaNYL (PF) IVP 25 mcg IVP once Route: IVP; Site: right forearm; jb4 22:27 Follow up: Response: No adverse reaction; Marked relief of symptoms; Pain is decreased; jb4 RASS: Alert and Calm (0) 22:39 Drug: levofloxacin IVPB 750 mg 150 ml IVPB once over 90 mins Volume: 150 ml; Route: jb4 IVPB; Infused Over: 90 mins; Site: right forearm; Disposition Summary: 05/05/24 23:09 Discharge Ordered Notes: Location: Home cp Problem: an ongoing problem cp Symptoms: have improved cp Condition: Stable cp Diagnosis - Cellulitis of left lower limb cp - Open wound of toe without damage to nail - left great toe cp Followup: cp - With: Private Physician - When: 5 - 6 days - Reason: Wound Recheck Discharge Instructions: - Discharge Summary Sheet cp - Cellulitis, Adult cp - Wound Infection cp Forms: - Medication Reconciliation Form cp - Antibiotic Education cp - Prescription Opioid Use cp - Patient Portal Instructions cp - Leadership Thank You Letter cp Prescriptions: - Ultracet 37.5-325 mg Oral tablet - take 1 tablet ORAL route every 6 hours - for up to 5 days; do not exceed 8 cp tablets per day.; 15 tablet; Refills: 0, Product Selection Permitted - levofloxacin 750 mg Oral tablet - take 1 tablet ORAL route once daily continue taking evening of 05/06/2024; 9 cp tablet; Refills: 0, Product Selection Permitted Addendum: 05/07/2024 18:12 Co-signature as Attending Physician, Bogdan Ochoa MD I reviewed the patient's care r t provided by the Advanced Practice Provider and agree with the diagnosis and treatment plan. Signatures: Dispatcher [employer] EDLuciano Franco PA PA cp German Sexton RN RN jb4 Jesu Smith RN RN ll1 Bogdan Ochoa MD MD rt Corrections: (The following items were deleted from the chart) 05/06 18:05/05 19:00 MS/extremity: Positive for pain, of the left foot, cp cp 05/06 18:05/05 19:00 Constitutional: Negative for body aches, chills, fever, poor PO intake, cp cp 05/06 18:05/05 19:00 Cardiovascular: Negative for chest pain, cp cp 05/06 18:05/05 19:00 Respiratory: Negative for cough, shortness of breath, wheezing, cp cp 05/06 18:05/05 19:00 Abdomen/GI: Negative for nausea, vomiting, and diarrhea, cp cp 05/06 18:05/05 19:00 Neuro: Negative for altered mental status, headache, weakness, cp cp 05/06 18:05/05 19:00 All other systems are negative, cp cp
--- NOTE | 2024-05-05 23:10 | ER ---
Nurse's Notes [facility] Name: Ruel Smith Age: 78 yrs Sex: Male : 1945 Arrival Date: 05/05/2024 Time: 18:05 Bed DX4 Private MD: Diagnosis: Cellulitis of left lower limb;Open wound of toe without damage to nail-left great toe Presentation: 05/05 18:43 Chief complaint: Patient states: Chronic L foot wound for 10 months. Pain to L foot is ll1 worse than usual for 3-4 months. R foot is healing. Coronavirus screen: Client denies travel out of the [place] in the last 14 days. At this time, the client does not indicate any symptoms associated with coronavirus-19. Ebola Screen: Patient denies travel to an Ebola-affected area in the 21 days before illness onset. Initial Sepsis Screen: Does the patient meet any 2 criteria? No. Patient's initial sepsis screen is negative. Does the patient have a suspected source of infection? No. Patient's initial sepsis screen is negative. Risk Assessment: Do you want to hurt yourself or someone else? Patient reports no desire to harm self or others. Onset of symptoms was February 04, 2020. 18:43 Method Of Arrival: Ambulatory ll1 18:43 Acuity: ALIA 3 ll1 Triage Assessment: 18:46 General: Appears uncomfortable, Behavior is calm, cooperative, appropriate for age. ll1 Pain: Complains of pain in left foot Pain currently is 9 out of 10 on a pain scale. Quality of pain is described as aching. Derm: Reports chronic wound L foot 1st digit. Historical: - Allergies: 18:12 Morphine; ll1 - PMHx: 18:12 Hypertension; ll1 - PSHx: 18:12 BRANDYN knee; kidney transplant; Stented artery; ll1 - Immunization history:: Adult Immunizations. - Infectious Disease History:: Denies. - Social history:: Smoking status: Patient denies any tobacco usage or history of. Screenin:45 [facility] ED Fall Risk Assessment (Adult) History of falling in the last 3 months, jb4 including since admission No falls in past 3 months (0 pts) Confusion or Disorientation No (0 pts) Intoxicated or Sedated No (0 pts) Impaired Gait No (0 pts) Mobility Assist Device Used Yes (1 pt) Altered Elimination No (0 pt) Score/Fall Risk Level 0 - 2 = Low Risk Oriented to surroundings, Maintained a safe environment. Abuse screen: Denies threats or abuse. Nutritional screening: No deficits noted. Tuberculosis screening: No symptoms or risk factors identified. Assessment: 22:00 General: Appears in no apparent distress. uncomfortable, Behavior is calm, cooperative, jb4 appropriate for age. Neuro: Level of Consciousness is awake, alert, obeys commands, Oriented to person, place, time, situation. Cardiovascular: Patient's skin is warm and dry. Respiratory: Airway is patent Respiratory effort is even, unlabored, Respiratory pattern is regular, symmetrical. GI: No signs and/or symptoms were reported involving the gastrointestinal system. : No signs and/or symptoms were reported regarding the genitourinary system. EENT: No signs and/or symptoms were reported regarding the EENT system. 22:00 Pain: Complains of pain in plantar aspect of left first toe Pain does not radiate. Pain jb4 currently is 9 out of 10 on a pain scale. Quality of pain is described as burning, stabbing, throbbing. Derm: Skin is dry, Skin is normal, Skin temperature is warm Wound noted Left first toe. 23:13 Reassessment: D/c pending completion of IV antibiotics. jb4 05/06 00:09 Reassessment: Patient appears in no apparent distress at this time. Patient and/or jb4 family updated on plan of care and expected duration. Pain level reassessed. Patient is alert, oriented x 3, equal unlabored respirations, skin warm/dry/pink. Vital Signs: 05/05 18:43 BP 165 / 77; Pulse 85; Resp 17; Temp 97.6; Pulse Ox 99% ; Weight 104.33 kg; Height 5 ll1 ft. 11 in. ; Pain 9/10; 21:20 BP 176 / 80; Pulse 67; Resp 16; Temp 98.2; Pulse Ox 98% ; Weight 104.3 kg; Height 5 ft. ty 11 in. ; Pain 9/10; 23:45 BP 171 / 87; Pulse 95; Resp 16; Pulse Ox 98% on R/A; jb4 21:20 Body Mass Index 32.07 (104.30 kg, 180.34 cm) ty 18:43 Pain Scale: Adult ll1 21:20 Pain Scale: Adult ty ED Course: 18:08 Patient arrived in ED. im 18:12 Arm band placed on. ll1 18:32 Luciano Mendez PA is PHCP. cp 18:32 Bogdan Ochoa MD is Attending Physician. cp 18:44 Triage completed. ll1 19:45 XRAY Foot LEFT 3 View In Process Unspecified. EDMS 20:38 Inserted saline lock: 22 gauge in right forearm, using aseptic technique. Blood ty collected. 20:40 First set of blood cultures drawn by me. ty 20:50 Initial lab(s) drawn, by me, sent to lab. Second set of blood cultures drawn by me, EKG ty done, by ED staff, reviewed by Luciano CEJA Wound culture swab sent to lab. 21:25 BGL 91. ty 05/06 00:12 Patient has correct armband on for positive identification. Bed in low position. Call jb4 light in reach. Side rails up X 1. Provided Education on: discharge instructions.. 00:12 No provider procedures requiring assistance completed. IV discontinued, intact, jb4 bleeding controlled, No redness/swelling at site. Pressure dressing applied. Administered Medications: 05/05 22:00 Drug: fentaNYL (PF) IVP 25 mcg IVP once Route: IVP; Site: right forearm; jb4 22:27 Follow up: Response: No adverse reaction; Marked relief of symptoms; Pain is decreased; jb4 RASS: Alert and Calm (0) 22:39 Drug: levofloxacin IVPB 750 mg 150 ml IVPB once over 90 mins Volume: 150 ml; Route: jb4 IVPB; Infused Over: 90 mins; Site: right forearm; Medication: 23:45 VIS not applicable for this client. jb4 Outcome: 23:09 Discharge ordered by . samira 05/06 00:12 Discharged to home via wheelchair, with family, jb4 Condition: stable Discharge instructions given to patient, Instructed on discharge instructions, follow up and referral plans. medication usage, Demonstrated understanding of instructions, follow-up care, medications, Prescriptions given X 2, 00:13 Patient left the ED. jb4 Addendum: 05/10/2024 09:02 Addendum: Culture Results: Positive wound culture. No further action required. Bacteria e b sensitive to prescribed antibiotic. Signatures: Dispatcher [employer] EDMS Luciano Mendez PA PA cp Bryson, James RN RN jb4 Louise Cavanaugh Lynsay, RN RN ll1 Betsy Yarbrough Tylor ty Corrections: (The following items were deleted from the chart) 05/05 23: 23:06 General: Appears in no apparent distress. uncomfortable, Behavior is calm, jb4 cooperative, appropriate for age, jb4 : 23:06 Pain: Complains of pain in medial aspect of left knee Pain does not radiate. Pain jb4 currently is 5 out of 10 on a pain scale. Quality of pain is described as tender, jb4 : 23:06 Neuro: Level of Consciousness is awake, alert, obeys commands, Oriented to jb4 person, place, time, situation, jb4 : 23:06 Cardiovascular: Patient's skin is warm and dry. jb4 jb4 : 23:06 Respiratory: Airway is patent Respiratory effort is even, unlabored, Respiratory jb4 pattern is regular, symmetrical, jb4 : 23:06 GI: No signs and/or symptoms were reported involving the gastrointestinal system. jb4 jb4 23: : No signs and/or symptoms were reported regarding the genitourinary system. jb4jb4 : 23:06 EENT: No signs and/or symptoms were reported regarding the EENT system. jb4 jb4 : 23:06 Derm: Skin is intact, Skin is dry, Skin is normal, Skin temperature is warm jb4 jb4 23:16 22:00 Pain: Complains of pain in plantar aspect of left first toe Pain does not jb4 radiate. Pain currently is 9 out of 10 on a pain scale. Quality of pain is described as tender, jb4
[2024-05-06 00:32] VITALS: BP 171/87; TEMP 98.2; O2SAT 98
== END 2024-05-06 00:13 | disposition home or self-care (01) ==
LOC: ER 18:05
DX: L03.116 Cellulitis of left lower limb (principal)
CPT/HCPCS: 87040 ×2; 87070; 85025; 36415; 87205; 85610; 82947; 83605; 85730; 87077 ×2; 87186 ×2; 80053; 86140; 73630; 96375; 96374; 99284; J3010

== ENCOUNTER 2024-12-25 13:14 | Inpatient (IN) | payer OTHER ==
--- NOTE | 2024-12-25 14:22 | RAD REPORT ---
EXAMINATION: CT HEAD WITHOUT CONTRAST CT CERVICAL SPINE WITHOUT CONTRAST CLINICAL INDICATION: Male, 79 years old. fall TECHNIQUE: Axial CT images from the skull base to the vertex without intravenous contrast. Axial CT i mages through the cervical spine were obtained without intravenous contrast. Sagittal and coronal reformatted images were created from the data set. Coronal and sagittal reformatted images were creat ed from the data set. One or more of the following dose reduction techniques were used: Automated exposure control, adjustment of the mA and/or kV according to patient size, and/or iterative reconstr uction. Unless otherwise specified, incidental findings do not require dedicated imaging follow-up. [id number]. COMPARISON: CT 12/03/2015 FINDINGS: Head: INTRACRANIAL: No acute intracranial hemorrhage. No hydrocephalus. No mass effect or midline shift. No significant white matter disease VASCULATURE: No visualized abnormalities in the arteries or dural venous sinuses. SCALP/SKULL: No significant soft tissue or osseous abnormalities. SINUSES: The visualized paranasal sinuses and mastoid air cells are predominantly clear. Cervical spine: ALIGNMENT: The cervical spine has normal alignment without scoliosis or spondylolisthesis. BONE: Vertebral body heights are maintained. No aggressive osseous lesions. DEGENERATIVE CHANGES: Multilevel cervical spondylosis with varying degrees of neural foraminal narrow ing. There is severe disc height loss at C5-6 and C6-7. SOFT TISSUE: Carotid artery calcifications. IMPRESSION: No acute intracranial abnormality. No acute fracture or traumatic malalignment of the cervical spine.
[2024-12-25 14:35] LABS: Absolute Lymphocytes (CBC) 0.7 K/uL (0.7-4.9); Absolute Monocytes 1.6 K/uL (0.1-1.3); Absolute Neutrophil 11.7 K/uL (1.8-8.0); Basophils % 0.1 % (0-1.3); Hematocrit 36.1 % (39.6-49.0); Hemoglobin 11.9 g/dL (13.6-17.9); Lymphocytes % 4.7 % (15.3-44.8); MCH 30.7 pg (27.0-35.0); MCHC 33.1 g/dL (32.0-36.0); MCV 92.9 fL (80-100); MPV 6.2 fL (7.6-11.3); Monocytes % 11.4 % (3.3-12.3); Neutrophils % 83.8 % (41.7-73.7); Platelets 375 thou/uL (152-406); RBC Red Blood Cell Count 3.88 M/uL (4.33-5.43); Red Cell Distribution Width 15.6 % (12.1-15.2)
--- NOTE | 2024-12-25 14:36 | RAD REPORT ---
EXAMINATION: CT LUMBAR SPINE WITHOUT CONTRAST CLINICAL INDICATION: Male, 79 years old. PAIN TECHNIQUE: Axial CT images were obtained through the lumbar spine in soft tissue and bone windows wit hout intravenous contrast. Coronal and Sagittal reformatted images were created from the data set. One or more of the following dose reduction techniques were used: Automated exposure control, adjustm ent of the mA and/ or kV according to patient size, and/or iterative reconstruction. Unless otherwise specified, incidental findings do not require dedicated imaging follow-up. [id number]. COMPARISON: 12/27/2019 FINDINGS: For purposes of this dictation, it is assumed that there are 5 non rib-bearing lumbar type vertebrae, and the most caudal fully segmented lumbar vertebra is labeled L5. ALIGNMENT: The lumbar spine demonstrates normal alignment without scoliosis or spondylolisthesis. BONES: No significant soft tissue abnormalities. No aggressive osseous lesions. DISCS: Mild disc height loss L5-S1.. Mild endplate spurring. Disc bulges present at L3-4 and L4-5 res ulting in moderate and mild stenosis, respectively. LEVELS: Scattered facet degenerative changes noted. No high-grade central spinal stenosis. There is e vidence of neural foraminal narrowing bilaterally which is most advanced on the left at L3-4 where it is severe but otherwise mild to moderate. SOFT TISSUE: Cholelithiasis. Atherosclerosis. Absent left kidney. Atrophic right kidney with probable underlying cyst. Right iliac fossa renal transplant. IMPRESSION: No acute lumbar spine abnormalities. Multilevel degenerative disc disease.
[2024-12-25 14:51] LABS: Anion Gap 10.9 mEq/L (5.0-15.0); Potassium 3.9 mEq/L (3.5-5.1); Troponin High Sensitivity 46.8 pg/mL (<58.9)
--- NOTE | 2024-12-25 15:09 | RAD REPORT ---
EXAM: Chest Single View HISTORY: generalized weakness COMPARISON: None. FINDINGS: LUNGS/PLEURA: The lungs are clear. No pleural effusions or pneumothorax. No pulmonary edema. MEDIASTINUM: The mediastinal silhouette is within normal limits. CARDIAC: Mild cardiomegaly UPPER ABDOMEN: No significant abnormality. BONES: No acute abnormality. LINES/TUBES/OTHER: N/A IMPRESSION: No evidence of acute cardiopulmonary disease.
--- NOTE | 2024-12-25 16:35 | EDPHYS ---
Physician Documentation [facility] Name: Ruel Smith Age: 79 yrs Sex: Male : 1945 Arrival Date: 12/25/2024 Time: 13:14 Bed 19 Private MD: ED Physician Edson Dillard Historical: - Allergies: 12/25 13:20 Morphine; me1 - PMHx: 13:20 Hypertension; Hypertensive disorder; Hypercholesterolemia; Coronary atherosclerosis; me1 - PSHx: 13:20 BRANDYN knee; kidney transplant; Stented artery; me1 - Immunization history:: Adult Immunizations up to date. - Infectious Disease History:: Denies. - Social history:: Smoking status: Patient/guardian denies using tobacco. Exam: 17:39 ECG was reviewed by the Attending Physician. ms3 Vital Signs: 13:17 BP 98 / 51; Pulse 77; Resp 16; Temp 98.6; Pulse Ox 99% ; Weight 106.59 kg; Height 5 ft. me1 11 in. ; Pain 3/10; 14:00 BP 115 / 54; Pulse 70; Resp 17; Pulse Ox 92% ; me1 15:00 BP 112 / 61; Pulse 78; Resp 17; Pulse Ox 91% ; me1 16:00 BP 124 / 49; Pulse 83; Resp 19; Pulse Ox 93% ; me1 17:00 BP 115 / 65; Pulse 84; Resp 16; Pulse Ox 94% ; me1 18:00 BP 150 / 65; Pulse 82; Resp 16; Pulse Ox 93% ; me1 19:00 BP 147 / 65; Pulse 92; Resp 18; Pulse Ox 93% ; me1 13:17 Body Mass Index 32.78 (106.59 kg, 180.34 cm) me1 13:17 Pain Scale: Adult me1 MDM: 13:43 Medical Screening Exam initiated ms3 12/25 13:43 Order name: Basic Metabolic Panel; Complete Time: 15:59 ms3 12/25 13:43 Order name: CBC with Diff; Complete Time: 15:59 ms3 12/25 13:43 Order name: Troponin HS; Complete Time: 15:59 ms3 12/25 16:35 Order name: Cortisol; Complete Time: 18:47 ms3 12/25 17:07 Order name: CBC with Automated Diff EDNM 02/24 17:07 Order name: Comprehensive Metabolic Panel EDNM 12/25 13:43 Order name: XRAY Chest (1 view); Complete Time: 15:59 ms3 12/25 13:43 Order name: CT Head C Spine; Complete Time: 15:59 ms3 12/25 13:43 Order name: CT Lumbar Spine Wo Con; Complete Time: 15:59 ms3 12/25 13:43 Order name: EKG; Complete Time: 13:43 ms3 12/25 13:43 Order name: Cardiac monitoring; Complete Time: 15:28 ms3 12/25 13:43 Order name: EKG - Nurse/Tech; Complete Time: 15:28 ms3 12/25 13:43 Order name: IV Saline Lock; Complete Time: 14:36 ms3 12/25 13:43 Order name: Labs collected and sent; Complete Time: 15:13 ms3 12/25 13:43 Order name: O2 Per Protocol; Complete Time: 15:13 ms3 12/25 13:43 Order name: O2 Sat Monitoring; Complete Time: 15:13 ms3 EC:39 Rate is 83 beats/min. Rhythm is regular. Left axis deviation noted. IN interval is ms3 normal. QRS interval is normal. Clinical impression: NSR w/ Non-specific ST/T Changes. Interpreted by me. Reviewed by me. Administered Medications: 18:25 Drug: Solu-CORTEF IVP 100 mg IVP once; Draw Serum cortisol prior to giving Route: IVP; me1 Site: right forearm; 18:28 Follow up: Response: No adverse reaction me1 Disposition Summary: 12/25/24 16:34 Hospitalization Ordered Notes: Hospitalization Status: Inpatient Admission ms3 Provider: Aneesh Phan ms3 Location: Telemetry/MedSurg (Inpatient) ms3 Condition: Stable ms3 Problem: new ms3 Symptoms: are unchanged ms3 Bed/Room Type: Standard ms3 Room Assignment: 211(12/25/24 17:29) bd Diagnosis - Hypo-osmolality and hyponatremia ms3 - Fall on same level, unspecified ms3 - Repeated falls ms3 - Muscle weakness (generalized) ms3 Forms: - Medication Reconciliation Form ms3 - SBAR form ms3 - Leadership Thank You Letter ms3 Signatures: Dispatcher [employer] EDTana Braun Marcus, DO DO ms3 Jovanna Junior, RN RN me1 Corrections: (The following items were deleted from the chart) 16:35 16:35 Cortisol+C.LAB.BRZ ordered. EDMS EDMS 17:29 16:34 ms3 bd
--- NOTE | 2024-12-25 16:35 | ER ---
Nurse's Notes [facility] Name: Ruel Smith Age: 79 yrs Sex: Male : 1945 Arrival Date: 12/25/2024 Time: 13:14 Bed 19 Private MD: Diagnosis: Hypo-osmolality and hyponatremia;Fall on same level, unspecified;Repeated falls;Muscle weakness (generalized) Presentation: 12/25 13:17 Chief complaint: EMS states: toned out for severe lower back pain due to 2 falls me1 yesterday. also c/o left ankle pain. Patient has a wound to left lateral foot that he is concerned about and states he hasnt been eating much lately and that he is now feeling weak. Coronavirus screen: Vaccine status: Patient reports receiving the 2nd dose of the covid vaccine. Ebola Screen: No symptoms or risks identified at this time. Initial Sepsis Screen: Does the patient meet any 2 criteria? No. Patient's initial sepsis screen is negative. Risk Assessment: Do you want to hurt yourself or someone else? Patient reports no desire to harm self or others. Onset of symptoms was December 24, 2024. Care prior to arrival: Glucose check: 119. 13:17 Method Of Arrival: EMS: [facility] 13:17 Acuity: ALIA 3 me1 17:47 Initial Sepsis Screen: Does the patient have a suspected source of infection? No. me1 Patient's initial sepsis screen is negative. Triage Assessment: 13:20 General: Appears uncomfortable, well groomed, well developed, well nourished, Behavior me1 is calm, cooperative, appropriate for age, Reports. Pain: Complains of pain in lumbar area, left low back and right low back Pain does not radiate. Pain currently is 3 out of 10 on a pain scale. at worst was 10 out of 10 on a pain scale. Quality of pain is described as sharp, Pain began 1 day ago. Is continuous, Aggravated by repositioning. EENT: No signs and/or symptoms were reported regarding the EENT system. Neuro: Level of Consciousness is awake, alert, obeys commands, Oriented to person, place, time, situation, Appropriate for age. Cardiovascular: Patient's skin is warm and dry. Respiratory: Airway is patent Respiratory effort is even, unlabored, Respiratory pattern is regular, symmetrical. GI: No signs and/or symptoms were reported involving the gastrointestinal system. : No signs and/or symptoms were reported regarding the genitourinary system. Derm: Skin is intact, is healthy with good turgor, Skin is pink, warm \T\ dry. Musculoskeletal: Reports pain in lumbar area, left low back and right low back. Injury Description: fall x 2 yesterday due to poor appetite and weakness. Historical: - Allergies: 13:20 Morphine; me1 - PMHx: 13:20 Hypertension; Hypertensive disorder; Hypercholesterolemia; Coronary atherosclerosis; me1 - PSHx: 13:20 BRANDYN knee; kidney transplant; Stented artery; me1 - Immunization history:: Adult Immunizations up to date. - Infectious Disease History:: Denies. - Social history:: Smoking status: Patient/guardian denies using tobacco. Screenin:27 [facility] ED Fall Risk Assessment (Adult) History of falling in the last 3 months, me1 including since admission Yes- fall prone (multiple falls) (3 pts) Confusion or Disorientation No (0 pts) Intoxicated or Sedated No (0 pts) Impaired Gait Yes (1 pt) Mobility Assist Device Used Yes (1 pt) Altered Elimination No (0 pt) Score/Fall Risk Level 3 or more points = High Risk Maintained a safe environment, Provided non-skid footwear, Hourly rounding (assess needs \T\ fall precautionary measures) done. Abuse screen: Denies threats or abuse. Nutritional screening: No deficits noted. Tuberculosis screening: No symptoms or risk factors identified. Assessment: 13:27 Reassessment: See triage assessment. me1 Vital Signs: 13:17 BP 98 / 51; Pulse 77; Resp 16; Temp 98.6; Pulse Ox 99% ; Weight 106.59 kg; Height 5 ft. me1 11 in. ; Pain 3/10; 14:00 BP 115 / 54; Pulse 70; Resp 17; Pulse Ox 92% ; me1 15:00 BP 112 / 61; Pulse 78; Resp 17; Pulse Ox 91% ; me1 16:00 BP 124 / 49; Pulse 83; Resp 19; Pulse Ox 93% ; me1 17:00 BP 115 / 65; Pulse 84; Resp 16; Pulse Ox 94% ; me1 18:00 BP 150 / 65; Pulse 82; Resp 16; Pulse Ox 93% ; me1 19:00 BP 147 / 65; Pulse 92; Resp 18; Pulse Ox 93% ; me1 13:17 Body Mass Index 32.78 (106.59 kg, 180.34 cm) me1 13:17 Pain Scale: Adult me1 ED Course: 13:17 Patient arrived in ED. me1 13:20 Triage completed. me1 13:20 Arm band placed on Patient placed in an exam room. me1 13:27 Patient has correct armband on for positive identification. Bed in low position. Call me1 light in reach. Side rails up X2. Provided Education on: POC. Verbalized understanding. Client placed on continuous cardiac and pulse oximetry monitoring. NIBP monitoring applied. Pulse ox on. NIBP on. 13:27 No provider procedures requiring assistance completed. me1 13:31 Edson Dillard DO is Attending Physician. ms3 13:31 Jovanna Junior, JAY is Primary Nurse. me1 14:09 CT Head C Spine In Process Unspecified. EDMS 14:09 CT Lumbar Spine Wo Con In Process Unspecified. EDMS 14:20 Basic Metabolic Panel Sent. me1 14:20 CBC with Diff Sent. me1 14:20 Troponin HS Sent. me1 14:36 Inserted saline lock: 24 gauge in right forearm, using aseptic technique. Flushed with bc6 10 mL NS. 14:38 XRAY Chest (1 view) In Process Unspecified. EDMS 16:33 Aneseh Phan MD is Hospitalizing Provider. ms3 17:27 Cortisol Sent. me1 17:46 Patient admitted, IV remains in place. me1 Administered Medications: 18:25 Drug: Solu-CORTEF IVP 100 mg IVP once; Draw Serum cortisol prior to giving Route: IVP; me1 Site: right forearm; 18:28 Follow up: Response: No adverse reaction me1 Medication: 13:27 VIS not applicable for this client. me1 Outcome: 16:34 Decision to Hospitalize by Provider. ms3 17:46 Admitted to Med/surg accompanied by tech, via stretcher, room 211, with chart, Report me1 called to faxed, receipt confirmed with Marge 17:46 Condition: stable 17:46 Instructed on the need for admit, 19:54 Patient left the ED. me1 Signatures: Dispatcher [employer] EDMS Edson Dillard DO DO ms3 Mai Bustamante bc6 Jovanna Junior, RN RN me1 Corrections: (The following items were deleted from the chart) 17:07 14:00 BP 124 / 49; Pulse 83bpm; Resp 19bpm; Pulse Ox 93%; me1 me1
[2024-12-25] MEDS ORDERED: HYDROCORTISONE SUC 100 MG INJ ONE (17:28)
[2024-12-25] MEDS ORDERED: VANCOMYCIN 1 GM in NA CHLORIDE 0.9% 250 ML IVPB SCH (21:43)
[2024-12-25] MEDS: VANCOMYCIN 1 GM/VIAL ONE ×2 (21:52→22:09)
[2024-12-25] MEDS: NA CHLORIDE 0.9% 250 ML ONE ×2 (21:53→22:09)
[2024-12-25] MEDS: CEFTRIAXONE 1,000 MG in NA CHLORIDE 0.9% 50 ML IVPB SCH (22:00)
[2024-12-26] MEDS: VANCOMYCIN 2 GM in NA CHLORIDE 0.9% 500 ML IVPB ONE (01:00)
[2024-12-26 04:56] LABS: Absolute Lymphocytes (CBC) 0.5 K/uL (0.7-4.9); Absolute Monocytes 1.2 K/uL (0.1-1.3); Absolute Neutrophil 12.8 K/uL (1.8-8.0); Basophils % 0.1 % (0-1.3); Hematocrit 35.5 % (39.6-49.0); Hemoglobin 11.5 g/dL (13.6-17.9); Lymphocytes % 3.1 % (15.3-44.8); MCH 30.4 pg (27.0-35.0); MCHC 32.5 g/dL (32.0-36.0); MCV 93.5 fL (80-100); MPV 6.3 fL (7.6-11.3); Monocytes % 8.5 % (3.3-12.3); Neutrophils % 88.3 % (41.7-73.7); Platelets 384 thou/uL (152-406); Red Cell Distribution Width 15.3 % (12.1-15.2)
[2024-12-26 05:22] LABS: Albumin 2.4 g/dL (3.4-5.0); Albumin/Globulin Ratio 0.6 (1.1-1.8); Anion Gap 16.9 mEq/L (5.0-15.0); Bilirubin Total 0.8 mg/dL (0.2-1.0); Globulin 4.3 g/dL (2.3-3.5); Potassium 3.9 mEq/L (3.5-5.1); Protein, Total 6.7 g/dL (6.4-8.2)
--- NOTE | 2024-12-26 05:52 | RAD REPORT ---
EXAM DESCRIPTION: Foot Left 3 View RadLex: XR FOOT 3 OR MORE VIEWS LEFT CLINICAL HISTORY: L foot wound, rule out osteomyelitis. COMPARISON: None. TECHNIQUE: Three views of the left foot were obtained: AP, oblique, and lateral radiographs. FINDINGS: Possible soft tissue gas versus related to ulcerations along the lateral forefoot about the fifth toe and fifth metatarsal head. Great toe amputation. Demineralized appearance of the bones. Prominent calcific atherosclerosis. No obvious acute osseous erosions are visualized. No acute osseous abnormal ity. Lisfranc joint alignment is maintained. IMPRESSION: 1. Possible soft tissue gas versus related to ulcerations along the lateral forefoot about the fift h toe and fifth metatarsal head. 2. No acute osseous abnormality identified. 3. MRI is more sensitive for the detection of acute osteomyelitis and can be obtained if necessary. Electronically signed by: Cielo Umanzor MD 12/25/2024 11:28 PM [facility] Due to temporary technical issues with the PACS[employer] reporting system, reports are being leela d by the in-house radiologist without review as a courtesy to ensure prompt reporting the interpreting radiologist is fully responsible for the content of the report. Transcribed Date/Time: 12/26/2024 5:52 AM
[2024-12-26 06:46] LABS: Band Neutrophils 3 % (0-1); Differential Total Cells Count 100; Lymphocytes 5 % (15-42); Monocytes 8 % (0-10); Segmented Neutrophils 84 % (40-80); Toxic Granulation 1+
[2024-12-26 06:47] LABS: Blood Morphology Comment NOT SEEN (NOT SEEN); Platelet Estimate ADEQ; Platelets, Giant PRESENT
--- NOTE | 2024-12-26 07:41 | RAD REPORT ---
EXAM: Lower Extremity Arterial Bilat HISTORY: rule out PVD COMPARISON: None TECHNIQUE: Multiplanar grayscale and color Doppler images were obtained and a bilateral lower extrem ity arterial ultrasound. Spectral analysis of the Doppler waveforms were performed. FINDINGS: Right lower extremity: Common femoral artery: Triphasic Superficial femoral artery: Triphasic Popliteal artery: Triphasic Posterior tibial artery: Monophasic Dorsalis pedis artery: Monophasic Left lower extremity: Common femoral artery: Triphasic Superficial femoral artery: Triphasic Popliteal artery: Triphasic Posterior tibial artery: Monophasic Dorsalis pedis artery: Monophasic IMPRESSION: Monophasic flow bilaterally at the posterior tibial and dorsalis pedis arteries suggesting at least m oderate stenoses. Triphasic flow bilaterally in the common femoral, superficial femoral, and popliteal arteries which are widely patent.
[2024-12-26] MEDS: carvediloL 12.5 MG TAB PO SCH (08:00)
[2024-12-26] MEDS: NIFEDIPINE XL 30 MG TABLET PO SCH (09:00)
[2024-12-26] MEDS: HYDRALAZINE HCL 25 MG TABLET PO SCH (09:00)
[2024-12-26] MEDS: LOSARTAN POTASSIUM 50 MG TABLET PO SCH (09:00)
[2024-12-26] MEDS: APIXABAN 5 MG TABLET PO SCH (09:00)
[2024-12-26] MEDS: ALBUTEROL 2.5 MG/3 ML NEB SOL NEB SCH (09:00)
[2024-12-26] MEDS: METOPROLOL TAR 25 MG TAB PO SCH (09:00)
--- NOTE | 2024-12-26 09:10 | HP ---
Date of Admission: 12/25/2024 Chief Complaint: Frequent falls and weakness. History Of Present Illness: This is a 79-year-old pleasant male patient, who came into emergency joe with 3 to 4 falls over a period of last 2 to 3 days with significant generalized weakness, especial ly leg weakness, where he is reporting that his legs are weak enough that he feels like every time he tries to stand or walk, he is not able to do so and he ends up falling down and this has happened in last 2 to 3 days or so. He came into emergency room after he was evaluated. I was contacted karis shelley admission to hospital. When I saw him in emergency room this evening, he was lying in bed and h e was noted to have open wound on his left lateral foot which the patient reports that he has been se sarahi Alamo, bicycle assembler, here in town for this left leg wound which has been going on for last 2 to 3 months or so as he reports today and lately he has noted some foul smelling discharge from this wound. Denies any fever, chills. He was also noted to have redness on the dorsum aspect of the left foot, which he says is new in last few days. Allergies: TO MORPHINE CAUSING HALLUCINATION. Medications: Eliquis 5 mg twice a day, aspirin 81 mg daily, atorvastatin 20 mg daily, calcitriol 0.5 mcg daily, carvedilol 25 mg 2 times a day, vitamin D3 2000 units daily, ferrous sulfate 325 mg daily , hydralazine 100 mg 2 times a day, losartan 25 mg daily, metoprolol tartrate 25 mg takes half a tabl et 2 times a day, mycophenolate and tacrolimus as prescribed by his transplant team, nifedipine 60 mg daily, Nitrostat p.r.n., prednisone 5 mg daily. Review of Systems: Constitutional: As mentioned above. Musculoskeletal: As mentioned above. Dermatology: As mentioned above. All other systems reviewed and negative. Past Medical History: Significant for hypertension, hyperlipidemia, type 2 diabetes mellitus, anemia , lumbar spinal stenosis, coronary artery disease, gastroesophageal reflux disease, benign prostatic hypertrophy, lumbar spondylosis, chronic fatigue, obstructive sleep apnea. Past medical history also significant for gastroesophageal reflux disease and had acute left kidney cancer. Past Surgical History: Cataract surgery, coronary artery angioplasty with stent placement in 2009, l eft-sided nephrectomy in 2014 and subsequently he was on dialysis and then on March 09, 2016, he had kid lorie transplant. After that, he has not required any dialysis. Past surgical history also significan t for knee surgery and amputation of the left great toe due to gangrene on July 11, 2024. Family History: Father had prostate cancer, coronary artery disease, hypertension, stroke. Mother h ad coronary artery disease, diabetes, hypertension. Brother had hypertension and diabetes. Social History: Negative for smoking and alcohol use. Physical Examination: Vital Signs: When he first came in, temperature 99, pulse 92, respiratory rate 20, blood pressure 14 7/67, oxygen saturation 91%. Weight 226 pounds, height 5 feet 11 inches. General: Awake, alert, oriented, not in distress. HEENT: Head atraumatic, normocephalic. Conjunctivae nonerythematous. Sclerae white. Mouth, no thr ush or edema noted. Ears/Nose, no mass, lesion, discharge noted. Neck: Supple. No JVD, lymph nodes, bruit, thyromegaly noted. Lungs: Bilateral good equal air entry. Clear to auscultation. No rhonchi. No rales. Heart: Normal heart sounds, no murmur or gallop. Abdomen: Soft, bowel sounds normal. No guarding, rigidity, tenderness, mass, hepatosplenomegaly, dis tention, or bruit noted. Extremities: The patient is status post amputation of the left great toe and no open wound at that s urgical site, but left foot lateral aspect has approximately 2 cm long and about 1 cm wide open wound with presence of foul smell from this wound. No active bleeding or discharge noted at this time. L eft dorsum foot skin color is pink, warm to touch. Skin: No rash, ulcer, cellulitis. Lymphatics: No lymph node enlargement in neck, supraclavicular, infraclavicular region. Neuro: No focal neurological deficit. Chest: Unremarkable. External Genitalia: Deferred. Rectal: Deferred. Laboratory Data: WBC 14, hemoglobin 11.9, platelets 375. Sodium 128, potassium 3.9, chloride 95, bi carb 26, BUN 23, creatinine 1.05, glucose 119. Troponin 46.8. Random cortisol level 33.5. Chest x- ray, no acute cardiopulmonary changes. CAT scan of the head and cervical spine was negative for any acute changes. CAT scan of the lumbar spine showed degenerative joint disease. No fracture. Impression: 1. Cellulitis, left foot. 2. Rule out osteomyelitis, left foot. 3. Coronary artery disease. 4. Hypertension. 5. Hyperlipidemia. 6. Status post renal transplant. 7. Anemia, unspecified. 8. Type 2 diabetes mellitus. 9. Gastroesophageal reflux disease. 10. Left kidney cancer. Plan: We will go ahead and admit the patient to hospital for further evaluation and management of th is problem. The patient is appropriate for inpatient and is expected to spend 2 midnights in [facility]. The patient has open wound to the left foot with area of cellulitis involving left dorsum foot an d I am definitely concerned about osteomyelitis of this foot. He informs me that Dr. Alamo has been managing this and recently when he saw him, Dr. Alamo was concerned about worsening of this wound, so he gave him oral antibiotics which he just finished yesterday after taking it for [address] Alamo was planning to take him to [place] for surgical intervention. Meanwhile, he ends up in our ospital now. I will go ahead and consult general surgeon tomorrow. I have ordered x-ray of the left foot as well as MRI of the left foot looking for osteomyelitis of this area. I have also ordered ar terial Doppler of both lower extremities to evaluate his blood flow. For his hyperlipidemia, we will continue his statin therapy. No need for further intervention. For hypertension, we will continue his antihypertensive medication, monitor blood pressure. Adjust blood pressure medication as it beco mes necessary. I have already lowered dose of some of his blood pressure medications. We will go ah ead and continue his aspirin and anticoagulant medication that he takes at home. His anticoagulation medication is managed by his torch straightener and heater and I am not clear on the indication why torch straightener and heater star khadar him on anticoagulant medication. Anemia will not require any further intervention. Total time spent today was 85 minutes including communication with emergency room physician, review o f last office visit record from November 24, 2024, performing today's evaluation and management. I wi ll see him tomorrow for followup. TONI/MODL Voice ID: [id number]
[2024-12-26] MEDS: predniSONE 5 MG TAB PO SCH (10:15)
--- NOTE | 2024-12-26 12:23 | RAD REPORT ---
EXAM: MR Foot Left Wo Cont HISTORY: Evaluate for osteomyelitis rule out osteomyelitis COMPARISON: Left foot radiographs 12/25/2019 03/02/1825 TECHNIQUE: Multiplanar multisequence MR images were obtained of the left foot without contrast. FINDINGS: Cortical irregularity and associated heterogeneous mildly T1 hypointense, T1 hyperintense signal abno rmality involving the fifth metatarsal head. Similar signal abnormalities involving the base and shaft of the fifth toe proximal phalanx and middle phalanx. Distal phalanx is relatively spared. Line ar heterogeneous signal abnormality predominantly with T2 hyperintensity and focal and linear markedly T1 hypointense changes which may relate to sclerosis along the proximal to distal fifth meta tarsal shaft, could relate to sclerotic changes in the setting of prior osteomyelitis or instrumentation. Subchondral signal abnormalities involving the heads of the first, second, and third metatarsals, wit h a crescentic T2 hyperintense line of demarcation along the head of the first metatarsal, suggesting degenerative sequelae although the findings along the first metatarsal head may relate to ongoing avascular necrosis or an osteochondral lesion. Sequelae of amputation of the first toe at the level of the metatarsophalangeal joint. Soft tissue gas within the lateral forefoot, centered on the level of the fifth metatarsophalangeal j oint more dorsally and the last interdigital web. Lateral forefoot soft tissue irregularity may reflect a small ulcer. No focal fluid collection is seen in the soft tissues. The muscles and tendons appear intact. IMPRESSION: Signal abnormalities involving the fifth metatarsal head and proximal and middle fifth toe phalanges as above, concerning for osteomyelitis. Soft tissue gas at the level of the fifth metatarsophalangeal joint more dorsally, extending to the last interdigital web. Please note that jennifer luation is limited without IV contrast. Subchondral changes involving first, second, and third metatarsal heads as noted above, could be dege nerative, with subchondral first metatarsal head demarcation which could reflect ongoing avascular necrosis or an osteochondral lesion.
[2024-12-26] MEDS ORDERED: VANCOMYCIN 1.75 GM in NA CHLORIDE 0.9% 500 ML IVPB SCH (16:00)
[2024-12-26] MEDS: VANCOMYCIN 1.75 GM in NA CHLORIDE 0.9% 500 ML IVPB SCH (18:50)
--- NOTE | 2024-12-26 19:35 | PN ---
Date of Progress Note: 12/26/2024 Subjective: The patient was seen this morning for followup. No new complaints or problems reported by the patient. He was lying in bed, not in distress. Objective: Vital Signs: Reviewed. HEENT: Unremarkable. Lungs: Clear to auscultation. Heart: Sounds normal. Abdomen: Soft. Bowel sounds normal. No guarding, rigidity, tenderness, distention. Extremities: Left foot exam remains unchanged from yesterday. Impression: 1. Cellulitis, left foot. 2. Rule out osteomyelitis, left foot. 3. Hypertension. 4. Coronary artery disease. 5. Hyperlipidemia. Plan: Continue current medication. Continue current empiric antibiotics. The patient will have art erial Doppler and MRI of left foot today and after we reviewed results, we will decide about consulta tion with general surgeon, and details and plan of treatment discussed with the patient. I will see him tomorrow for followup. TONI/MODL Voice ID: [id number] Report ID: [id number]
[2024-12-26] MEDS: ENSURE MAX PROTEIN 330 ML LIQUID PO SCH (21:00)
[2024-12-26] MEDS: ATORVASTATIN 20 MG TAB PO SCH (21:02)
[2024-12-27 06:18] LABS: Absolute Lymphocytes (CBC) 0.7 K/uL (0.7-4.9); Absolute Monocytes 1.7 K/uL (0.1-1.3); Basophils % 0.1 % (0-1.3); Hemoglobin 11.3 g/dL (13.6-17.9); Lymphocytes % 3.9 % (15.3-44.8); MCH 30.4 pg (27.0-35.0); MCHC 33.3 g/dL (32.0-36.0); MCV 91.4 fL (80-100); MPV 6.4 fL (7.6-11.3); Monocytes % 9.1 % (3.3-12.3); Neutrophils % 86.9 % (41.7-73.7); Platelets 401 thou/uL (152-406); RBC Red Blood Cell Count 3.72 M/uL (4.33-5.43)
[2024-12-27 06:37] LABS: Anion Gap 13.5 mEq/L (5.0-15.0); Potassium 3.5 mEq/L (3.5-5.1)
[2024-12-27] MEDS: Meropenem 1,000 MG in NA CHLORIDE 0.9% 100 ML IV SCH ×2 (08:12→16:52)
[2024-12-27] MEDS: ACETAMINOPHEN 500 MG TAB PO PRN (08:13)
[2024-12-27] MEDS: POTASSIUM CL SA 10 MEQ TAB PO ONE (08:13)
--- NOTE | 2024-12-27 08:23 | RAD REPORT ---
EXAMINATION: ONE VIEW CHEST XR CLINICAL INDICATION: Male, 79 years old.,cough, wheezing TECHNIQUE: Frontal chest projection is submitted. Examination is limited by patient positioning and t echnique. COMPARISON: 12/25/2024 FINDINGS: The lungs show central interstitial prominence, although suboptimal inspiratory effort somewhat limit s evaluation. Left basilar mild airspace opacity with blunting of the left costophrenic angle, also progressive since prior exam, could reflect a component of small effusion. No pneumothorax or sizable effusion. The heart is normal in size. Mediastinal contours are unremarkable. IMPRESSION: Progressive central interstitial prominence which may relate to central congestion or edema. Left bas al pleural-parenchymal mild opacity could reflect small effusion with atelectasis. Possibility of superimposed airspace disease cannot be entirely excluded.
[2024-12-27] MEDS: FUROSEMIDE 20 MG/ 2ML VIAL IV ONE (08:24)
[2024-12-27] MEDS: Mupirocin NASAL 2 APPL/1 GM TUBE NAS SCH (08:30)
[2024-12-27] MEDS: DULERA 200/5 (MOMETASONE/FORMOTEROL) INHALER IH SCH (09:37)
[2024-12-27] MEDS: METOPROLOL TAR 25 MG TAB PO ONE (10:45)
--- NOTE | 2024-12-27 12:33 | P.CNS ---
Date of Consult: 12/27/24 Chief Complaint: \ History of Present Illness: Patient with PMH of CAD s/p PCI LAD, moderate RCA disease, diastolic dysfunction, moderate to severe pulmonary hypertension, atrial fibrillation, PAD presented with weakness, decrease oral intake and falls, found to have osteomyelitis, cardiology was consulted for clearance, denies chest pain, no palpitations, no syncope. Allergies morphine Allergy (Intermediate, Verified 05/21/23 14:07) hallucinations Home medications list reviewed: Yes Home Medications: Amlodipine Besylate [Norvasc] 10 mg PO DAILY 03/07/12 Aspirin 325 mg PO DAILY 03/07/12 Clopidogrel Bisulfate [Plavix] 75 mg PO DAILY 03/07/12 Docusate Sodium [Colace] 100 mg PO DAILYPRN PRN 03/07/12 Hydrocodone/Acetaminophen [Vicodin 5-500 Tablet] 1 each PO Q6HP PRN 03/07/12 Lisinopril 40 mg PO DAILY 03/07/12 Metoprolol Tartrate 100 mg PO BID 03/07/12 Acetaminophen [Tylenol Extra Strength*] 1,000 mg PO PRN 03/11/13 Atorvastatin Calcium [Lipitor*] 20 mg PO DAILY 03/11/13 Calcium Acetate 667 mg PO DAILY 03/11/13 Cheratussin Syrup 5 ml PO QID PRN 03/11/13 Doxazosin [Cardura*] 2 mg PO DAILY 03/11/13 Garlic 1,000 mg PO DAILY 03/11/13 cloNIDine HCL [Catapres*] 0.1 mg PO BID 03/11/13 levoFLOXacin [Levaquin*] 250 mg PO UD #7 tab 03/13/13 - Past Medical/Surgical History Diabetic: No - Social History Smoking Status: Former smoker Alcohol use: Yes CD- Drugs: No Caffeine use: Yes Place of Residence: Home Review of Systems 10-point ROS is otherwise unremarkable Physical Examination Temp Pulse Resp BP Pulse Ox 98.4 F 74 12 130/76 90 L 12/27/24 11:45 12/27/24 11:45 12/27/24 11:45 12/27/24 11:45 12/27/24 11:45 General: Alert, In no apparent distress HEENT: Atraumatic, PERRLA, Mucous membr. moist/pink, EOMI, Sclerae nonicteric Neck: Supple, 2+ carotid pulse no bruit, No LAD, Without JVD or thyroid abnormality Respiratory: Clear to auscultation bilaterally, Normal air movement Cardiovascular: Regular rate/rhythm, Normal S1 S2 Gastrointestinal: Normal bowel sounds, No tenderness Musculoskeletal: No tenderness Integumentary: No rashes Neurological: Normal gait, Normal speech, Normal tone, Normal affect Lymphatics: No axilla or inguinal lymphadenopathy - Problems (1) Preoperative clearance Current Visit: Yes Status: Acute Plan: Patient with history of CAD, PCI LAD, recently seen in office and had a stress test that was negative, patient got pulmonary hypertension and DD with AF. repeated echo here shows normal EF. Patient is cleared as intermediate cardiac risk for surgery. (2) Atrial fibrillation Current Visit: Yes Status: Acute Plan: patient is currently in sinus rhythm continue metoprolol hold eliquis for possible surgery. (3) Chronic congestive heart failure with left ventricular diastolic dysfunction Current Visit: Yes Status: Acute Plan: would recommend diuresis with Lasix 40 mg IV BID while in patient resume home medications on discharge. (4) CAD (coronary artery disease) Current Visit: Yes Status: Acute Plan: stable, recent negative stress test continue ASA 81 mg daily (5) Peripheral arterial disease Current Visit: Yes Status: Acute Plan: Patient follows up with Dr. Bradshaw as outpatient, recommend getting him involved in patient care.
[2024-12-27] MEDS: FUROSEMIDE 40 MG/4 ML VIAL IV ONE (12:59)
--- NOTE | 2024-12-27 13:16 | ECHO ---
HEIGHT: 5 ft 11 in WEIGHT: 226 lb 9.6 oz DATE OF STUDY: 12/27/[address]: John Phan MD 2-DIMENSIONAL: YES M.MODE: YES DOPPLER: YES COLOR FLOW: YES TDS: NO PORTABLE: YES DEFINITY: NO BUBBLE STUDY: NO DIAGNOSIS: CORONARY ARTERY DISEASE CARDIAC HISTORY: CATHERIZATION:YES SURGERY: NO PROSTHETIC VALVE: NO PACEMAKER: NO MEASUREMENTS (cm) DIASTOLIC (NORMALS) SYSTOLIC (NORMALS) IVSd 1.4 (0.6-1.2) LA Diam 3.1 (1.9-4.0) LVEF 60-65% LVIDd 5.0 (3.5-5.7) LVIDs 3.4 (2.0-3.5) %FS 32% LVPWd 1.5 (0.6-1.2) Ao Diam 3.6 (2.0-3.7) 2 DIMENSIONAL ASSESSMENT: RIGHT ATRIUM: NORMAL LEFT ATRIUM: NORMAL RIGHT VENTRICLE: NORMAL LEFT VENTRICLE: NORMAL TRICUSPID VALVE: MILD TRICUSPID REGURGITATION MITRAL VALVE: NORMAL PULMONIC VALVE: NORMAL AORTIC VALVE: NORMAL PERICARDIAL EFFUSION: TRACE AORTIC ROOT: NORMAL LEFT VENTRICULAR WALL MOTION: NORMAL. DOPPLER/COLOR FLOW: NORMAL. COMMENTS: 1. NORMAL LEFT VENTRICULAR SYSTOLIC FUNCTION. LEFT VENTRICULAR EJECTION FRACTION 60-65%. NORMAL WALL MOTION. 2. MILD TRICUSPID REGURGITATION. 3. MILD PULMONARY HYPERTENSION. RIGHT VENTRICULAR SYSTOLIC PRESSURE 40-45 mmHg. TECHNOLOGIST: CAPRI ANAYA
--- NOTE | 2024-12-27 14:12 | CON ---
Date of Consultation: 12/27/2024 Reason: Possible infection of left foot. History Of Present Illness: The patient is a 79-year-old gentleman who was admitted 2 days ago with a history of falls and weakness 2-3 days prior to admission, was complaining of leg weakness. He den ied any fever or chills at that time and no open wounds. No purulent discharge. Just weakness of hi s legs. He denied any sore throat, runny nose, cough, headaches, or dizziness. No chest pain. He w as noted to have a nondraining wound on his left foot and he has seen a director of reservations. Being treated by the director of reservations for the last 2-3 months. There was some recent note of foul smell from the wound, bu t no open wound was seen. There was some redness to the dorsum of the foot, which was a new event ov er the last few days. The patient was admitted for cellulitis as well as other medical issues and st arted on IV antibiotics. He denies any diarrhea, constipation, blood in his stool, dysuria, hematuri a. Review of Systems: Otherwise unremarkable. Past Medical History: Significant for hypertension, hyperlipidemia, type 2 diabetes, anemia, lumbar spinal stenosis, coronary artery disease. The patient has had left kidney nephrectomy. He had a kid lorie transplant after he was on dialysis. The transplant was in 2015 and he has been without dialysis since that time and he is on immune suppression for his transplant history. He also has sleep apnea , BPH, GERD, coronary artery disease. Past Surgical History: Significant for cataract surgery, coronary artery angioplasty with stent plac ement, left-sided nephrectomy and left kidney transplant, knee surgery, amputation of the left great toe due to gangrene in July of last year. Allergies: MORPHINE. Social History: The patient does not smoke or drink alcohol. Family History: Significant for prostate cancer in the father, coronary artery disease, hypertension , stroke. Mother had coronary artery disease, diabetes, hypertension. Brother had hypertension and diabetes. Physical Examination: Vital Signs: Currently stable. His temperature is 100.2 this morning. General: He is awake, alert. He is having a little difficulty breathing, but he says after he was g iven Lasix, he is breathing better. He is on oxygen. Head and neck: There are no masses. Throat clear. Neck: Supple. Chest: Clear. Heart: S1, S2. Abdomen: Soft. Extremities: Diminished dorsalis pedis and posterior tibial pulses. There is erythema, warmth, and edema present on the left lateral foot, extending onto the dorsum of the foot. The left fifth toe an d distal metatarsal area on the lateral foot is ecchymotic, black with a foul odor with an open wound laterally, now with black area present. Neuro: Nonfocal. Laboratory Data: His white count was 14,000 on admission, today is 18.4 with a left shift. His elec trolytes reviewed. The patient had a foot x-ray, which we reviewed. He has signal abnormalities inv olving the fifth metatarsal head and proximal and middle fifth toe phalanges are concerning for osteo myelitis. There is soft tissue gas at the level of the fifth metatarsophalangeal joint, extending do rsally to the interdigital web space. There are other chronic changes that could be due to degenerat dilip disease seen in the foot and there may be ongoing avascular necrosis on the first metatarsal head . Doppler studies shows monophasic flow at the dorsalis pedis and posterior tibial pulses suggesting moderate stenosis. There is triphasic flow bilaterally in the common femoral, superficial femoral, and popliteal arteries. Chest x-ray done today shows progressive central interstitial prominence, wh ich may be related to central congestion or edema. The left basal pleural parenchymal mild opacity c ould reflect small effusion with atelectasis, possibility of a superimposed airspace disease cannot b e excluded. Assessment: A 79-year-old gentleman with multiple medical problems including transplant patient with a septic joint in the left foot. Recommendations: We will hold the Eliquis for tonight. I will schedule the surgery tomorrow for a l eft fifth toe transmetatarsal amputation. The patient will continue on IV antibiotics, which are van comycin and Merrem at this time. We are awaiting cardiology evaluation and clearance. The patient, if is to deal with his pulmonary issues, I will speak to Anesthesia regarding doing a regional block. The risks, benefits, and alternatives were explained to the patient. He understands and he agrees. The plan of care was discussed in detail with Dr. Phan. ALOK/NAKUL Voice ID: [id number] Report ID: [id number]
[2024-12-27] MEDS: HYDROCODONE/APAP 5/325 MG TAB PO PRN (16:49)
[2024-12-27] MEDS: FUROSEMIDE 20 MG/ 2ML VIAL IV SCH (16:51)
[2024-12-27] MEDS: METOPROLOL TAR 25 MG TAB PO SCH (16:52)
--- NOTE | 2024-12-27 17:22 | CON ---
History Of Present Illness: This is a 79-year-old male brought into the emergency room with status p ost fall for last 2-3 day. Patient is not a good historian, most of the history was obtained through medical record. I was consulted for left foot osteomyelitis and ulceration. The patient complains of discomfort to the left lab. Denies any other problems. Not a good historian. Most of the histor y was obtained through medical records and staff. Past Medical History: Hypertension, hyperlipidemia, type 2 diabetes mellitus, anemia, lumbar and spi nal stenosis, coronary artery disease, gastroesophageal reflux disease, benign prostatic hypertrophy, lumbar spondylosis, chronic fatigue, sleep apnea, amputation of the left big toe, cataract surgery, coronary artery disease, coronary angioplasty, and left-sided nephrectomy. Social History: Nondrinker. Family History: Noncontributory. Medication: Meropenem and vancomycin. See MARs for other medication. Allergies: MORPHINE. Review of Systems: A 10-point review was performed. Physical Examination: General: This is a 79-year-old male, lying in bed, not in any acute cardiopulmonary distress. Vital Signs: Temperature 98, pulse 74, respirations 12, blood pressure 130/76. HEENT: Unremarkable. Neck: Supple. Lungs: Basal crackles. Heart: S1, S2. Regular. Abdomen: Soft, nontender. Bowel sounds present. Extremities: Left foot with ulceration noted and erythematous changes and increased warmth. Diagnostic Data: MRI of the left foot shows the patient has fifth metatarsal head proximal and middl e fifth toe phalanx as above concerning of osteomyelitis. Soft tissue gas at the level of fifth meta tarsal pharyngeal joint also noted. Assessment And Plan: Osteomyelitis of fifth toe with possible gas. Consider surgical debridement as early as possible. Continue empiric antibiotic with meropenem and vancomycin, pending culture resul ts. Monitor blood sugar levels. Leukocytosis, anemia of chronic disease, moderate protein-calorie m alnourishment. Prognosis is guarded. We will follow the patient closely. Thank you Dr. Phan for consult. NF/MODL Voice ID: [id number] Report ID: [id number]
--- NOTE | 2024-12-27 19:37 | PN ---
Date of Progress Note: 12/27/2024 Subjective: The patient was seen this morning for followup. He was lying in bed. He was more or le ss lying flat in the bed and was noted to have audible wheezing and crackles. He denied any complain ts, but he did not look comfortable at all. I did raise his head up and suggested him to keep his he ad elevated. Objective: Vital Signs: Reviewed. HEENT: Unremarkable. Lungs: Bilateral crackles noted scattered all over his lungs. Heart: Sounds normal. Abdomen: Soft. Bowel sounds normal. No guarding, rigidity, tenderness, distention. Extremities: No leg edema. Left dorsum foot redness has improved. Laboratory Data: WBC has gone up today to 18.4, hemoglobin 11.3, and platelets 401. Sodium 130, pot assium 3.5, chloride 97, bicarb 23, BUN 24, creatinine 0.76, glucose 120, magnesium 2. Chest x-ray s hows changes of pulmonary edema. Impression: 1. Osteomyelitis, left foot. 2. Coronary artery disease. 3. Pulmonary edema. 4. Hypertension. 5. Acute respiratory failure with hypoxia. 6. Chronic diastolic heart failure, with acute exacerbation. Plan: We will go ahead and continue nebulizer treatment per order. Lasix 20 mg IV x1 dose was order ed this morning which was given and subsequently around noon time, a second dose of Lasix 40 mg IV wa s given. The patient had some urinary retention with the bladder scan showing about 280 cc of urine. So Zapata catheter was placed and altogether by this evening, patient had about 1500 cc of urine out put. So he has diuresed very well. I did make a decision of transferring him from medical floor to ICU for closer observation. His elevated WBC count could be due to IV steroid that he received day b efore yesterday and current infection in his left foot. So far, he was getting ceftriaxone and vanco mycin and after today's blood work, I have discontinued ceftriaxone and added meropenem. We will con tinue vancomycin per order. Dr. Pritchett from Infectious Disease Dr. Parmar from [facility] was consulted and details were discussed with him and he is planning to take the patient to [facility] tomorrow and in anticipation of that, last dose of Eliquis was given this morning and it was disc ontinued after that. Cardiology consultation was also requested from Dr. Abdi and he has seen the patient as well. He has discontinued the patient's carvedilol and started him on metoprolol because of frequent PACs and PVCs. For his acute respiratory failure with hypoxia, we will continue oxygen r eplacement and I have requested consultation from Dr. Etienne from Pulmonary Service. I have also c alled the patient's daughter and details were discussed with her this afternoon. The patient's antih ypertensive medications which are hydralazine, losartan, nifedipine were discontinued and we will con palliative senior np to either increase dose of metoprolol or restart some of his blood pressure medication at appro priate time depending on his blood pressure readings. TONI/MODL Voice ID: [id number] Report ID: [id number]
[2024-12-27 22:36] LABS: Blood O2 Saturation 91.1 % (92-98.5)
[2024-12-27 22:37] LABS: Arterial Blood Carboxyhemoglob 0.7 % (0-1.5); Blood Gas Oxyhemoglobin 89.6 % (94-97); Blood Gas THB 13.5 g/dl (12-18)
[2024-12-28 04:40] LABS: Absolute Monocytes 1.9 K/uL (0.1-1.3); Absolute Neutrophil 16.1 K/uL (1.8-8.0); Basophils % 0.2 % (0-1.3); Eosinophils % 0.1 % (0-4.4); Hematocrit 35.3 % (39.6-49.0); Hemoglobin 11.8 g/dL (13.6-17.9); Lymphocytes % 5.5 % (15.3-44.8); MCH 30.7 pg (27.0-35.0); MCHC 33.5 g/dL (32.0-36.0); MCV 91.6 fL (80-100); MPV 6.1 fL (7.6-11.3); Monocytes % 9.9 % (3.3-12.3); Neutrophils % 84.3 % (41.7-73.7); Nucleated Red Blood Cells % 0.1 % (0-0); Platelets 450 thou/uL (152-406); RBC Red Blood Cell Count 3.85 M/uL (4.33-5.43); Red Cell Distribution Width 15.6 % (12.1-15.2)
[2024-12-28 04:57] LABS: Anion Gap 11.5 mEq/L (5.0-15.0); Magnesium 1.8 mg/dL (1.6-2.4); Potassium 3.5 mEq/L (3.5-5.1)
[2024-12-28] MEDS ORDERED: MORPHINE 2 MG/ML SYR IV PRN ×2 (05:22)
[2024-12-28] MEDS: MAGNESIUM SULFATE 1 gm IVPB 1 GM/100 ML BAG IV ONE (05:35)
[2024-12-28] MEDS: D5 0.9 NS 1,000 ML IV SCH (05:35)
[2024-12-28] MEDS: KCL 20 MEQ/100 mL IVPB 20 MEQ/100 ML BAG IV SCH (05:35)
[2024-12-28] MEDS ORDERED: HYDROMORPHONE HCL 0.5 MG/0.5 ML INJ IV PRN (07:22)
[2024-12-28] MEDS: dexAMETHasone 10 MG/ML VIAL ONE (07:26)
[2024-12-28] MEDS: SODIUM BICARB 50 MEQ/50ML VIAL ONE (07:27)
[2024-12-28] MEDS: LIDOCAINE 1% MPF 5 ML VIAL ONE (07:27)
[2024-12-28] MEDS: ROPLVACAINE HCL 40 ML ONE (07:27)
[2024-12-28] MEDS: EPINEPHRINE 1 MG/ML VIAL ONE (07:27)
--- NOTE | 2024-12-28 08:11 | P.CNS ---
Date of Consult: 12/28/24 Reason for Consult: Respiratory failure Chief Complaint: Hypoxemia History of Present Illness: Patient is 79 years of age developed some respiratory distress hypoxemia he was hypoxic on ABGs yesterday started on BiPAP this morning he is very alert responsive cooperative no prior history of pulmonary complaints he has not smoked patient does have history of coronary artery disease has been cleared by cardiology Allergies morphine Allergy (Intermediate, Verified 05/21/23 14:07) hallucinations Home Medications: Apixaban [Eliquis] 5 mg PO BID 12/27/24 Ascorbic Acid [Vitamin C*] 500 mg PO DAILY 12/27/24 Aspirin Chewable [Aspirin Chewable*] 81 mg PO DAILY 12/27/24 Atorvastatin Calcium [Lipitor*] 20 mg PO BEDTIME 12/27/24 Cholecalciferol (Vitamin D3) [Vitamin D3] 1 cap PO DAILY 12/27/24 Ferrous Sulfate [Ferrous Sulfate*] 1 tab PO BID 12/27/24 Hydralazine HCl 100 mg PO BID 12/27/24 Losartan Potassium [Cozaar] 25 mg PO BEDTIME 12/27/24 Magnesium Oxide [Mag 0X*] 400 mg PO TID 12/27/24 Mecobalamin [B12 Active] 1 tab PO DAILY 12/27/24 Mycophenolate Sodium [Myfortic] 2 tab PO BID 12/27/24 NIFEdipine [Nifedipine ER] 60 mg PO BEDTIME 12/27/24 Tacrolimus 3 mg PO BID 12/27/24 Zinc Gluconate [Zinc] 50 mg PO DAILY 12/27/24 calcitrioL [Calcitriol] 2 cap PO DAILY 12/27/24 carvediloL [Coreg*] 25 mg PO BID 12/27/24 predniSONE [Prednisone*] 5 mg PO BEDTIME 12/27/24 - Past Medical/Surgical History Diabetic: No -: Diabetes -: Hypertension -: Sleep apnea -: Spinal stenosis -: Coronary artery disease -: Renal cell cancer -: Cataract -: Angioplasty -: Stents -: Toe amputation -: Left-sided nephrectomy - Social History Smoking Status: Former smoker Alcohol use: Yes CD- Drugs: No Caffeine use: Yes Place of Residence: Home Review of Systems 10-point ROS is otherwise unremarkable Physical Examination Temp Pulse Resp BP Pulse Ox 98.3 F 96 H 23 H 129/63 99 12/28/24 00:00 12/28/24 05:36 12/28/24 01:00 12/28/24 05:36 12/28/24 01:00 General: Alert, In no apparent distress, Oriented x3 Neck: Supple Respiratory: Clear to auscultation bilaterally Cardiovascular: No edema, Regular rate/rhythm, Normal S1 S2 Gastrointestinal: Normal bowel sounds, Soft and benign Musculoskeletal: No clubbing, No swelling - Problems (1) Respiratory failure Current Visit: Yes Status: Acute Plan: Patient is 79 years of age admitted with respiratory distress he appears to have gangrenous left toes scheduled for an amputation today developed some respiratory distress last night doing much better on BiPAP chest x-ray is clear echocardiogram is normal mildly elevated RSVP most likely due to underlying chronic diastolic dysfunction patient has improved is not in any respiratory distress plan to take him off the BiPAP patient has mild hyponatremia patient also has A-fib osteomyelitis of the left foot is on meropenem vancomycin cleared for surgery trial of BiPAP he has a history of sleep apnea Qualifiers: Chronicity: unspecified Respiratory failure complication: hypoxia Qualified Code(s): J96.91 - Respiratory failure, unspecified with hypoxia
[2024-12-28] MEDS: BISACODYL 10 MG RECTAL SUPP PR PRN (09:48)
[2024-12-28] MEDS ORDERED: propofoL 200 MG/20 ML VIAL IV ONE (10:52)
[2024-12-28] MEDS ORDERED: LIDOCAINE 1% MPF 5 ML VIAL ONE (10:52)
[2024-12-28] MEDS: NA CHLORIDE 0.9% 500 ML ONE (11:15)
[2024-12-28] MEDS: HYDROCORTISONE SUC 100 MG INJ IV SCH ×2 (11:43→17:56)
[2024-12-28] MEDS: BUPIVACAINE 0.5% PF 10 ML VIAL ONE (11:51)
[2024-12-28] MEDS: COLLAGENASE 30 GM OINTMENT TOP ONE (12:55)
--- NOTE | 2024-12-28 13:08 | P.OP ---
Date of Service: 12/28/24 Preop diagnosis: Infected wound with septic joint left foot fifth toe and metatarsal bone Postop diagnosis: Same Procedure performed: Left fifth toe transmetatarsal amputation Surgeon: Flako Parmar MD Requirements Analyst: None Estimated blood loss: Minimal Specimen: Pus and infected bone, left fifth toe Findings: As above Anesthesia: Regional Complications: None Drains: None Fluids and blood products: Nonapplicable Disposition: Recovery room Operative note: Patient brought to the OR and placed in supine position after regional block was performed by anesthesia in the recovery room. Patient was prepped and draped in usual sterile fashion. A sharp dissection was utilized to make an incision between the fourth and fifth toe webspace down to the lateral aspect of the left foot encompassing the infected wound. Patient had gas and necrotic tissue present with lots of pus in the wound. Cultures were done. Patient's metatarsal bone was very friable and was removed. Rongeur was used to debride all infected bone down to healthy tissue. All necrotic tissue was sharply dissected away from the wound. Bleeding was controlled with cautery. After all necrotic tissue was removed wound was irrigated and bleeding controlled with cautery. The bone was sent for culture as well. Santyl wet-to-dry normal saline dressing change applied. Patient tolerated the procedure in stable condition taken to recovery room in good general condition. CC: Dr. Phan's office
--- NOTE | 2024-12-28 16:59 | EKG ---
Test Date: 2024-12-25 Test Time: 15:24:38 Floral Assistant: MEASUREMENT RESULTS: Intervals: Rate: 83 MI: 168 QRSD: 96 QT: 378 QTc: 444 [place]: P: 49 MI: 168 QRS: -35 T: 47 INTERPRETIVE STATEMENTS: Sinus rhythm with premature atrial complexes and premature ventricular complexes or fusion complexes Left axis deviation Abnormal ECG Compared to ECG 05/05/2024 21:13:13 Atrial premature complex(es) now present Fusion complex(es) now present Ventricular premature complex(es) now present Left ventricular hypertrophy no longer present Electronically Signed On 12-28-24 16:48:15 [employer]OL HE[employer] AIDE by Maynor Abdi
[2024-12-28] MEDS: BISACODYL 10 MG RECTAL SUPP PR ONE (20:04)
--- NOTE | 2024-12-28 21:32 | PN ---
Date of Progress Note: 12/28/2024 Subjective: The patient was seen this morning for followup. He was in ICU, lying in bed, on BiPAP. He had uneventful night. This morning when I saw him, he was lying in bed, not using any accessory muscles of respiration and overall was feeling better. He communicated very well with me. Denies an y complaints. Earlier he had some foot pain, so pain medication was ordered. Objective: Vital Signs: Reviewed. HEENT: Unremarkable. Lungs: Clear to auscultation. No wheezing. No rales today at all. Heart: Sounds normal. Abdomen: Soft. Bowel sounds normal. No guarding, rigidity, tenderness, distention. Extremities: No leg edema. Laboratory Data: WBC 19.10, hemoglobin 11.8, platelets 450. Sodium 131, potassium 3.5, chloride 97, bicarb 26, BUN 24, creatinine 0.89, glucose 112, magnesium 1.8. Impression: 1. Osteomyelitis, left foot. 2. Coronary artery disease. 3. Hypertension. 4. Hyperlipidemia. 5. Pulmonary edema, improved. 6. Chronic diastolic heart failure, with acute exacerbation. 7. Acute respiratory failure with hypoxia. Plan: The patient's respiratory status has improved significantly overnight. We will continue curre nt empiric antibiotic which is meropenem and vancomycin. Continue Lasix per order. Continue oxygen replacement therapy. I did communicate with Dr. Parmar after the patient had surgery done. It was do ne under nerve block with local anesthesia, so we were able to avoid general anesthesia and the patie nt had amputation of left foot fifth toe and partial amputation of the metatarsal bone. Details were discussed with Dr. Parmar regarding surgical findings. crew caller to operating room, the patient was st arted on Solu-Cortef 100 mg IV every 6 hours in view of him being on chronic steroid therapy and we w ill continue this every 6 hours. Starting tomorrow, we will probably reduce the dose of Solu-Cortef. Postoperatively, the patient was brought back to ICU. He is remaining hemodynamically stable and m aintenance IV fluid was started this morning since the patient was n.p.o. I will see him tomorrow fo r followup. TONI/MODL Voice ID: [id number] Report ID: [id number]
[2024-12-29 05:47] LABS: Absolute Lymphocytes (CBC) 0.7 K/uL (0.7-4.9); Absolute Monocytes 1.3 K/uL (0.1-1.3); Basophils % 0.2 % (0-1.3); Hemoglobin 11.8 g/dL (13.6-17.9); Lymphocytes % 3.7 % (15.3-44.8); MCH 30.5 pg (27.0-35.0); MCHC 32.8 g/dL (32.0-36.0); MPV 6.6 fL (7.6-11.3); Monocytes % 6.8 % (3.3-12.3); Neutrophils % 89.3 % (41.7-73.7); Nucleated Red Blood Cells % 0.1 % (0-0); Platelets 495 thou/uL (152-406); RBC Red Blood Cell Count 3.88 M/uL (4.33-5.43); Red Cell Distribution Width 15.6 % (12.1-15.2)
[2024-12-29 06:00] LABS: Anion Gap 8.6 mEq/L (5.0-15.0); Potassium 3.6 mEq/L (3.5-5.1)
[2024-12-29] MEDS: POTASSIUM CL SA 10 MEQ TAB PO ONE (08:28)
[2024-12-29] MEDS: VANCOMYCIN 1.75 GM in NA CHLORIDE 0.9% 500 ML IVPB SCH (08:29)
[2024-12-29 09:08] LABS: Differential Total Cells Count 100; Lymphocytes 7 % (15-42); Metamyelocytes 3 % (0-0); Monocytes 8 % (0-10); Platelet Estimate ADEQ; Segmented Neutrophils 82 % (40-80)
[2024-12-29 09:09] LABS: Blood Morphology Comment NOT SEEN (NOT SEEN); Platelets, Giant FEW
[2024-12-29] MEDS: HYDROCORTISONE SUC 100 MG INJ IV ONE (11:12)
[2024-12-29] MEDS: WATER FOR INJ,STERILE 10 ML ONE (11:12)
--- NOTE | 2024-12-29 11:37 | PN ---
Date of Progress Note: 12/29/2024 Subjective: The patient is awake, alert. The patient feels much better. He is breathing better. Objective: Vital Signs: Stable. He is afebrile. Laboratory Data: His white count is still elevated 19.1, with a left shift. Chemistry reviewed. Hi s cultures are pending. Gram stain shows 3+ beta-hemolytic strep and 1+ gram-negative rods. His esmer ssing is clean, dry, and intact. His fourth toe is pink, healthy appearing. Assessment: Status post left foot fifth toe transmetatarsal amputation. Recommendations: Continue IV antibiotics as ordered. Check cultures and adjust antibiotics accordin gly. We will continue Santyl, wet-to-dry dressing changes through the weekend and on Wednesday. We juan manuel l begin with a wound VAC if his wound appears infection-free. The patient is clinically stable and s lowly improving. /MODL Voice ID: [id number] Report ID: [id number]
[2024-12-29] MEDS: ENSURE MAX PROTEIN 330 ML LIQUID PO SCH (14:00)
--- NOTE | 2024-12-29 16:13 | PN ---
Date of Progress Note: 12/29/2024 Subjective: The patient was seen this morning for followup. No new complaints, problems reported. He was lying in bed in ICU, overall feels a lot better, looks lot better. He did eat about 50% of hi s breakfast. Objective: Vital Signs: Reviewed. General: Had a bowel movement yesterday and this morning. Denies any abdominal pain, nausea, vomiti ng. No chest pain. No shortness of breath. HEENT: Unremarkable. Lungs: Clear to auscultation. Heart: Sounds normal. Abdomen: Soft. Bowel sounds normal. No guarding, rigidity, tenderness, distention. Extremities: Foot exam, no leg edema. Laboratory Data: WBC 19.1, hemoglobin 11.8, platelets 495. Sodium 133, potassium 3.6, chloride 99, bicarb 29, BUN 25, creatinine 0.71, glucose 215, magnesium 2. Wound culture has started to grow gram -negative rods and beta-hemolytic strep. Definite identification and sensitivity result pending. Impression: 1. Osteomyelitis, left foot. 2. Acute respiratory failure with hypoxia. 3. Congestive heart failure, chronic, diastolic, with acute exacerbation. 4. Pulmonary edema, resolved. 5. Hypertension. 6. Hyperlipidemia. 7. Coronary artery disease. 8. Sepsis. Plan: We will go ahead and continue current medication, continue current antibiotics. We will follo w up on final bone culture results and then decide about culture specific antibiotic. The patient cross s a midline in place. Because of technical difficulty, we were not able to put PICC line, so midline is in place. We will continue to follow with Infectious Disease specialist and Dr. Parmar, as I ment ioned. Medically, the patient is stable for transfer out of ICU to regular medical floor and physica l therapy to work with the patient. The patient is a good candidate to go to inpatient rehab where h e can receive physical therapy as well as current IV antibiotic and medical management for his ongoin g needs when he is agreeable to do so. I have requested Social Service to assist with that. I have encouraged patient to try to increase his oral intake and use nutritional supplement. We will remove Zapata catheter today. Reduce dose of IV hydrocortisone from 100 mg every 6 hours to twice a day. I V pain medication and start oral pain medication per order. Discontinue IV Lasix and start oral Lasi x 40 mg daily. Details were discussed with the patient, the patient's , and daughter. TONI/MODL Voice ID: [id number] Report ID: [id number]
[2024-12-29] MEDS: HYDROCORTISONE SUC 100 MG INJ IV SCH (20:20)
--- NOTE | 2024-12-29 20:48 | CON ---
History Of Present Illness: This is a 79-year-old male I was consulted for osteomyelitis of the left foot. The patient has significant past medical history of renal transplant, came to the emergency r oom with a fall of 3-4 times in last 2-3 days and generalized weakness. The patient was found to hav e osteomyelitis of his left foot and was surgically debrided by the surgical team. The patient denie s any problems with the antibiotic. Denies any headache, nausea, vomiting, chest pain, abdominal nubia n, constipation, or diarrhea. Past Medical History: Congestive heart failure, hypercholesterolemia, renal transplant 9 years ago, diabetes mellitus, sleep apnea, chronic fatigue syndrome. Social History: Nonsmoker, nondrinker. Family History: Noncontributory. Medications: Vancomycin, meropenem. See MARs for other medications. Allergies: MORPHINE. Review of Systems: A 10-point review was performed. Physical Examination: General: This is a 79-year-old male, lying in ICU bed 8, not in any acute cardiopulmonary distress. Vital Signs: Temperature 98, pulse 81, respirations 17, blood pressure 98/64. HEENT: Unremarkable. Neck: Supple. Lungs: Basal crackles. Heart: S1, S2 regular. Abdomen: Soft, nontender. Bowel sounds present. Extremities: Left foot in surgical dressing. Laboratory Data: Shows WBC 19,000, hemoglobin 11.8, platelets are 495. Chemistry shows BUN of 25, c reatinine 0.7. Blood cultures done on December 26, no growth. Wound cultures showing 1+ gram-nega tive rods and 3+ beta-hemolytic strep group B. Assessment And Plan: 1. Osteomyelitis of the left fifth toe and the metatarsal bone, status post amputation yesterday. patient is doing well. 2. Leukocytosis. 3. Anemia of chronic disease. 4. Thrombocytopenia, most likely is reactive. 5. History of renal transplant, on immunosuppressive medication. 6. Diabetes mellitus. Sugars are slightly elevated, most likely secondary to infectious process. Co ntinue current treatment and antibiotic. Pending culture results, we will continue empiric treatment at this time. We will follow the patient closely. If all the infected bones are removed, the patie nt can be treated for antibiotic with 2 weeks and local wound care by surgical team. We will follow the patient closely. Thank you Dr. Phan for consult. NF/MODL Voice ID: [id number] Report ID: [id number]
[2024-12-30 05:48] LABS: Absolute Basophils 0.1 K/uL (0-0.5); Absolute Lymphocytes (CBC) 1.4 K/uL (0.7-4.9); Absolute Monocytes 2.7 K/uL (0.1-1.3); Basophils % 0.2 % (0-1.3); Hematocrit 36.9 % (39.6-49.0); Lymphocytes % 4.7 % (15.3-44.8); MCH 29.7 pg (27.0-35.0); MCHC 32.4 g/dL (32.0-36.0); MCV 91.7 fL (80-100); MPV 6.9 fL (7.6-11.3); Monocytes % 9.2 % (3.3-12.3); Neutrophils % 85.9 % (41.7-73.7); Nucleated Red Blood Cells % 0.1 % (0-0); Platelets 508 thou/uL (152-406); RBC Red Blood Cell Count 4.03 M/uL (4.33-5.43); Red Cell Distribution Width 15.4 % (12.1-15.2)
[2024-12-30 05:55] LABS: Anion Gap 11.6 mEq/L (5.0-15.0); Magnesium 1.9 mg/dL (1.6-2.4); Potassium 3.6 mEq/L (3.5-5.1)
[2024-12-30] MEDS: FUROSEMIDE 40 MG TABLET PO SCH (08:05)
[2024-12-30] MEDS: POTASSIUM CL SA 10 MEQ TAB PO ONE (08:05)
[2024-12-30 08:25] LABS: Band Neutrophils 2 % (0-1); Blood Morphology Comment NOT SEEN (NOT SEEN); Differential Total Cells Count 100; Lymphocytes 7 % (15-42); Metamyelocytes 2 % (0-0); Monocytes 7 % (0-10); Myelocytes 1 % (0-0); Platelet Estimate INCR; Segmented Neutrophils 81 % (40-80)
[2024-12-30] MEDS: HYDROCODONE/APAP 5/325 MG TAB PO PRN (12:08)
[2024-12-30] MEDS: ACETIC ACID 0.25% IRRIG IRR ONE (13:09)
--- NOTE | 2024-12-30 14:58 | PN ---
Date of Progress Note: 12/30/2024 Subjective: The patient was seen this morning for followup. No new complaints or problems reported by him. He remains afebrile, feeling a lot better. His appetite has improved and this morning, he a te 100% of his breakfast and he is using nutritional supplement as suggested. The patient is having bowel movement now on a daily basis. Denies any abdominal pain, nausea, vomiting. No shortness of b reath. No chest pain. After we removed Zapata catheter yesterday, he is urinating well without any d ifficulty. Objective: Vital Signs: Reviewed. HEENT: Unremarkable. Lungs: Clear to auscultation. Heart: Sounds normal. Abdomen: Soft. Bowel sounds normal. No guarding, rigidity, tenderness, distention. Extremities: No leg edema. Labs: WBC 29.10, hemoglobin 12, platelets 508. Sodium 132, potassium 3.6, chloride 101, bicarb 23, BUN 32, creatinine 0.72, glucose 188. Magnesium 1.9. His wound culture has grown pseudomonas which is sensitive to meropenem and Streptococcus which is sensitive to vancomycin. Both of these organism s are sensitive to Levaquin, but we will avoid that in view of his cardiac history with concerns abou t prolonging QT interval and increasing risk of ventricular arrhythmia. Impression: 1. Osteomyelitis, left foot. 2. Peripheral vascular disease. 3. Coronary artery disease. 4. Hypertension. 5. Hyperlipidemia. 6. Anemia, unspecified. Plan: We will continue current antibiotic which is meropenem as well as vancomycin. I did communica te details with Dr. Pritchett today. The patient's WBC count is going up and we believe at this time it is likely due to steroid use and we are now reducing his steroid medication. Today, I will stop his Solu-Cortef which he takes 100 mg twice a day. I will stop that and start him on prednisone 20 mg t wice a day. We will keep reducing dose of prednisone either every day or every other day until he re aches down to his maintenance dose which is 5 mg daily. Continue to monitor blood work and the patie nt was still in ICU because there were no beds available on the floor yesterday. Hopefully, we will have bed available today. I did ask ICU nurse to communicate with the patient's family member to con firm that he was still taking Eliquis 5 mg twice a day prior to admission as it was prescribed by car diologist and not me, so I am not sure whether he was still taking it or not, but if he was, then we need to restart it today if he was not taking it and need to start Lovenox 40 mg subcutaneous injecti on daily as of today evening. TONI/MODL Voice ID: [id number] Report ID: [id number]
[2024-12-30] MEDS: APIXABAN 5 MG TABLET PO SCH (19:53)
[2024-12-30] MEDS: predniSONE 20 MG TAB PO SCH (19:53)
[2024-12-31 06:07] LABS: Anion Gap 9.6 mEq/L (5.0-15.0); Potassium 4.6 mEq/L (3.5-5.1)
[2024-12-31 06:13] LABS: Absolute Basophils 0.1 K/uL (0-0.5); Absolute Eosinophils 0.3 K/uL (0-0.5)
[2024-12-31 06:22] LABS: Nucleated RBC Absolute Count 0.1 (0-0); Nucleated Red Blood Cells % 0.3 % (0-0)
[2024-12-31 06:26] LABS: Hematocrit 34.9 % (39.6-49.0); Hemoglobin 11.6 g/dL (13.6-17.9); RBC Red Blood Cell Count 3.83 M/uL (4.33-5.43)
[2024-12-31 06:27] LABS: MCH 30.3 pg (27.0-35.0); MCV 91.1 fL (80-100)
[2024-12-31 06:28] LABS: Basophils % 0.3 % (0-1.3); Eosinophils % 1.1 % (0-4.4); Lymphocytes % 5.9 % (15.3-44.8); MCHC 33.2 g/dL (32.0-36.0); MPV 7.2 fL (7.6-11.3); Monocytes % 9.2 % (3.3-12.3); Neutrophils % 83.5 % (41.7-73.7); Platelets 532 thou/uL (152-406); Red Cell Distribution Width 15.3 % (12.1-15.2)
[2024-12-31 06:29] LABS: Absolute Lymphocytes (CBC) 1.3 K/uL (0.7-4.9); Absolute Monocytes 2.1 K/uL (0.1-1.3)
[2024-12-31 07:56] LABS: Absolute Basophils 0.2 K/uL (0-0.5); Absolute Eosinophils 0.8 K/uL (0-0.5); Absolute Lymphocytes (CBC) 1.2 K/uL (0.7-4.9); Absolute Monocytes 1.8 K/uL (0.1-1.3); Absolute Neutrophil 17.3 K/uL (1.8-8.0); Basophils % 0.7 % (0-1.3); Hematocrit 33.2 % (39.6-49.0); Lymphocytes % 5.5 % (15.3-44.8); MCH 30.4 pg (27.0-35.0); MCHC 33.1 g/dL (32.0-36.0); MCV 91.8 fL (80-100); MPV 6.7 fL (7.6-11.3); Monocytes % 8.5 % (3.3-12.3); Neutrophils % 81.3 % (41.7-73.7); Nucleated RBC Absolute Count 0.1 (0-0); Nucleated Red Blood Cells % 0.2 % (0-0); Platelets 563 thou/uL (152-406); RBC Red Blood Cell Count 3.62 M/uL (4.33-5.43); Red Cell Distribution Width 15.2 % (12.1-15.2)
[2024-12-31 08:13] LABS: Anion Gap 8.1 mEq/L (5.0-15.0); Magnesium 1.7 mg/dL (1.6-2.4); Potassium 4.1 mEq/L (3.5-5.1)
[2024-12-31] MEDS: ACETIC ACID 0.25% IRRIG IRR SCH (09:00)
[2024-12-31 09:11] LABS: Atypical Lymphocytes 5 %; Band Neutrophils 1 % (0-1); Differential Total Cells Count 100; Lymphocytes 9 % (15-42); Metamyelocytes 2 % (0-0); Monocytes 6 % (0-10); Myelocytes 3 % (0-0); Platelet Estimate INCR; Platelets Clumped NOTED; Platelets, Giant FEW; Segmented Neutrophils 74 % (40-80)
[2024-12-31 09:12] LABS: Blood Morphology Comment NOT SEEN (NOT SEEN)
--- NOTE | 2024-12-31 10:38 | PN ---
Date of Progress Note: 12/31/2024 Subjective: The patient is awake, alert. Feels much better. He is not on oxygen anymore and has no pain today. Objective: Vital Signs: Stable. He is afebrile. Extremities: Examination of the left foot wound reveals it to have no significant erythema, warmth, or edema around the wound. The wound does have fibrin, less than 50% of the wound. The wound measur ement for a wound VAC was 5.0 x 3.5 and by 1.9 cm for the depth. I think the wound would greatly rajinder efit from the use of Santyl and wound VAC. Diagnostic Data: White count is 21.3, which is down from 29,000 yesterday. Chemistry reviewed. His left shift is also improving. His microbiology results were reviewed. Pseudomonas and Streptococcu s group B were present and the patient is in the appropriate antibiotics based on the sensitivities. Assessment: Status post left fifth toe transmetatarsal amputation. Recommendations: To continue IV antibiotics. The white count elevation is probably due in part to t he steroids the patient has been given. ID is following. Appreciate their input. We will start a w ound VAC with Santyl tomorrow. The patient is clinically stable and slowly improving. His vascular status will be evaluated as an outpatient and if he does not have any vessels that can be improved wi th procedures, he may be a candidate for hyperbaric oxygen therapy as well. /MODL Voice ID: [id number] Report ID: [id number]
[2024-12-31] MEDS: COLLAGENASE 30 GM OINTMENT TOP SCH (13:25)
--- NOTE | 2024-12-31 17:54 | PN ---
Date of Progress Note: 12/31/2024 Subjective: The patient was seen this morning for followup. No new complaints or problems reported by patient. He was lying in bed, still in ICU as there were no beds available yesterday for transfer . Hemodynamically stable. He has had 2 bowel movements in last 24 hours. Denies any chest pain, ab dominal pain, nausea, or vomiting. No shortness of breath. Objective: Vital Signs: Reviewed. HEENT: Unremarkable. Lungs: Clear to auscultation. Heart: Sounds normal. Abdomen: Soft. Bowel sounds normal. No guarding, rigidity, tenderness, or distention. Extremities: No leg edema. Laboratory Data: This morning; WBC 21.30, hemoglobin 11, platelets 563. Sodium 135, potassium 4.1, chloride 104, bicarb 27, BUN 26, creatinine 0.65, glucose 175, magnesium 1.7. Impression: 1. Osteomyelitis, left foot. 2. Peripheral vascular disease. 3. Anemia, unspecified. 4. Leukocytosis, due to steroid use. 5. Chronic steroid therapy. 6. Coronary artery disease. Plan: We will go ahead and continue current antibiotic which is meropenem and vancomycin. We will c ontinue to follow with Dr. Pritchett and Dr. Parmar. Continue current Eliquis. Physical Therapy to [facility] in to work with the patient. I will see him tomorrow for followup and we are awaiting on insurance company's approval for patient to go to inpatient rehab and Social Service is working on it. I will see him tomorrow for luc moyer. TONI/MODL Voice ID: [id number] Report ID: [id number]
[2024-12-31] MEDS: predniSONE 10 MG TAB PO SCH (20:04)
--- NOTE | 2025-01-01 11:30 | PN ---
Date of Progress Note: 01/01/2025 Subjective: The patient is awake, alert. No complaint. He does have swelling of his right arm and venous Doppler has been ordered to make sure he does not have a DVT in that arm. Objective: Vital Signs: Stable. He is afebrile. Extremities: His dressing is clean, dry, intact. Toes are pink. The wound VAC has been ordered. Assessment: Status post left fifth toe transmetatarsal amputation. Recommendations: Continue IV antibiotics for now. When he normalizes, the patient can be switched t o oral antibiotics per ID recommendations. We will discuss that with Infectious Disease. Wound VAC is ordered and discharge planning is in place. The patient may be transferred to inpatient rehab. /MODL Voice ID: [id number] Report ID: [id number]
[2025-01-01] MEDS: HYDROCODONE/APAP 5/325 MG TAB PO ONE (14:52)
--- NOTE | 2025-01-01 16:45 | RAD REPORT ---
EXAM: Right upper extremity venous ultrasound HISTORY: Right upper extremity pain and edema COMPARISON: None TECHNIQUE: Multiplanar grayscale and color Doppler images were obtained in a right upper extremity ve nous ultrasound. Spectral analysis of the Doppler waveforms were performed. FINDINGS: The internal jugular vein demonstrates normal compression and flow without evidence of thrombus. The subclavian vein demonstrates normal flow and augmentation without evidence of thrombus. The axillary and brachial veins demonstrate normal compression, flow, and augmentation without eviden ce of thrombus. The venous structures distal to the elbow are patent without thrombus. The cephalic and basilic veins are patent. Hypoechoic structure at the inner arm at the level of the distal humerus measuring approximately 6.1 x 2.7 x 1.1 cm. IMPRESSION: No evidence of DVT in the right upper extremity. Hypoechoic structure at the level of the distal humerus of uncertain etiology.
--- NOTE | 2025-01-01 21:34 | PN ---
Date of Progress Note: 01/01/2025 Subjective: The patient was seen this morning for followup. No new complaints or problems reported by patient. He was lying in bed, not in any distress in ICU this morning as there were no beds avail able yesterday for him to be transferred out of ICU. Vital signs reviewed. No abdominal pain, chest pain, shortness of breath. Physical Examination: HEENT: Unremarkable. Lungs: Clear to auscultation. Heart: Sounds normal. Abdomen: Soft. Bowel sounds normal. No guarding, rigidity, tenderness, distention. Extremities: No leg edema. Impression: 1. Osteomyelitis, left foot. 2. Peripheral vascular disease. 3. Coronary artery disease. 4. Hypertension. 5. Hyperlipidemia. 6. Chronic steroid therapy. Plan: We will go ahead and continue current antibiotics. Continue to follow with general surgeon, Kevin Parmar, for wound care management and Infectious Disease specialist, Dr. Pritchett, for antibiotic man agement. Continue current steroid therapy. We will repeat blood work tomorrow, and we will reduce d ose of prednisone tomorrow. Physical Therapy to continue to work with the patient. Today, I did con tact the patient's insurance company to set up peer to peer review for inpatient rehab benefit and rodriguez bsequently this afternoon, I was able to communicate with the patient's insurance company physician a nd after I explained all the details and need for patient to go to inpatient rehab, physician at [employer] denied this request and I have communicated with our Social Service at the hospital and requested for us to go ahead and appeal this as in my opinion, patient is appropriate candidate for him to go to inpatient rehab, but unfortunately, insurance company does not think so. I will see him tomorrow for followup. TONI/MODL Voice ID: [id number] Report ID: [id number]
[2025-01-02 06:39] LABS: Absolute Basophils 0.1 K/uL (0-0.5); Absolute Lymphocytes (CBC) 0.8 K/uL (0.7-4.9); Absolute Monocytes 1.3 K/uL (0.1-1.3); Absolute Neutrophil 16.2 K/uL (1.8-8.0); Basophils % 0.4 % (0-1.3); Eosinophils % 0.2 % (0-4.4); Hemoglobin 11.6 g/dL (13.6-17.9); Lymphocytes % 4.4 % (15.3-44.8); MCH 30.7 pg (27.0-35.0); MCHC 33.1 g/dL (32.0-36.0); MCV 92.6 fL (80-100); MPV 6.2 fL (7.6-11.3); Monocytes % 7.3 % (3.3-12.3); Neutrophils % 87.7 % (41.7-73.7); Nucleated Red Blood Cells % 0.1 % (0-0); Platelets 611 thou/uL (152-406); RBC Red Blood Cell Count 3.78 M/uL (4.33-5.43); Red Cell Distribution Width 15.5 % (12.1-15.2)
[2025-01-02 06:50] LABS: Anion Gap 7.1 mEq/L (5.0-15.0); Potassium 4.1 mEq/L (3.5-5.1)
[2025-01-02] MEDS: predniSONE 10 MG TAB PO SCH (09:13)
[2025-01-02 09:15] LABS: Blood Morphology Comment NOT SEEN (NOT SEEN); Differential Total Cells Count 100; Lymphocytes 8 % (15-42); Monocytes 9 % (0-10); Platelet Estimate INCR; Platelets, Giant PRESENT; Segmented Neutrophils 83 % (40-80)
--- NOTE | 2025-01-02 11:20 | PN ---
Date of Progress Note: 01/02/2025 Subjective: The patient is awake and alert. No complaint. Objective: Vital Signs: Stable. He is afebrile. Skin: His dressing is clean, dry, and intact. The wound VAC is in place. Toes are pink. Laboratory Data: His white count is down to 18.5. His H and H are stable. Assessment: Status post left 5th toe transmetatarsal amputation for septic joint. Recommendations: Continue IV antibiotics for the time being. It can be converted to oral antibiotic s when patient is discharged. Ideally, we would like to put the patient on Levaquin; however, given the cardiac side effects of Levaquin with this patient, might be problematic. Therefore, I have disc ussed the case with Dr. Phan and we will consider Augmentin and acetic acid for the pseudomonas to cross ve coverage for both bacteria that are growing. We will further discuss this with Dr. Pritchett of Infe ctious Disease. Continue present care. We will follow this patient closely and discharge planning. ALOK/NAKUL Voice ID: [id number] Report ID: [id number]
--- NOTE | 2025-01-02 16:50 | PN ---
Date of Progress Note: 12/31/2024 Subjective: The patient lying in bed. Denies any headache, nausea, vomiting, chest pain, abdominal pain, constipation, or diarrhea. Objective: Vital signs: Reviewed. Lungs: Basal crackles. Heart: S1, S2. Regular. Abdomen: Soft, nontender. Bowel sounds present. Extremities: No edema. Laboratory Data: WBC 20.3, hemoglobin 11, platelets 563. Currently, on Merrem and vancomycin. See MARs for other medications. Assessment And Plan: Osteomyelitis of left fifth toe and metatarsal bone, status post amputation. T he patient clinically is doing well. Leukocytosis, possibly secondary to steroid versus infection. Continue antibiotic for a total of 6 weeks. Status post renal transplant, on immunosuppressive medic ation. Diabetes mellitus. Continue current treatment. We will follow the patient as needed. Wound care per surgical team. NF/MODL Voice ID: [id number] Report ID: [id number]
--- NOTE | 2025-01-02 17:14 | PN ---
Subjective: Patient lying in bed. Denies any headache, nausea, vomiting, chest pain, abdominal pain , constipation, or diarrhea. Objective: Vital Signs: Reviewed. Lungs: Basal crackles. Heart: S1, S2. Regular. Abdomen: Soft, nontender. Bowel sounds present. Extremities: No edema. Laboratory Data: Shows WBC 18.5 down from 21, hemoglobin 11.6, platelets 611. BUN of 21, creatinine 0.6. Micro data is showing Pseudomonas aeruginosa and Strep agalactiae group B from the left foot. Assessment And Plan: Left foot osteomyelitis, status post surgical amputation and now on wound VAC. We will continue antibiotic with meropenem at this time total of 6 weeks. Leukocytosis, infection v ersus steroid therapy as patient is doing well clinically. History of kidney transplant. Anemia of chronic disease. Thrombocytosis, reactive. We will follow the patient as needed. NF/MODL Voice ID: [id number] Report ID: [id number]
--- NOTE | 2025-01-02 21:10 | PN ---
Date of Progress Note: 01/02/2025 Subjective: The patient was seen this morning for followup. No new complaints or problems reported by the patient. He was lying in bed. He was on medical floor. Denies any new complaints this thompson sheikh. Objective: Vital Signs: Reviewed. HEENT: Unremarkable. Lungs: Clear to auscultation. Heart: Sounds normal. Abdomen: Soft. Bowel sounds normal. No guarding, rigidity, tenderness, distention. Extremities: No leg edema. Laboratory Data: WBC 18.5, hemoglobin 11.6, platelets 611. Sodium 133, potassium 4.1, chloride 98, bicarb 32, BUN 21, creatinine 0.61, glucose 196. Magnesium 2. Impression: 1. Osteomyelitis, left foot. 2. Peripheral vascular disease. 3. Hypertension. 4. Chronic steroid therapy. 5. Anemia. Plan: We will go ahead and reduce dose of prednisone to 10 mg twice a day. Continue current antibio tics. Physical Therapy to continue to work with the patient and details were discussed with Dr. Estrada whitfield who has suggested to continue current antibiotics, but we may change it to oral antibiotics like Au gmentin in the near future and he was not suggested 6 weeks of antibiotic therapy for osteomyelitis b ecause the infected tissue was removed, so the patient will just need about 2 weeks of antibiotic, bu t no need for 6 weeks' therapy. The patient's midline was removed yesterday and due to technical dif ficulty, another midline was not placed, so he has a Hep-Lock on his right forearm, which we will continue to use thelma monge now. TONI/MODL Voice ID: [id number] Report ID: [id number]
[2025-01-03] MEDS: predniSONE 10 MG TAB PO SCH (08:55)
--- NOTE | 2025-01-03 12:15 | PN ---
Date of Progress Note: 01/03/2025 Subjective: The patient is awake, alert. No complaint. Objective: Vital Signs: Stable, afebrile. Skin: His dressing is clean, dry, intact. Wound VAC is in place. Toes are well perfused. Assessment: Status post left fifth toe transmetatarsal amputation. Recommendations: I have placed a call into Dr. Pritchett. We are awaiting his response regarding the o ption of oral antibiotics versus IV antibiotics as the patient source of infection has been surgicall y removed. We will also check the labs tomorrow and see, which way he is trending. Increased white count could have been secondary to steroid medication that he is getting. Clinically, the patient is doing well. Discharge planning is in place. /MODL Voice ID: [id number] Report ID: [id number]
[2025-01-03 14:19] LABS: Absolute Basophils 0.1 K/uL (0-0.5); Absolute Eosinophils 0.1 K/uL (0-0.5); Absolute Lymphocytes (CBC) 1.7 K/uL (0.7-4.9); Absolute Monocytes 1.5 K/uL (0.1-1.3); Absolute Neutrophil 15.3 K/uL (1.8-8.0); Basophils % 0.6 % (0-1.3); Eosinophils % 0.7 % (0-4.4); Hemoglobin 12.3 g/dL (13.6-17.9); Lymphocytes % 8.9 % (15.3-44.8); MCH 30.6 pg (27.0-35.0); MCHC 33.3 g/dL (32.0-36.0); MCV 91.8 fL (80-100); MPV 6.8 fL (7.6-11.3); Monocytes % 8.2 % (3.3-12.3); Neutrophils % 81.6 % (41.7-73.7); Nucleated RBC Absolute Count 0.1 (0-0); Nucleated Red Blood Cells % 0.3 % (0-0); Platelets 489 thou/uL (152-406); RBC Red Blood Cell Count 4.03 M/uL (4.33-5.43); Red Cell Distribution Width 15.4 % (12.1-15.2)
--- NOTE | 2025-01-03 17:45 | PN ---
Subjective: The patient lying in bed. No new acute event. Feels better today. As per surgical tea m, infected tissue has been removed and local wound care will involve acetic acid which should cover Pseudomonas. Objective: Vital Signs: Temperature 98, pulse 97, respiration 20, blood pressure 118/59. Lungs: Basal crackles. Heart: S1, S2, regular. Abdomen: Soft, nontender. Bowel sounds present. Extremities: Left foot wound and wound VAC in place. Lab Data: WBC 18. Today's labs are pending. The patient is currently on meropenem. Assessment And Plan: Left foot osteomyelitis status post amputation of the infected tissue. Agree w [facility] surgical team to continue acetic acid and can be switched to oral antibiotic on discharge for tot al of 2 weeks. Monitor signs of infection and WBC and fever trends. Continue supportive care and wo und care per surgical team. We will follow the patient as needed. NF/MODL Voice ID: [id number] Report ID: [id number]
[2025-01-03] MEDS: AMOX/K CLAV 875 MG TAB PO SCH (20:49)
--- NOTE | 2025-01-04 00:41 | PN ---
Date of Progress Note: 01/03/2025 Subjective: The patient was seen this morning for followup. No new complaints or problems reported by the patient. He was overall feeling much better. No new complaints. Objective: Vital Signs: Reviewed. HEENT: Unremarkable. Lungs: Clear to auscultation. Heart: Sounds normal. Abdomen: Soft. Bowel sounds normal. No guarding, rigidity, tenderness, or distention. Extremities: No leg edema. Impression: 1. Osteomyelitis, left foot. 2. Coronary artery disease. 3. Hypertension. 4. Hyperlipidemia. Plan: We will go ahead and continue antibiotics per order. Continue to follow with Dr. Parmar and Dr Solitario Pritchett. Physical Therapy to continue to work with the patient. We will repeat blood work tomorrow . I will see him tomorrow for followup. We are still waiting on insurance company's decision regard ing the patient to go to inpatient rehab. TONI/MODL Voice ID: [id number] Report ID: [id number]
[2025-01-04 05:21] LABS: Absolute Basophils 0.1 K/uL (0-0.5); Absolute Eosinophils 0.1 K/uL (0-0.5); Absolute Lymphocytes (CBC) 1.1 K/uL (0.7-4.9); Absolute Monocytes 1.3 K/uL (0.1-1.3); Absolute Neutrophil 10.5 K/uL (1.8-8.0); Basophils % 0.5 % (0-1.3); Eosinophils % 0.7 % (0-4.4); Hematocrit 34.7 % (39.6-49.0); Hemoglobin 11.4 g/dL (13.6-17.9); Lymphocytes % 8.6 % (15.3-44.8); MCH 30.5 pg (27.0-35.0); MCHC 32.8 g/dL (32.0-36.0); MCV 92.9 fL (80-100); MPV 6.3 fL (7.6-11.3); Monocytes % 10.2 % (3.3-12.3); Platelets 545 thou/uL (152-406); RBC Red Blood Cell Count 3.73 M/uL (4.33-5.43); Red Cell Distribution Width 15.8 % (12.1-15.2)
[2025-01-04 05:24] LABS: Anion Gap 8.2 mEq/L (5.0-15.0); Potassium 4.2 mEq/L (3.5-5.1)
[2025-01-04 06:12] VITALS: BMI 34.9
[2025-01-04] MEDS: predniSONE 5 MG TAB PO SCH (10:21)
[2025-01-04] MEDS: ALBUTEROL 2.5 MG/3 ML NEB SOL ONE (20:04)
--- NOTE | 2025-01-04 22:16 | PN ---
Date of Progress Note: 01/04/2025 Subjective: The patient was seen this morning for followup. He was lying in bed, not in any distres s. Denies any new complaints. He is participating well with physical therapy and improving with ass istance with physical therapy. Denies any chest pain, shortness of breath, nausea, vomiting. No con stipation or diarrhea. Pain in left foot is much better now. Objective: Vital Signs: Reviewed. HEENT: Unremarkable. Lungs: Clear to auscultation. Heart: Sounds normal. Abdomen: Soft. Bowel sounds normal. No guarding, rigidity, tenderness, distention. Extremities: No leg edema. Laboratory Data: WBC 13.2, hemoglobin 11.4, platelets 545. Sodium 134, potassium 4.2, chloride 96, bicarb 34, BUN 30, creatinine 0.59, glucose 122, magnesium 2. Impression: 1. Osteomyelitis, left foot, status post amputation of left foot fifth toe and metatarsal bone. 2. Chronic steroid therapy. 3. Coronary artery disease. 4. Hypertension. 5. Anemia, unspecified. 6. We will go ahead and continue current antibiotic which is Augmentin and Dr. Parmar and Dr. Pritchett, they both have communicated with each other regarding antibiotic choice and duration. All the infect ed material from left foot has been removed, so there is no need for long-term IV antibiotics, and Dr Solitario Parmar and Dr. Pritchett, they both have discussed these details and decided to give 2 weeks of oral Au gmentin therapy, which was started yesterday. We will continue other current medical management. We are still waiting on insurance company's answer regarding [facility] If that gets approved, the patient can be transferred to rehab as early as tomorrow and if that gets denied, then the patient may need to go to usp facility until his overa ll generalized weakness and debility problem improve down the line where he is able to ambulate safel y. I have discussed all the details with hospitalist, Dr. Molina, who will take over this patient's ca re in my absence as I will be out of town starting tomorrow until Wednesday of next week. TONI/MODL Voice ID: [id number] Report ID: [id number]
--- NOTE | 2025-01-05 12:32 | PN ---
Subjective: Patient is lying in bed. No new acute event. Tolerating antibiotic without any problem s. Objective: Vital signs: Reviewed. Lungs: Basal crackles. Heart: S1, S2. Regular. Abdomen: Soft, nontender. Bowel sounds present. Extremities: Trace edema. Left foot wound noted. Has dressing. Wound VAC was being replaced. Assessment And Plan: 1. Left foot osteomyelitis, status post amputation. 2. Leukocytosis, improving. 3. Continue Augmentin. 4. Continue current treatment. We will follow the patient as needed. NF/MODL Voice ID: [id number] Report ID: [id number]
[2025-01-05] MEDS: ALBUTEROL 2.5 MG/3 ML NEB SOL ONE (22:10)
[2025-01-05] MEDS: DOCUSATE NA/SENNA CONC 1 TAB PO PRN (23:29)
[2025-01-08 08:49] LABS: Absolute Basophils 0.1 K/uL (0-0.5); Absolute Eosinophils 0.1 K/uL (0-0.5); Absolute Lymphocytes (CBC) 1.6 K/uL (0.7-4.9); Absolute Monocytes 1.3 K/uL (0.1-1.3); Absolute Neutrophil 5.5 K/uL (1.8-8.0); Basophils % 1.4 % (0-1.3); Eosinophils % 1.2 % (0-4.4); Hematocrit 33.7 % (39.6-49.0); Hemoglobin 11.2 g/dL (13.6-17.9); Lymphocytes % 18.4 % (15.3-44.8); MCH 30.3 pg (27.0-35.0); MCHC 33.1 g/dL (32.0-36.0); MCV 91.5 fL (80-100); Monocytes % 15.2 % (3.3-12.3); Neutrophils % 63.8 % (41.7-73.7); Nucleated RBC Absolute Count 0.1 (0-0); Nucleated Red Blood Cells % 0.8 % (0-0); Platelets 402 thou/uL (152-406); RBC Red Blood Cell Count 3.68 M/uL (4.33-5.43); Red Cell Distribution Width 15.8 % (12.1-15.2)
[2025-01-08 09:07] LABS: Albumin 2.2 g/dL (3.4-5.0); Albumin/Globulin Ratio 0.6 (1.1-1.8); Anion Gap 10.1 mEq/L (5.0-15.0); Bilirubin Total 0.7 mg/dL (0.2-1.0); Protein, Total 6.2 g/dL (6.4-8.2)
[2025-01-08 09:09] LABS: Magnesium 1.9 mg/dL (1.6-2.4); Potassium 4.1 mEq/L (3.5-5.1)
[2025-01-08 09:57] LABS: Blood Morphology Comment NOT SEEN (NOT SEEN); Platelet Estimate ADEQ; Platelets Clumped FEW; White Blood Cell Scan OK (OK)
--- NOTE | 2025-01-08 14:58 | PN ---
Subjective: Patient lying in bed. No new acute event. Chart reviewed. Objective: Vital Signs: Reviewed. Lungs: Basal crackles. Heart: S1, S2. Regular. Abdomen: Soft, nontender. Bowel sounds present. Extremities: No edema. Wound VAC in place. Laboratory Data: Shows WBC 8.7, down from 13,000, hemoglobin 11.2, platelets are 402. Chemistry charla ws BUN of 21, creatinine 0.5. Assessment And Plan: Status post amputation of infected bone from the necrotic area from the left fo ot. The patient is doing well. His leukocytosis has subsided. Anemia of chronic disease. Continue wound care per surgical team. Continue Augmentin for total of 2 weeks. Osteomyelitis of left foot, status post amputation of left fifth toe and metatarsal bone. Patient co ntinued to improve. We will follow the patient as needed. NF/MODL Voice ID: [id number] Report ID: [id number]
--- NOTE | 2025-01-08 15:00 | P.PN ---
Subjective Date of Service: 01/05/25 Patient continues to do well and patient is in good spirits. Patient denies any new complaints. Review of Systems 10-point ROS is otherwise unremarkable Physical Examination - Vital Signs Temperature: 98.3 F Blood Pressure: 136/77 Pulse: 86 Respirations: 22 Pulse Ox (%): 95 - Physical Exam General: Alert, In no apparent distress, Oriented x3 HEENT: Atraumatic, PERRLA, EOMI Neck: Supple, JVD not distended Respiratory: Clear to auscultation bilaterally, Normal air movement Cardiovascular: Regular rate/rhythm, Normal S1 S2, No murmurs Gastrointestinal: Normal bowel sounds, Soft and benign, Non-distended, No tenderness Musculoskeletal: No clubbing, Swelling, Erythema, Tenderness Integumentary: Tenderness/swelling, Erythema Neurological: Sensation intact, Cranial nerves 3-12 intact - Studies Medications List Reviewed: Yes Assessment & Plan - Problems (Diagnosis) (1) Osteomyelitis of left foot Current Visit: Yes Status: Acute (2) Current chronic use of systemic steroids Current Visit: Yes Status: Acute (3) Anemia Current Visit: Yes Status: Acute (4) Hypertension Current Visit: Yes Status: Acute (5) Atrial fibrillation Current Visit: Yes Status: Acute (6) CAD (coronary artery disease) Current Visit: Yes Status: Acute (7) Peripheral arterial disease Current Visit: Yes Status: Acute - Plan Plan: 1. Patient with osteomyelitis of the left foot; patient is status post amputation of the left fifth toe and the metatarsal head. Patient is clinically doing well and is on oral antibiotics. Will continue with physical therapy and patient is to wear his boot whenever he is ambulating and offload the left foot is much as possible. Patient will continue with Augmentin for 2 weeks. Patient was denied inpatient rehab. Will work on fpc facility placement or home with home health 2. CAD; continue with antiplatelet therapy and statin therapy 3. History of hypertension; continue with antihypertensives 4. History of anemia; continue monitoring H&H 5. GI DVT prophylaxis Discharge Plan: Home Plan to discharge in: Greater than 2 days - Advance Directives Does patient have a Living Will: No Does patient have a Durable POA for Healthcare: No - Code Status/Comfort Care Code Status Assessed: Yes Code Status: Full Code Critical Care: No Time Spent Managing PTS Care (In Minutes): 35
--- NOTE | 2025-01-08 15:24 | P.PN ---
Date of Service: 01/06/25 Subjective Patient is clinically doing well. Patient denies any new complaints. Clinical symptoms are improving. Physical Examination - Vital Signs Reviewed - Physical Exam General: Alert, In no apparent distress, Oriented x3 Respiratory: Clear to auscultation bilaterally, Normal air movement Cardiovascular: Regular rate/rhythm, Normal S1 S2, No murmurs Gastrointestinal: Normal bowel sounds, Soft and benign, Non-distended, No tenderness Musculoskeletal: No clubbing, Swelling, Erythema, Tenderness Integumentary: Tenderness/swelling, Erythema Neurological: No focal deficits Assessment & Plan - Problems (Diagnosis) (1) Osteomyelitis of left foot Current Visit: Yes Status: Acute (2) Current chronic use of systemic steroids Current Visit: Yes Status: Acute (3) Anemia Current Visit: Yes Status: Acute (4) Hypertension Current Visit: Yes Status: Acute (5) Atrial fibrillation Current Visit: Yes Status: Acute (6) CAD (coronary artery disease) Current Visit: Yes Status: Acute (7) Peripheral arterial disease Current Visit: Yes Status: Acute - Plan Continue with plan of care as mentioned below: 1. Patient with osteomyelitis of the left foot; patient is status post amputation of the left fifth toe and the metatarsal head. Patient is clinically doing well and is on oral antibiotics. Will continue with physical therapy and patient is to wear his boot whenever he is ambulating and offload the left foot is much as possible. Patient will continue with Augmentin for 2 weeks. Patient was denied inpatient rehab. Will work on snf facility placement or home with home health. Patient is still deciding on which 1 he would prefer. However, the family is leaning towards snf facility placement. It really depends on how well he is able to take care of himself as his is at home with him patient has done well during hospital stay. Patient's clinical symptoms have improved. Patient will continue with medical therapy as an outpatient. Patient will follow-up with consultants and PCP as an outpatient in 1 to 2 weeks. She is elderly and not able to do as much as she was once able to do. 2. CAD; continue with antiplatelet therapy and statin therapy 3. History of hypertension; continue with antihypertensives 4. History of anemia; continue monitoring H&H 5. GI DVT prophylaxis Discharge Plan: Home Plan to discharge in: Greater than 2 days - Advance Directives Does patient have a Living Will: No Does patient have a Durable POA for Healthcare: No - Code Status/Comfort Care Code Status Assessed: Yes Code Status: Full Code Critical Care: No Time Spent Managing PTS Care (In Minutes): 35
--- NOTE | 2025-01-08 15:27 | P.PN ---
Date of Service: 01/07/25 Subjective Patient was able to walk to the door and back which is about 30 feet in total. He had patient's clinical symptoms are continuing to improve. His pain is decreased as well. He is willing participant and he is hoping that by ambulating further and further he will be able to go home with home health. Discussing with family if they will be able to care for patient at home. If not then [place] nursing facility would be the best option as insurance has denied inpatient rehab. Physical Examination - Vital Signs Reviewed - Physical Exam General: Alert, In no apparent distress, Oriented x3 Respiratory: Clear to auscultation bilaterally, Normal air movement Cardiovascular: Regular rate/rhythm, Normal S1 S2, No murmurs Gastrointestinal: Normal bowel sounds, Soft and benign, Non-distended, No tenderness Integumentary: Wound is clean and intact with wound VAC in place Neurological: No focal deficits Assessment & Plan - Problems (Diagnosis) (1) Osteomyelitis of left foot status post amputation of the left foot fifth toe and metatarsal head Current Visit: Yes Status: Acute (2) Current chronic use of systemic steroids Current Visit: Yes Status: Acute (3) Anemia Current Visit: Yes Status: Acute (4) Hypertension Current Visit: Yes Status: Acute (5) Atrial fibrillation Current Visit: Yes Status: Acute (6) CAD (coronary artery disease) Current Visit: Yes Status: Acute (7) Peripheral arterial disease Current Visit: Yes Status: Acute - Plan Continue with plan of care as mentioned below: 1. Patient with osteomyelitis of the left foot; patient is status post amputation of the left fifth toe and the metatarsal head. Patient is clinically doing well and is on oral antibiotics. Will continue with physical therapy and patient is to wear his boot whenever he is ambulating and offload the left foot is much as possible. Patient will continue with Augmentin for 2 weeks. Patient was denied inpatient rehab. Will work on snf facility placement or home with home health. Continue with wound VAC placement. Patient is still deciding on which 1 he would prefer. However, the family is leaning towards snf facility placement. It really depends on how well he is able to take care of himself as his is at home with him patient has done well during hospital stay. Patient's clinical symptoms have improved. Patient will continue with medical therapy as an outpatient. Patient will follow-up with consultants and PCP as an outpatient in 1 to 2 weeks. She is elderly and not able to do as much as she was once able to do. 2. CAD; continue with antiplatelet therapy and statin therapy 3. History of hypertension; continue with antihypertensives 4. History of anemia; continue monitoring H&H 5. GI DVT prophylaxis Discharge Plan: Home Plan to discharge in: Greater than 2 days - Advance Directives Does patient have a Living Will: No Does patient have a Durable POA for Healthcare: No - Code Status/Comfort Care Code Status Assessed: Yes Code Status: Full Code Critical Care: No Time Spent Managing PTS Care (In Minutes): 35
--- NOTE | 2025-01-08 15:29 | P.PN ---
Date of Service: 01/08/25 Subjective Patient remains very upbeat. Patient is planning on participating with physical therapy today as he wants to try to go walk outside into the hallway. His heart rate was a little elevated yesterday when walking to the door and back. Patient continues to improve. Family to decide on fdc facility placement versus home with home health. Physical Examination - Vital Signs Reviewed - Physical Exam General: Alert, In no apparent distress, Oriented x3 Respiratory: Clear to auscultation bilaterally, Normal air movement Cardiovascular: Regular rate/rhythm, Normal S1 S2, No murmurs Gastrointestinal: Normal bowel sounds, Soft and benign, Non-distended, No tenderness Integumentary: Wound is clean and intact with wound VAC in place Neurological: No focal deficits Assessment & Plan - Problems (Diagnosis) (1) Osteomyelitis of left foot status post amputation of the left foot fifth toe and metatarsal head Current Visit: Yes Status: Acute (2) Current chronic use of systemic steroids Current Visit: Yes Status: Acute (3) Anemia Current Visit: Yes Status: Acute (4) Hypertension Current Visit: Yes Status: Acute (5) Atrial fibrillation Current Visit: Yes Status: Acute (6) CAD (coronary artery disease) Current Visit: Yes Status: Acute (7) Peripheral arterial disease Current Visit: Yes Status: Acute - Plan Continue with plan of care as mentioned below: 1. Patient with osteomyelitis of the left foot; patient is status post amputation of the left fifth toe and the metatarsal head. Patient is clinically doing well and is on oral antibiotics. Will continue with physical therapy and patient is to wear his boot whenever he is ambulating and offload the left foot is much as possible. Patient will continue with Augmentin for 2 weeks. Patient was denied inpatient rehab. Will work on fdc facility placement or home with home health. Continue with wound VAC placement. Patient is still de ciding on which 1 he would prefer. However, the family is leaning towards fdc facility placement. It really depends on how well he is able to take care of himself as his is at home with him patient has done well during hospital stay. Patient's clinical symptoms have improved. Patient will continue with medical therapy as an outpatient. Patient will follow-up with consultants, Dr. Parmar, and PCP, Dr. Phan, as an outpatient in 1 week. Patient lives at home with his ; however, she is elderly and not able to do as much as she was once able to do. So it is imperative that he is able to do and function a little more independently prior to going home. 2. CAD; continue with antiplatelet therapy and statin therapy 3. History of hypertension; continue with antihypertensives 4. History of anemia; continue monitoring H&H 5. GI DVT prophylaxis Discharge Plan: Home Plan to discharge in: Greater than 2 days - Advance Directives Does patient have a Living Will: No Does patient have a Durable POA for Healthcare: No - Code Status/Comfort Care Code Status Assessed: Yes Code Status: Full Code Critical Care: No Time Spent Managing PTS Care (In Minutes): 35
--- NOTE | 2025-01-09 12:39 | PN ---
Subjective: The patient is lying in bed. No new acute event. Chart reviewed. Vital signs reviewed . The patient feels much better today, able to walk, and able to get out of the bed as needed. Objective: Vital Signs: Temperature 97, pulse 90, respirations 14, blood pressure 105/53. Lungs: Clear to auscultation. Heart: S1, S2. Regular. Abdomen: Soft, nontender. Bowel sounds present. Extremities: Left foot wound noted with wound VAC in place. Laboratory Data: WBC 8.7. Kidney function within normal limit. Assessment And Plan: Left foot osteomyelitis, status post amputation of fifth toe and fifth metatars al, currently being managed by Surgical team. Currently on Augmentin to finish 2 weeks of course. M oderate protein-calorie malnourishment. Diabetes mellitus. Leukocytosis has resolved. Continue sup portive care and wound care. We will follow the patient as needed. NF/MODL Voice ID: [id number] Report ID: [id number]
--- NOTE | 2025-01-09 18:19 | PN ---
Date of Progress Note: 01/09/2025 Subjective: The patient is awake, alert. No complaint. Objective: Vital Signs: Stable, afebrile. Skin: Examination of the wound reveals approximately 50% of the fibrin present. There is no surroun ding erythema, warmth, or edema. There is some granulation tissue as well. The wound is slowly heal ing. There is no foul odor. There is no evidence of any active infection present. Laboratory Data: His white count is normal. Assessment: Status post left fifth toe transmetatarsal amputation. Recommendations: Continue wound care and IV antibiotics as ordered. The patient can be discharged h ome on Augmentin per ID. [facility] in my clinic next week. Call the [facility] melissa for appointment. The patient will need some bedside debridement once he comes [facility] the [facility]. The wound is slowly improving. We will assess vascular status and refer to interventiona l physician once his infection is under better control, which it appears to be. /MODL Voice ID: [id number] Report ID: [id number]
--- NOTE | 2025-01-09 21:44 | PN ---
Date of Progress Note: 01/09/2025 Subjective: The patient was seen this morning for followup. No new complaints or problems reported. Overall, his condition has improved since I saw him last week on . Overall, his generalize d weakness has improved to the extent that now he is ambulating well with Physical Therapy. Denies a ny nausea, vomiting, abdominal pain. No chest pain. No shortness of breath. Objective: Vital Signs: Reviewed. HEENT: Unremarkable. Lungs: Clear to auscultation. Heart: Sounds normal. Abdomen: Soft. Bowel sounds normal. No guarding, rigidity, tenderness, distention. Extremities: No leg edema. Laboratory Data: Yesterday, WBC 8.7, hemoglobin 11.2, platelets 402. Sodium 135, potassium 4.1, chl oride 102, bicarb 27, BUN 21, creatinine 0.56, glucose 92. Liver function test unremarkable. Impression: 1. Osteomyelitis, left foot. 2. Hypertension. 3. Coronary artery disease. 4. Hyperlipidemia. 5. Generalized weakness. 6. Debility. Plan: We will continue current oral antibiotic, which is Augmentin. Continue wound care management, per Dr. Parmar. Social Service did inform me today that the patient got acceptance from insurance co [employer] to go to [facility] facility, but considering the patient's weakness has improved signifi cantly, manager social did talk to the patient and he does not want to go to residential. He wants t o go home and feels comfortable that he can go home with some home health care and home physical therapy director apy. This morning, when I saw him, I informed him that we can possibly discharge him to go home [facility] tomorrow or day after tomorrow depending on his condition. I will see him tomorrow morning. TONI/MODL Voice ID: [id number] Report ID: [id number]
[2025-01-10 09:14] VITALS: O2SAT 95
[2025-01-10 09:19] VITALS: TEMP 98.1
[2025-01-10 13:00] VITALS: BP 151/47
--- NOTE | 2025-01-10 13:09 | PN ---
Subjective: The patient is lying in bed. Denies any headache, nausea, vomiting, chest pain, abdomin al pain, constipation, or diarrhea. Complains of left foot pain. Objective: Vital Signs: Temperature 98, pulse 72, respirations 18, blood pressure 122/71. Lungs: Basal crackles. Heart: S1, S2. Regular. Abdomen: Soft. Bowel sounds present. Obese. Extremities: No edema. Wound noted. Laboratory Data: Shows no new labs available today. Assessment And Plan: 1. Status post amputation of first toe and metatarsal for osteomyelitis and diabetic foot ulcer. The patient is doing well. Currently, on oral Augmentin. 2. Diabetes mellitus. 3. Diabetic neuropathy. 4. Leukocytosis, improved. 5. Anemia of chronic disease. We will follow the patient as needed. NF/MODL Voice ID: [id number] Report ID: [id number]
[2025-01-10] MEDS: HYDROCODONE/APAP 5/325 MG TAB PO PRN (14:25)
== END 2025-01-10 15:29 | disposition home health service (06) | DRG 616 ==
LOC: ER 13:14 → 2ND 17:01 → 3RD-ICU 12-27 15:36 → 2ND 01-01 15:34
PROVIDERS: ADMIT Hospitalist; ATTEND Internal Medicine
PROC: 5A09557 Assistance with Respiratory Ventilation, Greater than 96 Consecutive Hours, Continuous Positive Airway Pressure (ICD-10-PCS; 2024-12-27)
PROC: 02HV33Z Insertion of Infusion Device into Superior Vena Cava, Percutaneous Approach (ICD-10-PCS; 2024-12-27)
PROC: 0T9B70Z Drainage of Bladder with Drainage Device, Via Natural or Artificial Opening (ICD-10-PCS; 2024-12-27)
PROC: 4A033R1 Measurement of Arterial Saturation, Peripheral, Percutaneous Approach (ICD-10-PCS; 2024-12-28)
PROC: 0Y6Y0Z0 Detachment at Left 5th Toe, Complete, Open Approach (ICD-10-PCS; principal; 2024-12-28 12:15)
DX: E11.69 Type 2 diabetes mellitus with other specified complication (principal); I50.33 Acute on chronic diastolic (congestive) heart failure; J96.01 Acute respiratory failure with hypoxia; E11.52 Type 2 diabetes mellitus with diabetic peripheral angiopathy with gangrene; C64.2 Malignant neoplasm of left kidney, except renal pelvis; L03.116 Cellulitis of left lower limb; Z94.0 Kidney transplant status; M86.172 Other acute osteomyelitis, left ankle and foot; E44.0 Moderate protein-calorie malnutrition; L03.032 Cellulitis of left toe; I11.0 Hypertensive heart disease with heart failure; E11.40 Type 2 diabetes mellitus with diabetic neuropathy, unspecified; E11.621 Type 2 diabetes mellitus with foot ulcer; L97.529 Non-pressure chronic ulcer of other part of left foot with unspecified severity; I48.91 Unspecified atrial fibrillation; E78.00 Pure hypercholesterolemia, unspecified; D69.6 Thrombocytopenia, unspecified; D64.9 Anemia, unspecified; K21.9 Gastro-esophageal reflux disease without esophagitis; I25.10 Atherosclerotic heart disease of native coronary artery without angina pectoris; B96.5 Pseudomonas (aeruginosa) (mallei) (pseudomallei) as the cause of diseases classified elsewhere; R29.6 Repeated falls; Z88.5 Allergy status to narcotic agent; Z95.1 Presence of aortocoronary bypass graft; Z95.5 Presence of coronary angioplasty implant and graft; Z91.81 History of falling; Z79.82 Long term (current) use of aspirin; Z79.52 Long term (current) use of systemic steroids; Z79.01 Long term (current) use of anticoagulants; Z68.34 Body mass index [BMI] 34.0-34.9, adult; Z89.412 Acquired absence of left great toe; Z79.899 Other long term (current) drug therapy; Z87.891 Personal history of nicotine dependence
CPT/HCPCS: 36415; 36600; 70450; 71045; 72125; 72131; 80048; 80053; 80202; 82533; 82805; 82947; 83735; 83880; 84484; 85025; 87040; 87070; 87075; 87077; 87176; 87186; 87205; 88304; 88305; 88311; 93005; 93306; 93925; 93971; 94640; 94660; 96374; 97110; 97116; 97161; 97164; 97165; 97530; 99285; J0171; J0696; J1100; J1171; J1720; J1940; J2003; J2185; J2704; J3370; J3475; J3480; J3535; J3590; J7040; J7042; J7050; J7512; J7613